=== PATIENT | female | born 1940 | race African-American/Black ===

== ENCOUNTER 2016-05-31 13:29 | Inpatient (IN) | payer MEDICARE, OTHER ==
[~2016-05-31] VITALS: Ht 157.5 cm; Wt 84.0 kg
[~2016-05-31 13:29] MED LIST: ACET-704 PO; ALPR0.5T6 PO; ASPI81TA2 PO; AZIT1PAC7 PO; BUDE10.2 IH; CHOL100013 PO; DEXT1DRO8 OU; GUAI120L35 PO; LEVO50TA5 PO; LISI-338 PO; NYST1000 PO; PANT40TA5 PO; POLY17PO3 PO; RANI150T2 PO; TRAM50TA PO; VENTOLIN HFA18 GM INH; WARF5TAB PO; WARF7.5T PO
[2016-05-31] MEDS: FENTANYL PF 100 MCG/2 ML VIAL. IV PRN ×2 (14:56→15:38)
[2016-05-31 15:15] LABS: BASO % 0 % (0-3); EOS % 1 % (0-3); HEMOGLOBIN 10.7 g/dL (12.0-15.5); LYMPH # 1.3 x10^3/uL (1.0-4.8); LYMPH % 22 % (24-48); MEAN CORPUSCULAR HEMOGLOBIN 32 pg (25-35); MEAN CORPUSCULAR HGB CONC 34 g/dL (31-37); MEAN CORPUSCULAR VOLUME 95 fL (79-100); MONO % 11 % (0-9); NEUT % 66 % (31-73); PLATELET COUNT 239 x10^3/uL (140-400); RED BLOOD COUNT 3.36 x10^6/uL (3.50-5.40); RED CELL DISTRIBUTION WIDTH 13.9 % (11.5-14.5); WHITE BLOOD COUNT 6.1 x10^3/uL (4.0-11.0)
[2016-05-31 15:24] LABS: INR 2.3 (0.8-1.1); PROTHROMBIN TIME PATIENT 24.3 SEC (11.7-14.0)
[2016-05-31 15:27] LABS: CREATININE 0.8 mg/dL (0.6-1.0); GFR 84.4; POTASSIUM 3.9 mmol/L (3.5-5.1)
[2016-05-31 15:33] LABS: ALBUMIN 3.4 g/dL (3.4-5.0); ALBUMIN/GLOBULIN RATIO 0.8 (1.0-1.7); TOTAL BILIRUBIN 0.4 mg/dL (0.2-1.0); TOTAL PROTEIN 7.5 g/dL (6.4-8.2)
--- NOTE | 2016-05-31 15:44 | RAD ---
CT head without contrast History: Left-sided facial pain for one day. Comparison: None. Procedure: Axial images are obtained of the head from the skull base through the vertex without IV contrast. One or more of the following individualized dose reduction techniques were utilized for the study: Automated exposure control Adjustment of mA and/or kV according to patient's size Use of iterative reconstruction technique. Findings: The ventricles and sulci are normal for the patient's age. No mass-effect, intracranial mass, midline shift, hemorrhage or obvious acute infarction is identified. Bilateral basal ganglia demonstrate physiologic calcifications. Basilar cisterns are patent. Bone windows demonstrate no significant calvarial abnormality. The visualized paranasal sinuses appear clear. Impression: No acute intracranial process.
--- NOTE | 2016-05-31 15:48 | RAD ---
CT neck without intravenous contrast History: Left-sided neck pain for one day. Comparison: None. Technique: Helical CT of the neck was performed without intravenous contrast. Axial, sagittal, and coronal reconstructions were obtained. One or more of the following individualized dose reduction techniques were utilized for the study: Automated exposure control Adjustment of mA and/or kV according to patient's size Use of iterative reconstruction technique. Findings: Evaluation of vascular structures and for lymphadenopathy is limited by lack of intravenous contrast. The airway is patent. Bilateral parotid and submandibular glands appear symmetric. Thyroid is not well seen. No neck lymphadenopathy is appreciated. No convincing neck soft tissue abnormality is seen. Multilevel degeneration is present with spine. There is reversal of the normal cervical lordosis. Impression: No acute abnormality identified in the neck..
--- NOTE | 2016-05-31 16:32 | PHYS DOC ---
Past Medical History Past Medical History: Asthma, DVT, Fibromyalgia, Hypertension, Hypothyroid Additional Past Medical Histor: ulcer Past Surgical History: Appendectomy, Knee Replacement, Tubal ligation, Other Additional Past Surgical Histo: ulcer, hernia Alcohol Use: None Drug Use: None Adult General Chief Complaint Chief Complaint: left face and neck pain HPI HPI Patient is a 76 year old female complaining of pain on the left side of her head, face, neck, and upper left shoulder, which she noticed when she woke up yesterday. She had inadvertently fallen asleep in the recliner chair on Wednesday night and she slept all night there, when she went to sleep her face and neck were hurting but when she woke up they were. She continued to have pain during the day yesterday, it worsened, and is more severe this morning. She denies any specific injury. She's never had this before. She denies fever or chills. It seems like it feels painful on the left side of her head, left cheek and ear, left side of the neck, and down into her upper left shoulder. She does not have pain going all the way down her left arm. It hurts more to move, to turn her head, to sit up, but it does not hurt more to take a breath. She has had some dental problems but states she has full upper dentures and partial on the lower. She hasn't had any worsening dental pain or problems lately, just plans to see a dentist. She states a penicillin allergy, it causes a rash. PCP Dr. Villegas at . Review of Systems Review of Systems Constitutional: Denies fever or chills [] Eyes: Denies change in visual acuity, redness, she has had some intermittent pain behind the left eye and actually saw her eye doctor for it but has not had it this week. HENT: Denies nasal congestion or sore throat [] Respiratory: Denies cough or shortness of breath [] Cardiovascular: Denies chest pain GI: Denies abdominal pain, nausea, vomiting, bloody stools or diarrhea [] : Denies dysuria or hematuria [] Musculoskeletal: Denies back pain or joint pain , neck pain as in history of present illness Integument: She has noted some swelling over her left cheek and a little bump under the skin Neurologic: Denies headache, focal weakness or sensory changes [] Current Medications Current Medications Current Medications Medications (Trade) Dose Ordered Sig/Sivan Start Time Stop Time Status Last Admin Dose Admin Fentanyl Citrate (Fentanyl 2ml Vial) 25 mcg PRN Q15MIN PRN 05/31/16 14:15 06/01/16 14:14 05/31/16 15:38 25 MCG Allergies Allergies Allergies Coded Allergies Type Severity Reaction Last Updated Verified Penicillins Allergy Severe Anaphylaxis 11/21/15 Yes diphenhydramine Allergy Severe Anaphylaxis 11/21/15 Yes ipratropium Allergy Severe Anaphylaxis 11/21/15 Yes meclizine Allergy Severe 11/21/15 Yes trazodone Allergy Severe Shortness of Air 11/21/15 Yes bacitracin Allergy Intermediate Rash 11/21/15 Yes gabapentin Allergy Intermediate Itching 11/21/15 Yes neomycin Allergy Intermediate Rash 11/21/15 Yes oxycodone Allergy Intermediate Nausea and Vomiting 11/21/15 Yes polymyxin B Allergy Intermediate Rash 11/21/15 Yes Physical Exam Physical Exam Constitutional: Well developed, well nourished, no acute distress, non-toxic appearance. Appears to be uncomfortable and when she tries to sit up on the cart she has obvious discomfort of the neck. HENT: Normocephalic, atraumatic, bilateral external ears normal, left EAC and left TM normal, oral exam unremarkable, upper dentures in place oropharynx moist , no oral exudates, nose normal. Left face over the zygoma appears to have a mild amount of swelling and redness and is moderately tender to light palpation. Eyes: PERRLA, EOMI, conjunctiva normal, no discharge. No periorbital swelling or cellulitis, no exophthalmos. Neck: No masses, no palpable lymphadenopathy, no muscle spasm or muscle abnormality on exam. Tender to palpation over the left neck and over the left trapezius. No cervical spine tenderness. Cardiovascular:Heart rate regular rhythm, no murmur [] Lungs & Thorax: Bilateral breath sounds clear to auscultation [] Abdomen: Bowel sounds normal, soft, no tenderness, no masses, no pulsatile masses. [] Skin: Warm, dry, no erythema, no rash. [] Extremities: No tenderness, no cyanosis, no clubbing, ROM intact, no edema. [] Neurologic: Alert and oriented X 3, normal motor function, normal sensory function, no focal deficits noted. [] Current Patient Data Vital Signs Vital Signs Date Time Temp Pulse Resp B/P Pulse Ox O2 Delivery O2 Flow Rate FiO2 05/31/16 15:38 19 97 Room Air 05/31/16 15:30 166/77 05/31/16 14:30 86 05/31/16 13:49 98.2 98.2 Lab Values Laboratory Tests Test 05/31/16 15:00 White Blood Count 6.1x10^3/uL (4.0-11.0) Red Blood Count 3.36x10^6/uL (3.50-5.40) L Hemoglobin 10.7g/dL (12.0-15.5) L Hematocrit 32.0% (36.0-47.0) L Mean Corpuscular Volume 95fL (79-100) Mean Corpuscular Hemoglobin 32pg (25-35) Mean Corpuscular Hemoglobin Concent 34g/dL (31-37) Red Cell Distribution Width 13.9% (11.5-14.5) Platelet Count 239x10^3/uL (140-400) Neutrophils (%) (Auto) 66% (31-73) Lymphocytes (%) (Auto) 22% (24-48) L Monocytes (%) (Auto) 11% (0-9) H Eosinophils (%) (Auto) 1% (0-3) Basophils (%) (Auto) 0% (0-3) Neutrophils # (Auto) 4.0x10^3uL (1.8-7.7) Lymphocytes # (Auto) 1.3x10^3/uL (1.0-4.8) Monocytes # (Auto) 0.7x10^3/uL (0.0-1.1) Eosinophils # (Auto) 0.1x10^3/uL (0.0-0.7) Basophils # (Auto) 0.0x10^3/uL (0.0-0.2) Erythrocyte Sedimentation Rate 30 (0-25) H Prothrombin Time 24.3SEC (11.7-14.0) H Prothrombin Time INR 2.3 (0.8-1.1) H Sodium Level 140mmol/L (136-145) Potassium Level 3.9mmol/L (3.5-5.1) Chloride Level 105mmol/L (98-107) Carbon Dioxide Level 25mmol/L (21-32) Anion Gap 10 (6-14) Blood Urea Nitrogen 12mg/dL (7-20) Creatinine 0.8mg/dL (0.6-1.0) Estimated GFR (Cockcroft-Gault) 84.4 BUN/Creatinine Ratio 15 (6-20) Glucose Level 105mg/dL (70-99) H Calcium Level 9.0mg/dL (8.5-10.1) Total Bilirubin 0.4mg/dL (0.2-1.0) Aspartate Amino Transferase (AST) 18U/L (15-37) Alanine Aminotransferase (ALT) 15U/L (14-59) Alkaline Phosphatase 58U/L (46-116) Total Protein 7.5g/dL (6.4-8.2) Albumin 3.4g/dL (3.4-5.0) Albumin/Globulin Ratio 0.8 (1.0-1.7) L Laboratory Tests 05/31/16 15:00 Laboratory Tests 05/31/16 15:00 EKG EKG [] Radiology/Procedures Radiology/Procedures CT scan of the head and soft tissues of the neck read by the radiologist. No acute findings. I spoke with the radiologist, Dr. Acevedo, and discussed the area in question, the patient's left zygoma area, and he does not see anything of concern in that area. [] Course & Med Decision Making Course & Med Decision Making Pertinent Labs and Imaging studies reviewed. (See chart for details) 76-year-old female who woke up yesterday morning with pain in the left side of the face, left side of the neck, and upper left shoulder, and the pain has worsened since it began yesterday morning, and is now pretty significant pain. She does have some swelling and redness, and significant tenderness, of the area , which makes me concerned for possible cellulitis. She is afebrile with a normal white count but she is experiencing fairly significant amount of pain and I believe would be appropriately treated with IV antibiotics and IV pain control. The patient is agreeable to that plan. I spoke with Dr. Myles , [facility], who will admit the patient. I wrote bridge orders. The patient is allergic to penicillin so I gave her a first dose of vancomycin. [] Dragon Disclaimer Dragon Disclaimer This electronic medical record was generated, in whole or in part, using a voice recognition dictation system. Departure Departure Impression: Primary Impression: Facial cellulitis Disposition: ADMITTED INPATIENT Admitting Physician: Other Condition: STABLE Referrals: CANDIS VILLEGAS (PCP) LENIN AMIN MD May 31, 2016 16:32
[2016-05-31] MEDS ORDERED: VANCOMYCIN 1GM IVPB FOR OMNI 250 ML IV ONE (16:45)
[2016-05-31] MEDS ORDERED: FENTANYL PF 100 MCG/2 ML VIAL. IV ONE (16:45)
[2016-05-31] MEDS ORDERED: FENTANYL PF 100 MCG/2 ML VIAL. IV PRN (17:00)
[2016-05-31] MEDS ORDERED: VANCOMYCIN 2 GM in IV NORMAL SALINE 500ML BAG 500 ML IV ONE (18:30)
[2016-05-31] MEDS ORDERED: hydrALAZINE 20 MG/ML VIAL. IVP PRN (18:45)
[2016-05-31] MEDS ORDERED: ALBUTEROL SULFATE 2.5 MG/3 ML NEBU. NEB PRN (18:45)
[2016-05-31] MEDS ORDERED: ONDANSETRON PF 4 MG/2 ML VIAL. IV PRN (18:45)
[2016-05-31 19:00] VITALS: BP 150/77
[2016-05-31] MEDS ORDERED: FAMOTIDINE 20 MG/2 ML VIAL IVP ONE (21:00)
[2016-05-31] MEDS ORDERED: methylPREDNISolone SOD SUCC PF 40 MG/ML VIAL. IV ONE (21:00)
--- NOTE | 2016-05-31 21:24 | PDOC1 ---
History and Physical Past Medical History Past Medical History Past Medical History: Asthma, DVT, Fibromyalgia, Hypertension, Hypothyroid Past Surgical History: Appendectomy, Knee Replacement, Tubal ligation, Other Cardiovascular: HTN, Hyperlipidemia Pulmonary: Asthma GI: Constipation, GERD, Irritable bowel disease, Peptic Ulcer disease Heme/Onc: Anemia NOS, Other Psych: Anxiety, Depression Endocrine: Hypothyroidism, Osteopenia, Other Past Surgical History Past Surgical History: Total knee replacement, Other Family History Family History: Diabetes, Hypertension Social History ALCOHOL: none Drugs: None Current Problem List Problem List Problems Medical Problems: (1) Facial cellulitis Status: Acute Current Medications Current Medications Current Medications Medications (Trade) Dose Ordered Sig/Sivan Start Time Stop Time Status Last Admin Dose Admin Acetaminophen (Tylenol) 325 mg PRN Q6HRS PRN 05/31/16 18:45 Albuterol Sulfate (Ventolin Neb Soln) 2.5 mg PRN Q4HRS PRN 05/31/16 18:45 Alprazolam (Xanax) 0.5 mg DAILY PRN 05/31/16 21:30 UNV Famotidine (Pepcid) 20 mg 1X ONCE 05/31/16 21:00 05/31/16 21:01 DC 05/31/16 20:53 20 MG Fentanyl Citrate (Fentanyl 2ml Vial) 50 mcg 1X ONCE 05/31/16 16:45 05/31/16 16:46 DC 05/31/16 18:42 50 MCG Fentanyl Citrate 25 mcg 25 mcg PRN Q15MIN PRN 05/31/16 14:15 06/01/16 14:14 05/31/16 15:38 25 MCG Fentanyl Citrate 50 mcg 50 mcg PRN Q2HR PRN 05/31/16 17:00 06/01/16 16:59 Hydralazine HCl (Apresoline) 10 mg PRN Q4HRS PRN 05/31/16 18:45 Levothyroxine Sodium (Synthroid) 50 mcg DAILY 06/01/16 09:00 UNV Lisinopril (Prinivil) 5 mg DAILY 06/01/16 09:00 UNV Methylprednisolone Sodium Succinate (Solu-Medrol 40mg Vial) 40 mg 1X ONCE 05/31/16 21:00 05/31/16 21:01 DC 05/31/16 20:53 40 MG Non-Formulary Medication 1 tab BID 06/01/16 09:00 UNV Ondansetron HCl (Zofran) 4 mg PRN Q8HRS PRN 05/31/16 18:45 Polyethylene Glycol (miraLAX PACKET) 17 gm DAILY 06/01/16 09:00 UNV Vancomycin HCl 250 ml @ 250 mls/hr 1X ONCE 05/31/16 16:45 05/31/16 17:44 Cancel Vancomycin HCl/ Sodium Chloride (Iv Sodium Chloride 0.9% 500ml Bag) 500 ml @ 250 mls/hr 1X ONCE 05/31/16 18:30 05/31/16 20:29 DC 05/31/16 18:33 250 MLS/HR Allergies Allergies Allergies Coded Allergies Type Severity Reaction Last Updated Verified Penicillins Allergy Severe Anaphylaxis 11/21/15 Yes diphenhydramine Allergy Severe Anaphylaxis 11/21/15 Yes ipratropium Allergy Severe Anaphylaxis 11/21/15 Yes meclizine Allergy Severe 11/21/15 Yes trazodone Allergy Severe Shortness of Air 11/21/15 Yes bacitracin Allergy Intermediate Rash 11/21/15 Yes gabapentin Allergy Intermediate Itching 11/21/15 Yes neomycin Allergy Intermediate Rash 11/21/15 Yes oxycodone Allergy Intermediate Nausea and Vomiting 11/21/15 Yes polymyxin B Allergy Intermediate Rash 11/21/15 Yes ROS Review of System CONSTITUTIONAL: No fever or chills EYES: No recent changes SKIN: left facial rash CARDIOVASCULAR: No chest pain, syncope, palpitations, or edema RESPIRATORY: No SOB or cough GASTROINTESTINAL: No nausea, vomiting or abdominal pain NEUROLOGICAL: No headaches or weakness ENDOCRINE: No cold or heat intolerance GENITOURINARY: No urgency or frequency of urination MUSCULOSKELETAL: No back pain or joint pain LYMPHATICS: No enlarged lymph nodes PSYCHIATRIC: No anxiety or depression Physical Exam Physical Exam GEN.: No apparent distress. Alert and oriented. HEENT: Head is normocephalic, atraumatic, Face: left facial salmon colored rash, NECK: Supple. no JVD LUNGS: Clear to auscultation. normal airflow HEART: RRR, S1, S2 present. Peripheral pulses intact ABDOMEN: Soft, nontender. Positive bowel sounds. EXTREMITIES: Without any cyanosis. NEUROLOGIC: Normal speech, normal tone PSYCHIATRIC: Normal affect, normal mood. SKIN: No ulcerations Vitals Vitals Vital Signs Date Time Temp Pulse Resp B/P Pulse Ox O2 Delivery O2 Flow Rate FiO2 05/31/16 19:00 98.1 87 18 150/77 100 Room Air 98.1 Labs Labs Laboratory Tests Test 05/31/16 15:00 White Blood Count 6.1x10^3/uL (4.0-11.0) Red Blood Count 3.36x10^6/uL (3.50-5.40) Hemoglobin 10.7g/dL (12.0-15.5) Hematocrit 32.0% (36.0-47.0) Mean Corpuscular Volume 95fL (79-100) Mean Corpuscular Hemoglobin 32pg (25-35) Mean Corpuscular Hemoglobin Concent 34g/dL (31-37) Red Cell Distribution Width 13.9% (11.5-14.5) Platelet Count 239x10^3/uL (140-400) Neutrophils (%) (Auto) 66% (31-73) Lymphocytes (%) (Auto) 22% (24-48) Monocytes (%) (Auto) 11% (0-9) Eosinophils (%) (Auto) 1% (0-3) Basophils (%) (Auto) 0% (0-3) Neutrophils # (Auto) 4.0x10^3uL (1.8-7.7) Lymphocytes # (Auto) 1.3x10^3/uL (1.0-4.8) Monocytes # (Auto) 0.7x10^3/uL (0.0-1.1) Eosinophils # (Auto) 0.1x10^3/uL (0.0-0.7) Basophils # (Auto) 0.0x10^3/uL (0.0-0.2) Erythrocyte Sedimentation Rate 30 (0-25) Prothrombin Time 24.3SEC (11.7-14.0) Prothromb Time International Ratio 2.3 (0.8-1.1) Sodium Level 140mmol/L (136-145) Potassium Level 3.9mmol/L (3.5-5.1) Chloride Level 105mmol/L (98-107) Carbon Dioxide Level 25mmol/L (21-32) Anion Gap 10 (6-14) Blood Urea Nitrogen 12mg/dL (7-20) Creatinine 0.8mg/dL (0.6-1.0) Estimated GFR (Cockcroft-Gault) 84.4 BUN/Creatinine Ratio 15 (6-20) Glucose Level 105mg/dL (70-99) Calcium Level 9.0mg/dL (8.5-10.1) Total Bilirubin 0.4mg/dL (0.2-1.0) Aspartate Amino Transf (AST/SGOT) 18U/L (15-37) Alanine Aminotransferase (ALT/SGPT) 15U/L (14-59) Alkaline Phosphatase 58U/L (46-116) Total Protein 7.5g/dL (6.4-8.2) Albumin 3.4g/dL (3.4-5.0) Albumin/Globulin Ratio 0.8 (1.0-1.7) Laboratory Tests Test 05/31/16 15:00 White Blood Count 6.1x10^3/uL (4.0-11.0) Red Blood Count 3.36x10^6/uL (3.50-5.40) Hemoglobin 10.7g/dL (12.0-15.5) Hematocrit 32.0% (36.0-47.0) Mean Corpuscular Volume 95fL (79-100) Mean Corpuscular Hemoglobin 32pg (25-35) Mean Corpuscular Hemoglobin Concent 34g/dL (31-37) Red Cell Distribution Width 13.9% (11.5-14.5) Platelet Count 239x10^3/uL (140-400) Neutrophils (%) (Auto) 66% (31-73) Lymphocytes (%) (Auto) 22% (24-48) Monocytes (%) (Auto) 11% (0-9) Eosinophils (%) (Auto) 1% (0-3) Basophils (%) (Auto) 0% (0-3) Neutrophils # (Auto) 4.0x10^3uL (1.8-7.7) Lymphocytes # (Auto) 1.3x10^3/uL (1.0-4.8) Monocytes # (Auto) 0.7x10^3/uL (0.0-1.1) Eosinophils # (Auto) 0.1x10^3/uL (0.0-0.7) Basophils # (Auto) 0.0x10^3/uL (0.0-0.2) Erythrocyte Sedimentation Rate 30 (0-25) Prothrombin Time 24.3SEC (11.7-14.0) Prothromb Time International Ratio 2.3 (0.8-1.1) Sodium Level 140mmol/L (136-145) Potassium Level 3.9mmol/L (3.5-5.1) Chloride Level 105mmol/L (98-107) Carbon Dioxide Level 25mmol/L (21-32) Anion Gap 10 (6-14) Blood Urea Nitrogen 12mg/dL (7-20) Creatinine 0.8mg/dL (0.6-1.0) Estimated GFR (Cockcroft-Gault) 84.4 BUN/Creatinine Ratio 15 (6-20) Glucose Level 105mg/dL (70-99) Calcium Level 9.0mg/dL (8.5-10.1) Total Bilirubin 0.4mg/dL (0.2-1.0) Aspartate Amino Transf (AST/SGOT) 18U/L (15-37) Alanine Aminotransferase (ALT/SGPT) 15U/L (14-59) Alkaline Phosphatase 58U/L (46-116) Total Protein 7.5g/dL (6.4-8.2) Albumin 3.4g/dL (3.4-5.0) Albumin/Globulin Ratio 0.8 (1.0-1.7) VTE Prophylaxis Ordered VTE Prophylaxis Devices: Yes VTE Pharmacological Prophylaxi: Yes ERNESTO RO MD May 31, 2016 21:24
[2016-05-31] MEDS: FAMOTIDINE 20 MG TABLET. PO SCH (22:00)
[2016-05-31] MEDS: POLYVINYL ALCOHOL 1.4% OPHTH SOLUTION 15ML BOTTLE. OU SCH (22:00)
--- NOTE | 2016-05-31 22:23 | HP ---
ADMIT DATE: 05/31/2016 CHIEF COMPLAINT: Left face and neck pain. 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 Initially she was in the impression that she slept on her left side of the face and noted to have that redness, however redness did not go away and she noted to have some pain and pain getting worse with movement and initially she had this redness on her left side of the face, neck and shoulder but at the time of my examination it is mostly located on the left side of the face. She denies any trauma, fever, chills, nausea, vomiting or dental problems. Her dentition looks okay. No obvious symptoms such as caries tooth, however patient is on warfarin for DVT and questionable PE. PAST MEDICAL HISTORY, REVIEW OF SYSTEMS, PHYSICAL EXAMINATION: Please see my electronic H and P. LABORATORY REVIEW: WBC 6.1, hemoglobin is 10.7, MCV is 95, platelets are 239, ESR is 30. Chemistry: sodium is 140, potassium 3.9, chloride is 105, anion gap 10, creatinine is 0.8, glucose is 105, PT is 24.3, INR 2.3. IMAGING STUDIES: Head CT showed no acute intracranial process seen. Soft tissue neck CT no acute abnormality of the neck. ASSESSMENT AND PLAN: 1. Left side facial red/salmon color rash unclear etiology, possible related to infection versus warfarin related. 2. Hypertension. 3. Fibromyalgia. 4. DVT x 2 and questionable PE. 5. Hypothyroidism. 6. Asthma history. PLAN: 1. The patient was admitted to the hospital for further evaluation and treatment and she received vancomycin. Upon completion she developed some increased itching and "swelling like feeling, however she did not compromise her airway. She did receive Pepcid and Solu-Medrol. I am not able to give her Benadryl due to prior history of allergies to Benadryl. 2. I will hold her Coumadin today and ask oncology to see her and recommendations regarding continuation of oral anticoagulation. Patient was not able to provide any good history about her past workup regarding DVTs. 3. change antibiotics to doxycycline. 4. It is less likely infection as I did not see any WBC or fever or any inciting factors such as a trauma or an insect bite. 5. Home medications for hypertension. Continue on p.r.n. hydralazine if systolic blood pressure more than 160. 6. We will continue Synthroid for hypothyroidism. 7. No DVT prophylaxis. 8. The patient's symptoms will get better. Continue her Coumadin. 9. Pain control with hydrocodone and p.r.n. fentanyl. ERNESTO RO MD DR: RENÉ/[email or web address] JOB#: [id number] / [id number]
[2016-05-31] MEDS: DOXYCYCLINE HYCLATE 100 MG in IV DEXTROSE 5% 100 ML IV SCH (22:42)
[2016-05-31 23:00] VITALS: BP 125/66
[2016-05-31] MEDS: ACETAMINOPHEN 325 MG TABLET. PO PRN (23:01)
[2016-05-31] MEDS: ALPRAZOLAM 0.5 MG TABLET PO PRN (23:01)
[2016-06-01 03:00] VITALS: BP 106/56
[2016-06-01 05:24] LABS: BASO % 0 % (0-3); EOS % 0 % (0-3); HEMATOCRIT 32.1 % (36.0-47.0); HEMOGLOBIN 10.6 g/dL (12.0-15.5); LYMPH # 0.6 x10^3/uL (1.0-4.8); LYMPH % 14 % (24-48); MEAN CORPUSCULAR HEMOGLOBIN 33 pg (25-35); MEAN CORPUSCULAR HGB CONC 33 g/dL (31-37); MEAN CORPUSCULAR VOLUME 99 fL (79-100); MONO % 2 % (0-9); NEUT % 84 % (31-73); PLATELET COUNT 211 x10^3/uL (140-400); RED BLOOD COUNT 3.25 x10^6/uL (3.50-5.40); WHITE BLOOD COUNT 4.6 x10^3/uL (4.0-11.0)
[2016-06-01 05:41] LABS: CALCIUM 9.1 mg/dL (8.5-10.1); CREATININE 0.8 mg/dL (0.6-1.0); GFR 84.4; POTASSIUM 4.3 mmol/L (3.5-5.1)
[2016-06-01] MEDS: LEVOTHYROXINE 50 MCG TABLET PO SCH (05:50)
[2016-06-01 07:00] VITALS: BP 127/60
--- NOTE | 2016-06-01 08:11 | ACF ---
Admission Forms Criteria CELLULITIS Clinical Indications for Admission to Inpatient Care (Place 'X' for any and all applicable criteria): Admission is indicated for ANY ONE of the following(1)(2)(3)(4)(5): [ ]I. Limb-threatening infection [ ]II. High-risk comorbid condition as indicated by ANY ONE of the following: [ ]a) Uncontrolled diabetes (eg, HbA1c greater than 10% (0.1)) [ ]b) Cirrhosis [ ]c) Neutropenia [ ]d) Asplenia [ ]e) Immunosuppression [ ]f) Symptomatic heart failure [ ]III. Failure of outpatient therapy as indicated by ALL of the following: [ ]a) Progression or no improvement after adequate trial (minimum of 48 hours, with longer period for stable lower extremity infection) [ ]b) Adequate antibiotic regimen as indicated by use of ANY ONE of the following: [ ]i) First-generation cephalosporin (e.g., cephalexin) [ ]ii) Antistaphylococcal penicillin (e.g., dicloxacillin) [ ]iii) Penicillin-allergic patient regimen (clindamycin, extended-spectrum fluoroquinolone, or doxycycline) [ ]iv) Resistant organism (eg, methicillin-resistant Staphylococcus aureus) regimen (6) [ ]c) Outpatient intravenous therapy regimen is not appropriate due to ANY ONE of the following. (7)(8)(9)(10): [ ]i) It was tried and was not successful (eg, progression of infection). [ ]ii) It is not available or cannot be arranged in a clinically appropriate time frame (e.g., the next day). [ ]iii) Clinical presentation (eg, acuity of infection, rapidity of progression, confirmed or suspected bacteremia) is judged to require ALL of the following: [ ]1) Immediate initiation of intravenous therapy ( eg, cannot wait for next day) [ ]2) Intensity of patient monitoring and observation (eg, vital sign measurement, checks for infection progression) that cannot be provided at other than inpatient level of care [ ]IV. Mental status changes [ ]V. Bacteremia [ ]. Hemodynamic instability [ ]VII. Suspected necrotizing soft tissue infection (e.g., gas in tissue)(11)( 12) [ ]VIII. Orbital infection (13)(14) [ ]IX. Associated surgical procedure (e.g., abscess drainage, debridement) not amenable to outpatient, emergency department, or observation care [ ]X. Cutaneous gangrene [ ]XI. High fever (temperature greater than 39.5 degrees C (103.1 degrees F) (oral)) not responsive to outpatient, emergency department, or observation care therapy [X]XIII. Inpatient admission required rather than observation care (Also use Cellulitis: Observation Care as appropriate) because of ANY ONE of the following : [ ]a) Periorbital or perineal infection that is severe or worsening [ ]b) Severe pain requiring acute inpatient management [ ]c) IV fluid to replace significant ongoing (e.g., for over 24 hours) losses (greater than 3L/m2 per day) [ ]d) Compartment syndrome monitoring (17) [ ]e) Strict or protective (eg, laminar flow) isolation [ ]f) Urgent debridement or skin grafting [ ]g) Bone or joint debridement [ ]h) Immediate inpatient surgery [X]i) Other condition, treatment or monitoring requiring inpatient admission Extended stay beyond goal length of stay may be needed for (1)(18): [ ]a) Necrotizing soft tissue infection or fasciitis [ ]b) Gram-negative infection [ ]c) Methicillin-resistant Staphylococcal aureus (MRSA) infection [ ]d) Peripheral venous insufficiency with cellulitis [ ]e) Extensive edema [ ]f) Sepsis or continued Hemodynamic instability [ ]g) Continued high fever or mental status change [ ]h) Bacteremia [ ]i) Active serious comorbid conditions ( eg, heart failure, renal insufficiency) The original [employer] content created by [employer] has been revised. The portions of the content which have been revised are identified through the use of italic text or in bold, and [facility] has neither reviewed nor approved the modified material. All other unmodified content is copyright [facility] Please see references footnoted in the original [facility] edition 2016 Admission Criteria Met?: Yes CARLA ZULETA Jun 01, 2016 08:11
[2016-06-01] MEDS: FAMOTIDINE 20 MG TABLET. PO SCH ×2 (08:44→20:44)
[2016-06-01] MEDS: CHOLECALCIFEROL (VITAMIN D3) 1,000 UNIT TABLET PO SCH (08:44)
[2016-06-01] MEDS: POLYVINYL ALCOHOL 1.4% OPHTH SOLUTION 15ML BOTTLE. OU SCH ×2 (08:45→20:43)
[2016-06-01] MEDS: POLYETHYLENE GLYCOL 3350 17 GM PACKET. PO SCH (08:51)
[2016-06-01] MEDS ORDERED: LISINOPRIL 5 MG TABLET. PO SCH ×2 (09:00→21:00)
[2016-06-01] MEDS ORDERED: NON FORMULARY ITEM (Albuterol Sulfate (Ventolin Hfa Inhaler) 2 PUFF) INH SCH (09:00)
[2016-06-01] MEDS: DOXYCYCLINE HYCLATE 100 MG in IV DEXTROSE 5% 100 ML IV SCH (09:00)
[2016-06-01 11:00] VITALS: BP 138/71
[2016-06-01] MEDS: ACETAMINOPHEN 325 MG TABLET. PO PRN ×2 (12:35→20:43)
[2016-06-01] MEDS: ALBUTEROL SULFATE 2.5 MG/3 ML NEBU. NEB SCH ×3 (12:57→19:22)
[2016-06-01] MEDS ORDERED: ANTI-COAG MONITOR BY PHARMACY. MC PRN (13:45)
--- NOTE | 2016-06-01 13:48 | PDOC ---
PROGRESS NOTES Chief Complaint Chief Complaint - Facial cellulitis - Hx DVT X2, questionable PE - HTN - Hypothyroidism - Fibromyalgia - Hx PUD - Asthma History of Present Illness History of Present Illness 76 year old female examined while seated in bed this morning. She remains concerned about the "rash" on her face, but states her pain has decreased. She was concerned when discussing her lab results, stating she adamantly believed no blood had been drawn from her today. This was discussed with nursing, who also stated that there was a blood draw taken from patient. Vitals Vitals Vital Signs Date Time Temp Pulse Resp B/P Pulse Ox O2 Delivery O2 Flow Rate FiO2 06/01/16 12:57 99 Room Air 06/01/16 11:00 97.4 70 16 138/71 97.4 Physical Exam General: Alert, Oriented X3, Cooperative, Other (Anxious, Preoccupied with lab results) Heart: Regular rate, Other (Grade 3/6 systolic ejection murmur) Lungs: Clear, Other (No wheezes or crackles) Abdomen: Normal bowel sounds, Soft, No tenderness Extremities: No clubbing, No cyanosis Skin: No breakdown, Other (Facial redness/rash ) Labs LABS Laboratory Tests Test 05/31/16 15:00 05/31/16 21:00 06/01/16 04:30 White Blood Count 6.1x10^3/uL (4.0-11.0) 4.6x10^3/uL (4.0-11.0) Red Blood Count 3.36x10^6/uL (3.50-5.40) 3.25x10^6/uL (3.50-5.40) Hemoglobin 10.7g/dL (12.0-15.5) 10.6g/dL (12.0-15.5) Hematocrit 32.0% (36.0-47.0) 32.1% (36.0-47.0) Mean Corpuscular Volume 95fL (79-100) 99fL (79-100) Mean Corpuscular Hemoglobin 32pg (25-35) 33pg (25-35) Mean Corpuscular Hemoglobin Concent 34g/dL (31-37) 33g/dL (31-37) Red Cell Distribution Width 13.9% (11.5-14.5) 14.0% (11.5-14.5) Platelet Count 239x10^3/uL (140-400) 211x10^3/uL (140-400) Neutrophils (%) (Auto) 66% (31-73) 84% (31-73) Lymphocytes (%) (Auto) 22% (24-48) 14% (24-48) Monocytes (%) (Auto) 11% (0-9) 2% (0-9) Eosinophils (%) (Auto) 1% (0-3) 0% (0-3) Basophils (%) (Auto) 0% (0-3) 0% (0-3) Neutrophils # (Auto) 4.0x10^3uL (1.8-7.7) 3.8x10^3uL (1.8-7.7) Lymphocytes # (Auto) 1.3x10^3/uL (1.0-4.8) 0.6x10^3/uL (1.0-4.8) Monocytes # (Auto) 0.7x10^3/uL (0.0-1.1) 0.1x10^3/uL (0.0-1.1) Eosinophils # (Auto) 0.1x10^3/uL (0.0-0.7) 0.0x10^3/uL (0.0-0.7) Basophils # (Auto) 0.0x10^3/uL (0.0-0.2) 0.0x10^3/uL (0.0-0.2) Erythrocyte Sedimentation Rate 30 (0-25) Prothrombin Time 24.3SEC (11.7-14.0) Prothromb Time International Ratio 2.3 (0.8-1.1) Sodium Level 140mmol/L (136-145) 140mmol/L (136-145) Potassium Level 3.9mmol/L (3.5-5.1) 4.3mmol/L (3.5-5.1) Chloride Level 105mmol/L (98-107) 107mmol/L (98-107) Carbon Dioxide Level 25mmol/L (21-32) 23mmol/L (21-32) Anion Gap 10 (6-14) 10 (6-14) Blood Urea Nitrogen 12mg/dL (7-20) 12mg/dL (7-20) Creatinine 0.8mg/dL (0.6-1.0) 0.8mg/dL (0.6-1.0) Estimated GFR (Cockcroft-Gault) 84.4 84.4 BUN/Creatinine Ratio 15 (6-20) Glucose Level 105mg/dL (70-99) 163mg/dL (70-99) Calcium Level 9.0mg/dL (8.5-10.1) 9.1mg/dL (8.5-10.1) Total Bilirubin 0.4mg/dL (0.2-1.0) Aspartate Amino Transf (AST/SGOT) 18U/L (15-37) Alanine Aminotransferase (ALT/SGPT) 15U/L (14-59) Alkaline Phosphatase 58U/L (46-116) Total Protein 7.5g/dL (6.4-8.2) Albumin 3.4g/dL (3.4-5.0) Albumin/Globulin Ratio 0.8 (1.0-1.7) Nasal Screen MRSA (PCR) Positive (Negative) Review of Systems Review of Systems Face and neck pain improved "Rash" persists on face Chronic pain complaints Assessment and Plan Assessmemt and Plan Assessment: - Facial cellulitis - Hx DVT X2, questionable PE - HTN - Hypothyroidism - Fibromyalgia - Hx PUD - Asthma Plan: - Consulted Dr Tamayo for possible cellulitis vs rash. Cellulitis believed more likely and recommended continuing oral anticoagulant - Per Dr Tamayo, will use Eliquis as DVT ppx - Continue Pepcid and Solumedrol - Continue Doxycycline - Manage BP, use Hydralazine prn - Continue home medications - Pain control with Hydrocodone and Fentanyl - PT/OT as tolerated - Recheck labs - Appreciate subspecialty input Problems: Comment Review of Relevant I have reviewed the following items nigel (where applicable) has been applied. Labs Laboratory Tests Test 05/31/16 15:00 05/31/16 21:00 06/01/16 04:30 White Blood Count 6.1x10^3/uL (4.0-11.0) 4.6x10^3/uL (4.0-11.0) Red Blood Count 3.36x10^6/uL (3.50-5.40) 3.25x10^6/uL (3.50-5.40) Hemoglobin 10.7g/dL (12.0-15.5) 10.6g/dL (12.0-15.5) Hematocrit 32.0% (36.0-47.0) 32.1% (36.0-47.0) Mean Corpuscular Volume 95fL (79-100) 99fL (79-100) Mean Corpuscular Hemoglobin 32pg (25-35) 33pg (25-35) Mean Corpuscular Hemoglobin Concent 34g/dL (31-37) 33g/dL (31-37) Red Cell Distribution Width 13.9% (11.5-14.5) 14.0% (11.5-14.5) Platelet Count 239x10^3/uL (140-400) 211x10^3/uL (140-400) Neutrophils (%) (Auto) 66% (31-73) 84% (31-73) Lymphocytes (%) (Auto) 22% (24-48) 14% (24-48) Monocytes (%) (Auto) 11% (0-9) 2% (0-9) Eosinophils (%) (Auto) 1% (0-3) 0% (0-3) Basophils (%) (Auto) 0% (0-3) 0% (0-3) Neutrophils # (Auto) 4.0x10^3uL (1.8-7.7) 3.8x10^3uL (1.8-7.7) Lymphocytes # (Auto) 1.3x10^3/uL (1.0-4.8) 0.6x10^3/uL (1.0-4.8) Monocytes # (Auto) 0.7x10^3/uL (0.0-1.1) 0.1x10^3/uL (0.0-1.1) Eosinophils # (Auto) 0.1x10^3/uL (0.0-0.7) 0.0x10^3/uL (0.0-0.7) Basophils # (Auto) 0.0x10^3/uL (0.0-0.2) 0.0x10^3/uL (0.0-0.2) Erythrocyte Sedimentation Rate 30 (0-25) Prothrombin Time 24.3SEC (11.7-14.0) Prothromb Time International Ratio 2.3 (0.8-1.1) Sodium Level 140mmol/L (136-145) 140mmol/L (136-145) Potassium Level 3.9mmol/L (3.5-5.1) 4.3mmol/L (3.5-5.1) Chloride Level 105mmol/L (98-107) 107mmol/L (98-107) Carbon Dioxide Level 25mmol/L (21-32) 23mmol/L (21-32) Anion Gap 10 (6-14) 10 (6-14) Blood Urea Nitrogen 12mg/dL (7-20) 12mg/dL (7-20) Creatinine 0.8mg/dL (0.6-1.0) 0.8mg/dL (0.6-1.0) Estimated GFR (Cockcroft-Gault) 84.4 84.4 BUN/Creatinine Ratio 15 (6-20) Glucose Level 105mg/dL (70-99) 163mg/dL (70-99) Calcium Level 9.0mg/dL (8.5-10.1) 9.1mg/dL (8.5-10.1) Total Bilirubin 0.4mg/dL (0.2-1.0) Aspartate Amino Transf (AST/SGOT) 18U/L (15-37) Alanine Aminotransferase (ALT/SGPT) 15U/L (14-59) Alkaline Phosphatase 58U/L (46-116) Total Protein 7.5g/dL (6.4-8.2) Albumin 3.4g/dL (3.4-5.0) Albumin/Globulin Ratio 0.8 (1.0-1.7) Nasal Screen MRSA (PCR) Positive (Negative) Laboratory Tests Test 05/31/16 15:00 05/31/16 21:00 06/01/16 04:30 White Blood Count 6.1x10^3/uL (4.0-11.0) 4.6x10^3/uL (4.0-11.0) Red Blood Count 3.36x10^6/uL (3.50-5.40) 3.25x10^6/uL (3.50-5.40) Hemoglobin 10.7g/dL (12.0-15.5) 10.6g/dL (12.0-15.5) Hematocrit 32.0% (36.0-47.0) 32.1% (36.0-47.0) Mean Corpuscular Volume 95fL (79-100) 99fL (79-100) Mean Corpuscular Hemoglobin 32pg (25-35) 33pg (25-35) Mean Corpuscular Hemoglobin Concent 34g/dL (31-37) 33g/dL (31-37) Red Cell Distribution Width 13.9% (11.5-14.5) 14.0% (11.5-14.5) Platelet Count 239x10^3/uL (140-400) 211x10^3/uL (140-400) Neutrophils (%) (Auto) 66% (31-73) 84% (31-73) Lymphocytes (%) (Auto) 22% (24-48) 14% (24-48) Monocytes (%) (Auto) 11% (0-9) 2% (0-9) Eosinophils (%) (Auto) 1% (0-3) 0% (0-3) Basophils (%) (Auto) 0% (0-3) 0% (0-3) Neutrophils # (Auto) 4.0x10^3uL (1.8-7.7) 3.8x10^3uL (1.8-7.7) Lymphocytes # (Auto) 1.3x10^3/uL (1.0-4.8) 0.6x10^3/uL (1.0-4.8) Monocytes # (Auto) 0.7x10^3/uL (0.0-1.1) 0.1x10^3/uL (0.0-1.1) Eosinophils # (Auto) 0.1x10^3/uL (0.0-0.7) 0.0x10^3/uL (0.0-0.7) Basophils # (Auto) 0.0x10^3/uL (0.0-0.2) 0.0x10^3/uL (0.0-0.2) Erythrocyte Sedimentation Rate 30 (0-25) Prothrombin Time 24.3SEC (11.7-14.0) Prothromb Time International Ratio 2.3 (0.8-1.1) Sodium Level 140mmol/L (136-145) 140mmol/L (136-145) Potassium Level 3.9mmol/L (3.5-5.1) 4.3mmol/L (3.5-5.1) Chloride Level 105mmol/L (98-107) 107mmol/L (98-107) Carbon Dioxide Level 25mmol/L (21-32) 23mmol/L (21-32) Anion Gap 10 (6-14) 10 (6-14) Blood Urea Nitrogen 12mg/dL (7-20) 12mg/dL (7-20) Creatinine 0.8mg/dL (0.6-1.0) 0.8mg/dL (0.6-1.0) Estimated GFR (Cockcroft-Gault) 84.4 84.4 BUN/Creatinine Ratio 15 (6-20) Glucose Level 105mg/dL (70-99) 163mg/dL (70-99) Calcium Level 9.0mg/dL (8.5-10.1) 9.1mg/dL (8.5-10.1) Total Bilirubin 0.4mg/dL (0.2-1.0) Aspartate Amino Transf (AST/SGOT) 18U/L (15-37) Alanine Aminotransferase (ALT/SGPT) 15U/L (14-59) Alkaline Phosphatase 58U/L (46-116) Total Protein 7.5g/dL (6.4-8.2) Albumin 3.4g/dL (3.4-5.0) Albumin/Globulin Ratio 0.8 (1.0-1.7) Nasal Screen MRSA (PCR) Positive (Negative) Medications Current Medications Fentanyl Citrate 25 mcg 25 mcg PRN Q15MIN PRN IV PAIN GREATER THAN 3/10 Last administered on 05/31/16t 15:38; Start 05/31/16 at 14:15; Stop 06/01/16 at 14:14 Vancomycin HCl 250 ml @ 250 mls/hr 1X ONCE IV ; Start 05/31/16 at 16:45; Stop 05/31/16 at 17:44; Status Cancel Fentanyl Citrate (Fentanyl 2ml Vial) 50 mcg 1X ONCE IV Last administered on 18:42; Start 05/31/16 at 16:45; Stop 05/31/16 at 16:46; Status DC Fentanyl Citrate 50 mcg 50 mcg PRN Q2HR PRN IV PAIN Last administered on 21:35; Start 05/31/16 at 17:00; Stop 06/01/16 at 16:59 Vancomycin HCl/ Sodium Chloride (Iv Sodium Chloride 0.9% 500ml Bag) 500 ml @ 250 mls/hr 1X ONCE IV Last administered on 05/31/16 18:33; Start 05/31/16 at 18:30; Stop 05/31/16 at 20:29; Status DC Acetaminophen (Tylenol) 325 mg PRN Q6HRS PRN PO MILD PAIN / TEMP Last administered on 06/01/16 12:35; Start 05/31/16 at 18:45 Hydralazine HCl (Apresoline) 10 mg PRN Q4HRS PRN IVP ELEVATED BP, SEE COMMENTS ; Start 05/31/16 at 18:45 Ondansetron HCl (Zofran) 4 mg PRN Q8HRS PRN IV NAUSEA/VOMITING; Start 05/31/16 at 18:45 Albuterol Sulfate (Ventolin Neb Soln) 2.5 mg PRN Q4HRS PRN NEB SHORTNESS OF BREATH; Start 05/31/16 at 18:45 Famotidine (Pepcid) 20 mg 1X ONCE IVP Last administered on 05/31/16 20:53; Start 05/31/16 at 21:00; Stop 05/31/16 at 21:01; Status DC Methylprednisolone Sodium Succinate (Solu-Medrol 40mg Vial) 40 mg 1X ONCE IV Last administered on 05/31/16 20:53; Start 05/31/16 at 21:00; Stop 05/31/16 at 21:01; Status DC Alprazolam (Xanax) 0.5 mg PRN DAILY PRN PO ANXIETY Last administered on 23:01; Start 05/31/16 at 21:30 Levothyroxine Sodium (Synthroid) 50 mcg DAILY07 PO Last administered on 05:50; Start 06/01/16 at 07:00 Lisinopril (Prinivil) 5 mg DAILY PO ; Start 06/01/16 at 09:00 Polyethylene Glycol (miraLAX PACKET) 17 gm DAILY PO Last administered on 08:51; Start 06/01/16 at 09:00 Non-Formulary Medication 2 puff QID INH FOR ASTHMA; Start 06/01/16 at 09:00; Status UNV Vitamin D (Vitamin D3) 1,000 unit DAILY PO Last administered on 06/01/16 08:44 ; Start 06/01/16 at 09:00 Famotidine (Pepcid) 20 mg BID PO Last administered on 06/01/16 08:44; Start at 22:00 Artificial Tears 1 drop 1 drop BID OU Last administered on 06/01/16 08:45; Start 05/31/16 at 22:00 Doxycycline Hyclate/Dextrose 100 ml @ 50 mls/hr Q12HR IV Last administered on 05/31/16 22:42; Start 05/31/16 at 22:00 Albuterol Sulfate (Ventolin Neb Soln) 2.5 mg RTQID NEB Last administered on 12:57; Start 05/31/16 at 22:00 Apixaban (Eliquis) 5 mg BID PO ; Start 06/01/16 at 14:00 Info (Anti-Coagulation Monitoring By Pharmacy) 1 each PRN DAILY PRN MC SEE COMMENTS; Start 06/01/16 at 13:45 Active Scripts Active Reported Artificial Tears Drops (Dextran 70/Hypromellose/Pf) 1 Each Droperette 1 Each OU BID Coumadin (Warfarin Sodium) 7.5 Mg Tablet 7.5 Mg PO DAILY Coumadin (Warfarin Sodium) 5 Mg Tablet 5 Mg PO WEDNESDAY 1 Days Alprazolam 0.5 Mg Tablet 1 Tab PO DAILY PRN Ventolin Hfa Inhaler (Albuterol Sulfate) 18 Gm Hfa.aer.ad 2 Puff INH QID Ranitidine Hcl 150 Mg Tablet 1 Tab PO BID Polyethylene Glycol 3350 17 Gm Powd.pack 17 Gm PO DAILY Lisinopril 5 Mg Tablet 1 Tab PO DAILY Levothyroxine Sodium 50 Mcg Tablet 1 Tab PO DAILY Vitamin D (Cholecalciferol (Vitamin D3)) 1,000 Unit Capsule 1 Cap PO DAILY Vitals/I & O Vital Sign - Last 24 Hours 05/31/16 05/31/16 05/31/16 05/31/16 13:49 14:30 14:56 15:26 Temp 98.2 98.2 Pulse 86 86 Resp 20 18 B/P 175/86 156/108 Pulse Ox 99 99 99 O2 Delivery Room Air Room Air Room Air 05/31/16 05/31/16 05/31/16 05/31/16 15:30 15:38 16:08 19:00 Temp 98.1 98.1 Pulse 87 Resp 18 B/P 166/77 150/77 Pulse Ox 98 97 97 100 O2 Delivery Room Air Room Air Room Air Room Air 05/31/16 05/31/16 06/01/16 06/01/16 20:00 23:00 03:00 07:00 Temp 98.8 98.0 97.7 98.8 98.0 97.7 Pulse 71 70 74 Resp 18 18 16 B/P 125/66 106/56 127/60 Pulse Ox 97 96 93 O2 Delivery Room Air Room Air Room Air Room Air 06/01/16 06/01/16 11:00 12:57 Temp 97.4 97.4 Pulse 70 Resp 16 B/P 138/71 Pulse Ox 98 99 O2 Delivery Room Air Room Air Intake and Output 05/31/16 05/31/16 06/01/16 15:00 23:00 07:00 Intake Total 200 ml Output Total 400 ml Balance -200 ml TORRI WILLIS III DO Jun 01, 2016 13:48
--- NOTE | 2016-06-01 13:48 | PDOC ---
Provider Note Provider Note HEM/ONC 1. RECURRENT DVT - 1991 AND 2014. She now has a rash on face and Dr Bateman was concerned that this may be due to coumadin and was discontinued. The rash does not appear to be typical of coumadin and she has been on coumadin since 2014. I have suggested to switch to eliquis 5 mg bid. I d/w Dr Easley and he agrees. See dictation EDWARD WYMAN MD Jun 01, 2016 13:48
[2016-06-01] MEDS: APIXABAN 5 MG TABLET. PO SCH ×2 (14:00→20:43)
[2016-06-01 15:02] LABS: % SAT IRON 13 % (15-34); IRON,SERUM 47 ug/dL (50-170)
[2016-06-01 15:10] VITALS: BP 121/64
[2016-06-01 19:00] VITALS: BP 107/59
[2016-06-01] MEDS: DOXYCYCLINE HYCLATE 100 MG TABLET PO SCH (20:43)
[2016-06-01] MEDS: ALPRAZOLAM 0.5 MG TABLET PO PRN (20:43)
[2016-06-01 23:00] VITALS: BP 122/69
[2016-06-01] MEDS ORDERED: METHYL SALICYLATE/MENTHOL TOPICAL OINTMENT 29GM TUBE. TP PRN (23:00)
--- NOTE | 2016-06-02 03:15 | CONS ---
DATE OF CONSULTATION: 06/01/2016 REQUESTING PHYSICIAN: Dr. Geovani myles. REASON FOR CONSULTATION: Rash on the left side of the face in a patient on Coumadin and recommendations regarding anticoagulation. HISTORY OF PRESENT ILLNESS: The patient is a 76-year-old female who has a history of DVT in the right lower extremity in 1991. She had recurrent episodes of DVT in February 2015 and the patient mentions that she has been on warfarin since then she was recommended lifelong anticoagulation due to recurrent episodes of DVT. She has not had any toxicities related to warfarin until now and she has never had any bleeding complications. She presented to the Emergency on 05/31/2016 with pain, redness, and swelling of left side of her face. She was admitted to [facility] for management of cellulitis. Dr. Myles felt that this could be a potential side effect of Coumadin and it was discontinued and I was asked to see the patient for recommendations regarding further anticoagulation. She denies fevers or chills. No nose bleeds or gum bleeding. No hematemesis, melena, hematochezia, no hemoptysis or hematuria. No loss of weight or loss of appetite. PAST MEDICAL HISTORY: Right lower extremity DVT in 1991 and 2014, bronchial asthma, fibromyalgia, hypertension, hypothyroidism, appendectomy knee replacement, atrial fibrillation, hypertension, hyperlipidemia, gastroesophageal reflux disease, irritable bowel disease, anemia, anxiety, depression, hypothyroidism, osteopenia. PAST SURGICAL HISTORY: Total knee replacement. FAMILY HISTORY: Positive for diabetes and hypertension. SOCIAL HISTORY: She quit smoking many years ago. REVIEW OF SYSTEMS: A 12-point review of system was performed. Pertinent positives are mentioned in the history of present illness. Rest of the system review is negative. PHYSICAL EXAMINATION: GENERAL APPEARANCE: The patient is a 76-year-old female who is in no acute cardiorespiratory distress. VITAL SIGNS: Blood pressure 138/71, temperature 97.4. HEENT: Atraumatic, normocephalic. She has rash, erythematous on the left side of her face. EYES: No icterus. NECK: Supple. CHEST: Bilaterally symmetrical. No crepitations or rhonchi heard. HEART: S1, S2 normal. ABDOMEN: Soft, nontender. No hepatosplenomegaly. CENTRAL NERVOUS SYSTEM: No focal deficits. LYMPHATICS: No lymphadenopathy. SKIN: She has rashes on her face on the left side mainly. CENTRAL NERVOUS SYSTEM: No focal deficits. PSYCHOLOGIC: No lymphadenopathy. MUSCULOSKELETAL: No joint effusions. LABORATORY DATA: WBC 4.6, hemoglobin 10.6, platelet count 211. Sodium 140, potassium 4.3. Creatinine is 0.8. Calcium 9.1. RADIOLOGICAL STUDIES: CT scan of the head and soft tissue of the neck was done 05/31/2016, no acute abnormalities noted. IMPRESSION AND PLAN: 1. Deep venous thrombosis of the right lower extremity in 1991 in 2014. She is being on anticoagulation with Coumadin since February 2015. She has never had any side effects to take it. She has now developed rashes on the left side of her face and Dr. Myles was concerned if this was due to Coumadin. It is unlikely that it is due to Coumadin. However, since we have alternate options available, I would recommend switching to Eliquis 5 mg b.i.d. and monitor for bleeding. I discussed with Dr. Zoya Easley, and he agrees with the plan. I discussed in detail with the patient and she understands and agrees with the plan. I also discussed with registered nurse. 2. Rash, probable cellulitis on the face. She is on antibiotic management per primary team. 3. Anemia. I will check iron studies, B12 and folic acid levels. EDWARD WYMAN MD DR: MARIANGEL/parmjit JOB#: [id number] / [id number] SIMI
[2016-06-02 05:33] LABS: BASO % 0 % (0-3); EOS % 2 % (0-3); HEMATOCRIT 30.4 % (36.0-47.0); HEMOGLOBIN 9.8 g/dL (12.0-15.5); LYMPH # 2.3 x10^3/uL (1.0-4.8); LYMPH % 38 % (24-48); MEAN CORPUSCULAR HEMOGLOBIN 32 pg (25-35); MEAN CORPUSCULAR HGB CONC 32 g/dL (31-37); MEAN CORPUSCULAR VOLUME 98 fL (79-100); MONO % 9 % (0-9); NEUT % 52 % (31-73); PLATELET COUNT 202 x10^3/uL (140-400); RED BLOOD COUNT 3.09 x10^6/uL (3.50-5.40); WHITE BLOOD COUNT 6.2 x10^3/uL (4.0-11.0)
[2016-06-02 05:45] LABS: CALCIUM 8.8 mg/dL (8.5-10.1); CREATININE 0.8 mg/dL (0.6-1.0); GFR 84.4
[2016-06-02] MEDS: LEVOTHYROXINE 50 MCG TABLET PO SCH (05:54)
[2016-06-02 07:00] VITALS: BP 136/66
[2016-06-02] MEDS: ALBUTEROL SULFATE 2.5 MG/3 ML NEBU. NEB SCH ×2 (07:44→12:00)
[2016-06-02] MEDS: DOXYCYCLINE HYCLATE 100 MG TABLET PO SCH (08:47)
[2016-06-02] MEDS: FAMOTIDINE 20 MG TABLET. PO SCH (08:48)
[2016-06-02] MEDS: POLYVINYL ALCOHOL 1.4% OPHTH SOLUTION 15ML BOTTLE. OU SCH (08:48)
[2016-06-02] MEDS: APIXABAN 5 MG TABLET. PO SCH (08:48)
[2016-06-02] MEDS: CHOLECALCIFEROL (VITAMIN D3) 1,000 UNIT TABLET PO SCH (08:48)
[2016-06-02] MEDS: POLYETHYLENE GLYCOL 3350 17 GM PACKET. PO SCH (08:48)
--- NOTE | 2016-06-02 08:55 | PDOC ---
Provider Note Provider Note DATE OF f/u: 06/02/2016 c/c: Rash on the left side of the face in a patient on Coumadin and recommendations regarding anticoagulation. HISTORY OF PRESENT ILLNESS: The patient is a 76-year-old female who has a history of DVT in the right lower extremity in 1991. She had recurrent episodes of DVT in February 2015 and the patient mentions that she has been on warfarin since then she was recommended lifelong anticoagulation due to recurrent episodes of DVT. She has not had any toxicities related to warfarin until now and she has never had any bleeding complications. She presented to the Emergency on 05/31/2016 with pain, redness, and swelling of left side of her face. She was admitted to [facility] for management of cellulitis. Dr. Myles felt that this could be a potential side effect of Coumadin and it was discontinued and I was asked to see the patient for recommendations regarding further anticoagulation. She denies fevers or chills. No nose bleeds or gum bleeding. No hematemesis, melena, hematochezia, no hemoptysis or hematuria. No loss of weight or loss of appetite. PAST MEDICAL HISTORY: Right lower extremity DVT in 1991 and 2014, bronchial asthma, fibromyalgia, hypertension, hypothyroidism, appendectomy knee replacement, atrial fibrillation, hypertension, hyperlipidemia, gastroesophageal reflux disease, irritable bowel disease, anemia, anxiety, depression, hypothyroidism, osteopenia. REVIEW OF SYSTEMS: has left facial pain PHYSICAL EXAMINATION: GENERAL APPEARANCE: The patient is a 76-year-old female who is in no acute cardiorespiratory distress. HEENT: Atraumatic, normocephalic. She has rash, erythematous on the left side of her face. CHEST: Bilaterally symmetrical. No crepitations or rhonchi heard. HEART: S1, S2 normal. ABDOMEN: Soft, nontender. No hepatosplenomegaly. LABORATORY DATA: WBC 4.6, hemoglobin 10.6, platelet count 211. Sodium 140, potassium 4.3. Creatinine is 0.8. Calcium 9.1. RADIOLOGICAL STUDIES: CT scan of the head and soft tissue of the neck was done 05/31/2016, no acute abnormalities noted. IMPRESSION AND PLAN: 1. Deep venous thrombosis of the right lower extremity in 1991 in 2014. She is being on anticoagulation with Coumadin since February 2015. She has never had any side effects to take it. She has now developed rashes on the left side of her face and Dr. Myles was concerned if this was due to Coumadin. It is unlikely that it is due to Coumadin. However, since we have alternate options available, I would recommend switching to Eliquis 5 mg b.i.d. and monitor for bleeding. I discussed with Dr. Zoya Easley, and he agrees with the plan. I discussed in detail with the patient and she understands and agrees with the plan. I also discussed with registered nurse. Started eliquis 06/01/16. 2. Rash, probable cellulitis on the face. She is on antibiotic management per primary team. 3. Anemia. Normal ferritin, mildly decreased iron. B12 and folic acid levels are pending. I would recommend colonoscopy. EDWARD WYMAN MD Jun 02, 2016 08:55
--- NOTE | 2016-06-02 09:56 | PDOC2 ---
GI CONSULT Reason For Consult: ALTAGRACIA HPI: HPI: 76 y/o AA female admitted w/ rash and left-sided facial/neck pain. Dr. Tamayo consulted re: Coumadin (previous DVT) as the cause of this (says unlikely but changing to Eliquis). GI consult requested re: ALTAGRACIA. 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 Previous evaluation by Dr. Celeste Corona and through [facility]. EGD in 2013 at this facility showed suspected regina esophagitis. She believes colonoscopy was normal around that time. She was supposed to have another test at [facility] (not sure if this was [facility]?) but this was never performed. She takes B12 and iron at home and denies obvious bleeding. She also takes H2 nancy which controls GERD symptoms fairly well. No NSAID use. No weight loss, no abdominal pain. Labs: Hgb 10.7 (to 9.8), INR 2.3, iron 47, TIBC 357, iron sat 13, ferritin WNL, retic count WNL. B12 and folic acid in process. PMH: PMH: DVT, HTN, hypothyroidism, anxiety/depression, fibromyalgia, PUD, GERD, ALTAGRACIA, appendectomy, knee replacement, tubal ligation, subtotal gastrectomy FH: Family History: DM, Hypertension Social History: ALCOHOL: none Drugs: None ROS: GEN: Denies fevers, chills, sweats HEENT: Denies blurred vision, sore throat CV: Denies chest pain RESP: Denies shortness of air, cough GI: Per HPI : Denies hematuria, dysuria ENDO: Denies weight changes NEURO: Denies confusion, dizziness MSK: left-sided pain SKIN: rash VItals: Vitals: Vital Signs Date Time Temp Pulse Resp B/P Pulse Ox O2 Delivery O2 Flow Rate FiO2 06/02/16 07:46 97 Room Air 06/02/16 07:00 98.3 72 14 136/66 98.3 Labs: Labs: Laboratory Tests Test 06/01/16 14:20 06/02/16 04:45 Iron Level 47ug/dL (50-170) Total Iron Binding Capacity 357ug/dL (250-450) Iron Saturation 13% (15-34) White Blood Count 6.2x10^3/uL (4.0-11.0) Red Blood Count 3.09x10^6/uL (3.50-5.40) Hemoglobin 9.8g/dL (12.0-15.5) Hematocrit 30.4% (36.0-47.0) Mean Corpuscular Volume 98fL (79-100) Mean Corpuscular Hemoglobin 32pg (25-35) Mean Corpuscular Hemoglobin Concent 32g/dL (31-37) Red Cell Distribution Width 14.0% (11.5-14.5) Platelet Count 202x10^3/uL (140-400) Neutrophils (%) (Auto) 52% (31-73) Lymphocytes (%) (Auto) 38% (24-48) Monocytes (%) (Auto) 9% (0-9) Eosinophils (%) (Auto) 2% (0-3) Basophils (%) (Auto) 0% (0-3) Neutrophils # (Auto) 3.2x10^3uL (1.8-7.7) Lymphocytes # (Auto) 2.3x10^3/uL (1.0-4.8) Monocytes # (Auto) 0.5x10^3/uL (0.0-1.1) Eosinophils # (Auto) 0.1x10^3/uL (0.0-0.7) Basophils # (Auto) 0.0x10^3/uL (0.0-0.2) Sodium Level 143mmol/L (136-145) Potassium Level 4.0mmol/L (3.5-5.1) Chloride Level 111mmol/L (98-107) Carbon Dioxide Level 25mmol/L (21-32) Anion Gap 7 (6-14) Blood Urea Nitrogen 13mg/dL (7-20) Creatinine 0.8mg/dL (0.6-1.0) Estimated GFR (Cockcroft-Gault) 84.4 Glucose Level 92mg/dL (70-99) Calcium Level 8.8mg/dL (8.5-10.1) Allergies: Coded Allergies: Penicillins (Verified Allergy, Severe, Anaphylaxis, 11/21/15) diphenhydramine (Verified Allergy, Severe, Anaphylaxis, 11/21/15) ipratropium (Verified Allergy, Severe, Anaphylaxis, 11/21/15) meclizine (Verified Allergy, Severe, 7/7/16) trazodone (Verified Allergy, Severe, Shortness of Air, 11/21/15) bacitracin (Verified Allergy, Intermediate, Rash, 11/21/15) gabapentin (Verified Allergy, Intermediate, Itching, 11/21/15) neomycin (Verified Allergy, Intermediate, Rash, 11/21/15) oxycodone (Verified Allergy, Intermediate, Nausea and Vomiting, 11/21/15) polymyxin B (Verified Allergy, Intermediate, Rash, 11/21/15) I S O L A T I O N *CONTACT* (Verified Allergy, Unknown, 06/02/16) mrsa Medications: Current Medications Medications (Trade) Dose Ordered Sig/Sivan Route PRN Reason Start Time Stop Time Status Last Admin Dose Admin Apixaban (Eliquis) 5 mg BID PO 06/01/16 14:00 06/02/16 08:48 Doxycycline Hyclate (Vibra-Tab) 100 mg BID PO 06/01/16 21:00 06/02/16 08:47 Multi-Ingredient Ointment (Analgesic [place]) 1 anh PRN QID PRN TP MUSCLE PAIN 06/01/16 23:00 06/01/16 23:43 Imaging: Imaging: Soft tissue neck CT Impression: No acute abnormality identified in the neck. Head CT Impression: No acute intracranial process. PE: GEN: NAD HEENT: Atraumatic, PERRL LUNGS: CTAB HEART: RRR +murm ABD: NABS, S/ND/NT EXTREMITY: No edema SKIN: rash left face NEURO/PSYCH: A & O 3 A/P: A/P: Anemia -h/o iron and B12 deficiency (on supplements at home) -previous EGD and colonoscopy by Dr. Celeste Corona w/ ?additional testing at -h/o subtotal gastrectomy H/o PUD, GERD -on H2 nancy CRC screen -up to date H/o DVT -changing from Coumadin to Eliquis Rash/cellulitis -- Chronic anemia issues likely related to previous GI surgery. Would continue iron and B12, consider outpatient EGD and colonoscopy. NEELIMA ÁLVAREZ Jun 02, 2016 09:56
[2016-06-02 11:00] VITALS: BP 144/70
--- NOTE | 2016-06-02 12:09 | PDOC ---
PROGRESS NOTES Chief Complaint Chief Complaint - Facial cellulitis - Hx DVT X2, questionable PE - HTN - Hypothyroidism - Fibromyalgia - Hx PUD - Asthma History of Present Illness History of Present Illness Discussed discharge wit Ms. Brice this morning. She was still concerned with pain management and we discussed pain medication options. She had no new concerns or complaints today. Vitals Vitals Vital Signs Date Time Temp Pulse Resp B/P Pulse Ox O2 Delivery O2 Flow Rate FiO2 06/02/16 11:00 97.3 75 14 144/70 100 Room Air 97.3 Physical Exam General: Alert, Oriented X3, Cooperative Heart: Regular rate, Other (Grade 3/6 systolic ejection murmur) Lungs: Clear, Other (No wheezes or crackles) Abdomen: Normal bowel sounds, Soft, No tenderness Extremities: No clubbing, No cyanosis Skin: No breakdown, Other (Facial redness/rash ) Labs LABS Laboratory Tests Test 06/01/16 14:20 06/02/16 04:45 Iron Level 47ug/dL (50-170) Total Iron Binding Capacity 357ug/dL (250-450) Iron Saturation 13% (15-34) White Blood Count 6.2x10^3/uL (4.0-11.0) Red Blood Count 3.09x10^6/uL (3.50-5.40) Hemoglobin 9.8g/dL (12.0-15.5) Hematocrit 30.4% (36.0-47.0) Mean Corpuscular Volume 98fL (79-100) Mean Corpuscular Hemoglobin 32pg (25-35) Mean Corpuscular Hemoglobin Concent 32g/dL (31-37) Red Cell Distribution Width 14.0% (11.5-14.5) Platelet Count 202x10^3/uL (140-400) Neutrophils (%) (Auto) 52% (31-73) Lymphocytes (%) (Auto) 38% (24-48) Monocytes (%) (Auto) 9% (0-9) Eosinophils (%) (Auto) 2% (0-3) Basophils (%) (Auto) 0% (0-3) Neutrophils # (Auto) 3.2x10^3uL (1.8-7.7) Lymphocytes # (Auto) 2.3x10^3/uL (1.0-4.8) Monocytes # (Auto) 0.5x10^3/uL (0.0-1.1) Eosinophils # (Auto) 0.1x10^3/uL (0.0-0.7) Basophils # (Auto) 0.0x10^3/uL (0.0-0.2) Sodium Level 143mmol/L (136-145) Potassium Level 4.0mmol/L (3.5-5.1) Chloride Level 111mmol/L (98-107) Carbon Dioxide Level 25mmol/L (21-32) Anion Gap 7 (6-14) Blood Urea Nitrogen 13mg/dL (7-20) Creatinine 0.8mg/dL (0.6-1.0) Estimated GFR (Cockcroft-Gault) 84.4 Glucose Level 92mg/dL (70-99) Calcium Level 8.8mg/dL (8.5-10.1) Review of Systems Review of Systems Denied pain in her legs, chest pain, or shortness of breath Denied nausea, vomiting, fever, and chills Still has pain in her face Assessment and Plan Assessmemt and Plan Assessment: - Facial cellulitis - Hx DVT X2, questionable PE - HTN - Hypothyroidism - Fibromyalgia - Hx PUD - Asthma Plan: - Discharge from hospital today - Follow up with PCP in one week - Eliquis for DVT prophylaxis per Dr. Tamayo - Toradol PRN for pain - Triple antibiotic ointment for face - Continue home medications - Continue Doxycycline - Appreciate subspecialty input Problems: Comment Review of Relevant I have reviewed the following items nigel (where applicable) has been applied. Labs Laboratory Tests Test 05/31/16 15:00 05/31/16 21:00 06/01/16 04:30 06/01/16 14:20 White Blood Count 6.1x10^3/uL (4.0-11.0) 4.6x10^3/uL (4.0-11.0) Red Blood Count 3.36x10^6/uL (3.50-5.40) 3.25x10^6/uL (3.50-5.40) Hemoglobin 10.7g/dL (12.0-15.5) 10.6g/dL (12.0-15.5) Hematocrit 32.0% (36.0-47.0) 32.1% (36.0-47.0) Mean Corpuscular Volume 95fL (79-100) 99fL (79-100) Mean Corpuscular Hemoglobin 32pg (25-35) 33pg (25-35) Mean Corpuscular Hemoglobin Concent 34g/dL (31-37) 33g/dL (31-37) Red Cell Distribution Width 13.9% (11.5-14.5) 14.0% (11.5-14.5) Platelet Count 239x10^3/uL (140-400) 211x10^3/uL (140-400) Neutrophils (%) (Auto) 66% (31-73) 84% (31-73) Lymphocytes (%) (Auto) 22% (24-48) 14% (24-48) Monocytes (%) (Auto) 11% (0-9) 2% (0-9) Eosinophils (%) (Auto) 1% (0-3) 0% (0-3) Basophils (%) (Auto) 0% (0-3) 0% (0-3) Neutrophils # (Auto) 4.0x10^3uL (1.8-7.7) 3.8x10^3uL (1.8-7.7) Lymphocytes # (Auto) 1.3x10^3/uL (1.0-4.8) 0.6x10^3/uL (1.0-4.8) Monocytes # (Auto) 0.7x10^3/uL (0.0-1.1) 0.1x10^3/uL (0.0-1.1) Eosinophils # (Auto) 0.1x10^3/uL (0.0-0.7) 0.0x10^3/uL (0.0-0.7) Basophils # (Auto) 0.0x10^3/uL (0.0-0.2) 0.0x10^3/uL (0.0-0.2) Erythrocyte Sedimentation Rate 30 (0-25) Prothrombin Time 24.3SEC (11.7-14.0) Prothromb Time International Ratio 2.3 (0.8-1.1) Sodium Level 140mmol/L (136-145) 140mmol/L (136-145) Potassium Level 3.9mmol/L (3.5-5.1) 4.3mmol/L (3.5-5.1) Chloride Level 105mmol/L (98-107) 107mmol/L (98-107) Carbon Dioxide Level 25mmol/L (21-32) 23mmol/L (21-32) Anion Gap 10 (6-14) 10 (6-14) Blood Urea Nitrogen 12mg/dL (7-20) 12mg/dL (7-20) Creatinine 0.8mg/dL (0.6-1.0) 0.8mg/dL (0.6-1.0) Estimated GFR (Cockcroft-Gault) 84.4 84.4 BUN/Creatinine Ratio 15 (6-20) Glucose Level 105mg/dL (70-99) 163mg/dL (70-99) Calcium Level 9.0mg/dL (8.5-10.1) 9.1mg/dL (8.5-10.1) Total Bilirubin 0.4mg/dL (0.2-1.0) Aspartate Amino Transf (AST/SGOT) 18U/L (15-37) Alanine Aminotransferase (ALT/SGPT) 15U/L (14-59) Alkaline Phosphatase 58U/L (46-116) Total Protein 7.5g/dL (6.4-8.2) Albumin 3.4g/dL (3.4-5.0) Albumin/Globulin Ratio 0.8 (1.0-1.7) Nasal Screen MRSA (PCR) Positive (Negative) Reticulocyte Count (auto) 0.9% (0.5-2.5) Ferritin 50ng/mL (8-252) Iron Level 47ug/dL (50-170) Total Iron Binding Capacity 357ug/dL (250-450) Iron Saturation 13% (15-34) Test 06/02/16 04:45 White Blood Count 6.2x10^3/uL (4.0-11.0) Red Blood Count 3.09x10^6/uL (3.50-5.40) Hemoglobin 9.8g/dL (12.0-15.5) Hematocrit 30.4% (36.0-47.0) Mean Corpuscular Volume 98fL (79-100) Mean Corpuscular Hemoglobin 32pg (25-35) Mean Corpuscular Hemoglobin Concent 32g/dL (31-37) Red Cell Distribution Width 14.0% (11.5-14.5) Platelet Count 202x10^3/uL (140-400) Neutrophils (%) (Auto) 52% (31-73) Lymphocytes (%) (Auto) 38% (24-48) Monocytes (%) (Auto) 9% (0-9) Eosinophils (%) (Auto) 2% (0-3) Basophils (%) (Auto) 0% (0-3) Neutrophils # (Auto) 3.2x10^3uL (1.8-7.7) Lymphocytes # (Auto) 2.3x10^3/uL (1.0-4.8) Monocytes # (Auto) 0.5x10^3/uL (0.0-1.1) Eosinophils # (Auto) 0.1x10^3/uL (0.0-0.7) Basophils # (Auto) 0.0x10^3/uL (0.0-0.2) Sodium Level 143mmol/L (136-145) Potassium Level 4.0mmol/L (3.5-5.1) Chloride Level 111mmol/L (98-107) Carbon Dioxide Level 25mmol/L (21-32) Anion Gap 7 (6-14) Blood Urea Nitrogen 13mg/dL (7-20) Creatinine 0.8mg/dL (0.6-1.0) Estimated GFR (Cockcroft-Gault) 84.4 Glucose Level 92mg/dL (70-99) Calcium Level 8.8mg/dL (8.5-10.1) Laboratory Tests Test 06/01/16 14:20 06/02/16 04:45 Iron Level 47ug/dL (50-170) Total Iron Binding Capacity 357ug/dL (250-450) Iron Saturation 13% (15-34) White Blood Count 6.2x10^3/uL (4.0-11.0) Red Blood Count 3.09x10^6/uL (3.50-5.40) Hemoglobin 9.8g/dL (12.0-15.5) Hematocrit 30.4% (36.0-47.0) Mean Corpuscular Volume 98fL (79-100) Mean Corpuscular Hemoglobin 32pg (25-35) Mean Corpuscular Hemoglobin Concent 32g/dL (31-37) Red Cell Distribution Width 14.0% (11.5-14.5) Platelet Count 202x10^3/uL (140-400) Neutrophils (%) (Auto) 52% (31-73) Lymphocytes (%) (Auto) 38% (24-48) Monocytes (%) (Auto) 9% (0-9) Eosinophils (%) (Auto) 2% (0-3) Basophils (%) (Auto) 0% (0-3) Neutrophils # (Auto) 3.2x10^3uL (1.8-7.7) Lymphocytes # (Auto) 2.3x10^3/uL (1.0-4.8) Monocytes # (Auto) 0.5x10^3/uL (0.0-1.1) Eosinophils # (Auto) 0.1x10^3/uL (0.0-0.7) Basophils # (Auto) 0.0x10^3/uL (0.0-0.2) Sodium Level 143mmol/L (136-145) Potassium Level 4.0mmol/L (3.5-5.1) Chloride Level 111mmol/L (98-107) Carbon Dioxide Level 25mmol/L (21-32) Anion Gap 7 (6-14) Blood Urea Nitrogen 13mg/dL (7-20) Creatinine 0.8mg/dL (0.6-1.0) Estimated GFR (Cockcroft-Gault) 84.4 Glucose Level 92mg/dL (70-99) Calcium Level 8.8mg/dL (8.5-10.1) Medications Current Medications Fentanyl Citrate 25 mcg 25 mcg PRN Q15MIN PRN IV PAIN GREATER THAN 3/10 Last administered on 05/31/16 15:38; Start 05/31/16 at 14:15; Stop 06/01/16 at 14:14 ; Status DC Vancomycin HCl 250 ml @ 250 mls/hr 1X ONCE IV ; Start 05/31/16 at 16:45; Stop 05/31/16 at 17:44; Status Cancel Fentanyl Citrate (Fentanyl 2ml Vial) 50 mcg 1X ONCE IV Last administered on 18:42; Start 05/31/16 at 16:45; Stop 05/31/16 at 16:46; Status DC Fentanyl Citrate 50 mcg 50 mcg PRN Q2HR PRN IV PAIN Last administered on 21:35; Start 05/31/16 at 17:00; Stop 06/01/16 at 16:59; Status DC Vancomycin HCl/ Sodium Chloride (Iv Sodium Chloride 0.9% 500ml Bag) 500 ml @ 250 mls/hr 1X ONCE IV Last administered on 05/31/16 18:33; Start 05/31/16 at 18:30; Stop 05/31/16 at 20:29; Status DC Acetaminophen (Tylenol) 325 mg PRN Q6HRS PRN PO MILD PAIN / TEMP Last administered on 06/01/16 20:43; Start 05/31/16 at 18:45 Hydralazine HCl (Apresoline) 10 mg PRN Q4HRS PRN IVP ELEVATED BP, SEE COMMENTS ; Start 05/31/16 at 18:45 Ondansetron HCl (Zofran) 4 mg PRN Q8HRS PRN IV NAUSEA/VOMITING; Start 05/31/16 at 18:45 Albuterol Sulfate (Ventolin Neb Soln) 2.5 mg PRN Q4HRS PRN NEB SHORTNESS OF BREATH; Start 05/31/16 at 18:45 Famotidine (Pepcid) 20 mg 1X ONCE IVP Last administered on 05/31/16 20:53; Start 05/31/16 at 21:00; Stop 05/31/16 at 21:01; Status DC Methylprednisolone Sodium Succinate (Solu-Medrol 40mg Vial) 40 mg 1X ONCE IV Last administered on 05/31/16 20:53; Start 05/31/16 at 21:00; Stop 05/31/16 at 21:01; Status DC Alprazolam (Xanax) 0.5 mg PRN DAILY PRN PO ANXIETY Last administered on 20:43; Start 05/31/16 at 21:30 Levothyroxine Sodium (Synthroid) 50 mcg DAILY07 PO Last administered on 05:54; Start 06/01/16 at 07:00 Lisinopril (Prinivil) 5 mg DAILY PO ; Start 06/01/16 at 09:00; Stop 06/01/16 at 19:16; Status DC Polyethylene Glycol (miraLAX PACKET) 17 gm DAILY PO Last administered on 08:48; Start 06/01/16 at 09:00 Non-Formulary Medication 2 puff QID INH FOR ASTHMA; Start 06/01/16 at 09:00; Status UNV Vitamin D (Vitamin D3) 1,000 unit DAILY PO Last administered on 06/02/16 08:48 ; Start 06/01/16 at 09:00 Famotidine (Pepcid) 20 mg BID PO Last administered on 06/02/16 08:48; Start at 22:00 Artificial Tears 1 drop 1 drop BID OU Last administered on 06/02/16 08:48; Start 05/31/16 at 22:00 Doxycycline Hyclate/Dextrose 100 ml @ 50 mls/hr Q12HR IV Last administered on 05/31/16 22:42; Start 05/31/16 at 22:00; Stop 06/01/16 at 16:30; Status DC Albuterol Sulfate (Ventolin Neb Soln) 2.5 mg RTQID NEB Last administered on 07:44; Start 05/31/16 at 22:00 Apixaban (Eliquis) 5 mg BID PO Last administered on 06/02/16 08:48; Start at 14:00 Info (Anti-Coagulation Monitoring By Pharmacy) 1 each PRN DAILY PRN MC SEE COMMENTS; Start 06/01/16 at 13:45 Doxycycline Hyclate (Vibra-Tab) 100 mg BID PO Last administered on 06/02/16 08 :47; Start 06/01/16 at 21:00 Lisinopril (Prinivil) 5 mg QHS PO ; Start 06/01/16 at 21:00 Multi-Ingredient Ointment (Analgesic [place]) 1 anh PRN QID PRN TP MUSCLE PAIN Last administered on 06/01/16 23:43; Start 06/01/16 at 23:00 Active Scripts Active Reported Artificial Tears Drops (Dextran 70/Hypromellose/Pf) 1 Each Droperette 1 Each OU BID Alprazolam 0.5 Mg Tablet 1 Tab PO DAILY PRN Ventolin Hfa Inhaler (Albuterol Sulfate) 18 Gm Hfa.aer.ad 2 Puff INH QID Ranitidine Hcl 150 Mg Tablet 1 Tab PO BID Polyethylene Glycol 3350 17 Gm Powd.pack 17 Gm PO DAILY Lisinopril 5 Mg Tablet 1 Tab PO DAILY Levothyroxine Sodium 50 Mcg Tablet 1 Tab PO DAILY Vitamin D (Cholecalciferol (Vitamin D3)) 1,000 Unit Capsule 1 Cap PO DAILY Vitals/I & O Vital Sign - Last 24 Hours 06/01/16 06/01/16 06/01/16 06/01/16 12:57 15:10 19:00 19:23 Temp 97.6 98.1 97.6 98.1 Pulse 70 71 Resp 16 18 B/P 121/64 107/59 Pulse Ox 99 100 96 O2 Delivery Room Air Room Air Room Air Room Air 06/01/16 06/01/16 06/02/16 06/02/16 20:09 23:00 03:00 07:00 Temp 97.6 98.3 97.6 98.3 Pulse 72 72 Resp 18 14 B/P 122/69 136/66 Pulse Ox 98 100 O2 Delivery Room Air Room Air Room Air Room Air 06/02/16 06/02/16 07:46 11:00 Temp 97.3 97.3 Pulse 75 Resp 14 B/P 144/70 Pulse Ox 97 100 O2 Delivery Room Air Room Air Intake and Output 06/01/16 06/01/16 06/02/16 15:00 23:00 07:00 Intake Total 0 ml Balance 0 ml TORRI WILLIS III, DO Jun 02, 2016 12:09
[2016-06-02 13:22] LABS: FOLIC ACID 6.7 ng/mL (>3.0)
== END 2016-06-02 13:21 | disposition home or self-care (01) | DRG 602 ==
LOC: ER 13:29 → 4 NORTH 16:30
PROVIDERS: ADMIT Internal Medicine; ATTEND Internal Medicine
DX: L03.211 Cellulitis of face (principal); G93.41 Metabolic encephalopathy; E03.9 Hypothyroidism, unspecified; E78.5 Hyperlipidemia, unspecified; I10 Essential (primary) hypertension; I48.91 Unspecified atrial fibrillation; J45.909 Unspecified asthma, uncomplicated; K21.9 Gastro-esophageal reflux disease without esophagitis; K58.9 Irritable bowel syndrome, unspecified; M79.7 Fibromyalgia; Z96.659 Presence of unspecified artificial knee joint; E53.8 Deficiency of other specified B group vitamins; F32.9 Major depressive disorder, single episode, unspecified; D64.9 Anemia, unspecified; F41.9 Anxiety disorder, unspecified; K59.00 Constipation, unspecified; Z87.891 Personal history of nicotine dependence; Z79.01 Long term (current) use of anticoagulants; Z82.49 Family history of ischemic heart disease and other diseases of the circulatory system; Z83.3 Family history of diabetes mellitus; Z86.718 Personal history of other venous thrombosis and embolism; Z87.11 Personal history of peptic ulcer disease; Z88.0 Allergy status to penicillin; Z90.3 Acquired absence of stomach [part of]; Z90.49 Acquired absence of other specified parts of digestive tract; Z88.1 Allergy status to other antibiotic agents; Z88.5 Allergy status to narcotic agent; Z93.1 Gastrostomy status
CPT/HCPCS: 36415; 70450; 70490; 80048; 80053; 82607; 82728; 82746; 83540; 83550; 85027; 85045; 85610; 85651; 87641; 94640; 94760; J2920; J3010; J3370; J3490; J7040; S0028; 97110; 99285-25

== ENCOUNTER 2016-06-15 00:29 | Emergency (ER) | payer MEDICARE, OTHER ==
[~2016-06-15] VITALS: Ht 157.5 cm; Wt 81.6 kg
[2016-06-15 00:34] VITALS: BP 168/78
[2016-06-15] MEDS ORDERED: METH4TAB2 PO (01:03)
[2016-06-15] MEDS ORDERED: PERM60CR11 TP (01:03)
--- NOTE | 2016-06-15 01:04 | PHYS DOC ---
Past Medical History Past Medical History: Asthma, DVT, Fibromyalgia, Hypertension, Hypothyroid Additional Past Medical Histor: ulcer Past Surgical History: Appendectomy, Knee Replacement, Tubal ligation, Other Additional Past Surgical Histo: ulcer, hernia Alcohol Use: None Drug Use: None Adult General Chief Complaint Chief Complaint: SKIN PROBLEM HPI HPI 76-year-old female presents with a pruritic rash on her arms and torso. She states she was recently admitted secondary to a cellulitis. She states these rashes have popped up now in the webbing of her hands on the dorsum of her hands upper arms and around her elbow. She states that it's very. He can nature. She denies any fever chills or sweats. [] Review of Systems Review of Systems Constitutional: Denies fever or chills [] Eyes: Denies change in visual acuity, redness, or eye pain [] HENT: Denies nasal congestion or sore throat [] Respiratory: Denies cough or shortness of breath [] Cardiovascular: No additional information not addressed in HPI [] GI: Denies abdominal pain, nausea, vomiting, bloody stools or diarrhea [] : Denies dysuria or hematuria [] Musculoskeletal: Denies back pain or joint pain [] Integument: Per history of present illness [] Neurologic: Denies headache, focal weakness or sensory changes [] Endocrine: Denies polyuria or polydipsia [] Allergies Allergies Allergies Coded Allergies Type Severity Reaction Last Updated Verified Penicillins Allergy Severe Anaphylaxis 11/21/15 Yes diphenhydramine Allergy Severe Anaphylaxis 11/21/15 Yes ipratropium Allergy Severe Anaphylaxis 11/21/15 Yes meclizine Allergy Severe 11/21/15 Yes trazodone Allergy Severe Shortness of Air 11/21/15 Yes bacitracin Allergy Intermediate Rash 11/21/15 Yes gabapentin Allergy Intermediate Itching 11/21/15 Yes neomycin Allergy Intermediate Rash 11/21/15 Yes oxycodone Allergy Intermediate Nausea and Vomiting 11/21/15 Yes polymyxin B Allergy Intermediate Rash 11/21/15 Yes I S O L A T I O N *CONTACT* Allergy Unknown 06/02/16 Yes Physical Exam Physical Exam Constitutional: Well developed, well nourished, no acute distress, non-toxic appearance. [] HENT: Normocephalic, atraumatic, bilateral external ears normal, oropharynx moist, no oral exudates, nose normal. [] Eyes: PERRLA, EOMI, conjunctiva normal, no discharge. [] Neck: Normal range of motion, no tenderness, supple, no stridor. [] Cardiovascular:Heart rate regular rhythm, no murmur [] Lungs & Thorax: Bilateral breath sounds clear to auscultation [] Abdomen: Bowel sounds normal, soft, no tenderness, no masses, no pulsatile masses. [] Skin: Maculopapular rash on her hands forearm and elbow linear in nature consistent with scabies there is no surrounding erythema consistent with cellulitis. [] Back: No tenderness, no CVA tenderness. [] Extremities: No tenderness, no cyanosis, no clubbing, ROM intact, no edema. [] Neurologic: Alert and oriented X 3, normal motor function, normal sensory function, no focal deficits noted. [] Psychologic: Anxious. [] EKG EKG [] Radiology/Procedures Radiology/Procedures [] Course & Med Decision Making Course & Med Decision Making Pertinent Labs and Imaging studies reviewed. (See chart for details) [] Dragon Disclaimer Dragon Disclaimer This electronic medical record was generated, in whole or in part, using a voice recognition dictation system. Departure Departure Impression: Primary Impression: Rash and nonspecific skin eruption Disposition: 01 HOME, SELF-CARE Condition: STABLE Referrals: CANDIS VACA (PCP) Patient Instructions: Scabies Additional Instructions: Follow with your family doctor tomorrow as scheduled Scripts Permethrin (Elimite)60 Gm Cream..g.60 Gm TP 1X RASH #1 Apply cream at bedtime over your entire body where throughout the night and then shower in the morning. Prov:LIBORIO GREEN DO 06/15/16 Methylprednisolone (Medrol)4 Mg Tab.ds.pk1 Pkg PO UD RASH #1 PKG Prov:LIBORIO GREEN DO 06/15/16 LIBORIO GREEN DO Jun 15, 2016 01:04
[2016-06-15] MEDS ORDERED: methylPREDNISolone ACETATE 80 MG/ML VIAL. IM ONE (01:30)
== END 2016-06-15 01:43 | disposition home or self-care (01) ==
LOC: ER 00:29
DX: R21 Rash and other nonspecific skin eruption (principal); L29.9 Pruritus, unspecified; E03.9 Hypothyroidism, unspecified; I10 Essential (primary) hypertension; J45.909 Unspecified asthma, uncomplicated; Z86.718 Personal history of other venous thrombosis and embolism; Z88.0 Allergy status to penicillin; Z88.5 Allergy status to narcotic agent; Z88.8 Allergy status to other drugs, medicaments and biological substances; Z88.1 Allergy status to other antibiotic agents; Z91.041 Radiographic dye allergy status
CPT/HCPCS: 96372; 99283; J1040

== ENCOUNTER 2016-07-11 10:13 | Inpatient (IN) | payer MEDICARE, OTHER ==
[~2016-07-11] VITALS: Ht 157.5 cm; Wt 80.8 kg
[~2016-07-11 10:13] MED LIST changes: +METH4TAB2 PO; +PERM60CR11 TP
[2016-07-11] MEDS ORDERED: IPRATRPIUM/ALBUTEROL 0.5/2.5MG 3 ML NEBU. ONE (10:25)
[2016-07-11] MEDS ORDERED: IPRATRPIUM/ALBUTEROL 0.5/2.5MG 3 ML NEBU. NEB ONE (10:30)
--- NOTE | 2016-07-11 10:48 | RAD ---
Portable chest, 07/11/2016: History: Chest pain Comparison is made to a study from 11/04/2015. The heart size and pulmonary vascularity are normal. There is calcific plaquing of the aorta. There is a calcified granuloma in the left base. No acute infiltrates are seen. There is no evidence of pleural fluid. Surgical clips are projected over the region of the GE junction. IMPRESSION: No acute cardiopulmonary abnormality is detected.
[2016-07-11] MEDS ORDERED: ALBUTEROL SULFATE 2.5 MG/3 ML NEBU. NEB ONE (11:00)
[2016-07-11 11:32] LABS: BASO % 1 % (0-3); EOS % 2 % (0-3); HEMATOCRIT 34.3 % (36.0-47.0); HEMOGLOBIN 11.4 g/dL (12.0-15.5); LYMPH # 1.4 x10^3/uL (1.0-4.8); LYMPH % 42 % (24-48); MEAN CORPUSCULAR HEMOGLOBIN 32 pg (25-35); MEAN CORPUSCULAR HGB CONC 33 g/dL (31-37); MEAN CORPUSCULAR VOLUME 97 fL (79-100); MONO % 8 % (0-9); NEUT % 47 % (31-73); PLATELET COUNT 254 x10^3/uL (140-400); RED BLOOD COUNT 3.53 x10^6/uL (3.50-5.40); RED CELL DISTRIBUTION WIDTH 13.4 % (11.5-14.5); WHITE BLOOD COUNT 3.5 x10^3/uL (4.0-11.0)
[2016-07-11 11:41] LABS: ALBUMIN 3.3 g/dL (3.4-5.0); CREATININE 0.8 mg/dL (0.6-1.0); DIRECT BILIRUBIN 0.1 mg/dL (0.0-0.2); GFR 84.4; TOTAL BILIRUBIN 0.3 mg/dL (0.2-1.0); TOTAL PROTEIN 7.9 g/dL (6.4-8.2)
[2016-07-11 11:50] LABS: POTASSIUM 4.4 mmol/L (3.5-5.1)
[2016-07-11] MEDS ORDERED: ENOXAPARIN ** NOTE DOSE ** SYRINGE SQ ONE (11:52)
--- NOTE | 2016-07-11 12:06 | EKG ---
[facility] [address] [place] [address] Test Date: 2016-07-11 Test Time: 10:32:18 Pat Name: BRENNA RAMIREZ Department: Room: 267 1 Gender: F [employer] Supervisor: : 1940 Requested By: ZACARIAS RANGEL Order Number: [id number] Reading MD: Patrick Hoover Measurements Intervals Clear Rate: 73 P: 34 HI: 140 QRS: 9 QRSD: 86 T: 154 QT: 408 QTc: 453 Interpretive Statements SINUS RHYTHM R-S TRANSITION ZONE IN V LEADS DISPLACED TO THE RIGHT LVH WITH REPOLARIZATION ABNORMALITY T WAVE INVERSION, CANNOT RULE OUT ISCHEMIA RI6.01 Unconfirmed report Compared to ECG 11/21/2015 14:21:58 No significant changes Electronically Signed On 07-20-2016 10:08:32 REFUSE LABORER by Patrick Hoover
--- NOTE | 2016-07-11 12:18 | ACF ---
Admission Forms Criteria MYOCARDIAL INFARCTION Clinical Indications for Admission to Inpatient Care (Place 'X' for any and all applicable criteria): Admission is indicated for ANY ONE of the following (1)(2)(3)(4): [X]I. Acute IL [ ]II. Contraindications and/or Inappropriate clinical situations for Observational Care in patients with Myocardial Infarction, when ANY ONE of the following is required: [ ]a) Patient with High risk of cardiac embolism (e.g, patients with previous cardiac embolism, LVEF < 40%, age >75 and patients with prosthetic valve) 18 [ ]b) Patient with Moderate risk including DM patient, CAD and patient aged 65-75 18 [ ]c) Patient with any change in cardiac biomarker especially troponin should be managed as high risk in an inpatient setting 19 [ ]d) Physician judgement irrespective of ECG and other diagnostic findings 20 [ ]III.General contraindications and/or Inappropriate clinical situations for Observational Care in patients with Myocardial Infarction, when ANY ONE of the following is required: [ ]a) Prediction of prolongation of LOS based on ANY ONE of the following may be considered as a contraindication for observational care 2, 3, 4, 5, 6, 7, 8, 9, 10, 11 [ ]i) Age > 65 yrs. [ ]ii) Patient arriving by ambulance [ ]iii) Patient with high acuity [ ]iv) Patient requiring vital sign monitoring [ ]v) Patient on IV medication [ ]b) Systolic blood pressures 180mmHg 3,12 [ ]c) Patient with altered mental status including delirium and other alteration of consciousness, (3) [ ]d) Patient whose discharge disposition will be to a fdc home or rehabilitation home should not be managed in Emergency Department Observation Unit. CMS rule requires 3 days hospital stay before such placement. 3,13 [ ]e) Patient with failure to thrive due to broad array of etiologies 3 ,16,17 [ ]f) Inability to ambulate 3,14 Extended stay beyond goal length of stay may be needed for (1)(18)(20)(24)(25): [ ]a) Hemodynamic instability, persisting symptoms after intensive medical management, or recurring severe, prolonged symptoms [ ]b) Intravascular procedural complications such as acute vessel closure, stent thrombosis, stent malposition, or vessel dissection (26)(27)(28) [ ]c) Extravascular procedural complications such as retroperitoneal hematoma , pericardial effusion, or cardiac tamponade [ ]d) Entry site complications causing bleeding, hematoma or distal ischemia and requiring ongoing monitoring, surgical repair or surgical thrombectomy(29) [ ]e) Dangerous arrhythmia [ ]f) Complicated percutaneous coronary intervention (e.g., unsuccessful percutaneous coronary intervention or percutaneous coronary intervention of non- inaja vessel) [ ]g) Urgent or emergent surgery for complications of IL (e.g., ventricular rupture, valvular insufficiency) [ ]h) Surgical revascularization via coronary artery bypass graft [ ]i) Heart failure (e.g., pulmonary edema) [ ]j) Unstable pulmonary comorbidities, including COPD or pneumonia (31) [ ]k) Acute renal failure The original [employer] content created by [employer] has been revised. The portions of the content which have been revised are identified through the use of italic text or in bold, and [facility] [email or web address] has neither reviewed nor approved the modified material. All other unmodified content is copyright [facility] [email or web address] Please see references footnoted in the original [email or web address] edition 2016 Admission Criteria Met?: Yes REINA AYALA Jul 11, 2016 12:18
[2016-07-11] MEDS ORDERED: ASPIRIN 81 MG TAB.CHEW PO ONE (12:30)
[2016-07-11] MEDS: NITROGLYCERIN SUBLINGUAL 0.4 MG BOTTLE OF 25. SL PRN ×2 (12:30→12:38)
[2016-07-11] MEDS ORDERED: NITROGLYCERIN SUBLINGUAL 0.4 MG BOTTLE OF 25. SL PRN (12:30)
[2016-07-11] MEDS ORDERED: ONDANSETRON PF 4 MG/2 ML VIAL. IV PRN (12:30)
[2016-07-11 12:40] LABS: INR 1.7 (0.8-1.1); PROTHROMBIN TIME PATIENT 19.3 SEC (11.7-14.0)
[2016-07-11 13:15] VITALS: BP 137/70
[2016-07-11] MEDS ORDERED: WARF5TAB7 (13:27)
[2016-07-11 14:00] VITALS: BP 126/69
--- NOTE | 2016-07-11 15:18 | PHYS DOC ---
Past Medical History Past Medical History: Asthma, DVT, Fibromyalgia, Hypertension, Hypothyroid Additional Past Medical Histor: ulcer Past Surgical History: Appendectomy, Knee Replacement, Tubal ligation, Other Additional Past Surgical Histo: ulcer, hernia Alcohol Use: None Drug Use: None Adult General Chief Complaint Chief Complaint: SHORTNESS OF BREATH HPI HPI 76-year-old female presenting to the emergency department today with shortness of breath for the last 3 days. She reports having a productive cough. She has headache and lightheadedness. She describes the chest pressure that is mild to moderate worse with walking. It is nonradiating and without alleviating factors. She reports a history of DVT hypertension. She denies unilateral leg swelling hemoptysis. She denies chest pain being sudden. He denies recent immobilization. Review of systems was negative for abdominal pain nausea vomiting diaphoresis. All other review of systems is negative unless otherwise noted in history of present illness. Review of Systems Review of Systems SEE ABOVE. Current Medications Current Medications Current Medications Medications (Trade) Dose Ordered Sig/Sivan Start Time Stop Time Status Last Admin Dose Admin Albuterol Sulfate (Ventolin Neb Soln) 2.5 mg 1X ONCE 07/11/16 11:00 07/11/16 11:01 DC 07/11/16 11:09 2.5 MG Albuterol/ Ipratropium (Duoneb) 3 ml STK-MED ONCE 07/11/16 10:25 07/11/16 10:30 DC Enoxaparin Sodium (Lovenox 80mg Syringe) 80 mg ONCE ONCE 07/11/16 11:52 07/11/16 11:53 DC 07/11/16 12:14 80 MG Allergies Allergies Allergies Coded Allergies Type Severity Reaction Last Updated Verified Penicillins Allergy Severe Anaphylaxis 11/21/15 Yes diphenhydramine Allergy Severe Anaphylaxis 11/21/15 Yes ipratropium Allergy Severe Anaphylaxis 11/21/15 Yes meclizine Allergy Severe 11/21/15 Yes trazodone Allergy Severe Shortness of Air 11/21/15 Yes bacitracin Allergy Intermediate Rash 11/21/15 Yes gabapentin Allergy Intermediate Itching 11/21/15 Yes neomycin Allergy Intermediate Rash 11/21/15 Yes oxycodone Allergy Intermediate Nausea and Vomiting 11/21/15 Yes polymyxin B Allergy Intermediate Rash 11/21/15 Yes I S O L A T I O N *CONTACT* Allergy Unknown 06/02/16 Yes Physical Exam Physical Exam Constitutional: Well developed, well nourished, no acute distress, non-toxic appearance. HENT: Normocephalic, atraumatic, bilateral external ears normal, oropharynx moist, no oral exudates, nose normal. [] Eyes: PERRLA, EOMI, conjunctiva normal, no discharge. Neck: Normal range of motion, no tenderness, supple, no stridor. [] Cardiovascular:Heart rate regular rhythm, no murmur [] Lungs & Thorax: Bilateral breath sounds clear to auscultation Abdomen: Bowel sounds normal, soft, no tenderness, no masses, no pulsatile masses. [] Skin: Warm, dry, no erythema, no rash. Back: No tenderness, no CVA tenderness. Extremities: No tenderness, no cyanosis, no clubbing, ROM intact, no edema. [] Neurologic: Alert and oriented X 3, normal motor function, normal sensory function, no focal deficits noted. Psychologic: Affect normal, judgement normal, mood normal. [] Current Patient Data Vital Signs Vital Signs Date Time Temp Pulse Resp B/P Pulse Ox O2 Delivery O2 Flow Rate FiO2 07/11/16 11:09 100 Room Air 07/11/16 10:20 98.1 80 22 184/81 98.1 Lab Values Laboratory Tests Test 07/11/16 11:15 White Blood Count 3.5x10^3/uL (4.0-11.0) L Red Blood Count 3.53x10^6/uL (3.50-5.40) Hemoglobin 11.4g/dL (12.0-15.5) L Hematocrit 34.3% (36.0-47.0) L Mean Corpuscular Volume 97fL (79-100) Mean Corpuscular Hemoglobin 32pg (25-35) Mean Corpuscular Hemoglobin Concent 33g/dL (31-37) Red Cell Distribution Width 13.4% (11.5-14.5) Platelet Count 254x10^3/uL (140-400) Neutrophils (%) (Auto) 47% (31-73) Lymphocytes (%) (Auto) 42% (24-48) Monocytes (%) (Auto) 8% (0-9) Eosinophils (%) (Auto) 2% (0-3) Basophils (%) (Auto) 1% (0-3) Neutrophils # (Auto) 1.6x10^3uL (1.8-7.7) L Lymphocytes # (Auto) 1.4x10^3/uL (1.0-4.8) Monocytes # (Auto) 0.3x10^3/uL (0.0-1.1) Eosinophils # (Auto) 0.1x10^3/uL (0.0-0.7) Basophils # (Auto) 0.0x10^3/uL (0.0-0.2) Prothrombin Time 19.3SEC (11.7-14.0) H Prothrombin Time INR 1.7 (0.8-1.1) H PTT 36SEC (24-38) Sodium Level 141mmol/L (136-145) Potassium Level 4.4mmol/L (3.5-5.1) Chloride Level 105mmol/L (98-107) Carbon Dioxide Level 28mmol/L (21-32) Anion Gap 8 (6-14) Blood Urea Nitrogen 12mg/dL (7-20) Creatinine 0.8mg/dL (0.6-1.0) Estimated GFR (Cockcroft-Gault) 84.4 Glucose Level 89mg/dL (70-99) Calcium Level 9.0mg/dL (8.5-10.1) Total Bilirubin 0.3mg/dL (0.2-1.0) Direct Bilirubin 0.1mg/dL (0.0-0.2) Aspartate Amino Transferase (AST) 19U/L (15-37) Alanine Aminotransferase (ALT) 19U/L (14-59) Alkaline Phosphatase 57U/L (46-116) Troponin I Quantitative 0.820ng/mL (0.000-0.055) CQ-Vpn-V-Type Natriuretic Peptide 374pg/mL (0-449) Total Protein 7.9g/dL (6.4-8.2) Albumin 3.3g/dL (3.4-5.0) L Lipase 189U/L (73-393) Laboratory Tests 07/11/16 11:15 Laboratory Tests 07/11/16 11:15 EKG EKG [] EKG shows sinus rhythm with a regular rate. [place] is leftward. Intervals are within normal limits. ST depression present in the lateral leads with T-wave inversions. Radiology/Procedures Radiology/Procedures [] Course & Med Decision Making Course & Med Decision Making Pertinent Labs and Imaging studies reviewed. (See chart for details) [] 76-year-old female presenting to the emergency department today with shortness of breath. Vital signs afebrile with hypertension. Otherwise unremarkable. Physical exam unremarkable. EKG concerning for signs of ischemia in the lateral leads. Does not meet STEMI criteria. Discussed the case with Dr. Sifuentes. Aspirin given. Lovenox given. Otherwise blood work shows leukopenia. Chemistry panel unremarkable. Troponin negative. Patient was admitted to our cardiovascular care unit for further evaluation workup and care. Dragon Disclaimer Dragon Disclaimer This electronic medical record was generated, in whole or in part, using a voice recognition dictation system. Departure Departure Impression: Primary Impression: ACS (acute coronary syndrome) Additional Impression: Non-ST elevation (NSTEMI) myocardial infarction Disposition: ADMITTED INPATIENT Admitting Physician: Zoya Easley Referrals: CANDIS VAAC (PCP) Problem Qualifiers ZACARIAS RANGEL MD Jul 11, 2016 15:18
[2016-07-11] MEDS ORDERED: TRAM50TA PO (15:30)
[2016-07-11] MEDS ORDERED: GABA-585 PO (15:31)
[2016-07-11] MEDS ORDERED: CYAN10005 PO (15:32)
[2016-07-11] MEDS ORDERED: FLUT16SP NS (15:32)
[2016-07-11 16:11] VITALS: BP 137/70
[2016-07-11] MEDS: HYDROCODONE/APAP 5/325MG TABLET. PO PRN (16:23)
[2016-07-11 19:00] VITALS: BP 107/73
[2016-07-11] MEDS: POLYVINYL ALCOHOL 1.4% OPHTH SOLUTION 15ML BOTTLE. OU SCH (20:03)
[2016-07-11] MEDS: TRAMADOL 50 MG TABLET. PO PRN (20:03)
[2016-07-11] MEDS: FAMOTIDINE 20 MG TABLET. PO SCH (20:04)
[2016-07-11] MEDS: ALPRAZOLAM 0.5 MG TABLET PO PRN (20:04)
[2016-07-11] MEDS: GABAPENTIN 100 MG CAPSULE. PO SCH (20:04)
--- NOTE | 2016-07-11 20:22 | HP ---
ADMIT DATE: 07/11/2016 CHIEF COMPLAINT: Chest pain, shortness of breath. HISTORY OF PRESENT ILLNESS: The patient is a pleasant 76-year-old female presented to the ER with above chief complaints, has been occurring off and on for 3 days, rated at 9/10. She has associated cough. Her troponin is a little high. We are concerned she could be having acute coronary syndrome. I discussed the case with the ER physician. We are going to admit her to the ICU and consult cardiology. PAST MEDICAL HISTORY: Asthma, DVT, fibromyalgia, hypertension, hypothyroidism, appendectomy, knee replacement, tubal ligation, peptic ulcers, hernia repair. ALLERGIES: PENICILLIN, BACITRACIN, DIPHENHYDRAMINE, GABAPENTIN, IPRATROPIUM, MECLIZINE, NEOMYCIN, OXYCODONE, POLYMYXIN AND TRAZODONE. FAMILY HISTORY: Coronary artery disease. SOCIAL HISTORY: She does not drink, smoke or take drugs. MEDICATIONS: Reviewed, please refer to the MRAD. REVIEW OF SYSTEMS: GENERAL: No history of weight change, weakness or fevers. SKIN: No bruising, hair changes or rashes. EYES: No blurred, double or loss of vision. NOSE AND THROAT: No history of nosebleeds, hoarseness or sore throat. HEART: Complains of chest pain. LUNGS: Complains of shortness of breath. GASTROINTESTINAL: Denies changes in appetite, nausea, vomiting, diarrhea or constipation. GENITOURINARY: No history of frequency, urgency, hesitancy or nocturia. NEUROLOGIC: Denies history of numbness, tingling, tremor or weakness. PSYCHIATRIC: No history of panic, anxiety or depression. ENDOCRINE: No history of heat or cold intolerance, polyuria or polydipsia. EXTREMITIES: Denies muscle weakness, joint pain, pain on walking or stiffness. PHYSICAL EXAMINATION: VITAL SIGNS: Temperature afebrile, pulse 74, respirations 19, blood pressure 137/70. GENERAL: She is alert, cooperative. HEART: Normal S1, S2. LUNGS: Clear. ABDOMEN: Soft, obese. EXTREMITIES: 1+ edema. SKIN: No rashes. PSYCHIATRIC: She is stable. VASCULAR: Good capillary refill. ENDOCRINE: No thyromegaly. LYMPHATICS: No cervical nodes. HEMATOPOIETIC: No bruising. LABORATORY DATA: Electrolytes normal. White count 3.5, hemoglobin 11, platelets 254. Troponin 0.820. ASSESSMENT AND PLAN: Chest pain with elevated troponin, suspect acute coronary syndrome. The patient has been admitted to the ICU. Serial enzymes, serial EKGs, echocardiogram, consult Cardiology. Consider stress test. Continue home medicines, daily aspirin. TORRI WILLIS DO DR: JOSE/parmjit JOB#: [id number] / [id number]
[2016-07-11] MEDS: ALBUTEROL SULFATE 2.5 MG/3 ML NEBU. NEB SCH ×2 (20:36→21:00)
[2016-07-11 22:51] VITALS: BP 107/73
[2016-07-12 03:00] VITALS: BP 127/78
[2016-07-12] MEDS ORDERED: ALBUTEROL SULFATE 2.5 MG/3 ML NEBU. NEB ONE (04:45)
[2016-07-12] MEDS: HYDROCODONE/APAP 5/325MG TABLET. PO PRN (04:49)
[2016-07-12 06:25] LABS: BASO % 1 % (0-3); EOS % 4 % (0-3); HEMATOCRIT 32.7 % (36.0-47.0); HEMOGLOBIN 10.8 g/dL (12.0-15.5); LYMPH # 2.2 x10^3/uL (1.0-4.8); LYMPH % 63 % (24-48); MEAN CORPUSCULAR HEMOGLOBIN 32 pg (25-35); MEAN CORPUSCULAR HGB CONC 33 g/dL (31-37); MEAN CORPUSCULAR VOLUME 97 fL (79-100); MONO % 8 % (0-9); NEUT % 24 % (31-73); PLATELET COUNT 254 x10^3/uL (140-400); RED BLOOD COUNT 3.36 x10^6/uL (3.50-5.40); RED CELL DISTRIBUTION WIDTH 13.4 % (11.5-14.5); WHITE BLOOD COUNT 3.5 x10^3/uL (4.0-11.0)
[2016-07-12 06:33] LABS: MAGNESIUM 2.2 mg/dL (1.8-2.4)
[2016-07-12 06:34] LABS: CHOLESTEROL/HDL RATIO 2.1
[2016-07-12 06:36] LABS: CALCIUM 8.7 mg/dL (8.5-10.1); CREATININE 0.8 mg/dL (0.6-1.0); GFR 84.4; POTASSIUM 3.9 mmol/L (3.5-5.1)
[2016-07-12] MEDS: LEVOTHYROXINE 50 MCG TABLET PO SCH (06:53)
[2016-07-12 07:00] VITALS: BP 127/66
[2016-07-12] MEDS: ALBUTEROL SULFATE 2.5 MG/3 ML NEBU. NEB SCH ×4 (07:40→19:43)
[2016-07-12] MEDS: POLYETHYLENE GLYCOL 3350 17 GM PACKET. PO SCH (10:23)
[2016-07-12] MEDS: FLUTICASONE 50MCG/NASAL SPRAY 16GM BOTTLE. NS SCH (10:24)
[2016-07-12] MEDS: CHOLECALCIFEROL (VITAMIN D3) 1,000 UNIT TABLET PO SCH (10:24)
[2016-07-12] MEDS: CYANOCOBALAMIN (VITAMIN B-12) 1,000 MCG TABLET. PO SCH (10:24)
[2016-07-12] MEDS: LISINOPRIL 5 MG TABLET. PO SCH (10:24)
[2016-07-12] MEDS: POLYVINYL ALCOHOL 1.4% OPHTH SOLUTION 15ML BOTTLE. OU SCH ×2 (10:30→21:00)
[2016-07-12 10:36] LABS: % EOS 5 % (0-5); PLT ESTIMATE ADEQUATE (ADEQUATE)
--- NOTE | 2016-07-12 10:40 | PDOC ---
PROGRESS NOTES Chief Complaint Chief Complaint SOB, cough CP ASSESSMENT AND PLAN: 1. CP: suspect noncardiac, musculoskeletal in origin. 2. elevated troponin: stable at 0.8 times 3. may need further eval. await cardiac input. 3. Neutropenia: pt unaware of hx in herself or family. suspect 2/2 viral syndrome. neutropenic precautions. 4. Viral syndrome: pt has had URI sx x1 week, cough bothersome to her. had flu swab at urgent care earlier this week neg, but will rpt here. supportive care. 5. Hx DVT: on OAC. monitor INR 6. HTN: well controlled. cont home meds 7. Hypothyroidism: on hormone repletion Vitals Vitals Vital Signs Date Time Temp Pulse Resp B/P Pulse Ox O2 Delivery O2 Flow Rate FiO2 07/12/16 10:24 63 127/66 07/12/16 07:40 Room Air 07/12/16 07:00 97.8 18 96 97.8 Physical Exam General: Alert, Oriented X3, Cooperative Heart: Regular rate Lungs: Clear, Other Abdomen: Normal bowel sounds Extremities: No clubbing, No edema Skin: No rashes Labs LABS Laboratory Tests Test 07/11/16 11:15 07/11/16 19:00 07/12/16 00:40 07/12/16 05:45 White Blood Count 3.5x10^3/uL (4.0-11.0) 3.5x10^3/uL (4.0-11.0) Red Blood Count 3.53x10^6/uL (3.50-5.40) 3.36x10^6/uL (3.50-5.40) Hemoglobin 11.4g/dL (12.0-15.5) 10.8g/dL (12.0-15.5) Hematocrit 34.3% (36.0-47.0) 32.7% (36.0-47.0) Mean Corpuscular Volume 97fL (79-100) 97fL (79-100) Mean Corpuscular Hemoglobin 32pg (25-35) 32pg (25-35) Mean Corpuscular Hemoglobin Concent 33g/dL (31-37) 33g/dL (31-37) Red Cell Distribution Width 13.4% (11.5-14.5) 13.4% (11.5-14.5) Platelet Count 254x10^3/uL (140-400) 254x10^3/uL (140-400) Neutrophils (%) (Auto) 47% (31-73) 24% (31-73) Lymphocytes (%) (Auto) 42% (24-48) 63% (24-48) Monocytes (%) (Auto) 8% (0-9) 8% (0-9) Eosinophils (%) (Auto) 2% (0-3) 4% (0-3) Basophils (%) (Auto) 1% (0-3) 1% (0-3) Neutrophils # (Auto) 1.6x10^3uL (1.8-7.7) 0.8x10^3uL (1.8-7.7) Lymphocytes # (Auto) 1.4x10^3/uL (1.0-4.8) 2.2x10^3/uL (1.0-4.8) Monocytes # (Auto) 0.3x10^3/uL (0.0-1.1) 0.3x10^3/uL (0.0-1.1) Eosinophils # (Auto) 0.1x10^3/uL (0.0-0.7) 0.1x10^3/uL (0.0-0.7) Basophils # (Auto) 0.0x10^3/uL (0.0-0.2) 0.0x10^3/uL (0.0-0.2) Prothrombin Time 19.3SEC (11.7-14.0) Prothromb Time International Ratio 1.7 (0.8-1.1) Activated Partial Thromboplast Time 36SEC (24-38) Sodium Level 141mmol/L (136-145) 141mmol/L (136-145) Potassium Level 4.4mmol/L (3.5-5.1) 3.9mmol/L (3.5-5.1) Chloride Level 105mmol/L (98-107) 106mmol/L (98-107) Carbon Dioxide Level 28mmol/L (21-32) 26mmol/L (21-32) Anion Gap 8 (6-14) 9 (6-14) Blood Urea Nitrogen 12mg/dL (7-20) 13mg/dL (7-20) Creatinine 0.8mg/dL (0.6-1.0) 0.8mg/dL (0.6-1.0) Estimated GFR (Cockcroft-Gault) 84.4 84.4 Glucose Level 89mg/dL (70-99) 84mg/dL (70-99) Calcium Level 9.0mg/dL (8.5-10.1) 8.7mg/dL (8.5-10.1) Total Bilirubin 0.3mg/dL (0.2-1.0) Direct Bilirubin 0.1mg/dL (0.0-0.2) Aspartate Amino Transf (AST/SGOT) 19U/L (15-37) Alanine Aminotransferase (ALT/SGPT) 19U/L (14-59) Alkaline Phosphatase 57U/L (46-116) Troponin I Quantitative 0.820ng/mL (0.000-0.055) 0.800ng/mL (0.000-0.055) 0.751ng/mL (0.000-0.055) DR-Ncc-M-Type Natriuretic Peptide 374pg/mL (0-449) Total Protein 7.9g/dL (6.4-8.2) Albumin 3.3g/dL (3.4-5.0) Lipase 189U/L (73-393) Magnesium Level 2.2mg/dL (1.8-2.4) Triglycerides Level 52mg/dL (0-150) Cholesterol Level 175mg/dL (0-200) LDL Cholesterol, Calculated 83mg/dL (0-100) VLDL Cholesterol, Calculated 10mg/dL (0-40) HDL Cholesterol 82mg/dL (40-60) Cholesterol/HDL Ratio 2.1 Review of Systems Review of Systems deneis chest pain, but has "something" under her midsternum with cough JOSUÉ JACKMAN MD Jul 12, 2016 10:40
[2016-07-12 11:18] VITALS: BP 142/71
[2016-07-12] MEDS: GUAIFENESIN DM 600/30MG TAB.ER.12H. PO SCH ×2 (11:30→20:32)
[2016-07-12] MEDS: TRAMADOL 50 MG TABLET. PO PRN ×2 (12:30→20:32)
[2016-07-12 14:59] VITALS: BP 103/54
--- NOTE | 2016-07-12 15:35 | PDOC2 ---
CONSULT Date of Consult Date of Consult DATE: 07/12/16 TIME: 15:26 Reason for Consult Reason for Consult: Chest pain and shortness of breath Referring Physician Referring Physician: Dr. Easley Identification/Chief Complaint Chief Complaint Chest pain, shortness of breath Source Source: Chart review, Patient History of Present Illness Reason for Visit: 76-year-old female presented with intermittent episodes of retrosternal chest pain that she described as pressure-like sensation associated with shortness of breath not related to exertion or food intake. She denied any orthopnea/PND, palpitations or syncope. Past Medical History Cardiovascular: HTN, Hyperlipidemia Pulmonary: Asthma GI: Constipation, GERD, Irritable bowel disease, Peptic Ulcer disease Heme/Onc: Anemia NOS, Other Psych: Anxiety, Depression Musculoskeletal: low back pain, Osteoarthritis, Other Endocrine: Hypothyroidism, Osteopenia, Other Past Surgical History Past Surgical History: Total knee replacement, Other Family History Family History: Diabetes, Hypertension Social History ALCOHOL: none Drugs: None Lives: with Family Domestic Violence: Neg Current Problem List Problem List Problems Medical Problems: (1) ACS (acute coronary syndrome) Status: Acute (2) Non-ST elevation (NSTEMI) myocardial infarction Status: Acute Current Medications Current Medications Current Medications Albuterol/ Ipratropium (Duoneb) 3 ml 1X ONCE NEB ; Start 07/11/16 at 10:30; Stop 07/11/16 at 10:30; Status DC Albuterol/ Ipratropium (Duoneb) 3 ml STK-MED ONCE .ROUTE ; Start 07/11/16 at 10: 25; Stop 07/11/16 at 10:30; Status DC Albuterol Sulfate (Ventolin Neb Soln) 2.5 mg 1X ONCE NEB Last administered on 07/11/16 11:09; Start 07/11/16 at 11:00; Stop 07/11/16 at 11:01; Status DC Aspirin (Children'S Aspirin) 324 mg 1X ONCE PO Last administered on 07/11/16 11:59; Start 07/11/16 at 12:30; Stop 07/11/16 at 12:31; Status DC Enoxaparin Sodium (Lovenox 80mg Syringe) 80 mg ONCE ONCE SQ Last administered on 07/11/16 12:14; Start 07/11/16 at 11:52; Stop 07/11/16 at 11:53; Status DC Nitroglycerin (Nitrostat) 0.4 mg PRN Q5MIN PRN SL CHEST PAIN Last administered on 07/11/16 12:38; Start 07/11/16 at 12:00 Ondansetron HCl (Zofran) 4 mg PRN Q8HRS PRN IV NAUSEA/VOMITING; Start 07/11/16 at 12:30; Stop 07/12/16 at 12:29; Status DC Nitroglycerin (Nitrostat) 0.4 mg PRN Q5MIN PRN SL CHEST PAIN; Start 07/11/16 at 12:30; Stop 07/12/16 at 12:29; Status DC Acetaminophen/ Hydrocodone Bitart (Lortab 5/325) 1 tab PRN Q4HRS PRN PO PAIN Last administered on 07/12/16 04:49; Start 07/11/16 at 15:45 Alprazolam (Xanax) 0.5 mg PRN DAILY PRN PO ANXIETY Last administered on 20:04; Start 07/11/16 at 18:45 Cyanocobalamin (Vitamin B-12) 1,000 mcg DAILY PO Last administered on 10:24; Start 07/12/16 at 09:00 Fluticasone Propionate (Flonase) 1 spray DAILY NS Last administered on 10:24; Start 07/12/16 at 09:00 Gabapentin (Neurontin) 100 mg HS PO Last administered on 07/11/16 20:04; Start 07/11/16 at 21:00 Levothyroxine Sodium (Synthroid) 50 mcg DAILY07 PO Last administered on 06:53; Start 07/12/16 at 07:00 Lisinopril (Prinivil) 5 mg DAILY PO Last administered on 07/12/16 10:24; Start 07/12/16 at 09:00 Polyethylene Glycol (miraLAX PACKET) 17 gm DAILY PO Last administered on 10:23; Start 07/12/16 at 09:00 Tramadol HCl (Ultram) 50 mg PRN BID PRN PO PAIN Last administered on 07/12/16 12:30; Start 07/11/16 at 18:45 Warfarin Sodium (Coumadin) 5 mg DAILY16 PO ; Start 07/12/16 at 16:00 Albuterol Sulfate (Ventolin Neb Soln) 2.5 mg QID NEB Last administered on 12:10; Start 07/11/16 at 19:15 Vitamin D (Vitamin D3) 1,000 unit DAILY PO Last administered on 07/12/16 10:24 ; Start 07/12/16 at 09:00 Artificial Tears (Artificial Tears) 1 drop BID OU Last administered on 10:30; Start 07/11/16 at 21:00 Famotidine (Pepcid) 20 mg QHS PO Last administered on 07/11/16 20:04; Start at 21:00 Warfarin Sodium (Coumadin Per Physician) 1 each PRN DAILY PRN MC SEE COMMENTS Last administered on 07/12/16 14:57; Start 07/11/16 at 19:15 Albuterol Sulfate (Ventolin Neb Soln) 2.5 mg 1X ONCE NEB Last administered on 07/12/16 04:48; Start 07/12/16 at 04:45; Stop 07/12/16 at 05:03; Status DC Guaifenesin (MUCINEX ER with DM) 1 tab BID PO Last administered on 07/12/16 11 :30; Start 07/12/16 at 11:30 Active Scripts Active Reported Vitamin B-12 (Cyanocobalamin (Vitamin B-12)) 1,000 Mcg Tablet 1,000 Mcg PO DAILY Fluticasone Propionate Nasal [place] (Fluticasone Propionate) 16 Gm [place].susp 1 [place] NS DAILY Gabapentin 100 Mg Capsule 100 Mg PO HS Tramadol Hcl 50 Mg Tablet 1 Tab PO BID PRN Warfarin Sodium 5 Mg Tablet Artificial Tears Drops (Dextran 70/Hypromellose/Pf) 1 Each Droperette 1 Each OU BID Alprazolam 0.5 Mg Tablet 1 Tab PO DAILY PRN Ventolin Hfa Inhaler (Albuterol Sulfate) 18 Gm Hfa.aer.ad 2 Puff INH QID Ranitidine Hcl 150 Mg Tablet 1 Tab PO BID Polyethylene Glycol 3350 17 Gm Powd.pack 17 Gm PO DAILY Lisinopril 5 Mg Tablet 1 Tab PO DAILY Levothyroxine Sodium 50 Mcg Tablet 1 Tab PO DAILY Vitamin D (Cholecalciferol (Vitamin D3)) 1,000 Unit Capsule 1 Cap PO DAILY Allergies Allergies: Coded Allergies: Penicillins (Verified Allergy, Severe, Anaphylaxis, 11/21/15) diphenhydramine (Verified Allergy, Severe, Anaphylaxis, 11/21/15) ipratropium (Verified Allergy, Severe, Anaphylaxis, 11/21/15) meclizine (Verified Allergy, Severe, 11/21/15) trazodone (Verified Allergy, Severe, Shortness of Air, 11/21/15) bacitracin (Verified Allergy, Intermediate, Rash, 11/21/15) gabapentin (Verified Allergy, Intermediate, Itching, 11/21/15) neomycin (Verified Allergy, Intermediate, Rash, 11/21/15) oxycodone (Verified Allergy, Intermediate, Nausea and Vomiting, 11/21/15) polymyxin B (Verified Allergy, Intermediate, Rash, 11/21/15) I S O L A T I O N *CONTACT* (Verified Allergy, Unknown, 06/02/16) mrsa ROS PSYCHOLOGICAL ROS: No: Hallucinations Eyes: No Loss of vision HEENT: No: Epistaxis Respiratory: YES: Shortness of breath, No: Hemoptysis Cardiovascular: yes Chest Pain, No Palpitations Gastrointestinal: No Diarrhea, No Vomiting Genitourinary: No Hematuria Neurological: No Seizures Skin: No Rash Physical Exam General: Alert, No acute distress HEENT: Atraumatic Lungs: Clear to auscultation Heart: Regular rate Abdomen: Soft, No tenderness Extremities: No edema Psych/Mental Status: Mood NL Vitals VITALS Vital Signs Date Time Temp Pulse Resp B/P Pulse Ox O2 Delivery O2 Flow Rate FiO2 07/12/16 14:59 98.8 65 18 103/54 95 Room Air 98.8 Labs Labs Laboratory Tests Test 07/11/16 11:15 07/11/16 19:00 07/12/16 00:40 07/12/16 05:45 White Blood Count 3.5x10^3/uL (4.0-11.0) 3.5x10^3/uL (4.0-11.0) Red Blood Count 3.53x10^6/uL (3.50-5.40) 3.36x10^6/uL (3.50-5.40) Hemoglobin 11.4g/dL (12.0-15.5) 10.8g/dL (12.0-15.5) Hematocrit 34.3% (36.0-47.0) 32.7% (36.0-47.0) Mean Corpuscular Volume 97fL (79-100) 97fL (79-100) Mean Corpuscular Hemoglobin 32pg (25-35) 32pg (25-35) Mean Corpuscular Hemoglobin Concent 33g/dL (31-37) 33g/dL (31-37) Red Cell Distribution Width 13.4% (11.5-14.5) 13.4% (11.5-14.5) Platelet Count 254x10^3/uL (140-400) 254x10^3/uL (140-400) Neutrophils (%) (Auto) 47% (31-73) 24% (31-73) Lymphocytes (%) (Auto) 42% (24-48) 63% (24-48) Monocytes (%) (Auto) 8% (0-9) 8% (0-9) Eosinophils (%) (Auto) 2% (0-3) 4% (0-3) Basophils (%) (Auto) 1% (0-3) 1% (0-3) Neutrophils # (Auto) 1.6x10^3uL (1.8-7.7) 0.8x10^3uL (1.8-7.7) Lymphocytes # (Auto) 1.4x10^3/uL (1.0-4.8) 2.2x10^3/uL (1.0-4.8) Monocytes # (Auto) 0.3x10^3/uL (0.0-1.1) 0.3x10^3/uL (0.0-1.1) Eosinophils # (Auto) 0.1x10^3/uL (0.0-0.7) 0.1x10^3/uL (0.0-0.7) Basophils # (Auto) 0.0x10^3/uL (0.0-0.2) 0.0x10^3/uL (0.0-0.2) Prothrombin Time 19.3SEC (11.7-14.0) Prothromb Time International Ratio 1.7 (0.8-1.1) Activated Partial Thromboplast Time 36SEC (24-38) Sodium Level 141mmol/L (136-145) 141mmol/L (136-145) Potassium Level 4.4mmol/L (3.5-5.1) 3.9mmol/L (3.5-5.1) Chloride Level 105mmol/L (98-107) 106mmol/L (98-107) Carbon Dioxide Level 28mmol/L (21-32) 26mmol/L (21-32) Anion Gap 8 (6-14) 9 (6-14) Blood Urea Nitrogen 12mg/dL (7-20) 13mg/dL (7-20) Creatinine 0.8mg/dL (0.6-1.0) 0.8mg/dL (0.6-1.0) Estimated GFR (Cockcroft-Gault) 84.4 84.4 Glucose Level 89mg/dL (70-99) 84mg/dL (70-99) Calcium Level 9.0mg/dL (8.5-10.1) 8.7mg/dL (8.5-10.1) Total Bilirubin 0.3mg/dL (0.2-1.0) Direct Bilirubin 0.1mg/dL (0.0-0.2) Aspartate Amino Transf (AST/SGOT) 19U/L (15-37) Alanine Aminotransferase (ALT/SGPT) 19U/L (14-59) Alkaline Phosphatase 57U/L (46-116) Troponin I Quantitative 0.820ng/mL (0.000-0.055) 0.800ng/mL (0.000-0.055) 0.751ng/mL (0.000-0.055) LU-Uvb-F-Type Natriuretic Peptide 374pg/mL (0-449) Total Protein 7.9g/dL (6.4-8.2) Albumin 3.3g/dL (3.4-5.0) Lipase 189U/L (73-393) Segmented Neutrophils % 14% (35-66) Lymphocytes % 75% (24-48) Monocytes % 6% (0-10) Eosinophils % 5% (0-5) Platelet Estimate Adequate (ADEQUATE) Magnesium Level 2.2mg/dL (1.8-2.4) Triglycerides Level 52mg/dL (0-150) Cholesterol Level 175mg/dL (0-200) LDL Cholesterol, Calculated 83mg/dL (0-100) VLDL Cholesterol, Calculated 10mg/dL (0-40) HDL Cholesterol 82mg/dL (40-60) Cholesterol/HDL Ratio 2.1 Laboratory Tests Test 07/11/16 19:00 07/12/16 00:40 07/12/16 05:45 Troponin I Quantitative 0.800ng/mL (0.000-0.055) 0.751ng/mL (0.000-0.055) White Blood Count 3.5x10^3/uL (4.0-11.0) Red Blood Count 3.36x10^6/uL (3.50-5.40) Hemoglobin 10.8g/dL (12.0-15.5) Hematocrit 32.7% (36.0-47.0) Mean Corpuscular Volume 97fL (79-100) Mean Corpuscular Hemoglobin 32pg (25-35) Mean Corpuscular Hemoglobin Concent 33g/dL (31-37) Red Cell Distribution Width 13.4% (11.5-14.5) Platelet Count 254x10^3/uL (140-400) Neutrophils (%) (Auto) 24% (31-73) Lymphocytes (%) (Auto) 63% (24-48) Monocytes (%) (Auto) 8% (0-9) Eosinophils (%) (Auto) 4% (0-3) Basophils (%) (Auto) 1% (0-3) Neutrophils # (Auto) 0.8x10^3uL (1.8-7.7) Lymphocytes # (Auto) 2.2x10^3/uL (1.0-4.8) Monocytes # (Auto) 0.3x10^3/uL (0.0-1.1) Eosinophils # (Auto) 0.1x10^3/uL (0.0-0.7) Basophils # (Auto) 0.0x10^3/uL (0.0-0.2) Segmented Neutrophils % 14% (35-66) Lymphocytes % 75% (24-48) Monocytes % 6% (0-10) Eosinophils % 5% (0-5) Platelet Estimate Adequate (ADEQUATE) Sodium Level 141mmol/L (136-145) Potassium Level 3.9mmol/L (3.5-5.1) Chloride Level 106mmol/L (98-107) Carbon Dioxide Level 26mmol/L (21-32) Anion Gap 9 (6-14) Blood Urea Nitrogen 13mg/dL (7-20) Creatinine 0.8mg/dL (0.6-1.0) Estimated GFR (Cockcroft-Gault) 84.4 Glucose Level 84mg/dL (70-99) Calcium Level 8.7mg/dL (8.5-10.1) Magnesium Level 2.2mg/dL (1.8-2.4) Triglycerides Level 52mg/dL (0-150) Cholesterol Level 175mg/dL (0-200) LDL Cholesterol, Calculated 83mg/dL (0-100) VLDL Cholesterol, Calculated 10mg/dL (0-40) HDL Cholesterol 82mg/dL (40-60) Cholesterol/HDL Ratio 2.1 Assessment/Plan Assessment/Plan 1. Chest pain with some typical features. Troponin level slightly elevated. EKG without acute changes. Patient had cardiac catheterization in August 2015 that did not show any significant coronary artery disease. Doubt cardiac etiology. Suspect symptoms are secondary to URI/bronchospasm. Symptoms improved with bronchodilators. We will obtain 2-D echocardiogram to rule out any wall motion abnormalities. 2. Hypertension: Controlled. 3. Hypothyroidism: On levothyroxine 4. h/o DVT: On oral anticoagulation. Thank you for your consultation. ANDREW CARLSON MD Jul 12, 2016 15:35
[2016-07-12] MEDS: WARFARIN 5 MG TABLET. PO SCH (16:17)
[2016-07-12 16:52] LABS: OBC FLU VALID
[2016-07-12 19:00] VITALS: BP 107/67
[2016-07-12] MEDS: ALPRAZOLAM 0.5 MG TABLET PO PRN (20:32)
[2016-07-12] MEDS: FAMOTIDINE 20 MG TABLET. PO SCH (20:32)
[2016-07-12] MEDS: GABAPENTIN 100 MG CAPSULE. PO SCH (21:00)
[2016-07-12 22:32] VITALS: BP 117/62
[2016-07-13 03:00] VITALS: BP 137/75
[2016-07-13] MEDS: HYDROCODONE/APAP 5/325MG TABLET. PO PRN ×2 (03:44→21:29)
[2016-07-13] MEDS ORDERED: ALBUTEROL SULFATE 2.5 MG/3 ML NEBU. NEB ONE (03:45)
[2016-07-13 05:00] LABS: INR 1.6 (0.8-1.1)
[2016-07-13] MEDS: LEVOTHYROXINE 50 MCG TABLET PO SCH (06:47)
[2016-07-13 07:00] VITALS: BP 119/62
[2016-07-13] MEDS: ALBUTEROL SULFATE 2.5 MG/3 ML NEBU. NEB SCH ×4 (07:20→19:12)
[2016-07-13] MEDS: FLUTICASONE 50MCG/NASAL SPRAY 16GM BOTTLE. NS SCH (09:16)
[2016-07-13] MEDS: CYANOCOBALAMIN (VITAMIN B-12) 1,000 MCG TABLET. PO SCH (09:16)
[2016-07-13] MEDS: CHOLECALCIFEROL (VITAMIN D3) 1,000 UNIT TABLET PO SCH (09:16)
[2016-07-13] MEDS: POLYVINYL ALCOHOL 1.4% OPHTH SOLUTION 15ML BOTTLE. OU SCH ×2 (09:16→21:28)
[2016-07-13] MEDS: GUAIFENESIN DM 600/30MG TAB.ER.12H. PO SCH ×2 (09:16→21:29)
[2016-07-13] MEDS: POLYETHYLENE GLYCOL 3350 17 GM PACKET. PO SCH (09:16)
[2016-07-13] MEDS: LISINOPRIL 5 MG TABLET. PO SCH (09:18)
[2016-07-13 11:05] VITALS: BP 120/69
--- NOTE | 2016-07-13 13:39 | CARD ---
APPROVED REPORT EXAM: Two-dimensional and M-mode echocardiogram with Doppler and color Doppler. Other Information Quality : Good INDICATION Chest Pain 2D DIMENSIONS RVDd3.0 (2.9-3.5cm)Left Atrium(2D)4.5 (1.6-4.0cm) IVSd1.4 (0.7-1.1cm)Aortic Root(2D)2.6 (2.0-3.7cm) LVDd4.1 (3.9-5.9cm)LVOT Diameter2.3 (1.8-2.4cm) PWd1.3 (0.7-1.1cm)LVDs2.4 (2.5-4.0cm) FS (%) 30.0 %SV56.5 ml LVEF(%)60.0 (>50%) M-Mode DIMENSIONS Aortic Cusp Exc1.09 (1.5-2.0cm) Aortic Valve AoV Peak Alden.272.9cm/sAoV VTI62.1cm AO Peak GR.29.8mmHgLVOT VTI 27.38cm AO Mean GR.17mmHgAVA (VTI)1.90cm2 Mitral Valve MV E Tdcbvnws50.2cm/sMV DECEL [id number] MV A Xsyvqkwx89.0cm/sE/A Ratio1.0 TDI Lateral E' P. V8.11cm/sMedial E' P. V6.24cm/s E/Lateral E'10.4E/Medial E'13.5 Tricuspid Valve TR P. Wqvkbtep454ge/sRAP ILTHLJYF6zsUp TR Peak Gr.49wgQgGVQB54qlBi Pulmonary Vein S1 Idcsqbnz16.8cm/sS2 Ygjinlkw65.13cm/s D2 Veqcvfme53.1cm/sPVa atnqoibg83zmil LEFT VENTRICLE The left ventricle is normal size. There is mild concentric left ventricular hypertrophy. The left ve ntricular systolic function is normal and the ejection fraction is within normal range. The Ejection Fraction is 60-65%. There is normal LV segmental wall motion. Transmitral Doppler flow pattern is Gra de I-abnormal relaxation pattern. RIGHT VENTRICLE The right ventricle is normal size. The right ventricular systolic function is normal. ATRIA The left atrium is mildly dilated. The right atrium size is normal. The interatrial septum is intact with no evidence for an atrial septal defect or patent foramen ovale as noted on 2-D or Doppler imagi ng. AORTIC VALVE The aortic valve is moderately thickened and displays decreased opening. Doppler and Color Flow revea led trace aortic regurgitation. Calculated aortic valve area is 1.9 cm2 with maximum pressure gradien t of 30 mmHg and mean pressure gradient of 17 mmHg. Doppler and color-flow analysis revealed mild aor tic stenosis. MITRAL VALVE The mitral valve is calcified but opens well. Mitral annular calcification is mild. There is no evide nce of mitral valve prolapse. There is no mitral valve stenosis. Doppler and Color-flow revealed trac e to mild mitral regurgitation. TRICUSPID VALVE The tricuspid valve is normal in structure and function. Doppler and Color Flow revealed trace tricus pid regurgitation. The PA pressure was estimated at 36 mmHg. There is no tricuspid valve stenosis. PULMONIC VALVE The pulmonary valve is normal in structure and function. Doppler and Color Flow revealed trace pulmon ic valvular regurgitation. There is no pulmonic valvular stenosis. GREAT VESSELS The aortic root is normal in size. The ascending aorta is normal in size. The IVC is normal in size a nd collapses <50% with inspiration. PERICARDIAL EFFUSION There is no evidence of significant pericardial effusion. Critical Notification Critical Value: No <Conclusion> The left ventricle is normal size. The left ventricular systolic function is normal and the ejection fraction is within normal range. The Ejection Fraction is 60-65%. There is mild concentric left ventricular hypertrophy. Calculated aortic valve area is 1.9 cm2 with maximum pressure gradient of 30 mmHg and mean pressure g radient of 17 mmHg. Doppler and color-flow analysis revealed mild aortic stenosis. Doppler and Color Flow revealed trace aortic regurgitation. Doppler and Color-flow revealed trace to mild mitral regurgitation. Doppler and Color Flow revealed trace tricuspid regurgitation. The PA pressure was estimated at 36 mmHg.
[2016-07-13] MEDS ORDERED: PREDNISONE 20 MG TABLET PO ONE (14:30)
[2016-07-13 14:47] VITALS: BP 118/76
--- NOTE | 2016-07-13 15:35 | PDOC ---
PROGRESS NOTES Chief Complaint Chief Complaint SOB, cough CP ASSESSMENT AND PLAN: 1. CP: suspect noncardiac, musculoskeletal in origin. 2. elevated troponin: stable at 0.8 times 3. may need further eval. await cardiac input. 3. Neutropenia: pt unaware of hx in herself or family. suspect 2/2 viral syndrome. neutropenic precautions. 4. Viral syndrome: pt has had URI sx x1 week, cough bothersome to her. had flu swab at urgent care earlier this week neg, but will rpt here. supportive care. 5. Hx DVT: on OAC. monitor INR 6. HTN: well controlled. cont home meds 7. Hypothyroidism: on hormone repletion History of Present Illness History of Present Illness WBC 3 - news to pt NOn toxic appearing, no fevers Stilll complains of mucous like cough - bothered by it Worked well with PT today Hx asthma on inhalers at home albuterol only Follows with [facility] mildly elevated x 3 - recent cath- dw cards, no further eval PLAn: Started on PO pred by cards Cont nebs Cont cough med Consult pulmo HOme tani if feeling better Might need OP PFts Dw RN Vitals Vitals Vital Signs Date Time Temp Pulse Resp B/P Pulse Ox O2 Delivery O2 Flow Rate FiO2 07/13/16 14:47 98.1 63 18 118/76 99 Room Air 98.1 Physical Exam General: Alert, No acute distress Heart: Regular rate Lungs: Clear, Other Abdomen: Soft, No tenderness Extremities: No edema Skin: No rashes Labs LABS Laboratory Tests Test 07/13/16 04:10 Prothrombin Time 18.0SEC (11.7-14.0) Prothromb Time International Ratio 1.6 (0.8-1.1) Review of Systems Review of Systems cough, no feverss, SOA< no CP Assessment and Plan Assessmemt and Plan Problems Medical Problems: (1) ACS (acute coronary syndrome) Status: Acute (2) Non-ST elevation (NSTEMI) myocardial infarction Status: Acute Problems: Comment Review of Relevant I have reviewed the following items nigel (where applicable) has been applied. Labs Laboratory Tests Test 07/11/16 19:00 07/12/16 00:40 07/12/16 05:45 07/12/16 11:00 Troponin I Quantitative 0.800ng/mL (0.000-0.055) 0.751ng/mL (0.000-0.055) White Blood Count 3.5x10^3/uL (4.0-11.0) Red Blood Count 3.36x10^6/uL (3.50-5.40) Hemoglobin 10.8g/dL (12.0-15.5) Hematocrit 32.7% (36.0-47.0) Mean Corpuscular Volume 97fL (79-100) Mean Corpuscular Hemoglobin 32pg (25-35) Mean Corpuscular Hemoglobin Concent 33g/dL (31-37) Red Cell Distribution Width 13.4% (11.5-14.5) Platelet Count 254x10^3/uL (140-400) Neutrophils (%) (Auto) 24% (31-73) Lymphocytes (%) (Auto) 63% (24-48) Monocytes (%) (Auto) 8% (0-9) Eosinophils (%) (Auto) 4% (0-3) Basophils (%) (Auto) 1% (0-3) Neutrophils # (Auto) 0.8x10^3uL (1.8-7.7) Lymphocytes # (Auto) 2.2x10^3/uL (1.0-4.8) Monocytes # (Auto) 0.3x10^3/uL (0.0-1.1) Eosinophils # (Auto) 0.1x10^3/uL (0.0-0.7) Basophils # (Auto) 0.0x10^3/uL (0.0-0.2) Segmented Neutrophils % 14% (35-66) Lymphocytes % 75% (24-48) Monocytes % 6% (0-10) Eosinophils % 5% (0-5) Platelet Estimate Adequate (ADEQUATE) Sodium Level 141mmol/L (136-145) Potassium Level 3.9mmol/L (3.5-5.1) Chloride Level 106mmol/L (98-107) Carbon Dioxide Level 26mmol/L (21-32) Anion Gap 9 (6-14) Blood Urea Nitrogen 13mg/dL (7-20) Creatinine 0.8mg/dL (0.6-1.0) Estimated GFR (Cockcroft-Gault) 84.4 Glucose Level 84mg/dL (70-99) Calcium Level 8.7mg/dL (8.5-10.1) Magnesium Level 2.2mg/dL (1.8-2.4) Triglycerides Level 52mg/dL (0-150) Cholesterol Level 175mg/dL (0-200) LDL Cholesterol, Calculated 83mg/dL (0-100) VLDL Cholesterol, Calculated 10mg/dL (0-40) HDL Cholesterol 82mg/dL (40-60) Cholesterol/HDL Ratio 2.1 Influenza Type A Antigen Negative (NEGATIVE) Influenza Type B Antigen Negative (NEGATIVE) Test 07/13/16 04:10 Prothrombin Time 18.0SEC (11.7-14.0) Prothromb Time International Ratio 1.6 (0.8-1.1) Laboratory Tests Test 07/13/16 04:10 Prothrombin Time 18.0SEC (11.7-14.0) Prothromb Time International Ratio 1.6 (0.8-1.1) Medications Current Medications Albuterol/ Ipratropium (Duoneb) 3 ml 1X ONCE NEB ; Start 07/11/16 at 10:30; Stop 07/11/16 at 10:30; Status DC Albuterol/ Ipratropium (Duoneb) 3 ml STK-MED ONCE .ROUTE ; Start 07/11/16 at 10: 25; Stop 07/11/16 at 10:30; Status DC Albuterol Sulfate (Ventolin Neb Soln) 2.5 mg 1X ONCE NEB Last administered on 07/11/16 11:09; Start 07/11/16 at 11:00; Stop 07/11/16 at 11:01; Status DC Aspirin (Children'S Aspirin) 324 mg 1X ONCE PO Last administered on 07/11/16 11:59; Start 07/11/16 at 12:30; Stop 07/11/16 at 12:31; Status DC Enoxaparin Sodium (Lovenox 80mg Syringe) 80 mg ONCE ONCE SQ Last administered on 07/11/16 12:14; Start 07/11/16 at 11:52; Stop 07/11/16 at 11:53; Status DC Nitroglycerin (Nitrostat) 0.4 mg PRN Q5MIN PRN SL CHEST PAIN Last administered on 07/11/16 12:38; Start 07/11/16 at 12:00 Ondansetron HCl (Zofran) 4 mg PRN Q8HRS PRN IV NAUSEA/VOMITING; Start 07/11/16 at 12:30; Stop 07/12/16 at 12:29; Status DC Nitroglycerin (Nitrostat) 0.4 mg PRN Q5MIN PRN SL CHEST PAIN; Start 07/11/16 at 12:30; Stop 07/12/16 at 12:29; Status DC Acetaminophen/ Hydrocodone Bitart (Lortab 5/325) 1 tab PRN Q4HRS PRN PO PAIN Last administered on 07/13/16 03:44; Start 07/11/16 at 15:45 Alprazolam (Xanax) 0.5 mg PRN DAILY PRN PO ANXIETY Last administered on 20:32; Start 07/11/16 at 18:45 Cyanocobalamin (Vitamin B-12) 1,000 mcg DAILY PO Last administered on 09:16; Start 07/12/16 at 09:00 Fluticasone Propionate (Flonase) 1 spray DAILY NS Last administered on 09:16; Start 07/12/16 at 09:00 Gabapentin (Neurontin) 100 mg HS PO Last administered on 07/11/16 20:04; Start 07/11/16 at 21:00 Levothyroxine Sodium (Synthroid) 50 mcg DAILY07 PO Last administered on 06:47; Start 07/12/16 at 07:00 Lisinopril (Prinivil) 5 mg DAILY PO Last administered on 07/13/16 09:18; Start 07/12/16 at 09:00 Polyethylene Glycol (miraLAX PACKET) 17 gm DAILY PO Last administered on 09:16; Start 07/12/16 at 09:00 Tramadol HCl (Ultram) 50 mg PRN BID PRN PO PAIN Last administered on 07/12/16 20:32; Start 07/11/16 at 18:45 Warfarin Sodium (Coumadin) 5 mg DAILY16 PO Last administered on 07/12/16 16:17 ; Start 07/12/16 at 16:00 Albuterol Sulfate (Ventolin Neb Soln) 2.5 mg QID NEB Last administered on 11:25; Start 07/11/16 at 19:15 Vitamin D (Vitamin D3) 1,000 unit DAILY PO Last administered on 07/13/16 09:16 ; Start 07/12/16 at 09:00 Artificial Tears (Artificial Tears) 1 drop BID OU Last administered on 09:16; Start 07/11/16 at 21:00 Famotidine (Pepcid) 20 mg QHS PO Last administered on 07/12/16 20:32; Start at 21:00 Warfarin Sodium (Coumadin Per Physician) 1 each PRN DAILY PRN MC SEE COMMENTS Last administered on 07/13/16 10:45; Start 07/11/16 at 19:15 Albuterol Sulfate (Ventolin Neb Soln) 2.5 mg 1X ONCE NEB Last administered on 07/12/16 04:48; Start 07/12/16 at 04:45; Stop 07/12/16 at 05:03; Status DC Guaifenesin (MUCINEX ER with DM) 1 tab BID PO Last administered on 07/13/16 09 :16; Start 07/12/16 at 11:30 Albuterol Sulfate (Ventolin Neb Soln) 2.5 mg 1X ONCE NEB Last administered on 07/13/16 03:51; Start 07/13/16 at 03:45; Stop 07/13/16 at 03:46; Status DC Prednisone (Prednisone) 20 mg DAILY PO ; Start 07/14/16 at 09:00 Prednisone (Prednisone) 20 mg 1X ONCE PO ; Start 07/13/16 at 14:30; Stop at 14:31; Status DC Active Scripts Active Reported Vitamin B-12 (Cyanocobalamin (Vitamin B-12)) 1,000 Mcg Tablet 1,000 Mcg PO DAILY Fluticasone Propionate Nasal [place] (Fluticasone Propionate) 16 Gm [place].susp 1 [place] NS DAILY Gabapentin 100 Mg Capsule 100 Mg PO HS Tramadol Hcl 50 Mg Tablet 1 Tab PO BID PRN Warfarin Sodium 5 Mg Tablet Artificial Tears Drops (Dextran 70/Hypromellose/Pf) 1 Each Droperette 1 Each OU BID Alprazolam 0.5 Mg Tablet 1 Tab PO DAILY PRN Ventolin Hfa Inhaler (Albuterol Sulfate) 18 Gm Hfa.aer.ad 2 Puff INH QID Ranitidine Hcl 150 Mg Tablet 1 Tab PO BID Polyethylene Glycol 3350 17 Gm Powd.pack 17 Gm PO DAILY Lisinopril 5 Mg Tablet 1 Tab PO DAILY Levothyroxine Sodium 50 Mcg Tablet 1 Tab PO DAILY Vitamin D (Cholecalciferol (Vitamin D3)) 1,000 Unit Capsule 1 Cap PO DAILY Vitals/I & O Vital Sign - Last 24 Hours 07/12/16 07/12/16 07/12/16 07/12/16 16:21 19:00 19:43 20:00 Temp 98.8 98.8 Pulse 79 B/P 107/67 Pulse Ox 100 100 98 O2 Delivery Room Air Room Air Room Air Room Air 07/12/16 07/12/16 07/12/16 07/13/16 20:32 21:32 22:32 03:00 Temp 98.6 98.0 98.6 98.0 Pulse 62 65 Resp 18 16 B/P 117/62 137/75 Pulse Ox 98 98 100 97 O2 Delivery Room Air Room Air Room Air Room Air 07/13/16 07/13/16 07/13/16 07/13/16 03:44 03:51 04:40 07:00 Temp 97.8 97.8 Pulse 67 Resp 18 B/P 119/62 Pulse Ox 100 98 98 98 O2 Delivery Room Air Room Air Room Air Room Air 07/13/16 07/13/16 07/13/16 07/13/16 07:23 08:00 09:18 11:05 Temp 98.0 98.0 Pulse 67 65 Resp 19 B/P 119/62 120/69 Pulse Ox 94 100 O2 Delivery Room Air Room Air Room Air 07/13/16 07/13/16 11:26 14:47 Temp 98.1 98.1 Pulse 63 Resp 18 B/P 118/76 Pulse Ox 99 99 O2 Delivery Room Air Room Air Intake and Output 07/12/16 07/12/16 07/13/16 15:00 23:00 07:00 Intake Total 300 ml 50 ml 300 ml Output Total 200 ml Balance 100 ml 50 ml 300 ml TAMIR DELATORRE MD Jul 13, 2016 15:35
[2016-07-13] MEDS ORDERED: PREDNISONE 20 MG TABLET PO SCH (16:00)
[2016-07-13] MEDS ORDERED: IPRATRPIUM/ALBUTEROL 0.5/2.5MG 3 ML NEBU. NEB SCH ×2 (16:00)
[2016-07-13] MEDS: WARFARIN 5 MG TABLET. PO SCH (17:03)
[2016-07-13 19:37] VITALS: BP 144/79
[2016-07-13] MEDS: GABAPENTIN 100 MG CAPSULE. PO SCH (21:00)
[2016-07-13] MEDS: FAMOTIDINE 20 MG TABLET. PO SCH (21:28)
[2016-07-13 23:12] VITALS: BP 137/77
[2016-07-14 03:12] VITALS: BP 111/60
[2016-07-14] MEDS: LEVOTHYROXINE 50 MCG TABLET PO SCH (06:07)
[2016-07-14] MEDS: ALBUTEROL SULFATE 2.5 MG/3 ML NEBU. NEB SCH ×3 (07:09→14:50)
[2016-07-14 07:53] VITALS: BP 134/69
[2016-07-14] MEDS ORDERED: PREDNISONE 20 MG TABLET PO SCH (09:00)
[2016-07-14] MEDS: FLUTICASONE 50MCG/NASAL SPRAY 16GM BOTTLE. NS SCH (09:00)
[2016-07-14] MEDS: POLYVINYL ALCOHOL 1.4% OPHTH SOLUTION 15ML BOTTLE. OU SCH (09:00)
--- NOTE | 2016-07-14 10:04 | PDOC ---
PULMONARY PROGRESS NOTES Vitals Vital Signs Date Time Temp Pulse Resp B/P Pulse Ox O2 Delivery O2 Flow Rate FiO2 07/14/16 07:53 97.9 68 18 134/69 96 Room Air 97.9 Lungs: Clear, Other Labs Laboratory Tests Test 07/12/16 11:00 07/13/16 04:10 Influenza Type A Antigen Negative (NEGATIVE) Influenza Type B Antigen Negative (NEGATIVE) Prothrombin Time 18.0SEC (11.7-14.0) Prothromb Time International Ratio 1.6 (0.8-1.1) Medications Active Scripts Medications Dose Route/Sig Days Date Category Vitamin B-12 (Cyanocobalamin (Vitamin B-12)) 1,000 Mcg Tablet 1,000 Mcg PO DAILY 07/11/16 Reported Fluticasone Propionate Nasal [place] (Fluticasone Propionate) 16 Gm [place].susp 1 [place] NS DAILY 07/11/16 Reported Gabapentin 100 Mg Capsule 100 Mg PO HS 07/11/16 Reported Tramadol Hcl 50 Mg Tablet 1 Tab PO BID PRN 07/11/16 Reported Warfarin Sodium 5 Mg Tablet 07/11/16 Reported Artificial Tears Drops (Dextran 70/Hypromellose/Pf) 1 Each [place] 1 Each OU BID 09/02/15 Reported Alprazolam 0.5 Mg Tablet 1 Tab PO DAILY PRN 03/13/14 Reported Ventolin Hfa Inhaler (Albuterol Sulfate) 18 Gm Hfa.aer.ad 2 Puff INH QID 03/13/14 Reported Ranitidine Hcl 150 Mg Tablet 1 Tab PO BID 03/13/14 Reported Polyethylene Glycol 3350 17 Gm Powd.pack 17 Gm PO DAILY 03/13/14 Reported Lisinopril 5 Mg Tablet 1 Tab PO DAILY 03/13/14 Reported Levothyroxine Sodium 50 Mcg Tablet 1 Tab PO DAILY 03/13/14 Reported Vitamin D (Cholecalciferol (Vitamin D3)) 1,000 Unit Capsule 1 Cap PO DAILY 03/13/14 Reported SHAYNA ALMONTE MD Jul 14, 2016 10:04
[2016-07-14] MEDS: GUAIFENESIN DM 600/30MG TAB.ER.12H. PO SCH (10:17)
[2016-07-14] MEDS: LISINOPRIL 5 MG TABLET. PO SCH (10:18)
[2016-07-14] MEDS: CYANOCOBALAMIN (VITAMIN B-12) 1,000 MCG TABLET. PO SCH (10:18)
[2016-07-14] MEDS: CHOLECALCIFEROL (VITAMIN D3) 1,000 UNIT TABLET PO SCH (10:18)
[2016-07-14] MEDS: POLYETHYLENE GLYCOL 3350 17 GM PACKET. PO SCH (10:18)
[2016-07-14 11:13] LABS: BASO % 1 % (0-3); EOS % 6 % (0-3); HEMATOCRIT 37.5 % (36.0-47.0); HEMOGLOBIN 12.1 g/dL (12.0-15.5); LYMPH # 1.5 x10^3/uL (1.0-4.8); LYMPH % 35 % (24-48); MEAN CORPUSCULAR HEMOGLOBIN 31 pg (25-35); MEAN CORPUSCULAR HGB CONC 32 g/dL (31-37); MEAN CORPUSCULAR VOLUME 97 fL (79-100); MONO % 9 % (0-9); NEUT % 50 % (31-73); PLATELET COUNT 340 x10^3/uL (140-400); RED BLOOD COUNT 3.88 x10^6/uL (3.50-5.40); RED CELL DISTRIBUTION WIDTH 13.7 % (11.5-14.5); WHITE BLOOD COUNT 4.2 x10^3/uL (4.0-11.0)
[2016-07-14 11:18] LABS: GFR 65.2; POTASSIUM 4.7 mmol/L (3.5-5.1)
[2016-07-14 11:54] VITALS: BP 126/61
--- NOTE | 2016-07-14 12:38 | PDOC ---
CARDIO Progress Notes Date and Time Date of Service 07/14/2016 Time of Evaluation 1230 Subjective Subjective: No Chest Pain, No Palpitations, No Dizziness, Other (SOA with exertion) Vitals Vitals Vital Signs Date Time Temp Pulse Resp B/P Pulse Ox O2 Delivery O2 Flow Rate FiO2 07/14/16 11:54 97.6 72 18 126/61 98 Room Air 97.6 Weight Weight [ ] Input and Output Intake and Output Intake and Output 07/14/16 07:00 Intake Total 780 ml Balance 780 ml Intake Oral 780 ml # Voids 3 Laboratory Labs Laboratory Tests Test 07/14/16 10:55 White Blood Count 4.2x10^3/uL (4.0-11.0) Red Blood Count 3.88x10^6/uL (3.50-5.40) Hemoglobin 12.1g/dL (12.0-15.5) Hematocrit 37.5% (36.0-47.0) Mean Corpuscular Volume 97fL (79-100) Mean Corpuscular Hemoglobin 31pg (25-35) Mean Corpuscular Hemoglobin Concent 32g/dL (31-37) Red Cell Distribution Width 13.7% (11.5-14.5) Platelet Count 340x10^3/uL (140-400) Neutrophils (%) (Auto) 50% (31-73) Lymphocytes (%) (Auto) 35% (24-48) Monocytes (%) (Auto) 9% (0-9) Eosinophils (%) (Auto) 6% (0-3) Basophils (%) (Auto) 1% (0-3) Neutrophils # (Auto) 2.1x10^3uL (1.8-7.7) Lymphocytes # (Auto) 1.5x10^3/uL (1.0-4.8) Monocytes # (Auto) 0.4x10^3/uL (0.0-1.1) Eosinophils # (Auto) 0.2x10^3/uL (0.0-0.7) Basophils # (Auto) 0.0x10^3/uL (0.0-0.2) Sodium Level 143mmol/L (136-145) Potassium Level 4.7mmol/L (3.5-5.1) Chloride Level 104mmol/L (98-107) Carbon Dioxide Level 26mmol/L (21-32) Anion Gap 13 (6-14) Blood Urea Nitrogen 10mg/dL (7-20) Creatinine 1.0mg/dL (0.6-1.0) Estimated GFR (Cockcroft-Gault) 65.2 Glucose Level 91mg/dL (70-99) Calcium Level 10.0mg/dL (8.5-10.1) Physical Exam HEENT: Neck Supple W Full Motion Chest: Symmetric LUNGS: Other (faint basilar crackles) Heart: S1S2, RRR (SR no ectopies ) Abdomen: Soft N/T Extremities: No Calf Tenderness Neurology: alert, oriented, follow commands Assessment Assessment 1. Chest pain: none further. 08/2016 [facility] with no significant CAD. Trop elevation could be viral such as myocarditis although TTE does not show any significant changes. CP free. 2. Dyspnea on exertion: continue but better, with underlying URI. Deconditioning ? 3. Viral syndrome 4. HTN: controlled 5. Hx of DVT: on OAC 6. Leukopenia: resolved Recommendations 1. Supportive care otherwise no further workup is warranted. 2. PCXR today 3. Continue with outpt follow up 4. Continue with antiHTN. MERNA SERRANO APRN Jul 14, 2016 12:38
[2016-07-14] MEDS ORDERED: BENZ100C PO (13:46)
--- NOTE | 2016-07-14 13:48 | PDOC3 ---
Discharge Summary Visit Information Date of Admission: Jul 11, 2016 Date of Discharge: Jul 14, 2016 Admitting Diagnosis Comment: 1. CP: noncardiac, 2. elevated troponin: stable at 0.8 times 3. 3. Neutropenia: p 4. Viral syndrome: are. 5. Hx DVT: 6. HTN: well controlled. 7. Hypothyroidism: on hormone repletion Final Diagnosis Problems Medical Problems: (1) ACS (acute coronary syndrome) Status: Acute (2) Acute asthmatic bronchitis Status: Acute (3) Non-ST elevation (NSTEMI) myocardial infarction Status: Acute Brief Hospital Course Allergies Allergies Coded Allergies Type Severity Reaction Last Updated Verified Penicillins Allergy Severe Anaphylaxis 11/21/15 Yes diphenhydramine Allergy Severe Anaphylaxis 11/21/15 Yes ipratropium Allergy Severe Anaphylaxis 11/21/15 Yes meclizine Allergy Severe 11/21/15 Yes trazodone Allergy Severe Shortness of Air 11/21/15 Yes bacitracin Allergy Intermediate Rash 11/21/15 Yes gabapentin Allergy Intermediate Itching 11/21/15 Yes neomycin Allergy Intermediate Rash 11/21/15 Yes oxycodone Allergy Intermediate Nausea and Vomiting 11/21/15 Yes polymyxin B Allergy Intermediate Rash 11/21/15 Yes I S O L A T I O N *CONTACT* Allergy Unknown 06/02/16 Yes Vital Signs Vital Signs Date Time Temp Pulse Resp B/P Pulse Ox O2 Delivery O2 Flow Rate FiO2 07/14/16 11:54 97.6 72 18 126/61 98 Room Air 97.6 Lab Results Laboratory Tests Test 07/13/16 04:10 07/14/16 10:55 Prothrombin Time 18.0SEC (11.7-14.0) Prothromb Time International Ratio 1.6 (0.8-1.1) White Blood Count 4.2x10^3/uL (4.0-11.0) Red Blood Count 3.88x10^6/uL (3.50-5.40) Hemoglobin 12.1g/dL (12.0-15.5) Hematocrit 37.5% (36.0-47.0) Mean Corpuscular Volume 97fL (79-100) Mean Corpuscular Hemoglobin 31pg (25-35) Mean Corpuscular Hemoglobin Concent 32g/dL (31-37) Red Cell Distribution Width 13.7% (11.5-14.5) Platelet Count 340x10^3/uL (140-400) Neutrophils (%) (Auto) 50% (31-73) Lymphocytes (%) (Auto) 35% (24-48) Monocytes (%) (Auto) 9% (0-9) Eosinophils (%) (Auto) 6% (0-3) Basophils (%) (Auto) 1% (0-3) Neutrophils # (Auto) 2.1x10^3uL (1.8-7.7) Lymphocytes # (Auto) 1.5x10^3/uL (1.0-4.8) Monocytes # (Auto) 0.4x10^3/uL (0.0-1.1) Eosinophils # (Auto) 0.2x10^3/uL (0.0-0.7) Basophils # (Auto) 0.0x10^3/uL (0.0-0.2) Sodium Level 143mmol/L (136-145) Potassium Level 4.7mmol/L (3.5-5.1) Chloride Level 104mmol/L (98-107) Carbon Dioxide Level 26mmol/L (21-32) Anion Gap 13 (6-14) Blood Urea Nitrogen 10mg/dL (7-20) Creatinine 1.0mg/dL (0.6-1.0) Estimated GFR (Cockcroft-Gault) 65.2 Glucose Level 91mg/dL (70-99) Calcium Level 10.0mg/dL (8.5-10.1) Laboratory Tests Test 07/14/16 10:55 White Blood Count 4.2x10^3/uL (4.0-11.0) Red Blood Count 3.88x10^6/uL (3.50-5.40) Hemoglobin 12.1g/dL (12.0-15.5) Hematocrit 37.5% (36.0-47.0) Mean Corpuscular Volume 97fL (79-100) Mean Corpuscular Hemoglobin 31pg (25-35) Mean Corpuscular Hemoglobin Concent 32g/dL (31-37) Red Cell Distribution Width 13.7% (11.5-14.5) Platelet Count 340x10^3/uL (140-400) Neutrophils (%) (Auto) 50% (31-73) Lymphocytes (%) (Auto) 35% (24-48) Monocytes (%) (Auto) 9% (0-9) Eosinophils (%) (Auto) 6% (0-3) Basophils (%) (Auto) 1% (0-3) Neutrophils # (Auto) 2.1x10^3uL (1.8-7.7) Lymphocytes # (Auto) 1.5x10^3/uL (1.0-4.8) Monocytes # (Auto) 0.4x10^3/uL (0.0-1.1) Eosinophils # (Auto) 0.2x10^3/uL (0.0-0.7) Basophils # (Auto) 0.0x10^3/uL (0.0-0.2) Sodium Level 143mmol/L (136-145) Potassium Level 4.7mmol/L (3.5-5.1) Chloride Level 104mmol/L (98-107) Carbon Dioxide Level 26mmol/L (21-32) Anion Gap 13 (6-14) Blood Urea Nitrogen 10mg/dL (7-20) Creatinine 1.0mg/dL (0.6-1.0) Estimated GFR (Cockcroft-Gault) 65.2 Glucose Level 91mg/dL (70-99) Calcium Level 10.0mg/dL (8.5-10.1) Brief Hospital Course Ms. Brice is a 76 old Aa female admitted for CP, Recent echo and LHC clean, Trop o.8, cards assessed more of acute asthmatic bronchospasm component. She does have hx asthma, follows with RODOLFO bowen, Started on pred low dose 20 mgs, but had hypersensitivity reaction to it - beet red palms,. NO anaphylaxis. NOt wheezing badly, Pt counselled, GAve tessalone perles. Might need OP PFTs Pulmo consulted - no new orders Dis[pO; HOme - did well with PT Consults: cards and pulmo \dc 34 mins > 50% counselling Discharge Information Condition at Discharge: Improved, Stable Disposition/Orders: D/C to Home Scheduled Albuterol Sulfate (Ventolin Hfa Inhaler) 2 PUFF INH QID (Reported) Cholecalciferol (Vitamin D3) (Vitamin D) 1 CAP PO DAILY (Reported) Cyanocobalamin (Vitamin B-12) (Vitamin B-12) 1,000 MCG PO DAILY (Reported) Dextran 70/Hypromellose/Pf (Artificial Tears Drops) 1 EACH OU BID (Reported) Fluticasone Propionate (Fluticasone Propionate Nasal [place]) 1 SPRAY NS DAILY ( Reported) Gabapentin (Gabapentin) 100 MG PO HS (Reported) Levothyroxine Sodium (Levothyroxine Sodium) 1 TAB PO DAILY (Reported) Lisinopril (Lisinopril) 1 TAB PO DAILY (Reported) Polyethylene Glycol 3350 (Polyethylene Glycol 3350) 17 GM PO DAILY (Reported) Ranitidine Hcl (Ranitidine Hcl) 1 TAB PO BID (Reported) Scheduled PRN Alprazolam (Alprazolam) 1 TAB PO DAILY PRN PRN ANXIETY (Reported) Tramadol Hcl (Tramadol Hcl) 1 TAB PO BID PRN PRN PAIN (Reported) Miscellaneous Medications Warfarin Sodium (Warfarin Sodium) (Reported) TAMIR DELATORRE MD Jul 14, 2016 13:48
--- NOTE | 2016-07-14 15:54 | RAD ---
Portable chest, 07/14/2016: History: Dyspnea Comparison is made to a study from 07/11/2016. The heart size and pulmonary vascularity are normal. There is calcific plaquing of the aorta. A calcified granuloma is present in the left lower chest. No acute infiltrates are seen. There is no evidence of pleural fluid. Surgical clips are projected over the GE junction region. IMPRESSION: No acute cardiopulmonary abnormality is detected.
[2016-07-14] MEDS: WARFARIN 5 MG TABLET. PO SCH (16:00)
[2016-07-14 17:13] VITALS: BP 137/66
== END 2016-07-14 17:30 | disposition home or self-care (01) | DRG 281 ==
LOC: ER 10:13 → CVICU 11:53
PROVIDERS: ADMIT Internal Medicine; ATTEND Internal Medicine
DX: I21.4 Non-ST elevation (NSTEMI) myocardial infarction (principal); E44.1 Mild protein-calorie malnutrition; R07.89 Other chest pain; D70.9 Neutropenia, unspecified; E03.9 Hypothyroidism, unspecified; E78.5 Hyperlipidemia, unspecified; I10 Essential (primary) hypertension; J45.909 Unspecified asthma, uncomplicated; K21.9 Gastro-esophageal reflux disease without esophagitis; K58.9 Irritable bowel syndrome, unspecified; M79.7 Fibromyalgia; M85.80 Other specified disorders of bone density and structure, unspecified site; Z96.659 Presence of unspecified artificial knee joint; F32.9 Major depressive disorder, single episode, unspecified; F41.9 Anxiety disorder, unspecified; M54.5 Low back pain; B34.9 Viral infection, unspecified; K59.00 Constipation, unspecified; Z79.01 Long term (current) use of anticoagulants; Z82.49 Family history of ischemic heart disease and other diseases of the circulatory system; Z83.3 Family history of diabetes mellitus; Z86.718 Personal history of other venous thrombosis and embolism; Z87.11 Personal history of peptic ulcer disease; Z90.49 Acquired absence of other specified parts of digestive tract; Z88.1 Allergy status to other antibiotic agents; Z88.5 Allergy status to narcotic agent; Z88.0 Allergy status to penicillin; Z88.8 Allergy status to other drugs, medicaments and biological substances; Z98.51 Tubal ligation status; Z79.82 Long term (current) use of aspirin
CPT/HCPCS: 36415; 71010; 80048; 80061; 80076; 83690; 83735; 83880; 84484; 85007; 85027; 85610; 85730; 86850; 86900; 86901; 87804; 93005; 93306; 94250; 94640; 94760; 96372; J1650; J7512; 99285-25

== ENCOUNTER 2016-09-18 20:03 | Inpatient (IN) | payer MEDICARE, OTHER ==
[~2016-09-18] VITALS: Ht 157.5 cm; Wt 82.1 kg
[~2016-09-18 20:03] MED LIST changes: +BENZ100C PO; +CYAN10005 PO; +FLUT16SP NS; +GABA-585 PO; -NYST1000 PO; +NYST100054 PO; +WARF-78 PO; -WARF5TAB PO; +WARF5TAB7; -WARF7.5T PO; +WARF7.5T48 PO
[2016-09-18] MEDS ORDERED: ASPIRIN 325 MG TABLET PO ONE (20:30)
[2016-09-18] MEDS: MORPHINE SULFATE 2 MG/ML DISP.SYRIN. IV/SQ PRN ×2 (20:41→23:07)
[2016-09-18 21:11] LABS: BASO % 0 % (0-3); EOS % 3 % (0-3); HEMATOCRIT 33.1 % (36.0-47.0); HEMOGLOBIN 11.2 g/dL (12.0-15.5); LYMPH # 1.9 x10^3/uL (1.0-4.8); LYMPH % 30 % (24-48); MEAN CORPUSCULAR HEMOGLOBIN 32 pg (25-35); MEAN CORPUSCULAR HGB CONC 34 g/dL (31-37); MEAN CORPUSCULAR VOLUME 96 fL (79-100); MONO % 9 % (0-9); NEUT % 59 % (31-73); PLATELET COUNT 295 x10^3/uL (140-400); RED BLOOD COUNT 3.45 x10^6/uL (3.50-5.40); RED CELL DISTRIBUTION WIDTH 14.2 % (11.5-14.5); WHITE BLOOD COUNT 6.3 x10^3/uL (4.0-11.0)
[2016-09-18 21:21] LABS: INR 2.2 (0.8-1.1); PROTHROMBIN TIME PATIENT 23.2 SEC (11.7-14.0)
[2016-09-18 21:44] LABS: CALCIUM 9.3 mg/dL (8.5-10.1); CREATININE 0.8 mg/dL (0.6-1.0); GFR 84.4; POTASSIUM 3.9 mmol/L (3.5-5.1)
[2016-09-18 21:50] LABS: ALBUMIN 3.8 g/dL (3.4-5.0); ALBUMIN/GLOBULIN RATIO 0.8 (1.0-1.7); TOTAL BILIRUBIN 0.5 mg/dL (0.2-1.0); TOTAL PROTEIN 8.4 g/dL (6.4-8.2)
[2016-09-18] MEDS ORDERED: HEPARIN 25,000UTS/500ML PREMIX 500 ML IV PRN (22:00)
[2016-09-18] MEDS ORDERED: NITROGLYCERIN SUBLINGUAL 0.4 MG BOTTLE OF 25. SL PRN (22:00)
[2016-09-18] MEDS ORDERED: HEPARIN for IV BOLUS 10,000 UNIT/10 ML VIAL. IV PRN (22:00)
[2016-09-18] MEDS ORDERED: ACETAMINOPHEN 325 MG TABLET. PO PRN (22:00)
[2016-09-18] MEDS ORDERED: ONDANSETRON PF 4 MG/2 ML VIAL. IV PRN (22:00)
[2016-09-18] MEDS ORDERED: HEPARIN for IV BOLUS 10,000 UNIT/10 ML VIAL. IV ONE (22:00)
[2016-09-18] MEDS ORDERED: MORPHINE SULFATE 2 MG/ML DISP.SYRIN. IV PRN (22:00)
--- NOTE | 2016-09-18 22:32 | EKG ---
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
[2016-09-19] VITALS (7 sets, daily range): BP systolic 94–118; BP diastolic 51–67
--- NOTE | 2016-09-19 00:17 | PHYS DOC ---
Past Medical History Past Medical History: Asthma, DVT, Fibromyalgia, Hypertension, Hypothyroid Additional Past Medical Histor: ulcer Past Surgical History: Appendectomy, Knee Replacement, Tubal ligation, Other Additional Past Surgical Histo: ulcer, hernia Alcohol Use: None Drug Use: None Adult General Chief Complaint Chief Complaint: CHEST PAIN HPI HPI Patient is a 76 year old female who presents with chest pain. The patient reports intermittent pains over the past 3 days, most recently worsening just prior to arrival here while at rest. She reports substernal chest tightness radiating to bilateral upper extremities & neck. Reports associated shortness of breath & nausea, denies diaphoresis. Denies fevers/chills, cough, lower extremity pain/swelling. Denies previous history of similar symptoms. Reports history of elevated troponin, DVT on coumadin chronically, HTN, fibromyalgia. No cardiac stents. Her toddler teacher is Dr. Swann. Review of Systems Review of Systems Constitutional: Denies fever or chills Eyes: Denies change in visual acuity HENT: Denies nasal congestion or sore throat Respiratory: Denies cough, reports shortness of breath Cardiovascular: Reports chest pain, denies edema GI: Nausea. Denies abdominal pain, vomiting, bloody stools or diarrhea : Denies dysuria or hematuria Musculoskeletal: Denies back pain or joint pain Integument: Denies rash or skin lesions Neurologic: Denies headache, focal weakness or sensory changes Current Medications Current Medications Current Medications Medications (Trade) Dose Ordered Sig/[facility] Start Time Stop Time Status Last Admin Dose Admin Acetaminophen (Tylenol) 650 mg PRN Q4HRS PRN 09/18/16 22:00 09/19/16 21:59 Aspirin (Anthony Aspirin) 325 mg 1X ONCE 09/18/16 20:30 09/18/16 20:32 DC 09/18/16 20:41 325 MG Heparin Sodium (Porcine) (Heparin Sodium) 2,050 unit PRN Q6HRS PRN 09/18/16 22:00 Heparin Sodium/ Dextrose 500 ml @ 0 mls/hr CONT PRN 09/18/16 22:00 09/18/16 23:00 19.4 MLS/HR Morphine Sulfate 2 mg PRN Q2HR PRN 09/18/16 22:00 09/19/16 21:59 Nitroglycerin (Nitrostat) 0.4 mg PRN Q5MIN PRN 09/18/16 22:00 09/19/16 21:59 Ondansetron HCl (Zofran) 4 mg PRN Q8HRS PRN 09/18/16 22:00 09/19/16 21:59 Allergies Allergies Allergies Coded Allergies Type Severity Reaction Last Updated Verified Penicillins Allergy Severe Anaphylaxis 11/21/15 Yes diphenhydramine Allergy Severe Anaphylaxis 11/21/15 Yes ipratropium Allergy Severe Anaphylaxis 11/21/15 Yes meclizine Allergy Severe 11/21/15 Yes trazodone Allergy Severe Shortness of Air 11/21/15 Yes bacitracin Allergy Intermediate Rash 11/21/15 Yes gabapentin Allergy Intermediate Itching 11/21/15 Yes neomycin Allergy Intermediate Rash 11/21/15 Yes oxycodone Allergy Intermediate Nausea and Vomiting 11/21/15 Yes polymyxin B Allergy Intermediate Rash 11/21/15 Yes I S O L A T I O N *CONTACT* Allergy Unknown 06/02/16 Yes Physical Exam Physical Exam Constitutional: Well developed, well nourished, no acute distress, non-toxic appearance. HENT: Normocephalic, atraumatic, bilateral external ears normal, oropharynx moist, nose normal. Eyes: PERRLA, EOMI, conjunctiva normal, no discharge. Neck: supple, no stridor. Cardiovascular: RRR, no murmurs, no edema. Lungs & Thorax: LCTAB, no wheezing, no respiratory distress. No reproducible tenderness with palpation over the sternum Abdomen: soft, nontender, nondistended. Skin: Warm, dry, no erythema, no rash. Back: No tenderness. Extremities: No tenderness, no edema. No calf tenderness or swelling Neurologic: Alert and oriented X 3, no focal deficits noted. Psychologic: Affect normal, judgement normal, mood normal. Current Patient Data Vital Signs Vital Signs Date Time Temp Pulse Resp B/P (MAP) Pulse Ox O2 Delivery O2 Flow Rate FiO2 09/18/16 22:14 72 18 133/64 (87) 96 Room Air 09/18/16 20:07 97.8 97.8 Lab Values Laboratory Tests Test 09/18/16 21:00 White Blood Count 6.3 x10^3/uL (4.0-11.0) Red Blood Count 3.45 x10^6/uL (3.50-5.40) L Hemoglobin 11.2 g/dL (12.0-15.5) L Hematocrit 33.1 % (36.0-47.0) L Mean Corpuscular Volume 96 fL (79-100) Mean Corpuscular Hemoglobin 32 pg (25-35) Mean Corpuscular Hemoglobin Concent 34 g/dL (31-37) Red Cell Distribution Width 14.2 % (11.5-14.5) Platelet Count 295 x10^3/uL (140-400) Neutrophils (%) (Auto) 59 % (31-73) Lymphocytes (%) (Auto) 30 % (24-48) Monocytes (%) (Auto) 9 % (0-9) Eosinophils (%) (Auto) 3 % (0-3) Basophils (%) (Auto) 0 % (0-3) Neutrophils # (Auto) 3.7 x10^3uL (1.8-7.7) Lymphocytes # (Auto) 1.9 x10^3/uL (1.0-4.8) Monocytes # (Auto) 0.5 x10^3/uL (0.0-1.1) Eosinophils # (Auto) 0.2 x10^3/uL (0.0-0.7) Basophils # (Auto) 0.0 x10^3/uL (0.0-0.2) Prothrombin Time 23.2 SEC (11.7-14.0) H Prothrombin Time INR 2.2 (0.8-1.1) H PTT 38 SEC (24-38) Sodium Level 136 mmol/L (136-145) Potassium Level 3.9 mmol/L (3.5-5.1) Chloride Level 99 mmol/L (98-107) Carbon Dioxide Level 27 mmol/L (21-32) Anion Gap 10 (6-14) Blood Urea Nitrogen 12 mg/dL (7-20) Creatinine 0.8 mg/dL (0.6-1.0) Estimated GFR (Cockcroft-Gault) 84.4 BUN/Creatinine Ratio 15 (6-20) Glucose Level 102 mg/dL (70-99) H Calcium Level 9.3 mg/dL (8.5-10.1) Total Bilirubin 0.5 mg/dL (0.2-1.0) Aspartate Amino Transferase (AST) 21 U/L (15-37) Alanine Aminotransferase (ALT) 21 U/L (14-59) Alkaline Phosphatase 65 U/L (46-116) Troponin I Quantitative 0.741 ng/mL (0.000-0.055) JH-Yvj-N-Type Natriuretic Peptide 596 pg/mL (0-449) H Total Protein 8.4 g/dL (6.4-8.2) H Albumin 3.8 g/dL (3.4-5.0) Albumin/Globulin Ratio 0.8 (1.0-1.7) L Laboratory Tests 09/18/16 21:00 Laboratory Tests 09/18/16 21:00 EKG EKG interpreted by me: NSR rate 86, no ST elevation, T waves inverted in 1 & aVL, inverted with ST depression in V3-V6, LVH, normal intervals, no ectopy. no significant change from 07/11/2016.[] Radiology/Procedures Radiology/Procedures CXR: interpreted by me: cardiomegaly, no infiltrate, no pneumothorax.[] Course & Med Decision Making Course & Med Decision Making Pertinent Labs and Imaging studies reviewed. (See chart for details) The patient presents with chest pain. Administered aspirin upon arrival, morphine for pain. Obtained labs, EKG, CXR. Her pain was persistent. She had elevated troponin with chronic ischemic changes on EKG. Consulted with Dr. Russ who recommends initiation of heparin. She has had previous DVT, therapeutic INR, suspect cardiac etiology rather than PE, not tachycardic or hypotensive, but will obtain venous US of bilateral LE to r/o DVT, would pursue further workup for PE if DVT identified. She is receiving heparin at this time for NSTEMI so treatment would not be delayed if DVT diagnosed. Patient agrees with admission. Discussed with Dr. Goody who agrees to admit to inpatient status. The patient is admitted in stable condition. Critical care time: 35 minutes [] Dragon Disclaimer Dragon Disclaimer This electronic medical record was generated, in whole or in part, using a voice recognition dictation system. Departure Departure Impression: Primary Impression: Non-ST elevation (NSTEMI) myocardial infarction Disposition: HOME, SELF-CARE Admitting Physician: Katie Godoy Condition: STABLE Referrals: CANDIS VACA (PCP) SEDA RAYA MD September 19, 2016 00:17
[2016-09-19] MEDS: MORPHINE SULFATE 2 MG/ML DISP.SYRIN. IV/SQ PRN ×2 (00:58→05:52)
--- NOTE | 2016-09-19 01:17 | RAD ---
PROCEDURE Bilateral lower extremity ultrasound venous duplex Doppler examination with spectral analysis HISTORY Chest pain and prior DVT TECHNIQUE COMPARISON Duplex sonography with spectral waveform analysis of the inferior aspect of the external iliac vein and the proximal aspect of the greater saphenous vein and the proximal aspect of the profunda femoral vein and the entire length of the common femoral and superficial femoral and popliteal veins and the tibioperoneal trunk and the proximal aspect of the posterior tibial and peroneal veins of the bilateral lower extremities was performed. FINDINGS Normal compressibility, augmentation of color Doppler flow after calf compression, and respiratory variation of Doppler flow is seen. Thus, there are no sonographic findings of deep venous thrombosis within these veins. There is a popliteal cyst on the right that measures 2.4 x 1.5 by 3.5 centimeter. IMPRESSION Negative examination. No DVT. Electronically signed by: Lowell Ponce MD (September 19, 2016 01:15:19)
[2016-09-19 05:51] LABS: HEMATOCRIT 31.9 % (36.0-47.0); HEMOGLOBIN 10.5 g/dL (12.0-15.5); RED BLOOD COUNT 3.26 x10^6/uL (3.50-5.40); RED CELL DISTRIBUTION WIDTH 14.4 % (11.5-14.5); WHITE BLOOD COUNT 5.1 x10^3/uL (4.0-11.0)
--- NOTE | 2016-09-19 08:48 | RAD ---
Indication chest pain. A single view of the chest was obtained. Comparison is made to an examination 07/14/2016. Heart size is at the upper limits of normal. There is no congestive heart failure. The lungs are clear. There is no pleural fluid or pneumothorax. IMPRESSION: No acute or focal process is seen in the chest
[2016-09-19] MEDS ORDERED: ALPRAZolam 0.5 MG TABLET PO PRN (09:00)
[2016-09-19] MEDS ORDERED: NON FORMULARY ITEM (Albuterol Sulfate (Ventolin Hfa Inhaler) 2 PUFF) INH SCH (09:00)
[2016-09-19] MEDS ORDERED: traMADol 50 MG TABLET PO PRN (09:00)
--- NOTE | 2016-09-19 09:10 | PDOC1 ---
History and Physical Date of Admission Date of Admission DATE: 09/19/16 TIME: 09:05 Identification/Chief Complaint Chief Complaint chest pain Problems: Source Source: Chart review History of Present Illness History of Present Illness Ms. Brice is a 76 year old female who presents with chest pain. The patient reports intermittent pains over the past 3 days, most recently worsening just prior to arrival here while at rest. She reports substernal chest tightness radiating to bilateral upper extremities & neck. Reports associated shortness of breath & nausea, denies diaphoresis. Denies fevers/chills, cough, lower extremity pain/swelling. Denies previous history of similar symptoms. Reports history of elevated troponin, DVT on coumadin chronically, HTN, fibromyalgia. No cardiac stents. Her private watchman is Dr. Swann. PCP is at Past Medical History Cardiovascular: HTN, Hyperlipidemia Pulmonary: Asthma GI: Constipation, GERD, Irritable bowel disease, Peptic Ulcer disease Heme/Onc: Anemia NOS, Other Psych: Anxiety, Depression Musculoskeletal: low back pain, Osteoarthritis, Other Endocrine: Hypothyroidism, Osteopenia, Other Past Surgical History Past Surgical History: Total knee replacement, Other Family History Family History: Diabetes, Hypertension Social History ALCOHOL: none Drugs: None Current Problem List Problem List Problems Medical Problems: (1) Non-ST elevation (NSTEMI) myocardial infarction Status: Acute Problems: Current Medications Current Medications Current Medications Aspirin (Anthony Aspirin) 325 mg 1X ONCE PO Last administered on 09/18/16 20:41 ; Start 09/18/16 at 20:30; Stop 09/18/16 at 20:32; Status DC Morphine Sulfate 2 mg PRN Q15MIN PRN IV/SQ PAIN GREATER THAN 3/10 Last administered on 09/19/16 05:52; Start 09/18/16 at 20:30; Stop 09/19/16 at 20:29 Ondansetron HCl (Zofran) 4 mg PRN Q8HRS PRN IV NAUSEA/VOMITING; Start 09/18/16 at 22:00; Stop 09/19/16 at 21:59 Morphine Sulfate 2 mg PRN Q2HR PRN IV PAIN; Start 09/18/16 at 22:00; Stop at 21:59 Acetaminophen (Tylenol) 650 mg PRN Q4HRS PRN PO FEVER; Start 5/5/17 at 22:00; Stop 09/19/16 at 21:59 Nitroglycerin (Nitrostat) 0.4 mg PRN Q5MIN PRN SL CHEST PAIN; Start 09/18/16 at 22:00; Stop 09/19/16 at 21:59 Heparin Sodium (Porcine) (Heparin Sodium) 4,000 unit 1X ONCE IV Last administered on 09/18/16 23:01; Start 09/18/16 at 22:00; Stop 09/18/16 at 22:03; Status DC Heparin Sodium/ Dextrose 500 ml @ 0 mls/hr CONT PRN IV SEE I/O RECORD Last administered on 09/18/16 23:00; Start 09/18/16 at 22:00 Heparin Sodium (Porcine) (Heparin Sodium) 2,050 unit PRN Q6HRS PRN IV FOR UFH LEVEL LESS THAN 0.2; Start 09/18/16 at 22:00 Active Scripts Active Tessalon Perle (Benzonatate) 100 Mg Capsule 1 Cap PO TID Reported Vitamin B-12 (Cyanocobalamin (Vitamin B-12)) 1,000 Mcg Tablet 1,000 Mcg PO DAILY Fluticasone Propionate Nasal Vian (Fluticasone Propionate) 16 Gm Vian.susp 1 Vian NS DAILY Gabapentin 100 Mg Capsule 100 Mg PO HS Tramadol Hcl 50 Mg Tablet 1 Tab PO BID PRN Warfarin Sodium 5 Mg Tablet Artificial Tears Drops (Dextran 70/Hypromellose/Pf) 1 Each Droperette 1 Each OU BID Alprazolam 0.5 Mg Tablet 1 Tab PO DAILY PRN Ventolin Hfa Inhaler (Albuterol Sulfate) 18 Gm Hfa.aer.ad 2 Puff INH QID Ranitidine Hcl 150 Mg Tablet 1 Tab PO BID Polyethylene Glycol 3350 17 Gm Powd.pack 17 Gm PO DAILY Lisinopril 5 Mg Tablet 1 Tab PO DAILY Levothyroxine Sodium 50 Mcg Tablet 1 Tab PO DAILY Vitamin D (Cholecalciferol (Vitamin D3)) 1,000 Unit Capsule 1 Cap PO DAILY Allergies Allergies: Coded Allergies: Penicillins (Verified Allergy, Severe, Anaphylaxis, 11/21/15) diphenhydramine (Verified Allergy, Severe, Anaphylaxis, 11/21/15) ipratropium (Verified Allergy, Severe, Anaphylaxis, 11/21/15) meclizine (Verified Allergy, Severe, 11/21/15) trazodone (Verified Allergy, Severe, Shortness of Air, 11/21/15) bacitracin (Verified Allergy, Intermediate, Rash, 11/21/15) gabapentin (Verified Allergy, Intermediate, Itching, 11/21/15) neomycin (Verified Allergy, Intermediate, Rash, 11/21/15) oxycodone (Verified Allergy, Intermediate, Nausea and Vomiting, 11/21/15) polymyxin B (Verified Allergy, Intermediate, Rash, 11/21/15) I S O L A T I O N *CONTACT* (Verified Allergy, Unknown, 06/02/16) mrsa ROS General: No: Chills, Night Sweats, Fatigue, Malaise, Appetite, Other PSYCHOLOGICAL ROS: YES: Anxiety, No: Behavioral Disorder, Concentration difficultie, Decreased libido, Depression, Disorientation, Hallucinations, Hostility, Irritablity, Memory difficulties, Mood Swings, Obsessive thoughts, Physical abuse, Sexual abuse, Sleep disturbances, Suicidal ideation, Other Eyes: No Blurry vision, No Decreased vision, No Double vision, No Dry eyes, No Excessive tearing, No Eye Pain, No Itchy Eyes, No Loss of vision, No Photophobia , No Scotomata, No Uses contacts, No Uses glasses, No Other HEENT: YES: Other (neck pain), No: Heacaches, Visual Changes, Hearing change, Nasal congestion, Nasal discharge, Oral lesions, Sinus pain, Sore Throat, Epistaxis, Sneezing, Snoring, Tinnitus, Vertigo, Vocal changes Respiratory: No: Cough, Hemoptysis, Orthopnea, Pleuritic Pain, Shortness of breath, SOB with excertion, Sputum Changes, Stridor, Tachypnea, Wheezing, Other Cardiovascular: yes Chest Pain Gastrointestinal: No Nausea, No Vomiting, No Abdominal Pain, No Diarrhea, No Constipation, No Melena, No Hematochezia, No Other Genitourinary: No Dysuria, No Frequency, No Incontinence, No Hematuria, No Retention, No Discharge, No Urgency, No Pain, No Flank Pain, No Other, No , No , No , No , No , No , No Musculoskeletal: No Gait Disturbance, No Joint Pain, No Joint Stiffness, No Joint Swelling, No Muscle Pain, No Muscular Weakness, No Pain In:, No Swelling In:, No Other Neurological: No Behavorial Changes, No Bowel/Bladder ControlChng, No Confusion , No Dizziness, No Gait Disturbance, No Headaches, No Impaired Coord/balance, No Memory Loss, No Numbness/Tingling, No Seizures, No Speech Problems, No Tremors, No Visual Changes, No Weakness, No Other Skin: No Dry Skin, No Eczema, No Hair Changes, No Lumps, No Mole Changes, No Mottling, No Nail Changes, No Pruritus, No Rash, No Skin Lesion Changes, No Other, No Acne Physical Exam General: Alert, Oriented X3, Cooperative, No acute distress HEENT: PERRLA, EOMI Lungs: Clear to auscultation Heart: S1S2, RRR, no murmurs Abdomen: Soft Rectal Exam: not examined, deferred Extremities: No clubbing, No edema, Normal pulses Neuro: Normal speech, Normal tone, Cranial nerves 3-12 NL Psych/Mental Status: Mental status NL, Mood NL Vitals Vitals Vital Signs Date Time Temp Pulse Resp B/P (MAP) Pulse Ox O2 Delivery O2 Flow Rate FiO2 09/19/16 07:20 98.6 62 16 109/65 (80) 98 Room Air 98.6 Labs Labs Laboratory Tests Test 09/18/16 21:00 09/19/16 05:38 09/19/16 07:15 White Blood Count 6.3 x10^3/uL (4.0-11.0) 5.1 x10^3/uL (4.0-11.0) Red Blood Count 3.45 x10^6/uL (3.50-5.40) 3.26 x10^6/uL (3.50-5.40) Hemoglobin 11.2 g/dL (12.0-15.5) 10.5 g/dL (12.0-15.5) Hematocrit 33.1 % (36.0-47.0) 31.9 % (36.0-47.0) Mean Corpuscular Volume 96 fL (79-100) 98 fL (79-100) Mean Corpuscular Hemoglobin 32 pg (25-35) 32 pg (25-35) Mean Corpuscular Hemoglobin Concent 34 g/dL (31-37) 33 g/dL (31-37) Red Cell Distribution Width 14.2 % (11.5-14.5) 14.4 % (11.5-14.5) Platelet Count 295 x10^3/uL (140-400) 248 x10^3/uL (140-400) Neutrophils (%) (Auto) 59 % (31-73) Lymphocytes (%) (Auto) 30 % (24-48) Monocytes (%) (Auto) 9 % (0-9) Eosinophils (%) (Auto) 3 % (0-3) Basophils (%) (Auto) 0 % (0-3) Neutrophils # (Auto) 3.7 x10^3uL (1.8-7.7) Lymphocytes # (Auto) 1.9 x10^3/uL (1.0-4.8) Monocytes # (Auto) 0.5 x10^3/uL (0.0-1.1) Eosinophils # (Auto) 0.2 x10^3/uL (0.0-0.7) Basophils # (Auto) 0.0 x10^3/uL (0.0-0.2) Prothrombin Time 23.2 SEC (11.7-14.0) Prothromb Time International Ratio 2.2 (0.8-1.1) Activated Partial Thromboplast Time 38 SEC (24-38) Sodium Level 136 mmol/L (136-145) Potassium Level 3.9 mmol/L (3.5-5.1) Chloride Level 99 mmol/L (98-107) Carbon Dioxide Level 27 mmol/L (21-32) Anion Gap 10 (6-14) Blood Urea Nitrogen 12 mg/dL (7-20) Creatinine 0.8 mg/dL (0.6-1.0) Estimated GFR (Cockcroft-Gault) 84.4 BUN/Creatinine Ratio 15 (6-20) Glucose Level 102 mg/dL (70-99) Calcium Level 9.3 mg/dL (8.5-10.1) Total Bilirubin 0.5 mg/dL (0.2-1.0) Aspartate Amino Transf (AST/SGOT) 21 U/L (15-37) Alanine Aminotransferase (ALT/SGPT) 21 U/L (14-59) Alkaline Phosphatase 65 U/L (46-116) Troponin I Quantitative 0.741 ng/mL (0.000-0.055) 0.595 ng/mL (0.000-0.055) VD-Nux-V-Type Natriuretic Peptide 596 pg/mL (0-449) Total Protein 8.4 g/dL (6.4-8.2) Albumin 3.8 g/dL (3.4-5.0) Albumin/Globulin Ratio 0.8 (1.0-1.7) Heparin Anti-Xa Act, Unfractionated 0.57 IU/mL (0.30-0.70) Laboratory Tests Test 09/18/16 21:00 09/19/16 05:38 09/19/16 07:15 White Blood Count 6.3 x10^3/uL (4.0-11.0) 5.1 x10^3/uL (4.0-11.0) Red Blood Count 3.45 x10^6/uL (3.50-5.40) 3.26 x10^6/uL (3.50-5.40) Hemoglobin 11.2 g/dL (12.0-15.5) 10.5 g/dL (12.0-15.5) Hematocrit 33.1 % (36.0-47.0) 31.9 % (36.0-47.0) Mean Corpuscular Volume 96 fL (79-100) 98 fL (79-100) Mean Corpuscular Hemoglobin 32 pg (25-35) 32 pg (25-35) Mean Corpuscular Hemoglobin Concent 34 g/dL (31-37) 33 g/dL (31-37) Red Cell Distribution Width 14.2 % (11.5-14.5) 14.4 % (11.5-14.5) Platelet Count 295 x10^3/uL (140-400) 248 x10^3/uL (140-400) Neutrophils (%) (Auto) 59 % (31-73) Lymphocytes (%) (Auto) 30 % (24-48) Monocytes (%) (Auto) 9 % (0-9) Eosinophils (%) (Auto) 3 % (0-3) Basophils (%) (Auto) 0 % (0-3) Neutrophils # (Auto) 3.7 x10^3uL (1.8-7.7) Lymphocytes # (Auto) 1.9 x10^3/uL (1.0-4.8) Monocytes # (Auto) 0.5 x10^3/uL (0.0-1.1) Eosinophils # (Auto) 0.2 x10^3/uL (0.0-0.7) Basophils # (Auto) 0.0 x10^3/uL (0.0-0.2) Prothrombin Time 23.2 SEC (11.7-14.0) Prothromb Time International Ratio 2.2 (0.8-1.1) Activated Partial Thromboplast Time 38 SEC (24-38) Sodium Level 136 mmol/L (136-145) Potassium Level 3.9 mmol/L (3.5-5.1) Chloride Level 99 mmol/L (98-107) Carbon Dioxide Level 27 mmol/L (21-32) Anion Gap 10 (6-14) Blood Urea Nitrogen 12 mg/dL (7-20) Creatinine 0.8 mg/dL (0.6-1.0) Estimated GFR (Cockcroft-Gault) 84.4 BUN/Creatinine Ratio 15 (6-20) Glucose Level 102 mg/dL (70-99) Calcium Level 9.3 mg/dL (8.5-10.1) Total Bilirubin 0.5 mg/dL (0.2-1.0) Aspartate Amino Transf (AST/SGOT) 21 U/L (15-37) Alanine Aminotransferase (ALT/SGPT) 21 U/L (14-59) Alkaline Phosphatase 65 U/L (46-116) Troponin I Quantitative 0.741 ng/mL (0.000-0.055) 0.595 ng/mL (0.000-0.055) AZ-Ftr-K-Type Natriuretic Peptide 596 pg/mL (0-449) Total Protein 8.4 g/dL (6.4-8.2) Albumin 3.8 g/dL (3.4-5.0) Albumin/Globulin Ratio 0.8 (1.0-1.7) Heparin Anti-Xa Act, Unfractionated 0.57 IU/mL (0.30-0.70) VTE Prophylaxis Ordered VTE Prophylaxis Devices: Yes VTE Pharmacological Prophylaxi: Yes Assessment/Plan Assessment/Plan chest pain, anginal to upper chest and neck troponin elevation, NSTEMI, inr therapeutic, given asprin CV consult, has seen Dr. Swann check lipids, start statin morphine PO and IV for pain hypothryoid anxiety GERD back pain TIFFANY BANEGAS MD September 19, 2016 09:10
[2016-09-19] MEDS: ASPIRIN ENTERIC COATED 325 MG TABLET.DR. PO SCH (09:15)
[2016-09-19] MEDS ORDERED: NITROGLYCERIN OINT 1 GM PACKET. TP ONE (09:15)
[2016-09-19] MEDS ORDERED: BENZONATATE 100 MG CAPSULE. PO SCH (10:00)
[2016-09-19] MEDS: POLYETHYLENE GLYCOL 3350 17 GM PACKET. PO SCH (10:00)
[2016-09-19] MEDS: FLUTICASONE 50MCG/NASAL SPRAY 16GM BOTTLE. NS SCH (10:00)
--- NOTE | 2016-09-19 10:01 | PDOC2 ---
CARDIAC CONSULT DATE OF CONSULT Date of Consult DATE: 09/19/16 TIME: 09:58 REASON FOR CONSULT Reason for Consult: NSTEMI HISTORY OF PRESENT ILLNESS HISTORY OF PRESENT ILLNESS Ms Brice is a 76 year old female who presents with complaints of pain that started in her left neck, radiated to both shoulders, her back and left chest. She reports onset at rest about 3 days ago, denies exacerbating or relieving factors. She denies associated dyspnea, diaphoresis, nausea. She denies palpitations, lightheadedness or syncope. PAST MEDICAL HISTORY Past Medical History Hypertension, hyperlipidemia, asthma, GERD, IBS, PUD, anemia, DVT, anxiety, depression, ;umbar stenosis, osteoarthritis, hypothyroidism PAST SURGICAL HISTORY Past Surgical History tubal ligation, hernia repair, bilateral TKA, partial gastrectomy, bunionectomy FAMILY HISTORY Family History: Diabetes, Hypertension SOCIAL HISTORY Social History non smoker, no significant ETOH, no illicit drugs CURRENT MEDICATIONS CURRENT MEDICATIONS Current Medications Medications (Trade) Dose Ordered Sig/Sivan Route PRN Reason Start Time Stop Time Status Last Admin Dose Admin Aspirin (Anthony Aspirin) 325 mg 1X ONCE PO 09/18/16 20:30 09/18/16 20:32 DC 09/18/16 20:41 Morphine Sulfate 2 mg PRN Q15MIN PRN IV/SQ PAIN GREATER THAN 3/10 09/18/16 20:30 09/19/16 20:29 09/19/16 05:52 Heparin Sodium (Porcine) (Heparin Sodium) 4,000 unit 1X ONCE IV 09/18/16 22:00 09/18/16 22:03 DC 09/18/16 23:01 Heparin Sodium/ Dextrose 500 ml @ 0 mls/hr CONT PRN IV SEE I/O RECORD 09/18/16 22:00 09/18/16 23:00 ALLERGIES ALLERGIES: Coded Allergies: Penicillins (Verified Allergy, Severe, Anaphylaxis, 11/21/15) diphenhydramine (Verified Allergy, Severe, Anaphylaxis, 11/21/15) ipratropium (Verified Allergy, Severe, Anaphylaxis, 11/21/15) meclizine (Verified Allergy, Severe, 11/21/15) trazodone (Verified Allergy, Severe, Shortness of Air, 11/21/15) bacitracin (Verified Allergy, Intermediate, Rash, 11/21/15) gabapentin (Verified Allergy, Intermediate, Itching, 11/21/15) neomycin (Verified Allergy, Intermediate, Rash, 11/21/15) oxycodone (Verified Allergy, Intermediate, Nausea and Vomiting, 11/21/15) polymyxin B (Verified Allergy, Intermediate, Rash, 11/21/15) I S O L A T I O N *CONTACT* (Verified Allergy, Unknown, 06/02/16) mrsa PHYSICAL EXAM General: Alert, Oriented X3, Cooperative, mild distress, Other (tenderness left chest wall and left neck with lateral movement of her head) HEENT: Atraumatic, EOMI, Mucous membr. moist/pink Lungs: Clear to auscultation Heart: Regular rate, Normal S1, Normal S2, Other (+ 2/6 ESM, no gallops, clicks or rubs) Abdomen: Normal bowel sounds, Soft, No tenderness Extremities: No cyanosis, No edema, Normal pulses Neuro: Normal speech, Strength at 5/5 X4 ext Psych/Mental Status: Mental status NL, Mood NL VITALS VITALS Vital Signs Date Time Temp Pulse Resp B/P (MAP) Pulse Ox O2 Delivery O2 Flow Rate FiO2 09/19/16 07:20 98.6 62 16 109/65 (80) 98 Room Air 98.6 LABS Lab: Laboratory Tests Test 09/18/16 21:00 09/19/16 05:38 09/19/16 07:15 White Blood Count 6.3 x10^3/uL (4.0-11.0) 5.1 x10^3/uL (4.0-11.0) Red Blood Count 3.45 x10^6/uL (3.50-5.40) 3.26 x10^6/uL (3.50-5.40) Hemoglobin 11.2 g/dL (12.0-15.5) 10.5 g/dL (12.0-15.5) Hematocrit 33.1 % (36.0-47.0) 31.9 % (36.0-47.0) Mean Corpuscular Volume 96 fL (79-100) 98 fL (79-100) Mean Corpuscular Hemoglobin 32 pg (25-35) 32 pg (25-35) Mean Corpuscular Hemoglobin Concent 34 g/dL (31-37) 33 g/dL (31-37) Red Cell Distribution Width 14.2 % (11.5-14.5) 14.4 % (11.5-14.5) Platelet Count 295 x10^3/uL (140-400) 248 x10^3/uL (140-400) Neutrophils (%) (Auto) 59 % (31-73) Lymphocytes (%) (Auto) 30 % (24-48) Monocytes (%) (Auto) 9 % (0-9) Eosinophils (%) (Auto) 3 % (0-3) Basophils (%) (Auto) 0 % (0-3) Neutrophils # (Auto) 3.7 x10^3uL (1.8-7.7) Lymphocytes # (Auto) 1.9 x10^3/uL (1.0-4.8) Monocytes # (Auto) 0.5 x10^3/uL (0.0-1.1) Eosinophils # (Auto) 0.2 x10^3/uL (0.0-0.7) Basophils # (Auto) 0.0 x10^3/uL (0.0-0.2) Prothrombin Time 23.2 SEC (11.7-14.0) Prothromb Time International Ratio 2.2 (0.8-1.1) Activated Partial Thromboplast Time 38 SEC (24-38) Sodium Level 136 mmol/L (136-145) Potassium Level 3.9 mmol/L (3.5-5.1) Chloride Level 99 mmol/L (98-107) Carbon Dioxide Level 27 mmol/L (21-32) Anion Gap 10 (6-14) Blood Urea Nitrogen 12 mg/dL (7-20) Creatinine 0.8 mg/dL (0.6-1.0) Estimated GFR (Cockcroft-Gault) 84.4 BUN/Creatinine Ratio 15 (6-20) Glucose Level 102 mg/dL (70-99) Calcium Level 9.3 mg/dL (8.5-10.1) Total Bilirubin 0.5 mg/dL (0.2-1.0) Aspartate Amino Transf (AST/SGOT) 21 U/L (15-37) Alanine Aminotransferase (ALT/SGPT) 21 U/L (14-59) Alkaline Phosphatase 65 U/L (46-116) Troponin I Quantitative 0.741 ng/mL (0.000-0.055) 0.595 ng/mL (0.000-0.055) LX-Pyj-X-Type Natriuretic Peptide 596 pg/mL (0-449) Total Protein 8.4 g/dL (6.4-8.2) Albumin 3.8 g/dL (3.4-5.0) Albumin/Globulin Ratio 0.8 (1.0-1.7) Heparin Anti-Xa Act, Unfractionated 0.57 IU/mL (0.30-0.70) IMAGES IMAGES CXR - no acute disease Lower extremity US - negative for DVT EKG EKG sinus rhythm with LVH and secondary repolarization abnormalities. Unchanged from previous EKGs. ECHOCARDIOGRAM ECHOCARDIOGRAM 07/11/16 The left ventricle is normal size. The left ventricular systolic function is normal and the ejection fraction is within normal range. The Ejection Fraction is 60-65%. There is mild concentric left ventricular hypertrophy. Calculated aortic valve area is 1.9 cm2 with maximum pressure gradient of 30 mmHg and mean pressure gradient of 17 mmHg. Doppler and color-flow analysis revealed mild aortic stenosis. Doppler and Color Flow revealed trace aortic regurgitation. Doppler and Color-flow revealed trace to mild mitral regurgitation. Doppler and Color Flow revealed trace tricuspid regurgitation. The PA pressure was estimated at 36 mmHg. HEART CATH HEART CATH 09/02/15 CORONARY ANGIOGRAPHY: LM is a large caliber vessel with normal angiographic appearance. LAD is a moderate to large caliber hyperdominant vessel extending around the apex with moderate tortuosity and mild luminal irregularities. LCX is a moderate to large caliber vessel with normal angiographic appearance. OM1 has normal angiographic appearance. RCA is a moderate caliber co-dominant vessel with normal angiographic appearance. ASSESSMENT/PLAN ASSESSMENT/PLAN 1. elevated troponin - ? chronic. Normal coronaries by cath last August. EKG unchanged last several admission. 2. Chest pain, atypical, consistent with musculoskeletal pain 3. hypertension - resume home meds 4. Hyperlipidemia - check lipids 5. hx DVT - INR therapeutic. Monitor overnight. continue home meds. Problems: SVETA BROWNLEE APRN September 19, 2016 10:01
[2016-09-19] MEDS: CYANOCOBALAMIN (VITAMIN B-12) 1,000 MCG TABLET. PO SCH (10:08)
[2016-09-19] MEDS: LEVOTHYROXINE 50 MCG TABLET PO SCH (10:08)
[2016-09-19] MEDS: FAMOTIDINE 20 MG TABLET. PO SCH ×2 (10:08→20:50)
[2016-09-19] MEDS: POLYVINYL ALCOHOL 1.4% OPHTH SOLUTION 15ML BOTTLE. OU SCH ×2 (10:09→10:30)
[2016-09-19] MEDS: LISINOPRIL 5 MG TABLET. PO SCH (10:09)
[2016-09-19] MEDS ORDERED: MOME13HF2 IH (10:21)
[2016-09-19] MEDS: ALBUTEROL SULFATE 2.5 MG/3 ML NEBU. NEB SCH ×3 (11:21→19:26)
[2016-09-19] MEDS ORDERED: WARFARIN 5 MG TABLET. PO ONE (16:00)
[2016-09-19] MEDS: traMADol 50 MG TABLET PO PRN (19:44)
[2016-09-19] MEDS: ATORVASTATIN CALCIUM 10 MG TABLET. PO SCH ×2 (20:49→20:52)
[2016-09-19] MEDS ORDERED: GABAPENTIN 100 MG CAPSULE. PO SCH (21:00)
[2016-09-20 02:13] VITALS: BP 143/77
[2016-09-20] MEDS: traMADol 50 MG TABLET PO PRN ×2 (05:57→15:32)
[2016-09-20 06:36] LABS: BASO % 1 % (0-3); EOS % 3 % (0-3); HEMATOCRIT 33.3 % (36.0-47.0); HEMOGLOBIN 10.8 g/dL (12.0-15.5); LYMPH # 1.5 x10^3/uL (1.0-4.8); LYMPH % 31 % (24-48); MEAN CORPUSCULAR HEMOGLOBIN 32 pg (25-35); MEAN CORPUSCULAR HGB CONC 32 g/dL (31-37); MEAN CORPUSCULAR VOLUME 99 fL (79-100); MONO % 11 % (0-9); NEUT % 55 % (31-73); PLATELET COUNT 249 x10^3/uL (140-400); RED BLOOD COUNT 3.35 x10^6/uL (3.50-5.40); RED CELL DISTRIBUTION WIDTH 14.9 % (11.5-14.5); WHITE BLOOD COUNT 4.9 x10^3/uL (4.0-11.0)
[2016-09-20] MEDS: ALBUTEROL SULFATE 2.5 MG/3 ML NEBU. NEB SCH ×3 (06:47→14:33)
[2016-09-20 07:00] VITALS: BP 130/64
[2016-09-20] MEDS: LEVOTHYROXINE 50 MCG TABLET PO SCH (07:00)
[2016-09-20] MEDS: CYANOCOBALAMIN (VITAMIN B-12) 1,000 MCG TABLET. PO SCH (08:08)
[2016-09-20] MEDS: ASPIRIN ENTERIC COATED 325 MG TABLET.DR. PO SCH (08:08)
[2016-09-20] MEDS: FAMOTIDINE 20 MG TABLET. PO SCH (08:08)
[2016-09-20] MEDS: POLYETHYLENE GLYCOL 3350 17 GM PACKET. PO SCH (08:08)
[2016-09-20] MEDS: LISINOPRIL 5 MG TABLET. PO SCH (08:09)
[2016-09-20] MEDS: POLYVINYL ALCOHOL 1.4% OPHTH SOLUTION 15ML BOTTLE. OU SCH (08:09)
[2016-09-20] MEDS: FLUTICASONE 50MCG/NASAL SPRAY 16GM BOTTLE. NS SCH (08:09)
[2016-09-20 09:04] LABS: ALBUMIN 3.3 g/dL (3.4-5.0); ALBUMIN/GLOBULIN RATIO 0.7 (1.0-1.7); CALCIUM 9.1 mg/dL (8.5-10.1); CREATININE 0.9 mg/dL (0.6-1.0); GFR 73.7; POTASSIUM 3.9 mmol/L (3.5-5.1); TOTAL BILIRUBIN 0.6 mg/dL (0.2-1.0); TOTAL PROTEIN 8.3 g/dL (6.4-8.2)
[2016-09-20 09:10] LABS: CHOLESTEROL/HDL RATIO 1.9
[2016-09-20 09:15] LABS: INR 2.6 (0.8-1.1); PROTHROMBIN TIME PATIENT 26.1 SEC (11.7-14.0)
[2016-09-20 11:00] VITALS: BP 129/57
[2016-09-20] MEDS ORDERED: LIDO700A27 TD (11:43)
[2016-09-20] MEDS ORDERED: TRAM50TA PO (11:43)
[2016-09-20] MEDS ORDERED: ASPI325T11 PO (11:43)
[2016-09-20] MEDS ORDERED: ATOR10TA60 PO (11:43)
[2016-09-20] MEDS ORDERED: NITROGLYCERIN SUBLINGUAL 0.4 MG BOTTLE OF 25. SL PRN (11:45)
[2016-09-20] MEDS ORDERED: METOPROLOL TART IMMED RELEASE 25 MG TABLET. PO ONE (12:00)
[2016-09-20] MEDS ORDERED: LIDOCAINE (700MG/PATCH) PATCH. TD SCH (12:00)
--- NOTE | 2016-09-20 13:37 | PDOC ---
PROGRESS NOTES Subjective Subjective The patient is feeling better. No chest pain. Neck and shoulder pain. Objective Objective Vital Signs Date Time Temp Pulse Resp B/P (MAP) Pulse Ox O2 Delivery O2 Flow Rate FiO2 09/20/16 11:50 62 129/57 09/20/16 11:00 97.9 18 96 Room Air 97.9 Intake and Output 09/20/16 07:00 Intake Total 600 ml Output Total 950 ml Balance -350 ml Intake Oral 600 ml Output Urine Total 950 ml # Voids 3 Physical Exam Abdomen: Normal bowel sounds Heart: Regular rate Extremities: No clubbing General: No acute distress HEENT: Atraumatic Lungs: Clear to auscultation Assessment Assessment Problems Medical Problems: (1) Non-ST elevation (NSTEMI) myocardial infarction Status: Acute HEART CATH 09/02/15 CORONARY ANGIOGRAPHY: LM is a large caliber vessel with normal angiographic appearance. LAD is a moderate to large caliber hyperdominant vessel extending around the apex with moderate tortuosity and mild luminal irregularities. LCX is a moderate to large caliber vessel with normal angiographic appearance. OM1 has normal angiographic appearance. RCA is a moderate caliber co-dominant vessel with normal angiographic appearance. ASSESSMENT/PLAN ASSESSMENT/PLAN 1. elevated troponin - has bounding decreased. Probable mild chronic elevation. No chest pain. Normal coronaries by cath last August. EKG unchanged last several admission. We'll continue medical treatment. We will call for office follow-up. 2. Chest pain, atypical, consistent with musculoskeletal pain 3. hypertension - continuing present medications. 4. Hyperlipidemia - continuing present medications. 5. hx DVT - INR therapeutic. Comment Review of Relevant I have reviewed the following items nigel (where applicable) has been applied. Labs Laboratory Tests Test 09/18/16 21:00 09/19/16 05:38 09/19/16 07:15 09/19/16 10:20 White Blood Count 6.3 x10^3/uL (4.0-11.0) 5.1 x10^3/uL (4.0-11.0) Red Blood Count 3.45 x10^6/uL (3.50-5.40) 3.26 x10^6/uL (3.50-5.40) Hemoglobin 11.2 g/dL (12.0-15.5) 10.5 g/dL (12.0-15.5) Hematocrit 33.1 % (36.0-47.0) 31.9 % (36.0-47.0) Mean Corpuscular Volume 96 fL (79-100) 98 fL (79-100) Mean Corpuscular Hemoglobin 32 pg (25-35) 32 pg (25-35) Mean Corpuscular Hemoglobin Concent 34 g/dL (31-37) 33 g/dL (31-37) Red Cell Distribution Width 14.2 % (11.5-14.5) 14.4 % (11.5-14.5) Platelet Count 295 x10^3/uL (140-400) 248 x10^3/uL (140-400) Neutrophils (%) (Auto) 59 % (31-73) Lymphocytes (%) (Auto) 30 % (24-48) Monocytes (%) (Auto) 9 % (0-9) Eosinophils (%) (Auto) 3 % (0-3) Basophils (%) (Auto) 0 % (0-3) Neutrophils # (Auto) 3.7 x10^3uL (1.8-7.7) Lymphocytes # (Auto) 1.9 x10^3/uL (1.0-4.8) Monocytes # (Auto) 0.5 x10^3/uL (0.0-1.1) Eosinophils # (Auto) 0.2 x10^3/uL (0.0-0.7) Basophils # (Auto) 0.0 x10^3/uL (0.0-0.2) Prothrombin Time 23.2 SEC (11.7-14.0) Prothromb Time International Ratio 2.2 (0.8-1.1) Activated Partial Thromboplast Time 38 SEC (24-38) Sodium Level 136 mmol/L (136-145) Potassium Level 3.9 mmol/L (3.5-5.1) Chloride Level 99 mmol/L (98-107) Carbon Dioxide Level 27 mmol/L (21-32) Anion Gap 10 (6-14) Blood Urea Nitrogen 12 mg/dL (7-20) Creatinine 0.8 mg/dL (0.6-1.0) Estimated GFR (Cockcroft-Gault) 84.4 BUN/Creatinine Ratio 15 (6-20) Glucose Level 102 mg/dL (70-99) Calcium Level 9.3 mg/dL (8.5-10.1) Total Bilirubin 0.5 mg/dL (0.2-1.0) Aspartate Amino Transf (AST/SGOT) 21 U/L (15-37) Alanine Aminotransferase (ALT/SGPT) 21 U/L (14-59) Alkaline Phosphatase 65 U/L (46-116) Troponin I Quantitative 0.741 ng/mL (0.000-0.055) 0.595 ng/mL (0.000-0.055) 0.227 ng/mL (0.000-0.055) YI-[id number]-I-Type Natriuretic Peptide 596 pg/mL (0-449) Total Protein 8.4 g/dL (6.4-8.2) Albumin 3.8 g/dL (3.4-5.0) Albumin/Globulin Ratio 0.8 (1.0-1.7) Heparin Anti-Xa Act, Unfractionated 0.57 IU/mL (0.30-0.70) Test 09/20/16 05:00 09/20/16 07:30 White Blood Count 4.9 x10^3/uL (4.0-11.0) Red Blood Count 3.35 x10^6/uL (3.50-5.40) Hemoglobin 10.8 g/dL (12.0-15.5) Hematocrit 33.3 % (36.0-47.0) Mean Corpuscular Volume 99 fL (79-100) Mean Corpuscular Hemoglobin 32 pg (25-35) Mean Corpuscular Hemoglobin Concent 32 g/dL (31-37) Red Cell Distribution Width 14.9 % (11.5-14.5) Platelet Count 249 x10^3/uL (140-400) Neutrophils (%) (Auto) 55 % (31-73) Lymphocytes (%) (Auto) 31 % (24-48) Monocytes (%) (Auto) 11 % (0-9) Eosinophils (%) (Auto) 3 % (0-3) Basophils (%) (Auto) 1 % (0-3) Neutrophils # (Auto) 2.7 x10^3uL (1.8-7.7) Lymphocytes # (Auto) 1.5 x10^3/uL (1.0-4.8) Monocytes # (Auto) 0.5 x10^3/uL (0.0-1.1) Eosinophils # (Auto) 0.2 x10^3/uL (0.0-0.7) Basophils # (Auto) 0.0 x10^3/uL (0.0-0.2) Prothrombin Time 26.1 SEC (11.7-14.0) Prothromb Time International Ratio 2.6 (0.8-1.1) Sodium Level 135 mmol/L (136-145) Potassium Level 3.9 mmol/L (3.5-5.1) Chloride Level 100 mmol/L (98-107) Carbon Dioxide Level 29 mmol/L (21-32) Anion Gap 6 (6-14) Blood Urea Nitrogen 12 mg/dL (7-20) Creatinine 0.9 mg/dL (0.6-1.0) Estimated GFR (Cockcroft-Gault) 73.7 BUN/Creatinine Ratio 13 (6-20) Glucose Level 92 mg/dL (70-99) Calcium Level 9.1 mg/dL (8.5-10.1) Total Bilirubin 0.6 mg/dL (0.2-1.0) Aspartate Amino Transf (AST/SGOT) 16 U/L (15-37) Alanine Aminotransferase (ALT/SGPT) 15 U/L (14-59) Alkaline Phosphatase 62 U/L (46-116) Total Protein 8.3 g/dL (6.4-8.2) Albumin 3.3 g/dL (3.4-5.0) Albumin/Globulin Ratio 0.7 (1.0-1.7) Triglycerides Level 42 mg/dL (0-150) Cholesterol Level 220 mg/dL (0-200) LDL Cholesterol, Calculated 96 mg/dL (0-100) VLDL Cholesterol, Calculated 8 mg/dL (0-40) Non-HDL Cholesterol Calculated 104 mg/dL (0-129) HDL Cholesterol 116 mg/dL (40-60) Cholesterol/HDL Ratio 1.9 Laboratory Tests Test 09/20/16 05:00 09/20/16 07:30 White Blood Count 4.9 x10^3/uL (4.0-11.0) Red Blood Count 3.35 x10^6/uL (3.50-5.40) Hemoglobin 10.8 g/dL (12.0-15.5) Hematocrit 33.3 % (36.0-47.0) Mean Corpuscular Volume 99 fL (79-100) Mean Corpuscular Hemoglobin 32 pg (25-35) Mean Corpuscular Hemoglobin Concent 32 g/dL (31-37) Red Cell Distribution Width 14.9 % (11.5-14.5) Platelet Count 249 x10^3/uL (140-400) Neutrophils (%) (Auto) 55 % (31-73) Lymphocytes (%) (Auto) 31 % (24-48) Monocytes (%) (Auto) 11 % (0-9) Eosinophils (%) (Auto) 3 % (0-3) Basophils (%) (Auto) 1 % (0-3) Neutrophils # (Auto) 2.7 x10^3uL (1.8-7.7) Lymphocytes # (Auto) 1.5 x10^3/uL (1.0-4.8) Monocytes # (Auto) 0.5 x10^3/uL (0.0-1.1) Eosinophils # (Auto) 0.2 x10^3/uL (0.0-0.7) Basophils # (Auto) 0.0 x10^3/uL (0.0-0.2) Prothrombin Time 26.1 SEC (11.7-14.0) Prothromb Time International Ratio 2.6 (0.8-1.1) Sodium Level 135 mmol/L (136-145) Potassium Level 3.9 mmol/L (3.5-5.1) Chloride Level 100 mmol/L (98-107) Carbon Dioxide Level 29 mmol/L (21-32) Anion Gap 6 (6-14) Blood Urea Nitrogen 12 mg/dL (7-20) Creatinine 0.9 mg/dL (0.6-1.0) Estimated GFR (Cockcroft-Gault) 73.7 BUN/Creatinine Ratio 13 (6-20) Glucose Level 92 mg/dL (70-99) Calcium Level 9.1 mg/dL (8.5-10.1) Total Bilirubin 0.6 mg/dL (0.2-1.0) Aspartate Amino Transf (AST/SGOT) 16 U/L (15-37) Alanine Aminotransferase (ALT/SGPT) 15 U/L (14-59) Alkaline Phosphatase 62 U/L (46-116) Total Protein 8.3 g/dL (6.4-8.2) Albumin 3.3 g/dL (3.4-5.0) Albumin/Globulin Ratio 0.7 (1.0-1.7) Triglycerides Level 42 mg/dL (0-150) Cholesterol Level 220 mg/dL (0-200) LDL Cholesterol, Calculated 96 mg/dL (0-100) VLDL Cholesterol, Calculated 8 mg/dL (0-40) Non-HDL Cholesterol Calculated 104 mg/dL (0-129) HDL Cholesterol 116 mg/dL (40-60) Cholesterol/HDL Ratio 1.9 Medications Current Medications Aspirin (Mettl Aspirin) 325 mg 1X ONCE PO Last administered on 09/18/16 20:41 ; Start 09/18/16 at 20:30; Stop 09/18/16 at 20:32; Status DC Morphine Sulfate 2 mg PRN Q15MIN PRN IV/SQ PAIN GREATER THAN 3/10 Last administered on 09/19/16 05:52; Start 09/18/16 at 20:30; Stop 09/19/16 at 20:29; Status DC Ondansetron HCl (Zofran) 4 mg PRN Q8HRS PRN IV NAUSEA/VOMITING; Start 09/18/16 at 22:00; Stop 09/19/16 at 21:59; Status DC Morphine Sulfate 2 mg PRN Q2HR PRN IV PAIN Last administered on 09/19/16 10:43 ; Start 09/18/16 at 22:00; Stop 09/19/16 at 21:59; Status DC Acetaminophen (Tylenol) 650 mg PRN Q4HRS PRN PO FEVER; Start 09/18/16 at 22:00; Stop 09/19/16 at 21:59; Status DC Nitroglycerin (Nitrostat) 0.4 mg PRN Q5MIN PRN SL CHEST PAIN; Start 09/18/16 at 22:00; Stop 09/19/16 at 21:59; Status DC Heparin Sodium (Porcine) (Heparin Sodium) 4,000 unit 1X ONCE IV Last administered on 09/18/16 23:01; Start 09/18/16 at 22:00; Stop 09/18/16 at 22:03; Status DC Heparin Sodium/ Dextrose 500 ml @ 0 mls/hr CONT PRN IV SEE I/O RECORD Last administered on 09/18/16 23:00; Start 09/18/16 at 22:00; Stop 09/19/16 at 13:05; Status DC Heparin Sodium (Porcine) (Heparin Sodium) 2,050 unit PRN Q6HRS PRN IV FOR UFH LEVEL LESS THAN 0.2; Start 09/18/16 at 22:00; Stop 09/19/16 at 13:57; Status DC Aspirin (Ecotrin) 325 mg DAILYWBKFT PO Last administered on 09/20/16 08:08; Start 09/19/16 at 09:15 Alprazolam (Xanax) 0.5 mg PRN DAILY PRN PO ANXIETY; Start 09/19/16 at 09:00 Benzonatate (Tessalon Perle) 100 mg TID PO Last administered on 09/19/16 10:08 ; Start 09/19/16 at 10:00; Stop 09/19/16 at 13:06; Status DC Cyanocobalamin (Vitamin B-12) 1,000 mcg DAILY PO Last administered on 09/20/16 08:08; Start 09/19/16 at 10:00 Fluticasone Propionate (Flonase) 1 spray DAILY NS ; Start 09/19/16 at 10:00 Gabapentin (Neurontin) 100 mg HS PO Last administered on 09/19/16 20:49; Start 09/19/16 at 21:00 Levothyroxine Sodium (Synthroid) 50 mcg DAILY07 PO Last administered on 10:08; Start 09/19/16 at 10:30 Lisinopril (Prinivil) 5 mg DAILY PO Last administered on 09/20/16 08:09; Start 09/19/16 at 10:00 Polyethylene Glycol (miraLAX PACKET) 17 gm DAILY PO Last administered on 08:08; Start 09/19/16 at 10:00 Tramadol HCl (Ultram) 50 mg BID PRN PO PAIN; Start 09/19/16 at 09:00; Stop at 09:03; Status DC Non-Formulary Medication 2 puff QID INH ; Start 09/19/16 at 09:00; Stop 09/19/16 at 09:47; Status DC Artificial Tears (Artificial Tears) 1 drop BID OU Last administered on 10:30; Start 09/19/16 at 09:45 Famotidine (Pepcid) 20 mg BID PO Last administered on 09/20/16 08:08; Start 09/19/16 at 10:00 Atorvastatin Calcium (Lipitor) 10 mg QHS PO ; Start 09/19/16 at 21:00 Warfarin Sodium (Coumadin Per Pharmacy) 1 each PRN DAILY PRN MC SEE COMMENTS Last administered on 09/19/16 12:22; Start 09/19/16 at 09:15 Nitroglycerin (Nitro-Bid Oint) 1 inch 1X ONCE TP ; Start 09/19/16 at 09:15; Stop 09/19/16 at 09:26; Status DC Albuterol Sulfate (Ventolin Neb Soln) 2.5 mg RTQID NEB Last administered on 09/20 10:46; Start 09/19/16 at 12:00 Warfarin Sodium (Coumadin) 5 mg 1X WARF ONCE PO Last administered on 09/19/16 19:10; Start 09/19/16 at 16:00; Stop 09/19/16 at 16:01; Status DC Tramadol HCl (Ultram) 50 mg PRN Q6HRS PRN PO PAIN Last administered on 05:57; Start 09/19/16 at 19:30 Lidocaine (Lidoderm) 1 patch DAILY TD Last administered on 09/20/16 11:47; Start 09/20/16 at 12:00 Nitroglycerin (Nitrostat) 0.4 mg PRN Q5MIN PRN SL CHEST PAIN; Start 09/20/16 at 11:45 Metoprolol Tartrate (Lopressor) 25 mg 1X ONCE PO Last administered on 11:50; Start 09/20/16 at 12:00; Stop 09/20/16 at 12:01; Status DC Active Scripts Active Tramadol Hcl 50 Mg Tablet 1 Tab PO BID PRN Reported Dulera 100 Mcg/5 Mcg Inhaler (Mometasone/Formoterol) 13 Gm Hfa.aer.ad 2 Puff IH BID Vitamin B-12 (Cyanocobalamin (Vitamin B-12)) 1,000 Mcg Tablet 1,000 Mcg PO DAILY Fluticasone Propionate Nasal [place] (Fluticasone Propionate) 16 Gm [place].susp 1 [place] NS DAILY Gabapentin 100 Mg Capsule 100 Mg PO HS Warfarin Sodium 5 Mg Tablet Artificial Tears Drops (Dextran 70/Hypromellose/Pf) 1 Each [place] 1 Each OU BID Alprazolam 0.5 Mg Tablet 1 Tab PO DAILY PRN Ventolin Hfa Inhaler (Albuterol Sulfate) 18 Gm Hfa.aer.ad 2 Puff INH QID Ranitidine Hcl 150 Mg Tablet 1 Tab PO BID Polyethylene Glycol 3350 17 Gm Powd.pack 17 Gm PO DAILY Lisinopril 5 Mg Tablet 1 Tab PO DAILY Levothyroxine Sodium 50 Mcg Tablet 1 Tab PO DAILY Vitamin D (Cholecalciferol (Vitamin D3)) 1,000 Unit Capsule 1 Cap PO DAILY Vitals/I & O Vital Sign - Last 24 Hours 09/19/16 09/19/16 09/19/16 09/19/16 15:16 15:38 19:11 19:13 Temp 98.6 98.4 98.6 98.4 Pulse 64 72 Resp 18 16 B/P (MAP) 112/67 (82) 101/51 (68) Pulse Ox 96 99 98 O2 Delivery Room Air Room Air Room Air Room Air 09/19/16 09/19/16 09/19/16 09/19/16 19:27 19:44 20:51 23:05 Temp 98.6 98.6 Pulse 69 Resp 16 18 B/P (MAP) 98/57 (71) Pulse Ox 98 97 97 O2 Delivery Room Air Room Air Room Air 09/20/16 09/20/16 09/20/16 09/20/16 02:13 05:57 06:48 06:52 Temp 98.6 98.6 Pulse 75 Resp 16 18 18 B/P (MAP) 143/77 (99) Pulse Ox 98 97 95 O2 Delivery Room Air Room Air Room Air Room Air 09/20/16 09/20/16 09/20/16 09/20/16 07:00 08:00 08:09 10:47 Temp 97.7 97.7 Pulse 69 67 Resp 18 B/P (MAP) 130/64 (86) 130/64 Pulse Ox 99 O2 Delivery Room Air Room Air Room Air 09/20/16 09/20/16 11:00 11:50 Temp 97.9 97.9 Pulse 62 62 Resp 18 B/P (MAP) 129/57 (81) 129/57 Pulse Ox 96 O2 Delivery Room Air Intake and Output 09/19/16 09/19/16 09/20/16 15:00 23:00 07:00 Intake Total 600 ml Output Total 950 ml Balance 600 ml -950 ml DARY SEYMOUR MD September 20, 2016 13:37
[2016-09-20 15:00] VITALS: BP 118/76
--- NOTE | 2016-09-20 15:09 | PDOC3 ---
Discharge Summary Visit Information Date of Admission: September 19, 2016 Date of Discharge: September 20, 2016 Admitting Diagnosis: neck pain, troponinemia Final Diagnosis 1. elevated troponin - thought to be anginal equivalent with acute neck pain, possible mild chronic elevation. No true chest pain. Normal coronaries by cath last August. 2. neck pain, possible neck injury or muscle strain, Dr. Cano consulted, will follow outpatient 3. hypertension - 4. Hyperlipidemia - 5. hx DVT - INR therapeutic. Problems Medical Problems: angina, /w elevated troponin, not called [place] by [facility] service Status: Acute Brief Hospital Course Allergies Allergies Coded Allergies Type Severity Reaction Last Updated Verified Penicillins Allergy Severe Anaphylaxis 11/21/15 Yes diphenhydramine Allergy Severe Anaphylaxis 11/21/15 Yes ipratropium Allergy Severe Anaphylaxis 11/21/15 Yes meclizine Allergy Severe 11/21/15 Yes trazodone Allergy Severe Shortness of Air 11/21/15 Yes bacitracin Allergy Intermediate Rash 11/21/15 Yes gabapentin Allergy Intermediate Itching 11/21/15 Yes neomycin Allergy Intermediate Rash 11/21/15 Yes oxycodone Allergy Intermediate Nausea and Vomiting 11/21/15 Yes polymyxin B Allergy Intermediate Rash 11/21/15 Yes I S O L A T I O N *CONTACT* Allergy Unknown 06/02/16 Yes Vital Signs Vital Signs Date Time Temp Pulse Resp B/P (MAP) Pulse Ox O2 Delivery O2 Flow Rate FiO2 09/20/16 14:34 Room Air 09/20/16 11:50 62 129/57 09/20/16 11:00 97.9 18 96 97.9 Lab Results Laboratory Tests Test 09/18/16 21:00 09/19/16 05:38 09/19/16 07:15 09/19/16 10:20 White Blood Count 6.3 x10^3/uL (4.0-11.0) 5.1 x10^3/uL (4.0-11.0) Red Blood Count 3.45 x10^6/uL (3.50-5.40) 3.26 x10^6/uL (3.50-5.40) Hemoglobin 11.2 g/dL (12.0-15.5) 10.5 g/dL (12.0-15.5) Hematocrit 33.1 % (36.0-47.0) 31.9 % (36.0-47.0) Mean Corpuscular Volume 96 fL (79-100) 98 fL (79-100) Mean Corpuscular Hemoglobin 32 pg (25-35) 32 pg (25-35) Mean Corpuscular Hemoglobin Concent 34 g/dL (31-37) 33 g/dL (31-37) Red Cell Distribution Width 14.2 % (11.5-14.5) 14.4 % (11.5-14.5) Platelet Count 295 x10^3/uL (140-400) 248 x10^3/uL (140-400) Neutrophils (%) (Auto) 59 % (31-73) Lymphocytes (%) (Auto) 30 % (24-48) Monocytes (%) (Auto) 9 % (0-9) Eosinophils (%) (Auto) 3 % (0-3) Basophils (%) (Auto) 0 % (0-3) Neutrophils # (Auto) 3.7 x10^3uL (1.8-7.7) Lymphocytes # (Auto) 1.9 x10^3/uL (1.0-4.8) Monocytes # (Auto) 0.5 x10^3/uL (0.0-1.1) Eosinophils # (Auto) 0.2 x10^3/uL (0.0-0.7) Basophils # (Auto) 0.0 x10^3/uL (0.0-0.2) Prothrombin Time 23.2 SEC (11.7-14.0) Prothromb Time International Ratio 2.2 (0.8-1.1) Activated Partial Thromboplast Time 38 SEC (24-38) Sodium Level 136 mmol/L (136-145) Potassium Level 3.9 mmol/L (3.5-5.1) Chloride Level 99 mmol/L (98-107) Carbon Dioxide Level 27 mmol/L (21-32) Anion Gap 10 (6-14) Blood Urea Nitrogen 12 mg/dL (7-20) Creatinine 0.8 mg/dL (0.6-1.0) Estimated GFR (Cockcroft-Gault) 84.4 BUN/Creatinine Ratio 15 (6-20) Glucose Level 102 mg/dL (70-99) Calcium Level 9.3 mg/dL (8.5-10.1) Total Bilirubin 0.5 mg/dL (0.2-1.0) Aspartate Amino Transf (AST/SGOT) 21 U/L (15-37) Alanine Aminotransferase (ALT/SGPT) 21 U/L (14-59) Alkaline Phosphatase 65 U/L (46-116) Troponin I Quantitative 0.741 ng/mL (0.000-0.055) 0.595 ng/mL (0.000-0.055) 0.227 ng/mL (0.000-0.055) [id number]-Mvu-[id number]-Type Natriuretic Peptide 596 pg/mL (0-449) Total Protein 8.4 g/dL (6.4-8.2) Albumin 3.8 g/dL (3.4-5.0) Albumin/Globulin Ratio 0.8 (1.0-1.7) Heparin Anti-Xa Act, Unfractionated 0.57 IU/mL (0.30-0.70) Test 09/20/16 05:00 09/20/16 07:30 White Blood Count 4.9 x10^3/uL (4.0-11.0) Red Blood Count 3.35 x10^6/uL (3.50-5.40) Hemoglobin 10.8 g/dL (12.0-15.5) Hematocrit 33.3 % (36.0-47.0) Mean Corpuscular Volume 99 fL (79-100) Mean Corpuscular Hemoglobin 32 pg (25-35) Mean Corpuscular Hemoglobin Concent 32 g/dL (31-37) Red Cell Distribution Width 14.9 % (11.5-14.5) Platelet Count 249 x10^3/uL (140-400) Neutrophils (%) (Auto) 55 % (31-73) Lymphocytes (%) (Auto) 31 % (24-48) Monocytes (%) (Auto) 11 % (0-9) Eosinophils (%) (Auto) 3 % (0-3) Basophils (%) (Auto) 1 % (0-3) Neutrophils # (Auto) 2.7 x10^3uL (1.8-7.7) Lymphocytes # (Auto) 1.5 x10^3/uL (1.0-4.8) Monocytes # (Auto) 0.5 x10^3/uL (0.0-1.1) Eosinophils # (Auto) 0.2 x10^3/uL (0.0-0.7) Basophils # (Auto) 0.0 x10^3/uL (0.0-0.2) Prothrombin Time 26.1 SEC (11.7-14.0) Prothromb Time International Ratio 2.6 (0.8-1.1) Sodium Level 135 mmol/L (136-145) Potassium Level 3.9 mmol/L (3.5-5.1) Chloride Level 100 mmol/L (98-107) Carbon Dioxide Level 29 mmol/L (21-32) Anion Gap 6 (6-14) Blood Urea Nitrogen 12 mg/dL (7-20) Creatinine 0.9 mg/dL (0.6-1.0) Estimated GFR (Cockcroft-Gault) 73.7 BUN/Creatinine Ratio 13 (6-20) Glucose Level 92 mg/dL (70-99) Calcium Level 9.1 mg/dL (8.5-10.1) Total Bilirubin 0.6 mg/dL (0.2-1.0) Aspartate Amino Transf (AST/SGOT) 16 U/L (15-37) Alanine Aminotransferase (ALT/SGPT) 15 U/L (14-59) Alkaline Phosphatase 62 U/L (46-116) Total Protein 8.3 g/dL (6.4-8.2) Albumin 3.3 g/dL (3.4-5.0) Albumin/Globulin Ratio 0.7 (1.0-1.7) Triglycerides Level 42 mg/dL (0-150) Cholesterol Level 220 mg/dL (0-200) LDL Cholesterol, Calculated 96 mg/dL (0-100) VLDL Cholesterol, Calculated 8 mg/dL (0-40) Non-HDL Cholesterol Calculated 104 mg/dL (0-129) HDL Cholesterol 116 mg/dL (40-60) Cholesterol/HDL Ratio 1.9 Laboratory Tests Test 09/20/16 05:00 09/20/16 07:30 White Blood Count 4.9 x10^3/uL (4.0-11.0) Red Blood Count 3.35 x10^6/uL (3.50-5.40) Hemoglobin 10.8 g/dL (12.0-15.5) Hematocrit 33.3 % (36.0-47.0) Mean Corpuscular Volume 99 fL (79-100) Mean Corpuscular Hemoglobin 32 pg (25-35) Mean Corpuscular Hemoglobin Concent 32 g/dL (31-37) Red Cell Distribution Width 14.9 % (11.5-14.5) Platelet Count 249 x10^3/uL (140-400) Neutrophils (%) (Auto) 55 % (31-73) Lymphocytes (%) (Auto) 31 % (24-48) Monocytes (%) (Auto) 11 % (0-9) Eosinophils (%) (Auto) 3 % (0-3) Basophils (%) (Auto) 1 % (0-3) Neutrophils # (Auto) 2.7 x10^3uL (1.8-7.7) Lymphocytes # (Auto) 1.5 x10^3/uL (1.0-4.8) Monocytes # (Auto) 0.5 x10^3/uL (0.0-1.1) Eosinophils # (Auto) 0.2 x10^3/uL (0.0-0.7) Basophils # (Auto) 0.0 x10^3/uL (0.0-0.2) Prothrombin Time 26.1 SEC (11.7-14.0) Prothromb Time International Ratio 2.6 (0.8-1.1) Sodium Level 135 mmol/L (136-145) Potassium Level 3.9 mmol/L (3.5-5.1) Chloride Level 100 mmol/L (98-107) Carbon Dioxide Level 29 mmol/L (21-32) Anion Gap 6 (6-14) Blood Urea Nitrogen 12 mg/dL (7-20) Creatinine 0.9 mg/dL (0.6-1.0) Estimated GFR (Cockcroft-Gault) 73.7 BUN/Creatinine Ratio 13 (6-20) Glucose Level 92 mg/dL (70-99) Calcium Level 9.1 mg/dL (8.5-10.1) Total Bilirubin 0.6 mg/dL (0.2-1.0) Aspartate Amino Transf (AST/SGOT) 16 U/L (15-37) Alanine Aminotransferase (ALT/SGPT) 15 U/L (14-59) Alkaline Phosphatase 62 U/L (46-116) Total Protein 8.3 g/dL (6.4-8.2) Albumin 3.3 g/dL (3.4-5.0) Albumin/Globulin Ratio 0.7 (1.0-1.7) Triglycerides Level 42 mg/dL (0-150) Cholesterol Level 220 mg/dL (0-200) LDL Cholesterol, Calculated 96 mg/dL (0-100) VLDL Cholesterol, Calculated 8 mg/dL (0-40) Non-HDL Cholesterol Calculated 104 mg/dL (0-129) HDL Cholesterol 116 mg/dL (40-60) Cholesterol/HDL Ratio 1.9 Brief Hospital Course Ms. Brice is a 76 old female, presented with chest pain, neck pain, small bump in troponin, treated medically, aspirin daily and statin started, Pt on coumadin for afib [place] ruled out, dc on small dose stain and asa Discharge Information Condition at Discharge: Improved Follow Up: Weeks Disposition/Orders: D/C to Home Scheduled Albuterol Sulfate (Ventolin Hfa Inhaler), 2 PUFF INH QID, (Reported) Cholecalciferol (Vitamin D3) (Vitamin D), 1 CAP PO DAILY, (Reported) Cyanocobalamin (Vitamin B-12) (Vitamin B-12), 1,000 MCG PO DAILY, (Reported) Dextran 70/Hypromellose/Pf (Artificial Tears Drops), 1 EACH OU BID, (Reported) Fluticasone Propionate (Fluticasone Propionate Nasal [place]), 1 SPRAY NS DAILY, ( Reported) Gabapentin (Gabapentin), 100 MG PO HS, (Reported) Levothyroxine Sodium (Levothyroxine Sodium), 1 TAB PO DAILY, (Reported) Lisinopril (Lisinopril), 1 TAB PO DAILY, (Reported) Mometasone/Formoterol (Dulera 100 Mcg/5 Mcg Inhaler), 2 PUFF IH BID, (Reported) Polyethylene Glycol 3350 (Polyethylene Glycol 3350), 17 GM PO DAILY, (Reported) Ranitidine Hcl (Ranitidine Hcl), 1 TAB PO BID, (Reported) Scheduled PRN Alprazolam (Alprazolam), 1 TAB PO DAILY PRN for ANXIETY, (Reported) Tramadol Hcl (Tramadol Hcl), 1 TAB PO BID PRN for PAIN Miscellaneous Medications Warfarin Sodium (Warfarin Sodium), (Reported) Patient Instructions Patient Instructions 09/02/2015 CORONARY ANGIOGRAPHY: LM is a large caliber vessel with normal angiographic appearance. LAD is a moderate to large caliber hyperdominant vessel extending around the apex with moderate tortuosity and mild luminal irregularities. LCX is a moderate to large caliber vessel with normal angiographic appearance. OM1 has normal angiographic appearance. RCA is a moderate caliber co-dominant vessel with normal angiographic appearance. TIme > 40 min TIFFANY BANEGAS MD September 20, 2016 15:09
[2016-09-20] MEDS ORDERED: WARFARIN 4 MG TABLET. PO ONE (16:00)
== END 2016-09-20 16:50 | disposition home or self-care (01) | DRG 552 ==
LOC: ER 20:03 → 2 SOUTH 22:17
PROVIDERS: ADMIT Internal Medicine; ATTEND Internal Medicine
DX: S16.1XXA Strain of muscle, fascia and tendon at neck level, initial encounter (principal); I20.9 Angina pectoris, unspecified; E03.9 Hypothyroidism, unspecified; E78.5 Hyperlipidemia, unspecified; F41.9 Anxiety disorder, unspecified; I10 Essential (primary) hypertension; M54.2 Cervicalgia; I48.91 Unspecified atrial fibrillation; J45.909 Unspecified asthma, uncomplicated; K21.9 Gastro-esophageal reflux disease without esophagitis; K58.9 Irritable bowel syndrome, unspecified; M79.7 Fibromyalgia; M85.80 Other specified disorders of bone density and structure, unspecified site; Z96.653 Presence of artificial knee joint, bilateral; D64.9 Anemia, unspecified; F32.9 Major depressive disorder, single episode, unspecified; M19.90 Unspecified osteoarthritis, unspecified site; Z88.1 Allergy status to other antibiotic agents; Z90.49 Acquired absence of other specified parts of digestive tract; Z90.3 Acquired absence of stomach [part of]; Z87.11 Personal history of peptic ulcer disease; Z86.718 Personal history of other venous thrombosis and embolism; Z83.3 Family history of diabetes mellitus; Z82.49 Family history of ischemic heart disease and other diseases of the circulatory system; Z79.01 Long term (current) use of anticoagulants; Z88.0 Allergy status to penicillin; Z88.8 Allergy status to other drugs, medicaments and biological substances
CPT/HCPCS: 36415; 71010; 80053; 80061; 83880; 84484; 85027; 85520; 85610; 85730; 87641; 93005; 93970; 94250; 94640; 94760; 96365; J2270; 99291-25

== ENCOUNTER → 2016-10-15 | Outpatient (CLI) | payer MEDICARE, OTHER ==
[2016-09-20 15:00] VITALS: BP 118/76
[~2016-10-15] MED LIST changes: +ASPI325T11 PO; +ATOR10TA60 PO; +LIDO700A27 TD; +MOME13HF2 IH
--- NOTE | 2016-10-15 11:38 | RAD ---
DATE: 10/16/2015 EXAM: DIGITAL SCREEN BILAT W/CAD HISTORY: Screening. Note is made of the positive family history for breast malignancy COMPARISON: One year earlier This study was interpreted with the benefit of Computerized Aided Detection (CAD). FINDINGS: Breast Density: SCATTERED The breast parenchyma shows scattered fibroglandular densities. Breast parenchyma level B. There has been little change when compared to the previous exam IMPRESSION: Benign finding BI-RADS CATEGORY: 2 BENIGN FINDING(S) RECOMMENDED FOLLOW-UP: 12M 12 MONTH FOLLOW-UP PQRS compliance statement: Patient information was entered into a reminder system with a target due date 10/15/2017 for the next mammogram. Mammography is a sensitive method for finding small breast cancers, but it does not detect them all and is not a substitute for careful clinical examination. A negative mammogram does not negate a clinically suspicious finding and should not result in delay in biopsying a clinically suspicious abnormality. "Our facility is accredited by the [employer] Mammography Program."
== END | disposition home or self-care (01) ==
LOC: MAMMO 09:24
PROVIDERS: ATTEND Obstetrics & Gynecology
DX: Z12.31 Encounter for screening mammogram for malignant neoplasm of breast (principal)
CPT/HCPCS: G0202; 77067

== ENCOUNTER 2017-02-20 18:12 | Inpatient (IN) | payer MEDICARE, OTHER ==
[~2017-02-20] VITALS: Ht 157.5 cm; Wt 82.2 kg
[~2017-02-20 18:12] MED LIST changes: +ASPI-630 PO; -ASPI81TA2 PO; -AZIT1PAC7 PO; +AZIT1PAC9 PO
[2017-02-20] MEDS ORDERED: LIDO:MAALOX:DONNATAL 1:1:1 15 ML SINGLE DOSE SWSW ONE (18:45)
--- NOTE | 2017-02-20 19:51 | PHYS DOC ---
Past Medical History Past Medical History: Anxiety, Asthma, DVT, Hypertension, Hypothyroid Additional Past Medical Histor: ulcer Past Surgical History: Knee Replacement, Tubal ligation Additional Past Surgical Histo: Hernia; Feet; Ulcers Alcohol Use: None Drug Use: None Adult General Chief Complaint Chief Complaint: ASTHMA HPI HPI Patient is a 76 year old female presents to the emergency department with complaints of upper respiratory symptoms with epigastric discomfort for 10 days. 5 days ago she was evaluated in the urgent care area discharge with clindamycin for sinusitis. Patient states she has not gotten better. She complains of chills. She complains of epigastric burning. She has no nausea, no vomiting. She denies headache or lightheadedness. She does complain of chills without measured fever. Review of Systems Review of Systems Constitutional: Chills without measured fever Eyes: Denies change in visual acuity, redness, or eye pain [] HENT: Nasal congestion Respiratory: Cough, productive of blood-tinged sputum, without shortness of breath Cardiovascular: Denies chest pain, palpitations, edema GI: Epigastric burning without nausea, vomiting, bloody stools or diarrhea. : Denies dysuria or hematuria [] Musculoskeletal: Denies back pain or joint pain [] Integument: Denies rash or skin lesions [] Neurologic: Denies headache, focal weakness or sensory changes [] Endocrine: Denies polyuria or polydipsia [] Current Medications Current Medications Current Medications Medications (Trade) Dose Ordered Sig/Sivan Start Time Stop Time Status Last Admin Dose Admin Aspirin (Children'S Aspirin) 324 mg 1X ONCE 02/20/17 22:00 02/20/17 22:01 UNV Azithromycin (Zithromax) 500 mg 1X ONCE 02/20/17 20:45 02/20/17 20:46 Cancel Ceftriaxone Sodium 1 gm/ Sodium Chloride 50 ml @ 100 mls/hr Q24H 02/20/17 20:45 UNV Levofloxacin (Levaquin) 500 mg 1X ONCE 02/20/17 20:45 02/20/17 20:46 DC 02/20/17 21:21 500 MG Multi-Ingredient Mouthwash/Gargle (Gi Cocktail Single Dose) 15 ml 1X ONCE 02/20/17 18:45 02/20/17 18:50 DC 02/20/17 20:08 15 ML Ondansetron HCl (Zofran) 4 mg PRN Q8HRS PRN 02/20/17 22:00 02/21/17 21:59 UNV Allergies Allergies Allergies Coded Allergies Type Severity Reaction Last Updated Verified Penicillins Allergy Severe Anaphylaxis 11/21/15 Yes diphenhydramine Allergy Severe Anaphylaxis 11/21/15 Yes ipratropium Allergy Severe Anaphylaxis 11/21/15 Yes meclizine Allergy Severe 11/21/15 Yes trazodone Allergy Severe Shortness of Air 11/21/15 Yes bacitracin Allergy Intermediate Rash 11/21/15 Yes gabapentin Allergy Intermediate Itching 11/21/15 Yes neomycin Allergy Intermediate Rash 11/21/15 Yes oxycodone Allergy Intermediate Nausea and Vomiting 11/21/15 Yes polymyxin B Allergy Intermediate Rash 11/21/15 Yes I S O L A T I O N *CONTACT* Allergy Unknown 06/02/16 Yes Physical Exam Physical Exam Constitutional: Well developed, well nourished, no acute distress, non-toxic appearance. [] HENT: Normocephalic, atraumatic, bilateral external ears normal, left tympanic membrane with effusion, oropharynx moist, no oral exudates, nose normal. [] Eyes: PERRLA, EOMI, conjunctiva normal, no discharge. [] Neck: Normal range of motion, no tenderness, supple, no stridor. [] Cardiovascular:Heart rate regular rhythm, no murmur [] Lungs & Thorax: Bilateral breath sounds diminished but clear to auscultation [] Abdomen: Bowel sounds normal, soft, no tenderness, no masses, no pulsatile masses. [] Skin: Warm, dry, no erythema, no rash. [] Back: No tenderness, no CVA tenderness. [] Extremities: No tenderness, no cyanosis, no clubbing, ROM intact, no edema. [] Neurologic: Alert and oriented X 3, normal motor function, normal sensory function, no focal deficits noted. [] Psychologic: Affect normal, judgement normal, mood normal. [] Current Patient Data Vital Signs Vital Signs Date Time Temp Pulse Resp B/P (MAP) Pulse Ox O2 Delivery O2 Flow Rate FiO2 02/20/17 19:30 76 32 187/86 (119) 98 Room Air 02/20/17 18:30 97.7 97.7 Lab Values Laboratory Tests Test 02/20/17 21:08 White Blood Count 4.7 x10^3/uL (4.0-11.0) Red Blood Count 3.34 x10^6/uL (3.50-5.40) L Hemoglobin 11.0 g/dL (12.0-15.5) L Hematocrit 32.7 % (36.0-47.0) L Mean Corpuscular Volume 98 fL (79-100) Mean Corpuscular Hemoglobin 33 pg (25-35) Mean Corpuscular Hemoglobin Concent 34 g/dL (31-37) Red Cell Distribution Width 13.4 % (11.5-14.5) Platelet Count 259 x10^3/uL (140-400) Neutrophils (%) (Auto) 45 % (31-73) Lymphocytes (%) (Auto) 40 % (24-48) Monocytes (%) (Auto) 9 % (0-9) Eosinophils (%) (Auto) 5 % (0-3) H Basophils (%) (Auto) 1 % (0-3) Neutrophils # (Auto) 2.1 x10^3uL (1.8-7.7) Lymphocytes # (Auto) 1.9 x10^3/uL (1.0-4.8) Monocytes # (Auto) 0.4 x10^3/uL (0.0-1.1) Eosinophils # (Auto) 0.2 x10^3/uL (0.0-0.7) Basophils # (Auto) 0.0 x10^3/uL (0.0-0.2) Sodium Level 139 mmol/L (136-145) Potassium Level 4.2 mmol/L (3.5-5.1) Chloride Level 105 mmol/L (98-107) Carbon Dioxide Level 28 mmol/L (21-32) Anion Gap 6 (6-14) Blood Urea Nitrogen 17 mg/dL (7-20) Creatinine 0.9 mg/dL (0.6-1.0) Estimated GFR (Cockcroft-Gault) 73.7 BUN/Creatinine Ratio 19 (6-20) Glucose Level 104 mg/dL (70-99) H Calcium Level 8.8 mg/dL (8.5-10.1) Total Bilirubin 0.3 mg/dL (0.2-1.0) Aspartate Amino Transferase (AST) 22 U/L (15-37) Alanine Aminotransferase (ALT) 23 U/L (14-59) Alkaline Phosphatase 72 U/L (46-116) Creatine Kinase 171 U/L (26-192) Creatine Kinase MB (Mass) 1.8 ng/mL (0.0-3.6) Creatine Kinase MB Relative Index 1.1 % (0-4) Troponin I Quantitative 1.055 ng/mL (0.000-0.055) Total Protein 7.9 g/dL (6.4-8.2) Albumin 3.4 g/dL (3.4-5.0) Albumin/Globulin Ratio 0.8 (1.0-1.7) L Laboratory Tests 02/20/17 21:08 Laboratory Tests 02/20/17 21:08 EKG EKG 1856: EKG completed and given to Dr. Langford for review. T-wave inversion in leads 1, V3 V4 V5 V6.[] Review of previous EKG, this EKG is unchanged from previous EKG. Underlying rhythm is sinus. Radiology/Procedures Radiology/Procedures X-ray, right middle lobe infiltrate[] Course & Med Decision Making Course & Med Decision Making Pertinent Labs and Imaging studies reviewed. (See chart for details) Patient received Levaquin 500 milligrams IV for right middle lobe infiltrate. []2150: Elevated troponin, case discussed with Dr. Black, patient will be admitted to Dr. Zuniga. Dr. Jones spoke with on-call cardiology Dr. Swann. He did discuss admission with patient and her family are in agreement plan. Patient is in stable condition awaiting transfer to floor. Dragon Disclaimer Dragon Disclaimer This electronic medical record was generated, in whole or in part, using a voice recognition dictation system. Departure Departure Impression: Primary Impression: Pneumonia Additional Impression: Elevated troponin I level Disposition: ADMITTED INPATIENT Admitting Physician: Lay Zuniga Condition: STABLE Referrals: CANDIS VACA (PCP) Problem Qualifiers Primary Impression: Pneumonia Pneumonia type: due to unspecified organism Laterality: right Lung location : middle lobe of lung Qualified Codes: J18.1 - Lobar pneumonia, unspecified organism PATT WESLEY JOU[employer]L BOX INSPECTOR Feb 20, 2017 19:51
[2017-02-20] MEDS ORDERED: AZITHROMYCIN 250 MG TABLET. PO ONE (20:45)
[2017-02-20 21:16] LABS: BASO % 1 % (0-3); EOS % 5 % (0-3); HEMATOCRIT 32.7 % (36.0-47.0); LYMPH # 1.9 x10^3/uL (1.0-4.8); LYMPH % 40 % (24-48); MEAN CORPUSCULAR HEMOGLOBIN 33 pg (25-35); MEAN CORPUSCULAR HGB CONC 34 g/dL (31-37); MEAN CORPUSCULAR VOLUME 98 fL (79-100); MONO % 9 % (0-9); NEUT % 45 % (31-73); PLATELET COUNT 259 x10^3/uL (140-400); RED BLOOD COUNT 3.34 x10^6/uL (3.50-5.40); RED CELL DISTRIBUTION WIDTH 13.4 % (11.5-14.5); WHITE BLOOD COUNT 4.7 x10^3/uL (4.0-11.0)
[2017-02-20 21:28] LABS: CALCIUM 8.8 mg/dL (8.5-10.1); CREATININE 0.9 mg/dL (0.6-1.0); GFR 73.7; POTASSIUM 4.2 mmol/L (3.5-5.1)
[2017-02-20 21:33] LABS: ALBUMIN 3.4 g/dL (3.4-5.0); ALBUMIN/GLOBULIN RATIO 0.8 (1.0-1.7); TOTAL BILIRUBIN 0.3 mg/dL (0.2-1.0); TOTAL PROTEIN 7.9 g/dL (6.4-8.2)
[2017-02-20 21:54] LABS: CKMB MASS 1.8 ng/mL (0.0-3.6)
[2017-02-20] MEDS ORDERED: ASPIRIN CHEWABLE 81 MG TABLET. PO ONE (22:15)
[2017-02-20] MEDS ORDERED: ONDANSETRON PF 4 MG/2 ML VIAL. IV PRN (22:15)
[2017-02-20 23:02] VITALS: BP 165/82
[2017-02-20] MEDS ORDERED: INFLUENZA VAX SCREEN BY RX. MC ONE (23:30)
[2017-02-21] VITALS (7 sets, daily range): BP systolic 101–126; BP diastolic 57–71
[2017-02-21] MEDS ORDERED: IPRATRPIUM/ALBUTEROL 0.5/2.5MG 3 ML NEBU. NEB ONE (00:15)
[2017-02-21] MEDS ORDERED: GABAPENTIN 100 MG CAPSULE. PO ONE (00:30)
[2017-02-21] MEDS ORDERED: LISINOPRIL 10 MG TABLET PO ONE (00:30)
[2017-02-21] MEDS ORDERED: FAMOTIDINE 20 MG TABLET. PO ONE (00:30)
[2017-02-21] MEDS ORDERED: ALBUTEROL SULFATE 2.5 MG/3 ML NEBU. NEB PRN (00:45)
[2017-02-21] MEDS ORDERED: ALBUTEROL SULFATE 2.5 MG/3 ML NEBU. NEB ONE (00:45)
[2017-02-21 06:09] LABS: BASO % 1 % (0-3); EOS % 5 % (0-3); HEMATOCRIT 32.8 % (36.0-47.0); HEMOGLOBIN 10.8 g/dL (12.0-15.5); LYMPH # 1.5 x10^3/uL (1.0-4.8); LYMPH % 42 % (24-48); MEAN CORPUSCULAR HEMOGLOBIN 32 pg (25-35); MEAN CORPUSCULAR HGB CONC 33 g/dL (31-37); MEAN CORPUSCULAR VOLUME 98 fL (79-100); MONO % 10 % (0-9); NEUT % 42 % (31-73); PLATELET COUNT 262 x10^3/uL (140-400); RED BLOOD COUNT 3.36 x10^6/uL (3.50-5.40); RED CELL DISTRIBUTION WIDTH 13.8 % (11.5-14.5); WHITE BLOOD COUNT 3.7 x10^3/uL (4.0-11.0)
[2017-02-21 06:13] LABS: CALCIUM 8.9 mg/dL (8.5-10.1); GFR 65.2; POTASSIUM 4.2 mmol/L (3.5-5.1)
[2017-02-21] MEDS ORDERED: ALBUTEROL SULFATE 2.5 MG/3 ML NEBU. NEB SCH (08:00)
[2017-02-21] MEDS ORDERED: ASPIRIN ENTERIC COATED 81 MG TABLET.DR. PO SCH (08:00)
--- NOTE | 2017-02-21 08:16 | CONS ---
DATE OF CONSULTATION: 02/21/2017 REASON FOR CONSULTATION: Elevated troponin. HISTORY OF PRESENT ILLNESS: The patient is a pleasant 76-year-old woman who is well known to our service from her clinic visit and previous hospitalizations. She presented to the ER with progressive shortness of breath and she has had symptoms consistent with an upper respiratory tract infection. Of note, she presented with similar symptoms back in 06/2016 and had an elevated troponin at that time, but had a normal echocardiogram. The patient has had a chronically elevated troponin of unclear etiology. She was also cathed back in 2016 and did not have any significant obstructive coronary disease. 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 Denies any chest pain, orthopnea, PND, palpitations and/or syncope. PAST MEDICAL HISTORY: 1. Hypertension. 2. History of DVT, on oral anticoagulation. 3. Dyspnea intermittently related to noncardiac etiology. 4. Chronically elevated troponin of unclear etiology. SOCIAL HISTORY: The patient denies any alcohol, tobacco or illicit drug use. FAMILY HISTORY: Noncontributory. ALLERGIES: MULTIPLE MEDICINES: PENICILLINS, BACITRACIN, BENADRYL, GABAPENTIN, IPRATROPIUM, MECLIZINE, NEOMYCIN, OXYCODONE, POLYMYXIN B AND TRAZODONE. REVIEW OF SYSTEMS: Negative for 10 out of 14 systems reviewed, unless otherwise mentioned above in HPI. CURRENT CARDIOVASCULAR MEDICATIONS: As follows: Aspirin 325 mg daily, atorvastatin 10 mg daily, lisinopril 5 mg daily and warfarin. PHYSICAL EXAMINATION: VITAL SIGNS: Afebrile, pulse 72, respirations 18, blood pressure 101/57, 94% on room air. GENERAL: She is alert and oriented and in mild distress and frustration due to her symptoms. HEAD AND NECK: Unremarkable. CARDIAC: Regular rate with a 3/6 systolic murmur consistent with aortic stenosis. LUNGS: Clear to auscultation. ABDOMEN: Soft, nontender, nondistended. EXTREMITIES: No clubbing, cyanosis or edema; with 2+ radial and dorsalis pedis pulses. DIAGNOSTIC STUDIES: Hemoglobin 10.8, platelets 262, creatinine 1.0, troponin 1.1 with a normal myocardial band fraction. Chest x-ray is grossly unremarkable. EKG demonstrates sinus rhythm with LVH. IMPRESSION: 1. Acute dyspnea secondary to an upper respiratory tract infection. 2. Chronically elevated troponin, etiology unclear, most likely secondary to left ventricular hypertrophy and stressors of the upper respiratory tract infection. 3. Mild hypertension. 4. Prior history of deep venous thrombosis, on anticoagulation with warfarin. RECOMMENDATIONS: 1. At this present time, we would not recommend any further cardiac interventions with respect to her elevated troponin. 2. Could consider a repeat echocardiogram to assess her valvular heart disease and this can be done tomorrow. 3. Continue home medications for her hypertension. 4. I did discuss with her that things sometimes can progress in 1-2 years and that if treatment of her URI does not resolve her dyspnea or her enzymes are elevated, we may still need to consider repeat cath. Thank you for this consultation. ALISSA HENDRIX MD DR: SAPNA/parmjit JOB#: [id number] / [id number] SIMI
[2017-02-21] MEDS ORDERED: LISINOPRIL 5 MG TABLET. PO SCH ×2 (09:00→11:00)
[2017-02-21] MEDS ORDERED: FLU VACC QS2017-18 (36MOS+)/PF 0.5 ML SYRINGE. VAX IM ONE (09:00)
[2017-02-21] MEDS ORDERED: traMADol 50 MG TABLET PO PRN (10:30)
[2017-02-21] MEDS ORDERED: hydrALAZINE 20 MG/ML VIAL. IVP PRN (10:45)
[2017-02-21] MEDS ORDERED: ONDANSETRON PF 4 MG/2 ML VIAL. IV PRN (10:45)
[2017-02-21] MEDS ORDERED: ACETAMINOPHEN 325 MG TABLET. PO PRN (10:45)
[2017-02-21] MEDS ORDERED: DOCUSATE SODIUM 100 MG CAPSULE. PO PRN (10:45)
--- NOTE | 2017-02-21 10:47 | RAD ---
Chest, 2 views, 02/20/2017: History: Cough and epigastric pain Comparison is made to a study from 09/18/2016. The heart size and pulmonary vascularity are normal. There is calcific plaquing of aorta. A calcified granuloma is present in the left lower chest. No acute infiltrates are seen. There is no evidence of pleural fluid. Surgical clips are present near the GE junction and upper gastric levels. IMPRESSION: No acute cardiopulmonary abnormality is detected.
[2017-02-21] MEDS: ASPIRIN ENTERIC COATED 325 MG TABLET.DR. PO SCH (11:00)
[2017-02-21] MEDS ORDERED: LEVOTHYROXINE 50 MCG TABLET PO SCH (11:00)
[2017-02-21] MEDS: LIDOCAINE (700MG/PATCH) PATCH. TD SCH (11:00)
[2017-02-21] MEDS: FLUTICASONE 50MCG/NASAL SPRAY 16GM BOTTLE. NS SCH (11:00)
[2017-02-21 11:10] LABS: INR 2.9 (0.8-1.1); PROTHROMBIN TIME PATIENT 28.9 SEC (11.7-14.0)
[2017-02-21] MEDS: POLYETHYLENE GLYCOL 3350 17 GM PACKET. PO SCH (11:13)
[2017-02-21] MEDS: CYANOCOBALAMIN (VITAMIN B-12) 1,000 MCG TABLET. PO SCH (11:13)
[2017-02-21] MEDS: FAMOTIDINE 20 MG TABLET. PO SCH ×2 (11:13→21:32)
[2017-02-21] MEDS: POLYVINYL ALCOHOL 1.4% OPHTH SOLUTION 15ML BOTTLE. OU SCH ×2 (11:45→21:32)
[2017-02-21] MEDS: CHOLECALCIFEROL (VITAMIN D3) 1,000 UNIT TABLET PO SCH (12:00)
--- NOTE | 2017-02-21 12:20 | EKG ---
[facility] [address] [place] [address] Test Date: 2017-02-20 Test Time: 18:56:58 Pat Name: BRENNA RAMIREZ Department: Room: 260 1 Gender: F Surgical Services Director: : 1940 Requested By: PATT WESLEY Order Number: [id number] Reading MD: Patrick Hoover Measurements Intervals [place] Rate: 70 P: 34 ID: [id number] QRS: 10 QRSD: 86 T: 139 QT: 420 QTc: 457 Interpretive Statements SINUS RHYTHM LVH WITH REPOLARIZATION ABNORMALITY NONSPECIFIC ST-T WAVE CHANGES. CANNOT EXCLUDE ISCHEMIA RI6.01 Unconfirmed report Compared to ECG 09/18/2016 20:12:43 No significant changes Electronically Signed On 03-11-2017 17:09:52 CDT by Patrick Hoover
--- NOTE | 2017-02-21 12:39 | CARD ---
APPROVED REPORT EXAM: LIMITED Two-dimensional echocardiogram. Other Information Quality : Average Rhythm : NSR INDICATION Non STEMI 2D DIMENSIONS IVSd1.2 (0.7-1.1cm)LVDd4.6 (3.9-5.9cm) PWd1.2 (0.7-1.1cm)LVDs2.8 (2.5-4.0cm) FS (%) 39.4 %SV67.0 ml LVEF(%)70.0 (>50%) LEFT VENTRICLE The left ventricle is normal size. There is borderline concentric left ventricular hypertrophy. Left ventricle systolic function is normal. The Ejection Fraction is 65-70%. There is normal LV segmental wall motion. AORTIC VALVE The aortic valve is moderately to severely thickened. GREAT VESSELS Not assessed PERICARDIAL EFFUSION There is no evidence of significant pericardial effusion. Critical Notification Critical Value: No <Conclusion> Left ventricle systolic function is normal. The Ejection Fraction is 65-70%. There is normal LV segmental wall motion.
[2017-02-21] MEDS: BUDESONIDE 0.5 MG/2 ML NEBU. NEB SCH ×2 (12:44→19:19)
[2017-02-21] MEDS: ALBUTEROL SULFATE 2.5 MG/3 ML NEBU. NEB SCH ×3 (12:44→19:19)
--- NOTE | 2017-02-21 14:13 | PDOC1 ---
History and Physical Date of Admission Date of Admission 02/20/17 Identification/Chief Complaint Chief Complaint cough Problems: Source Source: Chart review, Patient History of Present Illness History of Present Illness HPI HPI Patient is a 76 year old female presents to the emergency department with complaints of upper respiratory symptoms with cough. 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 Pt went to urgent care, was given some abx (no details), not better, then came to ER. Pt felt mild chest discomfort, but denies chest pain. denies fever, chills, had some heart burn, no N/V. in ER, got albuterol, now feels good. EKG showed T wave inversion at v4-v6, same as 09/2016, Troponin chronically high at 0.5-0.8, this time is at 1. Past Medical History Cardiovascular: HTN, Hyperlipidemia Pulmonary: Asthma GI: Constipation, GERD, Irritable bowel disease, Peptic Ulcer disease Heme/Onc: Anemia NOS, Other Psych: Anxiety, Depression Endocrine: Hypothyroidism, Osteopenia, Other Past Surgical History Past Surgical History: Total knee replacement, Other Family History Family History: Diabetes, Hypertension Social History Smoke: No ALCOHOL: none Drugs: None Current Problem List Problem List Problems Medical Problems: (1) Elevated troponin I level Status: Acute (2) Pneumonia Status: Acute Current Medications Current Medications Current Medications Medications (Trade) Dose Ordered Sig/Sivan Start Time Stop Time Status Last Admin Dose Admin Acetaminophen (Tylenol) 650 mg PRN Q6HRS PRN 02/21/17 10:45 Albuterol Sulfate (Ventolin Neb Soln) 2.5 mg RTQID 02/21/17 12:00 02/21/17 12:44 2.5 MG Albuterol/ Ipratropium (Duoneb) 3 ml 1X ONCE 02/21/17 00:15 02/21/17 00:33 DC Alprazolam (Xanax) 0.5 mg PRN DAILY PRN 02/21/17 10:30 Artificial Tears (Artificial Tears) 1 drop BID 02/21/17 11:45 Aspirin (Children'S Aspirin) 324 mg 1X ONCE 02/20/17 22:15 02/20/17 22:16 DC 02/20/17 22:16 324 MG Aspirin (Ecotrin) 325 mg DAILYWBKFT 02/21/17 11:00 Atorvastatin Calcium (Lipitor) 10 mg QHS 02/21/17 21:00 Azithromycin (Zithromax) 500 mg 1X ONCE 02/20/17 20:45 02/20/17 20:46 Cancel Budesonide (Pulmicort) 0.5 mg RTBID 02/21/17 12:00 02/21/17 12:44 0.5 MG Ceftriaxone Sodium 1 gm/ Sodium Chloride 50 ml @ 100 mls/hr Q24H 02/20/17 20:45 UNV Cyanocobalamin (Vitamin B-12) 1,000 mcg DAILY 02/21/17 11:00 02/21/17 11:13 1,000 MCG Docusate Sodium (Colace) 100 mg PRN DAILY PRN 02/21/17 10:45 Enoxaparin Sodium (Lovenox 100mg Syringe) 90 mg ONCE ONCE 02/20/17 23:00 02/20/17 23:01 DC 02/21/17 00:07 90 MG Enoxaparin Sodium (Lovenox 80mg Syringe) 80 mg Q12HR 02/21/17 09:00 02/21/17 09:00 DC Enoxaparin Sodium (Lovenox Per Pharmacy Treatment Dosing) 1 each PRN DAILY PRN 02/20/17 22:30 Famotidine (Pepcid) 20 mg BID 02/21/17 11:00 02/21/17 11:13 20 MG Fluticasone Propionate (Flonase) 1 spray DAILY 02/21/17 11:00 Gabapentin (Neurontin) 100 mg HS 02/21/17 21:00 Guaifenesin (Robitussin) 200 mg PRN Q4HRS PRN 02/21/17 10:45 Hydralazine HCl (Apresoline) 10 mg PRN Q4HRS PRN 02/21/17 10:45 Influenza Virus Vaccine Quadrival (Fluarix Quad [id number] Syringe) 0.5 ml ONCE ONCE 02/21/17 09:00 02/21/17 09:01 DC Info (Do NOT chart on this placeholder) 1 each 1X ONCE 02/20/17 23:30 02/20/17 23:31 UNV Levofloxacin (Levaquin) 500 mg 1X ONCE 02/20/17 20:45 02/20/17 20:46 DC 02/20/17 21:21 500 MG Levothyroxine Sodium (Synthroid) 50 mcg DAILY07 02/22/17 07:00 Lidocaine (Lidoderm) 1 patch DAILY 02/21/17 11:00 Lisinopril (Prinivil) 5 mg QHS 02/21/17 21:00 Multi-Ingredient Mouthwash/Gargle (Gi Cocktail Single Dose) 15 ml 1X ONCE 02/20/17 18:45 02/20/17 18:50 DC 02/20/17 20:08 15 ML Non-Formulary Medication 2 puff BID 02/21/17 21:00 02/21/17 21:00 DC Ondansetron HCl (Zofran) 4 mg PRN Q6HRS PRN 02/21/17 10:45 Polyethylene Glycol (miraLAX PACKET) 17 gm DAILY 02/21/17 11:00 02/21/17 11:13 17 GM Tramadol HCl (Ultram) 50 mg PRN BID PRN 02/21/17 10:30 02/21/17 11:13 50 MG Vitamin D (Vitamin D3) 1,000 unit DAILY 02/21/17 12:00 Warfarin Sodium (Coumadin Per Physician) 1 each PRN DAILY PRN 02/21/17 11:45 Warfarin Sodium (Coumadin) 5 mg DAILY16 02/22/17 16:00 Allergies Allergies Allergies Coded Allergies Type Severity Reaction Last Updated Verified Penicillins Allergy Severe Anaphylaxis 11/21/15 Yes diphenhydramine Allergy Severe Anaphylaxis 11/21/15 Yes ipratropium Allergy Severe Anaphylaxis 11/21/15 Yes meclizine Allergy Severe 11/21/15 Yes trazodone Allergy Severe Shortness of Air 11/21/15 Yes bacitracin Allergy Intermediate Rash 11/21/15 Yes neomycin Allergy Intermediate Rash 11/21/15 Yes oxycodone Allergy Intermediate Nausea and Vomiting 11/21/15 Yes polymyxin B Allergy Intermediate Rash 11/21/15 Yes I S O L A T I O N *CONTACT* Allergy Unknown 06/02/16 Yes ROS Review of System CONSTITUTIONAL: No fever or chills EYES: No recent changes SKIN: No rash or itching CARDIOVASCULAR: No chest pain, syncope, palpitations, or edema RESPIRATORY: No SOB or cough GASTROINTESTINAL: No nausea, vomiting or abdominal pain NEUROLOGICAL: No headaches or weakness ENDOCRINE: No cold or heat intolerance GENITOURINARY: No urgency or frequency of urination MUSCULOSKELETAL: No back pain or joint pain LYMPHATICS: No enlarged lymph nodes PSYCHIATRIC: No anxiety or depression Physical Exam Physical Exam GEN.: No apparent distress. Alert and oriented. HEENT: Head is normocephalic, atraumatic NECK: Supple. LUNGS: Clear to auscultation. HEART: RRR, S1, S2 present. Peripheral pulses intact ABDOMEN: Soft, nontender. Positive bowel sounds. EXTREMITIES: Without any cyanosis. NEUROLOGIC: Normal speech, normal tone PSYCHIATRIC: Normal affect, normal mood. SKIN: No ulcerations Vitals Vitals Vital Signs Date Time Temp Pulse Resp B/P (MAP) Pulse Ox O2 Delivery O2 Flow Rate FiO2 02/21/17 12:45 95 Nasal Cannula 1.0 02/21/17 11:13 18 02/21/17 10:40 98.3 70 106/62 (77) 98.3 Labs Labs Laboratory Tests Test 02/20/17 21:08 02/21/17 05:00 02/21/17 10:10 White Blood Count 4.7 x10^3/uL (4.0-11.0) 3.7 x10^3/uL (4.0-11.0) Red Blood Count 3.34 x10^6/uL (3.50-5.40) 3.36 x10^6/uL (3.50-5.40) Hemoglobin 11.0 g/dL (12.0-15.5) 10.8 g/dL (12.0-15.5) Hematocrit 32.7 % (36.0-47.0) 32.8 % (36.0-47.0) Mean Corpuscular Volume 98 fL (79-100) 98 fL (79-100) Mean Corpuscular Hemoglobin 33 pg (25-35) 32 pg (25-35) Mean Corpuscular Hemoglobin Concent 34 g/dL (31-37) 33 g/dL (31-37) Red Cell Distribution Width 13.4 % (11.5-14.5) 13.8 % (11.5-14.5) Platelet Count 259 x10^3/uL (140-400) 262 x10^3/uL (140-400) Neutrophils (%) (Auto) 45 % (31-73) 42 % (31-73) Lymphocytes (%) (Auto) 40 % (24-48) 42 % (24-48) Monocytes (%) (Auto) 9 % (0-9) 10 % (0-9) Eosinophils (%) (Auto) 5 % (0-3) 5 % (0-3) Basophils (%) (Auto) 1 % (0-3) 1 % (0-3) Neutrophils # (Auto) 2.1 x10^3uL (1.8-7.7) 1.6 x10^3uL (1.8-7.7) Lymphocytes # (Auto) 1.9 x10^3/uL (1.0-4.8) 1.5 x10^3/uL (1.0-4.8) Monocytes # (Auto) 0.4 x10^3/uL (0.0-1.1) 0.4 x10^3/uL (0.0-1.1) Eosinophils # (Auto) 0.2 x10^3/uL (0.0-0.7) 0.2 x10^3/uL (0.0-0.7) Basophils # (Auto) 0.0 x10^3/uL (0.0-0.2) 0.0 x10^3/uL (0.0-0.2) Sodium Level 139 mmol/L (136-145) 142 mmol/L (136-145) Potassium Level 4.2 mmol/L (3.5-5.1) 4.2 mmol/L (3.5-5.1) Chloride Level 105 mmol/L (98-107) 106 mmol/L (98-107) Carbon Dioxide Level 28 mmol/L (21-32) 29 mmol/L (21-32) Anion Gap 6 (6-14) 7 (6-14) Blood Urea Nitrogen 17 mg/dL (7-20) 15 mg/dL (7-20) Creatinine 0.9 mg/dL (0.6-1.0) 1.0 mg/dL (0.6-1.0) Estimated GFR (Cockcroft-Gault) 73.7 65.2 BUN/Creatinine Ratio 19 (6-20) Glucose Level 104 mg/dL (70-99) 93 mg/dL (70-99) Calcium Level 8.8 mg/dL (8.5-10.1) 8.9 mg/dL (8.5-10.1) Total Bilirubin 0.3 mg/dL (0.2-1.0) Aspartate Amino Transf (AST/SGOT) 22 U/L (15-37) Alanine Aminotransferase (ALT/SGPT) 23 U/L (14-59) Alkaline Phosphatase 72 U/L (46-116) Creatine Kinase 171 U/L (26-192) Creatine Kinase MB (Mass) 1.8 ng/mL (0.0-3.6) Creatine Kinase MB Relative Index 1.1 % (0-4) Troponin I Quantitative 1.055 ng/mL (0.000-0.055) 1.110 ng/mL (0.000-0.055) 1.119 ng/mL (0.000-0.055) Total Protein 7.9 g/dL (6.4-8.2) Albumin 3.4 g/dL (3.4-5.0) Albumin/Globulin Ratio 0.8 (1.0-1.7) Prothrombin Time 28.9 SEC (11.7-14.0) Prothromb Time International Ratio 2.9 (0.8-1.1) ZU-Oam-H-Type Natriuretic Peptide 408 pg/mL (0-449) Laboratory Tests Test 02/20/17 21:08 02/21/17 05:00 02/21/17 10:10 White Blood Count 4.7 x10^3/uL (4.0-11.0) 3.7 x10^3/uL (4.0-11.0) Red Blood Count 3.34 x10^6/uL (3.50-5.40) 3.36 x10^6/uL (3.50-5.40) Hemoglobin 11.0 g/dL (12.0-15.5) 10.8 g/dL (12.0-15.5) Hematocrit 32.7 % (36.0-47.0) 32.8 % (36.0-47.0) Mean Corpuscular Volume 98 fL (79-100) 98 fL (79-100) Mean Corpuscular Hemoglobin 33 pg (25-35) 32 pg (25-35) Mean Corpuscular Hemoglobin Concent 34 g/dL (31-37) 33 g/dL (31-37) Red Cell Distribution Width 13.4 % (11.5-14.5) 13.8 % (11.5-14.5) Platelet Count 259 x10^3/uL (140-400) 262 x10^3/uL (140-400) Neutrophils (%) (Auto) 45 % (31-73) 42 % (31-73) Lymphocytes (%) (Auto) 40 % (24-48) 42 % (24-48) Monocytes (%) (Auto) 9 % (0-9) 10 % (0-9) Eosinophils (%) (Auto) 5 % (0-3) 5 % (0-3) Basophils (%) (Auto) 1 % (0-3) 1 % (0-3) Neutrophils # (Auto) 2.1 x10^3uL (1.8-7.7) 1.6 x10^3uL (1.8-7.7) Lymphocytes # (Auto) 1.9 x10^3/uL (1.0-4.8) 1.5 x10^3/uL (1.0-4.8) Monocytes # (Auto) 0.4 x10^3/uL (0.0-1.1) 0.4 x10^3/uL (0.0-1.1) Eosinophils # (Auto) 0.2 x10^3/uL (0.0-0.7) 0.2 x10^3/uL (0.0-0.7) Basophils # (Auto) 0.0 x10^3/uL (0.0-0.2) 0.0 x10^3/uL (0.0-0.2) Sodium Level 139 mmol/L (136-145) 142 mmol/L (136-145) Potassium Level 4.2 mmol/L (3.5-5.1) 4.2 mmol/L (3.5-5.1) Chloride Level 105 mmol/L (98-107) 106 mmol/L (98-107) Carbon Dioxide Level 28 mmol/L (21-32) 29 mmol/L (21-32) Anion Gap 6 (6-14) 7 (6-14) Blood Urea Nitrogen 17 mg/dL (7-20) 15 mg/dL (7-20) Creatinine 0.9 mg/dL (0.6-1.0) 1.0 mg/dL (0.6-1.0) Estimated GFR (Cockcroft-Gault) 73.7 65.2 BUN/Creatinine Ratio 19 (6-20) Glucose Level 104 mg/dL (70-99) 93 mg/dL (70-99) Calcium Level 8.8 mg/dL (8.5-10.1) 8.9 mg/dL (8.5-10.1) Total Bilirubin 0.3 mg/dL (0.2-1.0) Aspartate Amino Transf (AST/SGOT) 22 U/L (15-37) Alanine Aminotransferase (ALT/SGPT) 23 U/L (14-59) Alkaline Phosphatase 72 U/L (46-116) Creatine Kinase 171 U/L (26-192) Creatine Kinase MB (Mass) 1.8 ng/mL (0.0-3.6) Creatine Kinase MB Relative Index 1.1 % (0-4) Troponin I Quantitative 1.055 ng/mL (0.000-0.055) 1.110 ng/mL (0.000-0.055) 1.119 ng/mL (0.000-0.055) Total Protein 7.9 g/dL (6.4-8.2) Albumin 3.4 g/dL (3.4-5.0) Albumin/Globulin Ratio 0.8 (1.0-1.7) Prothrombin Time 28.9 SEC (11.7-14.0) Prothromb Time International Ratio 2.9 (0.8-1.1) LA-Gvf-R-Type Natriuretic Peptide 408 pg/mL (0-449) VTE Prophylaxis Ordered VTE Prophylaxis Devices: Contraindicated VTE Pharmacological Prophylaxi: No Assessment/Plan Assessment/Plan cough, sob, 2/2 bronchitis likely elevated troponin, slightly higher than baseline 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 cont home meds echo done,limited study and ok on warfarin, INR daily albuterol, cough meds MATT SENIOR MD Feb 21, 2017 14:12
[2017-02-21] MEDS: guaiFENesin ORAL 200 MG/10 ML LIQUID. PO PRN (17:12)
[2017-02-21] MEDS ORDERED: ASA/APAP/CAFFEINE 250/250/65MG TABLET. PO PRN (18:00)
[2017-02-21] MEDS ORDERED: ATORVASTATIN CALCIUM 10 MG TABLET. PO SCH (21:00)
[2017-02-21] MEDS ORDERED: NON FORMULARY ITEM (Mometasone/Formoterol (Dulera 100 Mcg/5 Mcg Inhaler) 2 PUFF) IH SCH (21:00)
[2017-02-21] MEDS: ATORVASTATIN CALCIUM 10 MG TABLET. PO SCH (21:31)
[2017-02-21] MEDS: LISINOPRIL 5 MG TABLET. PO SCH (21:32)
[2017-02-21] MEDS: ALPRAZolam 0.5 MG TABLET PO PRN (21:33)
[2017-02-21] MEDS: GABAPENTIN 100 MG CAPSULE. PO SCH (22:30)
[2017-02-22 03:20] VITALS: BP 113/69
[2017-02-22 04:41] LABS: BASO % 1 % (0-3); EOS % 5 % (0-3); HEMATOCRIT 31.2 % (36.0-47.0); HEMOGLOBIN 10.3 g/dL (12.0-15.5); LYMPH # 1.6 x10^3/uL (1.0-4.8); LYMPH % 41 % (24-48); MEAN CORPUSCULAR HEMOGLOBIN 33 pg (25-35); MEAN CORPUSCULAR HGB CONC 33 g/dL (31-37); MEAN CORPUSCULAR VOLUME 99 fL (79-100); MONO % 8 % (0-9); NEUT % 46 % (31-73); PLATELET COUNT 229 x10^3/uL (140-400); RED BLOOD COUNT 3.15 x10^6/uL (3.50-5.40); RED CELL DISTRIBUTION WIDTH 13.8 % (11.5-14.5); WHITE BLOOD COUNT 3.9 x10^3/uL (4.0-11.0)
[2017-02-22 04:51] LABS: INR 2.7 (0.8-1.1)
[2017-02-22 05:14] LABS: CALCIUM 9.1 mg/dL (8.5-10.1); CREATININE 0.8 mg/dL (0.6-1.0); GFR 84.4; POTASSIUM 4.2 mmol/L (3.5-5.1)
[2017-02-22] MEDS: LEVOTHYROXINE 50 MCG TABLET PO SCH ×2 (06:25→07:21)
[2017-02-22 07:00] VITALS: BP 143/69
--- NOTE | 2017-02-22 07:10 | EKG ---
[facility] [address] [place] [address] Test Date: 2017-02-21 Test Time: 12:49:05 Pat Name: BRENNA RAMIREZ Department: Room: 260 1 Gender: F Babcock Tester: REINIER : 1940 Requested By: MATT SENIOR Order Number: [id number] Reading MD: Karen Chatterjee Measurements Intervals [place] Rate: 67 P: 45 DE: 138 QRS: 29 QRSD: 84 T: 107 QT: 408 QTc: 434 Interpretive Statements SINUS RHYTHM LVH WITH REPOLARIZATION ABNORMALITY INVERTED T WAVES CONSIDER MYOCARDIAL ISCHEMIA ABNORMAL ECG Electronically Signed On 02-22-2017 18:50:29 CDT by Karen Chatterjee
[2017-02-22] MEDS: BUDESONIDE 0.5 MG/2 ML NEBU. NEB SCH ×2 (07:52→20:18)
[2017-02-22] MEDS: ALBUTEROL SULFATE 2.5 MG/3 ML NEBU. NEB SCH ×4 (07:52→20:18)
[2017-02-22] MEDS: POLYVINYL ALCOHOL 1.4% OPHTH SOLUTION 15ML BOTTLE. OU SCH ×2 (08:50→21:26)
[2017-02-22] MEDS: ASPIRIN ENTERIC COATED 325 MG TABLET.DR. PO SCH (08:50)
[2017-02-22] MEDS: FLUTICASONE 50MCG/NASAL SPRAY 16GM BOTTLE. NS SCH (08:50)
[2017-02-22] MEDS: LIDOCAINE (700MG/PATCH) PATCH. TD SCH (09:00)
[2017-02-22 11:00] VITALS: BP 121/60
[2017-02-22] MEDS: CYANOCOBALAMIN (VITAMIN B-12) 1,000 MCG TABLET. PO SCH (12:47)
[2017-02-22] MEDS: CHOLECALCIFEROL (VITAMIN D3) 1,000 UNIT TABLET PO SCH (12:48)
[2017-02-22] MEDS: POLYETHYLENE GLYCOL 3350 17 GM PACKET. PO SCH (12:48)
[2017-02-22] MEDS: guaiFENesin ORAL 200 MG/10 ML LIQUID. PO PRN ×2 (12:48→21:24)
[2017-02-22 14:50] VITALS: BP 103/67
--- NOTE | 2017-02-22 14:54 | PDOC3 ---
Discharge Summary 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 Pt went to urgent care, was given some abx (no details), not better, then came to ER. Pt felt mild chest discomfort, but denies chest pain. denies fever, chills, had some heart burn, no N/V. in ER, got albuterol, now feels good. EKG showed T wave inversion at v4-v6, same as 09/2016, Troponin chronically high at 0.5-0.8, this time is at 1. Echo basically normal. Pt has heart burn, mild cough. dc home if no intervention from keron and pulazalea, with cough meds and protonix. dc time 35min GEN.: No apparent distress. Alert and oriented. HEENT: Head is normocephalic, atraumatic NECK: Supple. LUNGS: Clear to auscultation. HEART: RRR, S1, S2 present. Peripheral pulses intact ABDOMEN: Soft, nontender. Positive bowel sounds. EXTREMITIES: Without any cyanosis. NEUROLOGIC: Normal speech, normal tone PSYCHIATRIC: Normal affect, normal mood. SKIN: No ulcerations Patient History: Cancer in mother G8 BROTHER (PROSTATE CANCER) 32 MOTHER (BREAST CANCER) FH: rheumatoid arthritis Family history: Hypertension (situation) G8 BROTHER (HTN) G8 SISTER (HTN) Patient's mother is Unknown Problems: Disposition home CONDITION AT DISCHARGE: Improved Diet regular Scheduled Albuterol Sulfate (Ventolin Hfa Inhaler), 2 PUFF INH QID, (Reported) Aspirin (Aspirin Ec), 325 MG PO DAILYWBKFT Atorvastatin Calcium (Atorvastatin Calcium), 10 MG PO QHS Cholecalciferol (Vitamin D3) (Vitamin D), 1 CAP PO DAILY, (Reported) Cyanocobalamin (Vitamin B-12) (Vitamin B-12), 1,000 MCG PO DAILY, (Reported) Dextran 70/Hypromellose/Pf (Artificial Tears Drops), 1 EACH OU BID, (Reported) Fluticasone Propionate (Fluticasone Propionate Nasal [place]), 1 SPRAY NS DAILY, ( Reported) Gabapentin (Gabapentin), 100 MG PO HS, (Reported) Levothyroxine Sodium (Levothyroxine Sodium), 1 TAB PO DAILY, (Reported) Lidocaine (Lidocaine), 1 PATCH TD DAILY Lisinopril (Lisinopril), 1 TAB PO DAILY, (Reported) Mometasone/Formoterol (Dulera 100 Mcg/5 Mcg Inhaler), 2 PUFF IH BID, (Reported) Polyethylene Glycol 3350 (Polyethylene Glycol 3350), 17 GM PO DAILY, (Reported) Ranitidine Hcl (Ranitidine Hcl), 1 TAB PO BID, (Reported) Scheduled PRN Alprazolam (Alprazolam), 1 TAB PO DAILY PRN for ANXIETY, (Reported) Tramadol Hcl (Tramadol Hcl), 1 TAB PO BID PRN for PAIN Miscellaneous Medications Warfarin Sodium (Warfarin Sodium), (Reported) Follow Up pcp in 2 weeks MATT SENIOR MD Feb 22, 2017 14:54
[2017-02-22] MEDS ORDERED: GUAI100L12 PO (14:57)
[2017-02-22] MEDS ORDERED: PANT40TA5 PO (14:57)
[2017-02-22] MEDS: WARFARIN 5 MG TABLET. PO SCH (16:50)
[2017-02-22] MEDS: predniSONE 10 MG TABLET PO SCH (18:30)
[2017-02-22 19:45] VITALS: BP 113/62
[2017-02-22] MEDS: ALPRAZolam 0.5 MG TABLET PO PRN (21:25)
[2017-02-22] MEDS: ATORVASTATIN CALCIUM 10 MG TABLET. PO SCH (21:26)
[2017-02-22] MEDS: LISINOPRIL 5 MG TABLET. PO SCH (21:26)
[2017-02-22] MEDS: GABAPENTIN 100 MG CAPSULE. PO SCH (22:28)
--- NOTE | 2017-02-22 23:07 | CONS ---
DATE OF CONSULTATION: 02/22/2017 ATTENDING PHYSICIAN: Monty Zuniga M.D. REASON FOR CONSULTATION: The patient seen in pulmonary consultation at the request of Dr. Swann for dyspnea. HISTORY OF PRESENT ILLNESS: The patient is a 76-year old who presented with increasing shortness of breath, cough productive of some sputum, unable to bring up a whole lot of sputum, shortness of breath and wheezing. She is normally on Dulera and albuterol at home. She underwent a chest x-ray, which was normal. She was found to have elevated troponin level. I was asked to see her in consultation. Her troponin is above 1. She denied any syncope or near-syncopal episode. She has a history of DVT x 2, on chronic anticoagulation. PAST MEDICAL HISTORY: 1. COPD with 1 or 2 exacerbations per year. 2. DVT x 2, no PE. She is on chronic anticoagulation. 3. Hyperlipidemia. 4. Hypertension. 5. Gastroesophageal reflux. 6. Peptic ulcer disease. 7. Depression and anxiety. 8. Osteoporosis. 9. Tobacco dependence, in remission. PAST SURGICAL HISTORY: Status post total knee replacement. ALLERGIES: To multiple medications, please see the list. HOME MEDICATIONS: List was reviewed. SOCIAL HISTORY: She denies any current use of tobacco or alcohol. REVIEW OF SYSTEMS: As indicated above, otherwise, a 10-point system was reviewed and negative. PHYSICAL EXAMINATION: VITAL SIGNS: The patient was in no respiratory distress. Room air saturation was greater than 92%. HEENT: Eyes, the sclerae were nonicteric. NECK: Jugular venous distention was not elevated. No lymphadenopathy. CHEST: Full expansion. LUNGS: Adequate airway flow. No wheezes. CARDIOVASCULAR: Regular rate and rhythm with S1 and S2. No S3. ABDOMEN: Soft, nontender and nondistended. EXTREMITIES: No clubbing, cyanosis or edema. NEUROLOGICAL: The patient was awake, alert and following commands. A detailed neuro exam was not performed. LABORATORY DATA: Labs were noted. Chest x-ray was normal. INR was 2.7. Electrolytes were noted. BUN and creatinine were normal. Troponin was elevated. IMPRESSION: 1. Acute exacerbation of chronic obstructive pulmonary disease. 2. Acute nonspecific bronchitis. 3. Chronically elevated troponin. Doubt related to chronic obstructive pulmonary disease with exacerbation. The exacerbation is mild. 4. History of deep venous thrombosis x 2, on chronic anticoagulation. PLAN: 1. Case discussed with Dr. Swann. I would recommend additional cardiac workup for her elevated troponin. 2. Clinical suspicion for PE is very low and in addition, the patient is anticoagulated. 3. Continue current Rx for acute nonspecific bronchitis. I do appreciate the privilege in sharing in the patient's care. SHAYNA ALMONTE MD DR: NAVDEEP/parmjit JOB#: [id number] / [id number]
[2017-02-22 23:15] VITALS: BP 99/57
[2017-02-23 03:20] VITALS: BP 113/67
[2017-02-23] MEDS: LEVOTHYROXINE 50 MCG TABLET PO SCH (05:45)
[2017-02-23 05:50] LABS: INR 1.8 (0.8-1.1); PROTHROMBIN TIME PATIENT 19.4 SEC (11.7-14.0)
[2017-02-23 07:00] VITALS: BP 138/69
[2017-02-23] MEDS: ALBUTEROL SULFATE 2.5 MG/3 ML NEBU. NEB SCH ×3 (07:08→14:59)
[2017-02-23] MEDS: BUDESONIDE 0.5 MG/2 ML NEBU. NEB SCH (07:09)
[2017-02-23] MEDS ORDERED: PANTOPRAZOLE 40 MG TABLET.DR. PO SCH (07:30)
[2017-02-23] MEDS ORDERED: REGADENOSON 0.4 MG/5 ML DISP.SYRIN. IV ONE (08:30)
[2017-02-23] MEDS: predniSONE 10 MG TABLET PO SCH (09:00)
[2017-02-23 11:00] VITALS: BP 125/55
[2017-02-23] MEDS: CHOLECALCIFEROL (VITAMIN D3) 1,000 UNIT TABLET PO SCH (11:12)
[2017-02-23] MEDS: CYANOCOBALAMIN (VITAMIN B-12) 1,000 MCG TABLET. PO SCH (11:12)
[2017-02-23] MEDS: ASPIRIN ENTERIC COATED 325 MG TABLET.DR. PO SCH (11:12)
[2017-02-23] MEDS: FLUTICASONE 50MCG/NASAL SPRAY 16GM BOTTLE. NS SCH (11:13)
[2017-02-23] MEDS: POLYVINYL ALCOHOL 1.4% OPHTH SOLUTION 15ML BOTTLE. OU SCH (11:13)
[2017-02-23] MEDS: POLYETHYLENE GLYCOL 3350 17 GM PACKET. PO SCH (11:13)
[2017-02-23] MEDS: guaiFENesin ORAL 200 MG/10 ML LIQUID. PO PRN ×2 (11:13→20:26)
--- NOTE | 2017-02-23 11:49 | RAD ---
APPROVED REPORT Test Type: Pharmacological Stress Nurse/Tech: MADELAINE Lyman Test Indications: SOA, cough, NSTEMI Cardiac History: HTN, ex-smoker. see EMR Medications: see EMR Medical History: asthma, see EMR Resting ECG: SR per monitor Resting Heart Rate: 66 bpm Resting Blood Pressure: 141/74mmHg Pretest Chest Pain: No chest pain Nurse/Tech Notes Regular rate in the 60's, murmur noted, lungs CTA, denies SOA at this time, satss 98% on RA. Denies c hest pain. Consent: The procedure was explained to the patient in lay terms. Informed consent was witnessed. Chapin kaplan was entered into [employer]. History and Stress Test performed by VANESSA Fleming Pharm. Details Pharmacologic stress testing was performed using 0.4mg per 5ml of regadenoson given intravenously ove r 7-10 seconds. Stress Symptoms Pt c/o slight SOA during inital test, resolved quickly, denied any chest pain or nausea. POST EXERCISE Reason for Termination: Infusion complete Max HR: 86 bpm Max Blood Pressure: 149/87mmHg Blood Pressure response to exercise: Normal blood pressure response during stress. Heart Rate response to exercise: WNL Chest Pain: No. Arrhythmia: No. ST Change: No. no changes noted from baseline EKG INTERPRETATION Stress EKG Conclusion: No acute changes were noted. Imaging Protocol IMAGE PROTOCOL: Rest Tc-99m/stress Tc-99m 1 day Rest: Stress: Viability: Radiopharm.Tc99m [id number] Sestamibi Dose11.5mCi 34mCi Duration 15min. 10min. Img Date 02/23/2017 02/23/2017 Inj-Img [id number]. 60min. Rest Admin Site:IV - Right HandAdministrator:RT Pierce (Bossman)(N) Stress Admin Site: IV - Right HandAdministrator: VANESSA Fleming STRESS DATA End Diast. Vol.74.0mlAv. Heart Rate80.0bpm End Syst. Vol.17.0mlCO Index BSA0.0L/min Myocardial Gehz492.0gEject. Oxtrjfrx20.0% Stress Rates Pk. Fill Rate4.08EDV/secLVtime Pk. Fill 225.05msec Pk. Empty Rate5.53ESV/secLVtime Pk. Qutpt776.58msec 1/3 Pk. Fill1.10EDV/sec Stress Scores Regional WT0.00Summed WT3.00 Regional WM0.00Summed WM1.00 LV Perfusion There is a very minimal apical perfusion defect of mild degree suggestive of impaired perfusion reser ve, without ischemia or infarction. Wall Motion Normal wall motion. EF > 70% LV Perf. Quant 17 Seg. SSS2.00 17 Seg. SRS0.00 17 Seg. SDS2.00 Stress Defect Extent (% LAD)0.00Rest Defect Extent (% LAD)0.00Rev. Defect Extent (% LAD)0.00 Stress Defect Extent (% LCX) 0.00Rest Defect Extent (% LCX)0.00Rev. Defect Extent (% LCX)0.00 Stress Defect Extent (% RCA)0.00Rest Defect Extent (% RCA)0.00Rev. Defect Extent (% RCA)0.00 Stress Defect Extent (% RAINER)0.00Rest Defect Extent (% RAINER)0.00Rev. Defect Extent (% RAINER)0.00 Other Information Quality:Good Risk Assessment: Low Risk Conclusion 1. EKG with baseline TWI due to hypertrophy 2. Mild apical perfusion defect without active ischemia or infarction 3. Normal EF at > 70% 4. Low risk study
--- NOTE | 2017-02-23 12:39 | PDOC ---
PULMONARY PROGRESS NOTES Subjective PAT STILL SOA AND COUGH COMPLAINING UNABLE TO BRING UP SPUTUM Vitals Vital Signs Date Time Temp Pulse Resp B/P (MAP) Pulse Ox O2 Delivery O2 Flow Rate FiO2 02/23/17 11:00 97.8 81 18 125/55 (78) 92 Room Air 97.8 ROS: No Nausea, No Chest Pain, No Abdominal Pain, No Increase Cough Lungs: Clear, Other Cardiovascular: S1, S2 Abdomen: Soft Neuro Exam: Alert Extremities: No Edema Skin: Warm Labs Laboratory Tests Test 02/22/17 04:20 02/23/17 05:00 White Blood Count 3.9 x10^3/uL (4.0-11.0) Red Blood Count 3.15 x10^6/uL (3.50-5.40) Hemoglobin 10.3 g/dL (12.0-15.5) Hematocrit 31.2 % (36.0-47.0) Mean Corpuscular Volume 99 fL (79-100) Mean Corpuscular Hemoglobin 33 pg (25-35) Mean Corpuscular Hemoglobin Concent 33 g/dL (31-37) Red Cell Distribution Width 13.8 % (11.5-14.5) Platelet Count 229 x10^3/uL (140-400) Neutrophils (%) (Auto) 46 % (31-73) Lymphocytes (%) (Auto) 41 % (24-48) Monocytes (%) (Auto) 8 % (0-9) Eosinophils (%) (Auto) 5 % (0-3) Basophils (%) (Auto) 1 % (0-3) Neutrophils # (Auto) 1.8 x10^3uL (1.8-7.7) Lymphocytes # (Auto) 1.6 x10^3/uL (1.0-4.8) Monocytes # (Auto) 0.3 x10^3/uL (0.0-1.1) Eosinophils # (Auto) 0.2 x10^3/uL (0.0-0.7) Basophils # (Auto) 0.0 x10^3/uL (0.0-0.2) Prothrombin Time 27.0 SEC (11.7-14.0) 19.4 SEC (11.7-14.0) Prothromb Time International Ratio 2.7 (0.8-1.1) 1.8 (0.8-1.1) Sodium Level 141 mmol/L (136-145) Potassium Level 4.2 mmol/L (3.5-5.1) Chloride Level 106 mmol/L (98-107) Carbon Dioxide Level 27 mmol/L (21-32) Anion Gap 8 (6-14) Blood Urea Nitrogen 14 mg/dL (7-20) Creatinine 0.8 mg/dL (0.6-1.0) Estimated GFR (Cockcroft-Gault) 84.4 Glucose Level 86 mg/dL (70-99) Calcium Level 9.1 mg/dL (8.5-10.1) Troponin I Quantitative 1.095 ng/mL (0.000-0.055) Laboratory Tests Test 02/23/17 05:00 Prothrombin Time 19.4 SEC (11.7-14.0) Prothromb Time International Ratio 1.8 (0.8-1.1) Medications Active Scripts Medications Dose Route/Sig Max Daily Dose Days Date Category Pantoprazole Sodium 40 Mg Tablet.dr 40 Mg PO DAILYAC 30 02/22/17 Rx Guaifenesin 100 Mg/5 Ml Liquid 200 Mg PO PRN Q4HRS PRN 02/22/17 Rx Lidocaine 700 Mg Adh..patch 1 Patch TD DAILY 09/20/16 Rx Atorvastatin Calcium 10 Mg Tablet 10 Mg PO QHS 09/20/16 Rx Aspirin Ec (Aspirin) 325 Mg Tablet.dr 325 Mg PO DAILYWBKFT 09/20/16 Rx Tramadol Hcl 50 Mg Tablet 1 Tab PO BID PRN 09/20/16 Rx Dulera 100 Mcg/5 Mcg Inhaler (Mometasone/Formoterol) 13 Gm Hfa.aer.ad 2 Puff IH BID 09/19/16 Reported Vitamin B-12 (Cyanocobalamin (Vitamin B-12)) 1,000 Mcg Tablet 1,000 Mcg PO DAILY 07/11/16 Reported Fluticasone Propionate Nasal [place] (Fluticasone Propionate) 16 Gm Binger.susp 1 Binger NS DAILY 07/11/16 Reported Gabapentin 100 Mg Capsule 100 Mg PO HS 07/11/16 Reported Warfarin Sodium 5 Mg Tablet 07/11/16 Reported Artificial Tears Drops (Dextran 70/Hypromellose/Pf) 1 Each Droperette 1 Each OU BID 09/02/15 Reported Alprazolam 0.5 Mg Tablet 1 Tab PO DAILY PRN 03/13/14 Reported Ventolin Hfa Inhaler (Albuterol Sulfate) 18 Gm Hfa.aer.ad 2 Puff INH QID 03/13/14 Reported Polyethylene Glycol 3350 17 Gm Powd.pack 17 Gm PO DAILY 03/13/14 Reported Lisinopril 5 Mg Tablet 1 Tab PO DAILY 03/13/14 Reported Levothyroxine Sodium 50 Mcg Tablet 1 Tab PO DAILY 03/13/14 Reported Vitamin D (Cholecalciferol (Vitamin D3)) 1,000 Unit Capsule 1 Cap PO DAILY 03/13/14 Reported Impression . 1. Acute exacerbation of chronic obstructive pulmonary disease. 2. Acute nonspecific bronchitis. 3. Chronically elevated troponin. Doubt related to chronic obstructive pulmonary disease with exacerbation. The exacerbation is mild. 4. History of deep venous thrombosis x 2, on chronic anticoagulation. Plan . PT INTOLERANT TO PREDNISONSE WILL ADD PULMICORT OK TO D/C FROM MY STANDPOINT ADD MUCINEX SHAYNA ALMONTE MD Feb 23, 2017 12:39
--- NOTE | 2017-02-23 14:55 | PDOC3 ---
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 Brice is a 76 old [sex] who presented with [ ] Problems: Final Diagnosis CONSULTS pulm, card Brief Hospital Course Patient is a 76 year old female presents to the emergency department with complaints of upper respiratory symptoms with cough. 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 Pt went to urgent care, was given some abx (no details), not better, then came to ER. Pt felt mild chest discomfort, but denies chest pain. denies fever, chills, had some heart burn, no N/V. in ER, got albuterol, now feels good. EKG showed T wave inversion at v4-v6, same as 09/2016, Troponin chronically high at 0.5-0.8, this time is at 1. Echo basically normal. Pt has heart burn, mild cough. dc home with cough meds and protonix. MPI neg. PT VERY anxious, requies to check right leg DVT, refused to go home wo checking it even we told her should be able to fu as outpt. dc time 35min GEN.: No apparent distress. Alert and oriented. HEENT: Head is normocephalic, atraumatic NECK: Supple. LUNGS: Clear to auscultation. HEART: RRR, S1, S2 present. Peripheral pulses intact ABDOMEN: Soft, nontender. Positive bowel sounds. EXTREMITIES: Without any cyanosis. NEUROLOGIC: Normal speech, normal tone PSYCHIATRIC: Normal affect, normal mood. SKIN: No ulcerations Patient History: Cancer in mother G8 BROTHER (PROSTATE CANCER) 32 MOTHER (BREAST CANCER) FH: rheumatoid arthritis Family history: Hypertension (situation) G8 BROTHER (HTN) G8 SISTER (HTN) Patient's mother is Unknown Problems: Disposition home CONDITION AT DISCHARGE: Improved Diet regular Scheduled Albuterol Sulfate (Ventolin Hfa Inhaler), 2 PUFF INH QID, (Reported) Aspirin (Aspirin Ec), 325 MG PO DAILYWBKFT Atorvastatin Calcium (Atorvastatin Calcium), 10 MG PO QHS Cholecalciferol (Vitamin D3) (Vitamin D), 1 CAP PO DAILY, (Reported) Cyanocobalamin (Vitamin B-12) (Vitamin B-12), 1,000 MCG PO DAILY, (Reported) Dextran 70/Hypromellose/Pf (Artificial Tears Drops), 1 EACH OU BID, (Reported) Fluticasone Propionate (Fluticasone Propionate Nasal [place]), 1 SPRAY NS DAILY, ( Reported) Gabapentin (Gabapentin), 100 MG PO HS, (Reported) Levothyroxine Sodium (Levothyroxine Sodium), 1 TAB PO DAILY, (Reported) Lidocaine (Lidocaine), 1 PATCH TD DAILY Lisinopril (Lisinopril), 1 TAB PO DAILY, (Reported) Mometasone/Formoterol (Dulera 100 Mcg/5 Mcg Inhaler), 2 PUFF IH BID, (Reported) Pantoprazole Sodium (Pantoprazole Sodium), 40 MG PO DAILYAC Polyethylene Glycol 3350 (Polyethylene Glycol 3350), 17 GM PO DAILY, (Reported) Scheduled PRN Alprazolam (Alprazolam), 1 TAB PO DAILY PRN for ANXIETY, (Reported) Guaifenesin (Guaifenesin), 200 MG PO PRN Q4HRS PRN for COUGH Tramadol Hcl (Tramadol Hcl), 1 TAB PO BID PRN for PAIN Miscellaneous Medications Warfarin Sodium (Warfarin Sodium), (Reported) Discontinued Medications Ranitidine Hcl (Ranitidine Hcl), 1 TAB PO BID, (Reported) Follow Up card, pcp in 2 weeks MATT SENIOR MD Feb 23, 2017 14:55
[2017-02-23 15:00] VITALS: BP 129/72
[2017-02-23] MEDS ORDERED: BUDESONIDE 0.5 MG/2 ML NEBU. NEB SCH (15:00)
[2017-02-23] MEDS: WARFARIN 5 MG TABLET. PO SCH (16:36)
--- NOTE | 2017-02-23 18:36 | PDOC ---
CARDIO Progress Notes Date and Time Date of Service 02/23/2017 Time of Evaluation 1615 Subjective Subjective: No Chest Pain, No shortness of breath, No Palpitations, Other Vitals Vitals Vital Signs Date Time Temp Pulse Resp B/P (MAP) Pulse Ox O2 Delivery O2 Flow Rate FiO2 02/23/17 15:00 97.9 68 20 129/72 (91) 100 Room Air 97.9 Weight Weight [ ] Laboratory Labs Laboratory Tests Test 02/23/17 05:00 Prothrombin Time 19.4 SEC (11.7-14.0) Prothromb Time International Ratio 1.8 (0.8-1.1) Physical Exam HEENT: Neck Supple W Full Motion Chest: Symmetric LUNGS: Clear to Auscultation Heart: S1S2, RRR Extremities: No Calf Tenderness Neurology: oriented, follow commands Assessment Assessment 1. NSTEMI: Type 2. Chronic elevation. Peaked at 1.1. multifactorial demand mediated. 08/2015 [facility] with no obstructive disease. TTE with normal EF and wall motions Present MPI with no reversible defect. Unclear etiology with contributing myocardial stressor combination of LVH, HTN, dyspnea, valvular insufficiency 2. Acute bronchitis/AECOPD: SOA much better. Pulmonary following 3. Hx of DVT with chronic coumadin therapy Recommendations 1. Continue with secondary prevention 2. Follow up in office in 4 weeks. MERNA SERRANO APRN Feb 23, 2017 18:36
[2017-02-23 19:45] VITALS: BP 147/83
--- NOTE | 2017-02-24 07:23 | RAD ---
Right lower extremity venous ultrasound, 02/23/2017 : History: Right leg pain, previous DVT Duplex evaluation including grayscale, color flow and spectral Doppler analysis was performed. The femoral and popliteal veins show no filling defects to suggest DVT. The visualized deep veins in the right calf are unremarkable. There is a 4.3 x 3.2 x 1.7 cm cyst in the right popliteal fossa compatible with a Whitlock's cyst. IMPRESSION: 1. There is no sonographic evidence of deep vein thrombosis in the right lower extremity. 2. Right popliteal cyst.
[2017-05-06] MEDS ORDERED: DULO20CA PO (04:07)
[2017-05-06] MEDS ORDERED: VIT1CAPS44 PO (04:07)
[2017-05-06] MEDS ORDERED: RANI150T2 PO (04:07)
[2017-05-06] MEDS ORDERED: FERR-26 PO (04:07)
[2017-05-13] MEDS ORDERED: WARF-78 PO ×4 (10:31→10:41)
[2017-05-19] MEDS ORDERED: LORA-434 PO (07:07)
== END 2017-02-23 20:30 | disposition home or self-care (01) | DRG 280 ==
LOC: ER 18:12 → 2 SOUTH 22:00 → OBSVTOIN 02-23 11:22
PROVIDERS: ADMIT Internal Medicine; ATTEND Internal Medicine
DX: I21.4 Non-ST elevation (NSTEMI) myocardial infarction (principal); J18.9 Pneumonia, unspecified organism; I82.401 Acute embolism and thrombosis of unspecified deep veins of right lower extremity; I11.9 Hypertensive heart disease without heart failure; J44.0 Chronic obstructive pulmonary disease with (acute) lower respiratory infection; J44.1 Chronic obstructive pulmonary disease with (acute) exacerbation; E78.5 Hyperlipidemia, unspecified; F41.9 Anxiety disorder, unspecified; J20.9 Acute bronchitis, unspecified; K21.9 Gastro-esophageal reflux disease without esophagitis; K58.9 Irritable bowel syndrome, unspecified; Z96.659 Presence of unspecified artificial knee joint; E03.9 Hypothyroidism, unspecified; M06.9 Rheumatoid arthritis, unspecified; F32.9 Major depressive disorder, single episode, unspecified; M81.0 Age-related osteoporosis without current pathological fracture; Z79.01 Long term (current) use of anticoagulants; Z80.3 Family history of malignant neoplasm of breast; Z80.42 Family history of malignant neoplasm of prostate; Z82.49 Family history of ischemic heart disease and other diseases of the circulatory system; Z86.718 Personal history of other venous thrombosis and embolism; Z83.3 Family history of diabetes mellitus; Z87.11 Personal history of peptic ulcer disease; Z88.1 Allergy status to other antibiotic agents; Z88.5 Allergy status to narcotic agent; Z88.0 Allergy status to penicillin; Z88.8 Allergy status to other drugs, medicaments and biological substances; Z98.51 Tubal ligation status
CPT/HCPCS: 36415; 71020; 78452; 80048; 80053; 82553; 83880; 84484; 85025; 85610; 87641; 93005; 93017; 93308; 93971; 94250; 94640; 94760; 96374; 96375; 96376; A9500; G0378; G0379; J1650; J2405; J2785; J7613; J7626; 99285-25

== ENCOUNTER 2017-05-05 23:36 | Inpatient (IN) | payer MEDICARE, OTHER ==
[2017-05-06 00:41] LABS: ADD MAN DIFF? NO
[2017-05-06 00:44] LABS: BASO % 1 % (0-3); EOS % 5 % (0-3); HEMATOCRIT 35.9 % (36.0-47.0); HEMOGLOBIN 11.5 g/dL (12.0-15.5); LYMPH # 1.6 x10^3/uL (1.0-4.8); LYMPH % 34 % (24-48); MEAN CORPUSCULAR HEMOGLOBIN 31 pg (25-35); MEAN CORPUSCULAR HGB CONC 32 g/dL (31-37); MEAN CORPUSCULAR VOLUME 98 fL (79-100); MONO % 7 % (0-9); NEUT % 53 % (31-73); PLATELET COUNT 274 x10^3/uL (140-400); RED BLOOD COUNT 3.68 x10^6/uL (3.50-5.40); WHITE BLOOD COUNT 4.7 x10^3/uL (4.0-11.0)
[2017-05-06 00:50] LABS: TROPONIN BY ISTAT 0.07 ng/ml (<0.08)
[2017-05-06 00:53] LABS: ANION GAP 11 (6-14); BLOOD UREA NITROGEN 17 mg/dL (7-20); BUN/CREATININE RATIO 19 (6-20); CALCIUM 8.9 mg/dL (8.5-10.1); CARBON DIOXIDE 27 mmol/L (21-32); CHLORIDE 102 mmol/L (98-107); CREATININE 0.9 mg/dL (0.6-1.0); GFR 73.7; GLUCOSE 103 mg/dL (70-99); POTASSIUM 4.2 mmol/L (3.5-5.1); SODIUM 140 mmol/L (136-145)
[2017-05-06 00:59] LABS: ALBUMIN 3.7 g/dL (3.4-5.0); ALBUMIN/GLOBULIN RATIO 0.8 (1.0-1.7); ALK PHOS 68 U/L (46-116); ALT (SGPT) 21 U/L (14-59); AST (SGOT) 28 U/L (15-37); TOTAL BILIRUBIN 0.3 mg/dL (0.2-1.0); TOTAL PROTEIN 8.1 g/dL (6.4-8.2)
[2017-05-06 01:05] LABS: NT-PRO BNP 673 pg/mL (0-449)
[2017-05-06 01:10] LABS: BILIRUBIN,URINE NEGATIVE (NEG); GLUCOSE,URINE NEGATIVE (NEG); NITRITE,URINE NEGATIVE (NEG); PROTEIN,URINE NEGATIVE (NEG-TRACE)
[2017-05-06 01:15] LABS: BACTERIA,URINE 0 /HPF (0-FEW); RBC,URINE 0 /HPF (0-2); SQUAMOUS EPITHELIAL CELL,UR MOD /LPF
[2017-05-06] MEDS ORDERED: NITROGLYCERIN SUBLINGUAL 0.4 MG BOTTLE OF 25. SL (02:15)
[2017-05-06] MEDS ORDERED: ONDANSETRON PF 4 MG/2 ML VIAL. IV ×2 (02:15→08:45)
[2017-05-06 07:09] LABS: TROPONINI 1.133 ng/mL (0.000-0.055)
[2017-05-06] MEDS ORDERED: ACETAMINOPHEN 325 MG TABLET. PO (08:45)
[2017-05-06] MEDS ORDERED: guaiFENesin ORAL 200 MG/10 ML LIQUID. PO (08:45)
[2017-05-06] MEDS ORDERED: D3 PO (09:00)
[2017-05-06] MEDS ORDERED: NON FORMULARY ITEM (Mometasone/Formoterol (Dulera 100 Mcg/5 Mcg Inhaler) 2 PUFF) IH (09:00)
[2017-05-06] MEDS ORDERED: NON FORMULARY ITEM (Albuterol Sulfate (Ventolin Hfa Inhaler) 2 PUFF) INH (09:00)
[2017-05-06] MEDS ORDERED: VIT A PO (09:00)
[2017-05-06] MEDS ORDERED: COD LIVER OIL PO (09:00)
[2017-05-06] MEDS: FLUTICASONE 50MCG/NASAL SPRAY 16GM BOTTLE. NS (10:00)
[2017-05-06] MEDS: POLYETHYLENE GLYCOL 3350 17 GM PACKET. PO (10:00)
[2017-05-06] MEDS ORDERED: POLYVINYL ALCOHOL 1.4% OPHTH SOLUTION 15ML BOTTLE. OU (10:30)
[2017-05-06 10:54] LABS: INR 3.8 (0.8-1.1); PROTHROMBIN TIME PATIENT 35.3 SEC (11.7-14.0)
[2017-05-06] MEDS ORDERED: CONTRAST GIVEN MC (11:30)
[2017-05-06] MEDS ORDERED: IOHEXOL 300 MG/ML 100ML VIAL. IV (11:30)
[2017-05-06] MEDS: ALBUTEROL SULFATE 2.5 MG/3 ML NEBU. NEB ×3 (11:51→20:43)
[2017-05-06] MEDS: BUDESONIDE 0.5 MG/2 ML NEBU. NEB ×2 (11:51→20:43)
[2017-05-06 13:32] LABS: CHOLESTEROL 214 mg/dL (0-200); HDLC 119 mg/dL (40-60); NON-HDL CHOLESTEROL 95 mg/dL (0-129); TRIGLYCERIDES 60 mg/dL (0-150)
[2017-05-06 13:34] LABS: CHOLESTEROL/HDL RATIO 1.8
[2017-05-06] MEDS: PANTOPRAZOLE 40 MG TABLET.DR. PO (15:11)
[2017-05-06] MEDS: LISINOPRIL 5 MG TABLET. PO (15:12)
[2017-05-06] MEDS: FERROUS SULFATE 325 MG TABLET. PO (15:12)
[2017-05-06] MEDS: CYANOCOBALAMIN (VITAMIN B-12) 1,000 MCG TABLET. PO (15:12)
[2017-05-06] MEDS: DULoxetine HCL 20 MG CAPSULE.DR PO (15:12)
[2017-05-06] MEDS: CHOLECALCIFEROL (VITAMIN D3) 1,000 UNIT TABLET PO (15:12)
[2017-05-06] MEDS: LEVOTHYROXINE 50 MCG TABLET PO (15:12)
[2017-05-06 20:11] LABS: MRSA BY PCR Positive (Negative)
[2017-05-06] MEDS: LIDO:MAALOX:DONNATAL 1:1:1 15 ML SINGLE DOSE SWSW (20:25)
[2017-05-06] MEDS: GABAPENTIN 100 MG CAPSULE. PO (21:26)
[2017-05-06] MEDS: POLYVINYL ALCOHOL 1.4% OPHTH SOLUTION 15ML BOTTLE. OU (21:26)
[2017-05-07] MEDS: ALPRAZolam 0.5 MG TABLET PO (05:31)
[2017-05-07 05:50] LABS: INR 2.6 (0.8-1.1); PROTHROMBIN TIME PATIENT 26.1 SEC (11.7-14.0)
[2017-05-07] MEDS: LEVOTHYROXINE 50 MCG TABLET PO (06:13)
[2017-05-07] MEDS: BUDESONIDE 0.5 MG/2 ML NEBU. NEB (07:13)
[2017-05-07] MEDS: ALBUTEROL SULFATE 2.5 MG/3 ML NEBU. NEB ×2 (07:13→11:50)
[2017-05-07] MEDS: FLUTICASONE 50MCG/NASAL SPRAY 16GM BOTTLE. NS (09:00)
[2017-05-07] MEDS: PANTOPRAZOLE 40 MG TABLET.DR. PO (10:08)
[2017-05-07] MEDS: CHOLECALCIFEROL (VITAMIN D3) 1,000 UNIT TABLET PO (10:09)
[2017-05-07] MEDS: CYANOCOBALAMIN (VITAMIN B-12) 1,000 MCG TABLET. PO (10:09)
[2017-05-07] MEDS: DULoxetine HCL 20 MG CAPSULE.DR PO (10:09)
[2017-05-07] MEDS: LISINOPRIL 5 MG TABLET. PO (10:09)
[2017-05-07] MEDS: FERROUS SULFATE 325 MG TABLET. PO (10:09)
[2017-05-07] MEDS: POLYETHYLENE GLYCOL 3350 17 GM PACKET. PO (10:09)
[2017-05-07] MEDS: POLYVINYL ALCOHOL 1.4% OPHTH SOLUTION 15ML BOTTLE. OU (10:10)
== END 2017-05-07 14:45 | disposition home or self-care (01) | DRG 282 ==
LOC: ER 23:36 → 2 SOUTH 05-06 02:07
DX: I21.4 Non-ST elevation (NSTEMI) myocardial infarction (principal); G62.9 Polyneuropathy, unspecified; D64.9 Anemia, unspecified; R13.10 Dysphagia, unspecified; K22.2 Esophageal obstruction; E66.01 Morbid (severe) obesity due to excess calories; E03.9 Hypothyroidism, unspecified; E78.5 Hyperlipidemia, unspecified; I10 Essential (primary) hypertension; I25.119 Atherosclerotic heart disease of native coronary artery with unspecified angina pectoris; E53.8 Deficiency of other specified B group vitamins; M79.7 Fibromyalgia; M19.90 Unspecified osteoarthritis, unspecified site; K58.9 Irritable bowel syndrome, unspecified; K21.9 Gastro-esophageal reflux disease without esophagitis; K59.00 Constipation, unspecified; J45.909 Unspecified asthma, uncomplicated; F41.9 Anxiety disorder, unspecified; F32.9 Major depressive disorder, single episode, unspecified; M85.80 Other specified disorders of bone density and structure, unspecified site; Z96.652 Presence of left artificial knee joint; Z83.3 Family history of diabetes mellitus; Z88.6 Allergy status to analgesic agent; Z87.11 Personal history of peptic ulcer disease; Z86.718 Personal history of other venous thrombosis and embolism; Z88.1 Allergy status to other antibiotic agents; Z88.0 Allergy status to penicillin; Z88.8 Allergy status to other drugs, medicaments and biological substances; Z90.3 Acquired absence of stomach [part of]; Z79.01 Long term (current) use of anticoagulants; Z98.51 Tubal ligation status; Z90.49 Acquired absence of other specified parts of digestive tract; Z82.49 Family history of ischemic heart disease and other diseases of the circulatory system; I25.2 Old myocardial infarction; Z68.32 Body mass index [BMI] 32.0-32.9, adult; I11.9 Hypertensive heart disease without heart failure
CPT/HCPCS: 36415; 71010; 71275; 74175; 80053; 80061; 81001; 83690; 83880; 84443; 84484; 85025; 85379; 85610; 87086; 87641; 93005; 94640; 94760; 99285; J7613; J7626

== ENCOUNTER 2017-05-13 06:30 | Outpatient (CLI) | payer MEDICARE, OTHER ==
[2017-05-13] MEDS ORDERED: ASPIRIN 325 MG TABLET (06:57)
[2017-05-13 07:05] LABS: HEMATOCRIT 34.5 % (36.0-47.0); HEMOGLOBIN 11.2 g/dL (12.0-15.5); MEAN CORPUSCULAR HEMOGLOBIN 31 pg (25-35); MEAN CORPUSCULAR HGB CONC 32 g/dL (31-37); MEAN CORPUSCULAR VOLUME 97 fL (79-100); PLATELET COUNT 249 x10^3/uL (140-400); RED BLOOD COUNT 3.57 x10^6/uL (3.50-5.40)
[2017-05-13] MEDS ORDERED: LIDOCAINE 2% 20 ML VIAL. ×2 (07:07→07:09)
[2017-05-13] MEDS ORDERED: IOHEXOL 300 MG/ML 100ML VIAL. ×2 (07:07→07:09)
[2017-05-13 07:20] LABS: ANION GAP 8 (6-14); BLOOD UREA NITROGEN 12 mg/dL (7-20); CALCIUM 9.2 mg/dL (8.5-10.1); CARBON DIOXIDE 28 mmol/L (21-32); CHLORIDE 104 mmol/L (98-107); GFR 65.2; GLUCOSE 101 mg/dL (70-99); POTASSIUM 4.2 mmol/L (3.5-5.1); SODIUM 140 mmol/L (136-145)
[2017-05-13 07:28] LABS: PROTHROMBIN TIME PATIENT 12.8 SEC (11.7-14.0)
[2017-05-13] MEDS ORDERED: fentaNYL PF VIAL 100 MCG/2 ML VIAL (07:42)
[2017-05-13] MEDS ORDERED: VERAPAMIL 5 MG/2 ML VIAL. ×2 (07:43)
[2017-05-13] MEDS ORDERED: MIDAZOLAM HCL/PF 2 MG/2 ML VIAL. (07:43)
[2017-05-13] MEDS ORDERED: HEPARIN for IV BOLUS 10,000 UNIT/10 ML VIAL. (07:43)
[2017-05-13] MEDS ORDERED: NITROGLYCERIN 200 MCG/2 ML SYRINGE FOR CATH/VASC LAB. (07:44)
[2017-05-13] MEDS: LIDOCAINE 2% 20 ML VIAL. IJ (08:41)
[2017-05-13] MEDS: fentaNYL PF VIAL 100 MCG/2 ML VIAL IV (08:41)
[2017-05-13] MEDS: IOHEXOL 300 MG/ML 100ML VIAL. IART (08:42)
[2017-05-13] MEDS: MIDAZOLAM HCL/PF 2 MG/2 ML VIAL. IV (08:42)
[2017-05-13] MEDS ORDERED: CONTRAST GIVEN MC (08:45)
[2017-05-13] MEDS ORDERED: NITROGLYCERIN SUBLINGUAL 0.4 MG BOTTLE OF 25. SL (09:00)
[2017-05-13] MEDS ORDERED: fentaNYL PF VIAL 100 MCG/2 ML VIAL IV (09:00)
[2017-05-13] MEDS ORDERED: 0.9 % SODIUM CHLORIDE 10 ML DISP.SYRIN. IV (09:00)
== END 2017-05-13 11:30 | disposition home or self-care (01) ==
LOC: CCL 06:30
DX: I35.0 Nonrheumatic aortic (valve) stenosis (principal); E78.5 Hyperlipidemia, unspecified; I11.0 Hypertensive heart disease with heart failure; I50.9 Heart failure, unspecified; Z86.718 Personal history of other venous thrombosis and embolism; F32.9 Major depressive disorder, single episode, unspecified; F41.9 Anxiety disorder, unspecified; J45.909 Unspecified asthma, uncomplicated; K21.9 Gastro-esophageal reflux disease without esophagitis; Z87.01 Personal history of pneumonia (recurrent); M17.0 Bilateral primary osteoarthritis of knee; M06.9 Rheumatoid arthritis, unspecified; E03.9 Hypothyroidism, unspecified; D64.9 Anemia, unspecified; Z87.11 Personal history of peptic ulcer disease; G62.9 Polyneuropathy, unspecified; Z88.0 Allergy status to penicillin; Z88.6 Allergy status to analgesic agent; Z88.1 Allergy status to other antibiotic agents; Z88.8 Allergy status to other drugs, medicaments and biological substances; Z87.891 Personal history of nicotine dependence; Z98.890 Other specified postprocedural states
CPT/HCPCS: 36415; 80048; 85027; 85610; 93458; 99152; 99153; C1751; C1769; C1771; C1892; G0269; J1644; J2250; J3010; Q9967

== ENCOUNTER 2017-05-16 11:57 | Inpatient (IN) | payer MEDICARE, OTHER ==
[2017-05-17] MEDS ORDERED: MECLIZINE HCL 12.5 MG TABLET. PO (00:15)
[2017-05-17] MEDS ORDERED: CONTRAST GIVEN MC (00:45)
[2017-05-17 01:00] LABS: ADD MAN DIFF? NO
[2017-05-17 01:07] LABS: BASO % 1 % (0-3); EOS # 0.2 x10^3/uL (0.0-0.7); EOS % 4 % (0-3); HEMATOCRIT 32.9 % (36.0-47.0); HEMOGLOBIN 10.7 g/dL (12.0-15.5); LYMPH # 1.3 x10^3/uL (1.0-4.8); LYMPH % 34 % (24-48); MEAN CORPUSCULAR HEMOGLOBIN 32 pg (25-35); MEAN CORPUSCULAR HGB CONC 33 g/dL (31-37); MEAN CORPUSCULAR VOLUME 98 fL (79-100); MONO # 0.3 x10^3/uL (0.0-1.1); MONO % 8 % (0-9); NEUT # 2.1 x10^3uL (1.8-7.7); NEUT % 54 % (31-73); PLATELET COUNT 248 x10^3/uL (140-400); RED BLOOD COUNT 3.36 x10^6/uL (3.50-5.40); RED CELL DISTRIBUTION WIDTH 14.5 % (11.5-14.5)
[2017-05-17 01:14] LABS: INR 1.3 (0.8-1.1); PROTHROMBIN TIME PATIENT 15.8 SEC (11.7-14.0)
[2017-05-17 01:17] LABS: ANION GAP 10 (6-14); BLOOD UREA NITROGEN 16 mg/dL (7-20); BUN/CREATININE RATIO 18 (6-20); CALCIUM 8.9 mg/dL (8.5-10.1); CARBON DIOXIDE 30 mmol/L (21-32); CHLORIDE 103 mmol/L (98-107); CREATININE 0.9 mg/dL (0.6-1.0); GFR 73.7; GLUCOSE 102 mg/dL (70-99); POTASSIUM 4.1 mmol/L (3.5-5.1); SODIUM 143 mmol/L (136-145)
[2017-05-17] MEDS: ONDANSETRON PF 4 MG/2 ML VIAL. IV (01:20)
[2017-05-17] MEDS: IOHEXOL 300 MG/ML 100ML VIAL. IV (01:21)
[2017-05-17 01:24] LABS: ALBUMIN 3.5 g/dL (3.4-5.0); ALBUMIN/GLOBULIN RATIO 0.9 (1.0-1.7); ALK PHOS 63 U/L (46-116); ALT (SGPT) 19 U/L (14-59); AST (SGOT) 24 U/L (15-37); TOTAL BILIRUBIN 0.2 mg/dL (0.2-1.0); TOTAL PROTEIN 7.4 g/dL (6.4-8.2)
[2017-05-17 01:25] LABS: BILIRUBIN,URINE NEGATIVE (NEG); CLARITY,URINE CLEAR; COLOR,URINE YELLOW; GLUCOSE,URINE NEGATIVE (NEG); NITRITE,URINE NEGATIVE (NEG); PH,URINE 6.5; PROTEIN,URINE NEGATIVE (NEG-TRACE)
[2017-05-17 01:26] LABS: TROPONINI 1.476 ng/mL (0.000-0.055)
[2017-05-17 01:33] LABS: BACTERIA,URINE FEW /HPF (0-FEW); RBC,URINE RARE /HPF (0-2); SQUAMOUS EPITHELIAL CELL,UR MOD /LPF
[2017-05-17] MEDS ORDERED: ONDANSETRON PF 4 MG/2 ML VIAL. IV ×2 (02:15→08:45)
[2017-05-17] MEDS ORDERED: fentaNYL PF VIAL 100 MCG/2 ML VIAL IV (02:15)
[2017-05-17] MEDS: LORazepam 1 MG TABLET PO (04:42)
[2017-05-17] MEDS ORDERED: guaiFENesin ORAL 200 MG/10 ML LIQUID. PO (08:45)
[2017-05-17] MEDS ORDERED: traMADol 50 MG TABLET PO (08:45)
[2017-05-17] MEDS ORDERED: MORPHINE SULFATE 2 MG/ML DISP.SYRIN. IV (08:45)
[2017-05-17] MEDS ORDERED: D3 PO (09:00)
[2017-05-17] MEDS ORDERED: NON FORMULARY ITEM (Albuterol Sulfate (Ventolin Hfa Inhaler) 2 PUFF) INH (09:00)
[2017-05-17] MEDS ORDERED: NON FORMULARY ITEM (Mometasone/Formoterol (Dulera 100 Mcg/5 Mcg Inhaler) 2 PUFF) IH (09:00)
[2017-05-17] MEDS ORDERED: COD LIVER OIL PO (09:00)
[2017-05-17] MEDS ORDERED: VIT A PO (09:00)
[2017-05-17 09:14] LABS: TROPONINI 1.624 ng/mL (0.000-0.055)
[2017-05-17] MEDS: POLYVINYL ALCOHOL 1.4% OPHTH SOLUTION 15ML BOTTLE. OU ×2 (09:30→20:35)
[2017-05-17] MEDS: FLUTICASONE 50MCG/NASAL SPRAY 16GM BOTTLE. NS (09:30)
[2017-05-17] MEDS: DULoxetine HCL 20 MG CAPSULE.DR PO (09:55)
[2017-05-17] MEDS: FAMOTIDINE 20 MG TABLET. PO (09:55)
[2017-05-17] MEDS: FERROUS SULFATE 325 MG TABLET. PO (09:55)
[2017-05-17] MEDS: POLYETHYLENE GLYCOL 3350 17 GM PACKET. PO (09:55)
[2017-05-17] MEDS: LISINOPRIL 5 MG TABLET. PO (09:56)
[2017-05-17] MEDS: LEVOTHYROXINE 50 MCG TABLET PO (09:57)
[2017-05-17] MEDS: CYANOCOBALAMIN (VITAMIN B-12) 1,000 MCG TABLET. PO (09:57)
[2017-05-17] MEDS: CHOLECALCIFEROL (VITAMIN D3) 1,000 UNIT TABLET PO (10:22)
[2017-05-17] MEDS: ALBUTEROL SULFATE 2.5 MG/3 ML NEBU. NEB ×4 (11:52→19:00)
[2017-05-17] MEDS: BUDESONIDE 0.5 MG/2 ML NEBU. NEB ×2 (11:52→19:00)
[2017-05-17 14:09] LABS: MRSA BY PCR Positive (Negative)
[2017-05-17] MEDS: ACETAMINOPHEN 325 MG TABLET. PO (14:16)
[2017-05-17 14:43] LABS: TROPONINI 1.723 ng/mL (0.000-0.055)
[2017-05-17] MEDS: WARFARIN 10 MG TABLET. PO (16:00)
[2017-05-17] MEDS: ALPRAZolam 0.5 MG TABLET PO (22:27)
[2017-05-18 04:34] LABS: ADD MAN DIFF? NO
[2017-05-18 04:42] LABS: BASO % 1 % (0-3); EOS # 0.2 x10^3/uL (0.0-0.7); EOS % 5 % (0-3); HEMATOCRIT 31.6 % (36.0-47.0); HEMOGLOBIN 10.4 g/dL (12.0-15.5); LYMPH # 1.6 x10^3/uL (1.0-4.8); LYMPH % 45 % (24-48); MEAN CORPUSCULAR HEMOGLOBIN 32 pg (25-35); MEAN CORPUSCULAR HGB CONC 33 g/dL (31-37); MEAN CORPUSCULAR VOLUME 98 fL (79-100); MONO # 0.3 x10^3/uL (0.0-1.1); MONO % 7 % (0-9); NEUT # 1.5 x10^3uL (1.8-7.7); NEUT % 42 % (31-73); PLATELET COUNT 225 x10^3/uL (140-400); RED BLOOD COUNT 3.23 x10^6/uL (3.50-5.40); RED CELL DISTRIBUTION WIDTH 14.8 % (11.5-14.5); WHITE BLOOD COUNT 3.6 x10^3/uL (4.0-11.0)
[2017-05-18 05:17] LABS: ANION GAP 12 (6-14); BLOOD UREA NITROGEN 11 mg/dL (7-20); CALCIUM 8.5 mg/dL (8.5-10.1); CARBON DIOXIDE 25 mmol/L (21-32); CHLORIDE 106 mmol/L (98-107); CREATININE 0.8 mg/dL (0.6-1.0); GFR 84.4; GLUCOSE 91 mg/dL (70-99); POTASSIUM 4.5 mmol/L (3.5-5.1); SODIUM 143 mmol/L (136-145)
[2017-05-18 05:28] LABS: INR 1.7 (0.8-1.1); PROTHROMBIN TIME PATIENT 18.7 SEC (11.7-14.0)
[2017-05-18] MEDS: LEVOTHYROXINE 50 MCG TABLET PO (06:12)
[2017-05-18] MEDS: ALBUTEROL SULFATE 2.5 MG/3 ML NEBU. NEB ×4 (08:00→19:46)
[2017-05-18] MEDS: BUDESONIDE 0.5 MG/2 ML NEBU. NEB ×2 (08:00→19:46)
[2017-05-18] MEDS: POLYVINYL ALCOHOL 1.4% OPHTH SOLUTION 15ML BOTTLE. OU ×2 (09:00→21:00)
[2017-05-18] MEDS: FLUTICASONE 50MCG/NASAL SPRAY 16GM BOTTLE. NS (09:00)
[2017-05-18] MEDS: CHOLECALCIFEROL (VITAMIN D3) 1,000 UNIT TABLET PO (09:31)
[2017-05-18] MEDS: CYANOCOBALAMIN (VITAMIN B-12) 1,000 MCG TABLET. PO (09:31)
[2017-05-18] MEDS: DULoxetine HCL 20 MG CAPSULE.DR PO (09:31)
[2017-05-18] MEDS: FAMOTIDINE 20 MG TABLET. PO (09:31)
[2017-05-18] MEDS: LISINOPRIL 5 MG TABLET. PO (09:32)
[2017-05-18] MEDS: FERROUS SULFATE 325 MG TABLET. PO (09:32)
[2017-05-18] MEDS: POLYETHYLENE GLYCOL 3350 17 GM PACKET. PO (09:32)
[2017-05-18] MEDS: WARFARIN 7.5 MG TABLET. PO (18:03)
[2017-05-18] MEDS: AZITHROMYCIN 500 MG in IV NORMAL SALINE 250ML 250 ML IV (18:03)
[2017-05-18] MEDS: AZITHROMYCIN 250 MG TABLET. PO (21:37)
[2017-05-18] MEDS: LACTOBACILLUS RHAMNOSUS GG 1 CAPSULE. PO (21:38)
[2017-05-18] MEDS: LORazepam 1 MG TABLET PO (21:38)
[2017-05-19 05:04] LABS: INR 1.8 (0.8-1.1); PROTHROMBIN TIME PATIENT 19.6 SEC (11.7-14.0)
[2017-05-19] MEDS: LEVOTHYROXINE 50 MCG TABLET PO (06:08)
[2017-05-19] MEDS: BUDESONIDE 0.5 MG/2 ML NEBU. NEB (06:55)
[2017-05-19] MEDS: ALBUTEROL SULFATE 2.5 MG/3 ML NEBU. NEB ×2 (06:56→10:40)
[2017-05-19] MEDS: POLYVINYL ALCOHOL 1.4% OPHTH SOLUTION 15ML BOTTLE. OU (08:13)
[2017-05-19] MEDS: FLUTICASONE 50MCG/NASAL SPRAY 16GM BOTTLE. NS (08:13)
[2017-05-19] MEDS: POLYETHYLENE GLYCOL 3350 17 GM PACKET. PO (08:15)
[2017-05-19] MEDS: CYANOCOBALAMIN (VITAMIN B-12) 1,000 MCG TABLET. PO (08:18)
[2017-05-19] MEDS: CHOLECALCIFEROL (VITAMIN D3) 1,000 UNIT TABLET PO (08:18)
[2017-05-19] MEDS: FAMOTIDINE 20 MG TABLET. PO (08:19)
[2017-05-19] MEDS: AZITHROMYCIN 250 MG TABLET. PO (08:19)
[2017-05-19] MEDS: FERROUS SULFATE 325 MG TABLET. PO (08:19)
[2017-05-19] MEDS: LISINOPRIL 5 MG TABLET. PO (08:20)
[2017-05-19] MEDS: DULoxetine HCL 20 MG CAPSULE.DR PO (08:20)
[2017-05-19] MEDS: LACTOBACILLUS RHAMNOSUS GG 1 CAPSULE. PO (08:21)
== END 2017-05-19 12:09 | disposition home or self-care (01) | DRG 282 ==
LOC: ER 11:57 → 5 NORTH 05-17 02:02
DX: I21.A1 Myocardial infarction type 2 (principal); I35.0 Nonrheumatic aortic (valve) stenosis; E03.9 Hypothyroidism, unspecified; J01.90 Acute sinusitis, unspecified; E66.9 Obesity, unspecified; F41.9 Anxiety disorder, unspecified; J45.909 Unspecified asthma, uncomplicated; I10 Essential (primary) hypertension; E78.5 Hyperlipidemia, unspecified; K21.9 Gastro-esophageal reflux disease without esophagitis; K58.9 Irritable bowel syndrome, unspecified; F32.9 Major depressive disorder, single episode, unspecified; M19.90 Unspecified osteoarthritis, unspecified site; M85.80 Other specified disorders of bone density and structure, unspecified site; Z96.659 Presence of unspecified artificial knee joint; Z87.11 Personal history of peptic ulcer disease; Z68.32 Body mass index [BMI] 32.0-32.9, adult; Z86.718 Personal history of other venous thrombosis and embolism; Z98.51 Tubal ligation status; Z79.01 Long term (current) use of anticoagulants; Z83.3 Family history of diabetes mellitus; Z88.0 Allergy status to penicillin; Z88.8 Allergy status to other drugs, medicaments and biological substances
CPT/HCPCS: 36415; 70450; 70551; 80048; 80053; 81001; 84484; 85025; 85610; 87086; 87641; 93005; 94640; 94760; 97161-GP; 99285; 99285-25; J0456; J7050; J7613; J7626; Q0144

== ENCOUNTER 2017-08-07 20:56 | Inpatient (IN) | payer MEDICARE ==
[2017-08-07 21:36] LABS: ADD MAN DIFF? NO
[2017-08-07 21:38] LABS: BASO % 1 % (0-3); EOS # 0.4 x10^3/uL (0.0-0.7); EOS % 8 % (0-3); HEMATOCRIT 34.3 % (36.0-47.0); HEMOGLOBIN 11.2 g/dL (12.0-15.5); LYMPH # 1.8 x10^3/uL (1.0-4.8); LYMPH % 42 % (24-48); MEAN CORPUSCULAR HEMOGLOBIN 31 pg (25-35); MEAN CORPUSCULAR HGB CONC 33 g/dL (31-37); MEAN CORPUSCULAR VOLUME 96 fL (79-100); MONO # 0.4 x10^3/uL (0.0-1.1); MONO % 9 % (0-9); NEUT # 1.7 x10^3uL (1.8-7.7); NEUT % 40 % (31-73); PLATELET COUNT 254 x10^3/uL (140-400); RED BLOOD COUNT 3.59 x10^6/uL (3.50-5.40); RED CELL DISTRIBUTION WIDTH 15.1 % (11.5-14.5); WHITE BLOOD COUNT 4.3 x10^3/uL (4.0-11.0)
[2017-08-07] MEDS: ALBUTEROL SULFATE 2.5 MG/3 ML NEBU. NEB (21:45)
[2017-08-07 21:48] LABS: INR 2.3 (0.8-1.1); PARTIAL THROMBOPLASTIN TIME 38 SEC (24-38); PROTHROMBIN TIME PATIENT 24.9 SEC (11.7-14.0)
[2017-08-07 21:52] LABS: ANION GAP 12 (6-14); BLOOD UREA NITROGEN 14 mg/dL (7-20); BUN/CREATININE RATIO 16 (6-20); CALCIUM 9.2 mg/dL (8.5-10.1); CARBON DIOXIDE 24 mmol/L (21-32); CHLORIDE 103 mmol/L (98-107); CREATININE 0.9 mg/dL (0.6-1.0); GFR 73.5; GLUCOSE 121 mg/dL (70-99); POTASSIUM 3.9 mmol/L (3.5-5.1); SODIUM 139 mmol/L (136-145)
[2017-08-07 21:59] LABS: ALBUMIN 3.7 g/dL (3.4-5.0); ALBUMIN/GLOBULIN RATIO 0.8 (1.0-1.7); ALK PHOS 73 U/L (46-116); ALT (SGPT) 18 U/L (14-59); AST (SGOT) 22 U/L (15-37); TOTAL BILIRUBIN 0.4 mg/dL (0.2-1.0); TOTAL PROTEIN 8.3 g/dL (6.4-8.2)
[2017-08-07 22:00] LABS: TROPONINI 1.615 ng/mL (0.000-0.055)
[2017-08-07 22:01] LABS: NT-PRO BNP 778 pg/mL (0-449)
[2017-08-07 22:03] LABS: INFLUENZA A PATIENT NEGATIVE (NEGATIVE); INFLUENZA B PATIENT NEGATIVE (NEGATIVE); OBC FLU VALID
[2017-08-07 22:33] LABS: BILIRUBIN,URINE NEGATIVE (NEG); CLARITY,URINE CLEAR; GLUCOSE,URINE NEGATIVE (NEG); NITRITE,URINE NEGATIVE (NEG); PH,URINE 6.5; PROTEIN,URINE NEGATIVE (NEG-TRACE)
[2017-08-07 22:40] LABS: COLOR,URINE STRAW
[2017-08-07 22:43] LABS: BACTERIA,URINE FEW /HPF (0-FEW); RBC,URINE 0 /HPF (0-2); SQUAMOUS EPITHELIAL CELL,UR MOD /LPF
[2017-08-07] MEDS: IOHEXOL 300 MG/ML 100ML VIAL. IV (22:45)
[2017-08-07] MEDS ORDERED: CONTRAST GIVEN MC (22:45)
[2017-08-08] MEDS ORDERED: ONDANSETRON PF 4 MG/2 ML VIAL. IV (01:15)
[2017-08-08] MEDS ORDERED: NITROGLYCERIN SUBLINGUAL 0.4 MG BOTTLE OF 25. SL (01:15)
[2017-08-08] MEDS: ALBUTEROL SULFATE 2.5 MG/3 ML NEBU. NEB ×6 (01:17→19:42)
[2017-08-08] MEDS: fentaNYL PF VIAL 100 MCG/2 ML VIAL IV (03:05)
[2017-08-08 05:26] LABS: TROPONINI 1.561 ng/mL (0.000-0.055)
[2017-08-08 08:14] LABS: TROPONINI 1.552 ng/mL (0.000-0.055)
[2017-08-08] MEDS: PNEUMOC CONJ VACC 23-VALENT 0.5 ML VIAL. VAX IM (09:00)
[2017-08-08] MEDS ORDERED: PNEUMOCOCCAL VAX SCREEN BY RX. MC (09:00)
[2017-08-08] MEDS ORDERED: guaiFENesin ORAL 200 MG/10 ML LIQUID. PO (11:15)
[2017-08-08] MEDS ORDERED: POLYVINYL ALCOHOL 1.4% OPHTH SOLUTION 15ML BOTTLE. OU (11:45)
[2017-08-08] MEDS: LISINOPRIL 10 MG TABLET PO ×2 (12:00→21:01)
[2017-08-08] MEDS: FLUTICASONE 50MCG/NASAL SPRAY 16GM BOTTLE. NS (12:00)
[2017-08-08] MEDS: FAMOTIDINE 20 MG TABLET. PO (12:21)
[2017-08-08] MEDS: CYANOCOBALAMIN (VITAMIN B-12) 1,000 MCG TABLET. PO (12:21)
[2017-08-08] MEDS: FERROUS SULFATE 325 MG TABLET. PO (12:22)
[2017-08-08] MEDS: POLYETHYLENE GLYCOL 3350 17 GM PACKET. PO (12:23)
[2017-08-08] MEDS: CHOLECALCIFEROL (VITAMIN D3) 1,000 UNIT TABLET PO (12:23)
[2017-08-08] MEDS: DULoxetine HCL 20 MG CAPSULE.DR PO (12:23)
[2017-08-08] MEDS: POLYVINYL ALCOHOL 1.4% OPHTH SOLUTION 15ML BOTTLE. OU ×2 (12:30→21:07)
[2017-08-08] MEDS ORDERED: NON FORMULARY ITEM (Albuterol Sulfate (Ventolin Hfa Inhaler) 2 PUFF) INH (13:00)
[2017-08-08] MEDS: PANTOPRAZOLE 40 MG TABLET.DR. PO (13:30)
[2017-08-08] MEDS: ACETAMINOPHEN 325 MG TABLET. PO (14:38)
[2017-08-08] MEDS: BUDESONIDE 0.5 MG/2 ML NEBU. NEB ×2 (15:12→19:42)
[2017-08-08] MEDS: WARFARIN 7.5 MG TABLET. PO (16:04)
[2017-08-08] MEDS: LEVOTHYROXINE 50 MCG TABLET PO (16:05)
[2017-08-09] MEDS: GABAPENTIN 100 MG CAPSULE. PO ×2 (00:10→23:23)
[2017-08-09] MEDS: ALBUTEROL SULFATE 2.5 MG/3 ML NEBU. NEB ×5 (02:43→19:32)
[2017-08-09 05:10] LABS: ADD MAN DIFF? NO
[2017-08-09 05:17] LABS: BASO % 1 % (0-3); EOS # 0.4 x10^3/uL (0.0-0.7); EOS % 11 % (0-3); HEMATOCRIT 33.9 % (36.0-47.0); HEMOGLOBIN 11.2 g/dL (12.0-15.5); LYMPH # 1.3 x10^3/uL (1.0-4.8); LYMPH % 38 % (24-48); MEAN CORPUSCULAR HEMOGLOBIN 32 pg (25-35); MEAN CORPUSCULAR HGB CONC 33 g/dL (31-37); MEAN CORPUSCULAR VOLUME 96 fL (79-100); MONO # 0.3 x10^3/uL (0.0-1.1); MONO % 10 % (0-9); NEUT # 1.4 x10^3uL (1.8-7.7); NEUT % 40 % (31-73); PLATELET COUNT 238 x10^3/uL (140-400); RED BLOOD COUNT 3.53 x10^6/uL (3.50-5.40); RED CELL DISTRIBUTION WIDTH 14.8 % (11.5-14.5); WHITE BLOOD COUNT 3.4 x10^3/uL (4.0-11.0)
[2017-08-09 05:41] LABS: INR 2.8 (0.8-1.1); PROTHROMBIN TIME PATIENT 28.5 SEC (11.7-14.0)
[2017-08-09 05:45] LABS: ANION GAP 9 (6-14); BLOOD UREA NITROGEN 12 mg/dL (7-20); CALCIUM 9.2 mg/dL (8.5-10.1); CARBON DIOXIDE 27 mmol/L (21-32); CHLORIDE 104 mmol/L (98-107); CREATININE 0.9 mg/dL (0.6-1.0); GFR 73.5; GLUCOSE 99 mg/dL (70-99); POTASSIUM 3.8 mmol/L (3.5-5.1); SODIUM 140 mmol/L (136-145)
[2017-08-09] MEDS: LEVOTHYROXINE 50 MCG TABLET PO (06:30)
[2017-08-09] MEDS: PANTOPRAZOLE 40 MG TABLET.DR. PO (06:30)
[2017-08-09] MEDS: ACETAMINOPHEN 325 MG TABLET. PO (07:11)
[2017-08-09] MEDS: BUDESONIDE 0.5 MG/2 ML NEBU. NEB ×2 (08:08→19:32)
[2017-08-09 08:10] LABS: MRSA BY PCR Positive (Negative)
[2017-08-09] MEDS: FLUTICASONE 50MCG/NASAL SPRAY 16GM BOTTLE. NS (08:45)
[2017-08-09] MEDS: POLYVINYL ALCOHOL 1.4% OPHTH SOLUTION 15ML BOTTLE. OU ×2 (08:45→20:59)
[2017-08-09] MEDS: CHOLECALCIFEROL (VITAMIN D3) 1,000 UNIT TABLET PO (08:46)
[2017-08-09] MEDS: FAMOTIDINE 20 MG TABLET. PO (08:46)
[2017-08-09] MEDS: FERROUS SULFATE 325 MG TABLET. PO (08:46)
[2017-08-09] MEDS: CYANOCOBALAMIN (VITAMIN B-12) 1,000 MCG TABLET. PO (08:46)
[2017-08-09] MEDS: DULoxetine HCL 20 MG CAPSULE.DR PO (08:47)
[2017-08-09] MEDS: POLYETHYLENE GLYCOL 3350 17 GM PACKET. PO (08:47)
[2017-08-09] MEDS ORDERED: ALPRAZolam 0.25 MG TABLET PO (09:00)
[2017-08-09] MEDS ORDERED: D3 PO (09:00)
[2017-08-09] MEDS ORDERED: VIT A PO (09:00)
[2017-08-09] MEDS ORDERED: NON FORMULARY ITEM (Fluticasone/Vilanterol (Breo Ellipta 100-25 Mcg Inh) 1 PUFF) IH (09:00)
[2017-08-09] MEDS ORDERED: COD LIVER OIL PO (09:00)
[2017-08-09] MEDS ORDERED: WARFARIN 5 MG TABLET. PO (16:00)
[2017-08-09] MEDS: WARFARIN 7.5 MG TABLET. PO ×2 (16:29→17:28)
[2017-08-09] MEDS: predniSONE 10 MG TABLET PO (16:31)
[2017-08-09] MEDS: DOXYCYCLINE HYCLATE 100 MG TABLET PO ×2 (17:24→20:57)
[2017-08-09] MEDS: LISINOPRIL 10 MG TABLET PO (20:56)
[2017-08-10] MEDS: LEVOTHYROXINE 50 MCG TABLET PO (05:22)
[2017-08-10 08:02] LABS: INR 3.5 (0.8-1.1); PROTHROMBIN TIME PATIENT 34.3 SEC (11.7-14.0)
[2017-08-10] MEDS: ALBUTEROL SULFATE 2.5 MG/3 ML NEBU. NEB ×3 (08:07→15:44)
[2017-08-10] MEDS: BUDESONIDE 0.5 MG/2 ML NEBU. NEB (08:07)
[2017-08-10] MEDS: FLUTICASONE 50MCG/NASAL SPRAY 16GM BOTTLE. NS (09:00)
[2017-08-10] MEDS: POLYVINYL ALCOHOL 1.4% OPHTH SOLUTION 15ML BOTTLE. OU (09:00)
[2017-08-10] MEDS: PANTOPRAZOLE 40 MG TABLET.DR. PO (09:28)
[2017-08-10] MEDS: CYANOCOBALAMIN (VITAMIN B-12) 1,000 MCG TABLET. PO (09:28)
[2017-08-10] MEDS: DULoxetine HCL 20 MG CAPSULE.DR PO (09:28)
[2017-08-10] MEDS: GABAPENTIN 100 MG CAPSULE. PO (09:28)
[2017-08-10] MEDS: CHOLECALCIFEROL (VITAMIN D3) 1,000 UNIT TABLET PO (09:28)
[2017-08-10] MEDS: DOXYCYCLINE HYCLATE 100 MG TABLET PO (09:28)
[2017-08-10] MEDS: ACETAMINOPHEN 325 MG TABLET. PO ×2 (09:29→17:53)
[2017-08-10] MEDS: ALPRAZolam 0.25 MG TABLET PO (09:29)
[2017-08-10] MEDS: FAMOTIDINE 20 MG TABLET. PO (09:29)
[2017-08-10] MEDS: POLYETHYLENE GLYCOL 3350 17 GM PACKET. PO (09:29)
[2017-08-10] MEDS: predniSONE 10 MG TABLET PO (09:29)
[2017-08-10] MEDS: FERROUS SULFATE 325 MG TABLET. PO (09:29)
[2017-08-10] MEDS: LISINOPRIL 10 MG TABLET PO (09:29)
== END 2017-08-10 17:45 | disposition home or self-care (01) | DRG 280 ==
LOC: 2 SOUTH 08-08 00:35 → ER 20:56
DX: I21.4 Non-ST elevation (NSTEMI) myocardial infarction (principal); I50.43 Acute on chronic combined systolic (congestive) and diastolic (congestive) heart failure; J44.1 Chronic obstructive pulmonary disease with (acute) exacerbation; I07.1 Rheumatic tricuspid insufficiency; I11.0 Hypertensive heart disease with heart failure; D64.9 Anemia, unspecified; J06.9 Acute upper respiratory infection, unspecified; E03.9 Hypothyroidism, unspecified; E78.5 Hyperlipidemia, unspecified; F17.201 Nicotine dependence, unspecified, in remission; F32.9 Major depressive disorder, single episode, unspecified; F41.9 Anxiety disorder, unspecified; K21.9 Gastro-esophageal reflux disease without esophagitis; K58.9 Irritable bowel syndrome, unspecified; M19.90 Unspecified osteoarthritis, unspecified site; M54.5 Low back pain; M85.80 Other specified disorders of bone density and structure, unspecified site; Z96.659 Presence of unspecified artificial knee joint; Z79.01 Long term (current) use of anticoagulants; Z83.3 Family history of diabetes mellitus; Z86.718 Personal history of other venous thrombosis and embolism; Z87.11 Personal history of peptic ulcer disease; Z98.51 Tubal ligation status; Z87.01 Personal history of pneumonia (recurrent); Z88.6 Allergy status to analgesic agent; Z88.1 Allergy status to other antibiotic agents; Z88.0 Allergy status to penicillin; Z88.8 Allergy status to other drugs, medicaments and biological substances
CPT/HCPCS: 36415; 71045; 71275; 80048; 80053; 81001; 83880; 84484; 85025; 85610; 85730; 87086; 87641; 87804; 87804-59; 93005; 94640; 94760; 99285; 99285-25; J3010; J7512; J7613; J7626

== ENCOUNTER → 2017-09-24 | Day surgery (SDC) | payer MEDICARE, OTHER ==
[~2017-09-24] MED LIST changes: -ACET-704 PO; -ALPR0.5T6 PO; -ASPI-630 PO; -ASPI325T11 PO; -ATOR10TA60 PO; -AZIT1PAC9 PO; -BENZ100C PO; -BUDE10.2 IH; -CHOL100013 PO; -CYAN10005 PO; -DEXT1DRO8 OU; -FLUT16SP NS; -GABA-585 PO; -GUAI120L35 PO; +IV RINGERS,LACTATED 1000ML 1,000 ML IV; -LEVO50TA5 PO; -LIDO700A27 TD; +LIDOCAINE 1% PF 2 ML VIAL. ID; +LIDOCAINE 2% PF Vial for OR 5 ML VIAL.; -LISI-338 PO; -METH4TAB2 PO; -MOME13HF2 IH; -NYST100054 PO; +ONDANSETRON PF 4 MG/2 ML VIAL. IV; -PANT40TA5 PO; -PERM60CR11 TP; -POLY17PO3 PO; +PROCHLORPERAZINE 10 MG/2 ML VIAL. IV; +PROPOFOL 40 ML IV; -RANI150T2 PO; -TRAM50TA PO; -VENTOLIN HFA18 GM INH; -WARF-78 PO; -WARF5TAB7; -WARF7.5T48 PO; +fentaNYL PF VIAL 100 MCG/2 ML VIAL IV
[2017-09-24] MEDS: IV RINGERS,LACTATED 1000ML 1,000 ML IV (06:45)
== END | disposition home or self-care (01) ==
LOC: ENDOS 06:02
DX: K64.0 First degree hemorrhoids (principal); K57.30 Diverticulosis of large intestine without perforation or abscess without bleeding; D50.9 Iron deficiency anemia, unspecified; Z98.84 Bariatric surgery status; I10 Essential (primary) hypertension; I25.2 Old myocardial infarction; Z86.718 Personal history of other venous thrombosis and embolism; E03.9 Hypothyroidism, unspecified; Z87.11 Personal history of peptic ulcer disease; K21.0 Gastro-esophageal reflux disease with esophagitis; M79.7 Fibromyalgia; Z90.49 Acquired absence of other specified parts of digestive tract; Z98.51 Tubal ligation status; Z88.0 Allergy status to penicillin; Z88.5 Allergy status to narcotic agent; Z88.8 Allergy status to other drugs, medicaments and biological substances; Z79.899 Other long term (current) drug therapy; Z83.3 Family history of diabetes mellitus; Z82.49 Family history of ischemic heart disease and other diseases of the circulatory system; Z90.3 Acquired absence of stomach [part of]; Z88.1 Allergy status to other antibiotic agents; G62.9 Polyneuropathy, unspecified; J44.9 Chronic obstructive pulmonary disease, unspecified; Z87.01 Personal history of pneumonia (recurrent); M06.9 Rheumatoid arthritis, unspecified; M19.90 Unspecified osteoarthritis, unspecified site; Z96.659 Presence of unspecified artificial knee joint; Z87.891 Personal history of nicotine dependence; F41.9 Anxiety disorder, unspecified; F32.9 Major depressive disorder, single episode, unspecified; Z86.14 Personal history of Methicillin resistant Staphylococcus aureus infection; Z79.01 Long term (current) use of anticoagulants
CPT/HCPCS: 43235; 45378; J2704

== ENCOUNTER → 2017-10-14 | Outpatient (CLI) | payer MEDICARE, OTHER | END | disposition home or self-care (01) | LOC: MAMMO 07:50 | DX: Z12.31 Encounter for screening mammogram for malignant neoplasm of breast (principal) | CPT/HCPCS: 77063; 77067 ==

== ENCOUNTER 2018-03-21 20:00 | Emergency (ER) | payer MEDICARE, OTHER ==
[~2018-03-21] VITALS: Ht 157.5 cm; Wt 82.6 kg
[~2018-03-21 20:00] MED LIST changes: +ACET-704 PO; +ALPR0.254 PO; +ALPR0.5T6 PO; +ASPI-630 PO; +ASPI325T11 PO; +ATOR10TA60 PO; +AZIT1PAC9 PO; +BENZ100C PO; +BREO ELLIPTA 11 EACH IH; +BUDE10.2 IH; +CHOL100013 PO; +CYAN10005 PO; +DEXT1DRO8 OU; +DULO20CA PO; +FERR325T14 PO; +FLUT16SP NS; +GABA-585 PO; +GUAI100L12 PO; +GUAI120L35 PO; -IV RINGERS,LACTATED 1000ML 1,000 ML IV; +LEVO50TA5 PO; +LIDO700A27 TD; -LIDOCAINE 1% PF 2 ML VIAL. ID; -LIDOCAINE 2% PF Vial for OR 5 ML VIAL.; +LISI-338 PO; +LORA-434 PO; +METH4TAB2 PO; +MOME13HF2 IH; +NYST100054 PO; -ONDANSETRON PF 4 MG/2 ML VIAL. IV; +PANT20TA2 PO; +PANT40TA5 PO; +PERM60CR11 TP; +POLY17PO3 PO; +PRED-220 PO; -PROCHLORPERAZINE 10 MG/2 ML VIAL. IV; -PROPOFOL 40 ML IV; +RANI150T2 PO; +TRAM50TA PO; +VENTOLIN HFA18 GM INH; +VIT1CAPS44 PO; +WARF-31; +WARF-78 PO; +WARF7.5T48 PO; -fentaNYL PF VIAL 100 MCG/2 ML VIAL IV
--- NOTE | 2018-03-21 21:05 | PHYS DOC ---
Past Medical History Past Medical History: Anxiety, Asthma, DVT, Hypertension, Hypothyroid, Pneumonia, P.U.D., Other Additional Past Medical Histor: ulcer Past Surgical History: Angioplasty, Knee Replacement, Tubal ligation, Other Additional Past Surgical Histo: Hernia; Feet; Ulcers Alcohol Use: None Drug Use: None Adult General Chief Complaint Chief Complaint: SHOUDLER HPI HPI Patient is a 77 year female with history of arthritis, right shoulder impingement syndrome who presents with bilateral shoulder pain, diffuse posterior paracervical neck pain, tenderness. Symptoms gradually worsened in the past 3 days. Reproduces with palpation, movement and neck rotation. Patient denies fall, injury. No fever chills, nausea vomiting or sweats. No headache. Denies chest pain, chest tightness, shortness of breath or other anginal equivalent. Patient does have history acute coronary syndrome and states to him still different. Patient has not spoken with her primary care physician regarding her current symptoms. She has previously been evaluated in this emergency department for neck, back and shoulder pain. By her daughter.[] Review of Systems Review of Systems Review symptoms as per history of present illness. All other review symptoms are negative. All other systems were reviewed and found to be within normal limits, except as documented in this note. Current Medications Current Medications Current Medications Medications (Trade) Dose Ordered Sig/Sivan Start Time Stop Time Status Last Admin Dose Admin Acetaminophen/ Hydrocodone Bitart (Lortab 10/325) 1 tab 1X ONCE 03/21/18 21:30 03/21/18 21:31 DC 03/21/18 21:12 1 TAB Allergies Allergies Allergies Coded Allergies Type Severity Reaction Last Updated Verified Penicillins Allergy Severe Anaphylaxis 09/24/17 Yes diphenhydramine Allergy Severe Anaphylaxis 09/24/17 Yes ipratropium Allergy Severe Anaphylaxis 09/24/17 Yes meclizine Allergy Severe 09/24/17 Yes trazodone Allergy Severe Shortness of Air 09/24/17 Yes bacitracin Allergy Intermediate Rash 09/24/17 Yes neomycin Allergy Intermediate Rash 09/24/17 Yes oxycodone Allergy Intermediate Nausea and Vomiting 09/24/17 Yes polymyxin B Allergy Intermediate Rash 09/24/17 Yes tramadol Allergy Mild Itching 09/24/17 Yes I S O L A T I O N *CONTACT* Allergy Unknown 09/24/17 Yes Physical Exam Physical Exam Constitutional: Well developed, well nourished, non-toxic appearance. [] HENT: Normocephalic, atraumatic, bilateral external ears normal, oropharynx moist, no oral exudates, nose normal. [] Eyes: PERRLA, EOMI, conjunctiva normal, no discharge. [] Neck: His paracervical neck pain, no bruising swelling, been lying bony tenderness or step-off. Pain reproduces with range of motion and lateral rotation.. [] Cardiovascular:Heart rate regular rhythm, holosystolic ejection murmur present.[ ] Lungs & Thorax: Bilateral breath sounds clear to auscultation [] Abdomen: Bowel sounds normal, soft, no tenderness, no masses, no pulsatile masses. [] Skin: Warm, dry, no erythema, no rash. [] Back: No tenderness, no CVA tenderness. [] Extremities: R Shoulder, pain, tenderness with range of motion. No deformity bruising or swelling.. [] Neurologic: Alert and oriented X 3, normal motor function, normal sensory function, no focal deficits noted. [] Psychologic: Affect is anxious, moderate discomfort secondary pain. [] Current Patient Data Vital Signs Vital Signs Date Time Temp Pulse Resp B/P (MAP) Pulse Ox O2 Delivery O2 Flow Rate FiO2 03/22/18 01:28 98.1 64 16 137/72 (93) 96 Room Air 98.1 Lab Values Laboratory Tests Test 03/21/18 21:21 03/22/18 00:20 Troponin I Quantitative 1.514 ng/mL (0.000-0.055) 1.391 ng/mL (0.000-0.055) EKG EKG [EKG: LVH, with repolarization abnormality similar to EKG dated 08/07/17.] Radiology/Procedures Radiology/Procedures [Chest x-ray: No acute cardiopulmonary findings per radiology report] Course & Med Decision Making Course & Med Decision Making Pertinent Labs and Imaging studies reviewed. (See chart for details) [Patient with bilateral shoulder, neck and upper thoracic back pain without history or evidence of injury. This is caused by a long-standing condition for the patient which is been evaluated in the emergency department. Patient's back pain, shoulder pain is reproducible with palpation, and change of positionShe has taken Tylenol for the past 3 days but has not contacted her primary care physician for evaluation. Patient denies chest pain, shortness of breath nausea vomiting and sweats. No abdominal pain. No history of AAA,or dissection. Patient does have history of acute coronary syndrome with chronic elevation in troponin. Repeat troponin is unchanged in similar to all prior troponins available on review of medical record. Additionally, current EKG is compared to EKG dated 08/07/17 with similar repolarization abnormalities noted. Patient's cardiology consult from that dates notes that the patient had normal echocardiogram and heart catheterization in 2017 which showed minimal coronary artery disease. Patient will be discharged home with pain medication and instructions to follow-up with her primary care physician for further management. Return precautions reviewed.] Dragon Disclaimer Dragon Disclaimer This electronic medical record was generated, in whole or in part, using a voice recognition dictation system. Departure Departure Impression: Primary Impression: Shoulder pain, bilateral Additional Impressions: Neck pain, chronic Chronic back pain Disposition: 01 HOME, SELF-CARE Referrals: ERIN MARTINEZ (PCP) Scripts Hydrocodone/Apap 10-325 (NORCO 10-325 TABLET) 1 Each Tablet 1 TAB PO Q8HRS PRN for PAIN MDD 6, #15 TAB 0 Refills Prov: TRUDI HACKETT DO 03/22/18 Problem Qualifiers TRUDI HACKETT DO Mar 21, 2018 21:05
[2018-03-21] MEDS ORDERED: HYDROcodone/APAP 10/325 1 TAB TABLET PO ONE (21:30)
--- NOTE | 2018-03-21 21:58 | RAD ---
EXAM: Chest, single view. HISTORY: Chest pain. COMPARISON: 01/23/2018 FINDINGS: A frontal view of the chest obtained. There is no infiltrate, pleural effusion or pneumothorax. There is a stable prominent cardiac silhouette. IMPRESSION: No acute pulmonary finding. Electronically signed by: Daxa Sosa MD (03/21/2018 9:55 PM) [facility]
--- NOTE | 2018-03-21 22:16 | EKG ---
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
[2018-03-22] MEDS ORDERED: HYDR-963 PO (00:57)
[2018-03-22 01:28] VITALS: BP 137/72
== END 2018-03-22 01:31 | disposition home or self-care (01) ==
LOC: ER 20:00
DX: G89.29 Other chronic pain (principal); M54.2 Cervicalgia; M54.6 Pain in thoracic spine; M25.511 Pain in right shoulder; M25.512 Pain in left shoulder; R07.89 Other chest pain; I10 Essential (primary) hypertension; E03.9 Hypothyroidism, unspecified; J45.909 Unspecified asthma, uncomplicated; Z86.718 Personal history of other venous thrombosis and embolism; Z95.5 Presence of coronary angioplasty implant and graft; Z98.890 Other specified postprocedural states; Z98.51 Tubal ligation status; Z88.0 Allergy status to penicillin; Z88.1 Allergy status to other antibiotic agents; Z88.6 Allergy status to analgesic agent; Z91.041 Radiographic dye allergy status; Z88.5 Allergy status to narcotic agent; Z88.8 Allergy status to other drugs, medicaments and biological substances
CPT/HCPCS: 36415; 71045; 84484; 93005; 99285-25

== ENCOUNTER → 2018-06-06 | Outpatient (CLI) | payer MEDICARE ==
[~2018-06-06] MED LIST changes: +BARIUM SULFATE 340 GM SUSPENSION. PO ONE; +HYDR-3135 PO; +POLY17PO28 PO; -POLY17PO3 PO
--- NOTE | 2018-06-06 12:22 | RAD ---
SMALL BOWEL SERIES 06/06/2018. Reason for study: Abdominal swelling, pain and gas. Constipation. History of diverticulitis.. Comparison studies: None.. Technique: Preliminary regulatory compliance officer film of the abdomen was obtained. Then following ingestion of oral barium, serial images of the abdomen were obtained to assess progress of contrast throughout the small bowel. Once the contrast reached the colon, fluoroscopic evaluation of the small bowel, particularly the terminal ileum, was performed. Fluoroscopy time: 0.5 minutes Number of images: 3 Findings: Surgical clips are identified in the epigastric region from prior gastric bypass surgery. Transit time through the small bowel is normal. No evidence for bowel obstruction or dilatation. Jejunal and ileal fold patterns are normal with no evidence for inflammatory bowel disease. The terminal ileum was unremarkable. IMPRESSION: Normal small bowel series. Electronically signed by: Sherrie Alex MD (06/06/2018 12:17 PM) [facility]
== END | disposition home or self-care (01) ==
LOC: RAD 08:44
PROVIDERS: ATTEND Internal Medicine Gastroenterology
DX: K59.00 Constipation, unspecified (principal); R19.00 Intra-abdominal and pelvic swelling, mass and lump, unspecified site; Z98.84 Bariatric surgery status; K57.92 Diverticulitis of intestine, part unspecified, without perforation or abscess without bleeding
CPT/HCPCS: 74250

== ENCOUNTER 2018-07-16 13:37 | Emergency (ER) | payer MEDICARE, OTHER ==
[~2018-07-16] VITALS: Ht 157.5 cm; Wt 85.7 kg
[~2018-07-16 13:37] MED LIST changes: -BARIUM SULFATE 340 GM SUSPENSION. PO ONE
[2018-07-16 13:50] VITALS: BP 174/91
[2018-07-16] MEDS ORDERED: HYDR25TA PO (14:05)
[2018-07-16] MEDS ORDERED: CLIN150C14 PO (14:05)
--- NOTE | 2018-07-16 14:05 | PHYS DOC ---
Past Medical History Past Medical History: Anxiety, Asthma, DVT, Hypertension, Hypothyroid, Pneumonia, P.U.D., Other Additional Past Medical Histor: ulcer Past Surgical History: Angioplasty, Knee Replacement, Tubal ligation, Other Additional Past Surgical Histo: Hernia; Feet; Ulcers Alcohol Use: None Drug Use: None Adult General Chief Complaint Chief Complaint: SKIN PROBLEM HPI HPI Patient is a 78 year old female who presents with itchy rash on both arms both legs and chest. This started approximately 5 days ago and has been getting worse over time. Patient was seen by her primary care physician yesterday and started on triamcinolone topical without any improvement. She denies any difficulty breathing. Denies any palm or sole involvement. Denies any fever. Nothing seems to make the symptoms better or worse.[] Review of Systems Review of Systems Constitutional: Denies fever or chills [] Eyes: Denies change in visual acuity, redness, or eye pain [] HENT: Denies nasal congestion or sore throat [] Respiratory: Denies cough or shortness of breath [] Cardiovascular: No chest pain or palpitations[] GI: Denies abdominal pain, nausea, vomiting, bloody stools or diarrhea [] : Denies dysuria or hematuria [] Musculoskeletal: Denies back pain or joint pain [] Integument: See history of present illness[] Neurologic: Denies headache, focal weakness or sensory changes [] Endocrine: Denies polyuria or polydipsia [] All other systems were reviewed and found to be within normal limits, except as documented in this note. Allergies Allergies Allergies Coded Allergies Type Severity Reaction Last Updated Verified Penicillins Allergy Severe Anaphylaxis 09/24/17 Yes diphenhydramine Allergy Severe Anaphylaxis 09/24/17 Yes ipratropium Allergy Severe Anaphylaxis 09/24/17 Yes meclizine Allergy Severe 09/24/17 Yes trazodone Allergy Severe Shortness of Air 09/24/17 Yes bacitracin Allergy Intermediate Rash 09/24/17 Yes neomycin Allergy Intermediate Rash 09/24/17 Yes oxycodone Allergy Intermediate Nausea and Vomiting 09/24/17 Yes polymyxin B Allergy Intermediate Rash 09/24/17 Yes tramadol Allergy Mild Itching 09/24/17 Yes I S O L A T I O N *CONTACT* Allergy Unknown 09/24/17 Yes Physical Exam Physical Exam Constitutional: Well developed, well nourished, no acute distress, non-toxic appearance. [] HENT: Normocephalic, atraumatic, bilateral external ears normal, oropharynx moist, no oral exudates, nose normal. [] Eyes: PERRLA, EOMI, conjunctiva normal, no discharge. [] Neck: Normal range of motion, no tenderness, supple, no stridor. [] Cardiovascular:Heart rate regular rhythm, no murmur [] Lungs & Thorax: Bilateral breath sounds clear to auscultation [] Abdomen: Bowel sounds normal, soft, no tenderness, no masses, no pulsatile masses. [] Skin: Warm, dry, scattered erythematous rash on bilateral arms and legs. Papules within the rash with pustules. No palm or sole involvement. No skin sloughing. No axillary lymphadenopathy. [] Back: No tenderness, no CVA tenderness. [] Extremities: No tenderness, no cyanosis, no clubbing, ROM intact, no edema. [] Neurologic: Alert and oriented X 3, normal motor function, normal sensory function, no focal deficits noted. [] Psychologic: Affect normal, judgement normal, mood normal. [] EKG EKG [] Radiology/Procedures Radiology/Procedures [] Course & Med Decision Making Course & Med Decision Making Pertinent Labs and Imaging studies reviewed. (See chart for details) Medical decision making: No identifiable triggers for the rash such as new foods , laundry detergents, soaps, or skin creams for example were found. No evidence of this being anaphylaxis. No evidence of skin staph scalded skin syndrome. No evidence of Suh-Jose syndrome or toxic epidermal necrolysis.[] Dragon Disclaimer Dragon Disclaimer This electronic medical record was generated, in whole or in part, using a voice recognition dictation system. Departure Departure Impression: Primary Impression: Rash and nonspecific skin eruption Disposition: 01 HOME, SELF-CARE Condition: IMPROVED Referrals: NON,STAFF (PCP) Patient Instructions: Rash Additional Instructions: Follow-up with your regular doctor in 2 days. Take the medication as prescribed. Return to the ER if worsening rash, difficulty breathing, or any other concerns. Scripts Clindamycin Hcl (CLINDAMYCIN HCL) 150 Mg Capsule 300 MG PO QID for 10 Days, #80 CAP Prov: ANTHONY HILLIARD DO 07/16/18 Hydroxyzine Hcl (HYDROXYZINE HCL) 25 Mg Tablet 25 MG PO QID, #30 TAB Prov: ANTHONY HILLIARD DO 07/16/18 ANTHONY HILLIARD DO Jul 16, 2018 14:05
== END 2018-07-16 14:30 | disposition home or self-care (01) ==
LOC: ER 13:37
DX: R21 Rash and other nonspecific skin eruption (principal); E03.9 Hypothyroidism, unspecified; I10 Essential (primary) hypertension; J45.909 Unspecified asthma, uncomplicated; Z86.718 Personal history of other venous thrombosis and embolism; Z95.5 Presence of coronary angioplasty implant and graft; Z88.0 Allergy status to penicillin; Z88.5 Allergy status to narcotic agent; Z88.1 Allergy status to other antibiotic agents; Z88.6 Allergy status to analgesic agent; Z91.041 Radiographic dye allergy status; Z88.8 Allergy status to other drugs, medicaments and biological substances
CPT/HCPCS: 99283

== ENCOUNTER → 2018-09-20 | Outpatient (CLI) | payer MEDICARE, OTHER ==
[~2018-09-20] MED LIST changes: +CLIN150C14 PO; +HYDR25TA PO
--- NOTE | 2018-09-20 11:40 | CARD ---
MR#: [id number] Date of Study: 09/20/2018 Ordering Physician: ALISSA HENDRIX, Referring Physician: ALISSA HENDRIX, Tech: Mary Read CHARLI APPROVED REPORT EXAM: Two-dimensional and M-mode echocardiogram with Doppler and color Doppler. Other Information Quality : AverageHR: 74bpm Rhythm : NSR INDICATION Aortic Valve Disease 2D DIMENSIONS RVDd3.0 (2.9-3.5cm)Left Atrium(2D)4.0 (1.6-4.0cm) IVSd1.5 (0.7-1.1cm)Aortic Root(2D)2.8 (2.0-3.7cm) LVDd4.2 (3.9-5.9cm)LVOT Diameter1.8 (1.8-2.4cm) PWd1.1 (0.7-1.1cm)LVDs3.0 (2.5-4.0cm) FS (%) 28.7 %SV44.0 ml LVEF(%)55.7 (>50%) M-Mode DIMENSIONS Left Atrium(MM)4.27 (2.5-4.0cm)Aortic Root3.05 (2.2-3.7cm) Aortic Valve AoV Peak Alden.431.8cm/sAoV RDC277.3cm AO Peak GR.74.6mmHgLVOT Peak Alden.103.6cm/s AO Mean GR.43mmHgAVA (VMAX)0.61cm2 THEO (VTI)0.60cm2 Mitral Valve MV E Gizhmcoh20.1cm/sMV DECEL KSSM274ew MV A Xngrfbmc04.7cm/sE/A Ratio1.0 Pulmonary Valve PV Peak Rtfyrgse096.6cm/s Tricuspid Valve TR P. Kcehasor150be/sRAP BQKENSRK2vjFu TR Peak Gr.85srFvUIUS21jkCi Pulmonary Vein S1 Vykwcahe54.4cm/sD2 Pcpwgkck21.0cm/s PVa [id number] LEFT VENTRICLE The left ventricle is normal size. There is moderate to severe concentric left ventricular hypertroph y. The left ventricular systolic function is normal and the ejection fraction is within normal range. The Ejection Fraction is 55-60%. There is normal LV segmental wall motion. Transmitral Doppler flow pattern is Grade II-pseudonormal filling dynamics. RIGHT VENTRICLE The right ventricle is normal size. There is normal right ventricular wall thickness. The right ventr icular systolic function is normal. ATRIA The left atrium is mildly dilated. The right atrium size is normal. The interatrial septum is intact with no evidence for an atrial septal defect or patent foramen ovale as noted on 2-D or Doppler imagi ng. AORTIC VALVE The aortic valve is moderately to severely calcified. The aortic valve is trileaflet. Doppler and Col or Flow revealed trace aortic regurgitation. There is severe valvular aortic stenosis. Calculated aor tic valve area is 0.6 cm2 with maximum pressure gradient of 75 mmHg and mean pressure gradient of 43 mmHg. MITRAL VALVE Mitral annular calcification is moderate. There is no evidence of mitral valve prolapse. There is no mitral valve stenosis. Doppler and Color-flow revealed mild mitral regurgitation. TRICUSPID VALVE The tricuspid valve is normal in structure and function. Doppler and Color Flow revealed mild tricusp id regurgitation. There is mild pulmonary hypertension. The PA pressure was estimated at 35 mmHg. The re is no tricuspid valve prolapse or vegetation. There is no tricuspid valve stenosis. PULMONIC VALVE Doppler and Color Flow revealed trace to mild pulmonic valvular regurgitation. There is no pulmonic v alvular stenosis. GREAT VESSELS The aortic root is normal in size. The ascending aorta is normal in size. The IVC is normal in size a nd collapses >50% with inspiration. PERICARDIAL EFFUSION There is no evidence of significant pericardial effusion. Critical Notification Critical Value: No <Conclusion> There is moderate to severe concentric left ventricular hypertrophy. The left ventricular systolic function is normal and the ejection fraction is within normal range. Th e Ejection Fraction is 55-60%. There is normal LV segmental wall motion. There is severe valvular aortic stenosis. Calculated aortic valve area is 0.6 cm2 with maximum press ure gradient of 75 mmHg and mean pressure gradient of 43 mmHg. Doppler and Color Flow revealed mild tricuspid regurgitation. There is mild pulmonary hypertension. T he PA pressure was estimated at 35 mmHg. Signed by : Alissa Hendrix, Electronically Approved : 09/20/2018 11:40:35
== END | disposition home or self-care (01) ==
LOC: ECHO 10:21
PROVIDERS: ATTEND Internal Medicine Cardiovascular Disease
DX: I08.8 Other rheumatic multiple valve diseases (principal); I27.20 Pulmonary hypertension, unspecified
CPT/HCPCS: 93306

== ENCOUNTER → 2018-10-17 | Outpatient (CLI) | payer MEDICARE, OTHER ==
--- NOTE | 2018-10-17 10:08 | RAD ---
DATE: 10/17/2018. EXAM: MAMMO CHARLES SCREENING BILATERAL. HISTORY: Routine mammographic screening. COMPARISON: 10/14/2017. This study was interpreted with the benefit of Computerized Aided Detection (CAD). FINDINGS: Breast Density: SCATTERED The breast parenchyma shows scattered fibroglandular densities. Breast parenchyma level B.. There are no suspicious masses, microcalcifications or architectural distortion. A focus of increased density slightly inferiorly on the right MLO projection is no correlate on the CC view and is secondary to superimposed parenchyma on tomosynthesis. Vascular calcifications are benign. BI-RADS CATEGORY: 2 BENIGN FINDING(S). RECOMMENDED FOLLOW-UP: 12M 12 MONTH FOLLOW-UP. PQRS compliance statement: Patient information was entered into a reminder system with a target due date 10/18/2019 for the next mammogram. Mammography is a sensitive method for finding small breast cancers, but it does not detect them all and is not a substitute for careful clinical examination. A negative mammogram does not negate a clinically suspicious finding and should not result in delay in biopsying a clinically suspicious abnormality. "Our facility is accredited by the [employer] Mammography Program."
== END | disposition home or self-care (01) ==
LOC: MAMMO 15:42
PROVIDERS: ATTEND Obstetrics & Gynecology
DX: Z12.31 Encounter for screening mammogram for malignant neoplasm of breast (principal); N64.89 Other specified disorders of breast
CPT/HCPCS: 77063; 77067

== ENCOUNTER → 2018-11-04 | Outpatient (CLI) | payer MEDICARE, OTHER ==
[~2018-11-04] MED LIST changes: +IOHEXOL 350 MG/ML 100 ML VIAL. IV ONE
[2018-11-04 08:21] LABS: GFR 64.9
--- NOTE | 2018-11-04 11:36 | RAD ---
CTA of the abdomen with contrast, 11/04/2018: HISTORY: Right upper quadrant abdominal pain Multidetector CT imaging was performed following an IV bolus injection of iodinated contrast material. Multiplanar reconstructions were produced including 3-D volume rendered reconstructions of the major arteries. There is mild calcific plaquing of the abdominal aorta and its branches. There is no evidence of aortic narrowing or aneurysm. The celiac and superior mesenteric artery origins from the aortic arch are widely patent. There is mild calcific plaquing at the renal artery origins bilaterally without evidence of high-grade stenosis. A patent inferior mesenteric artery is present. The common iliac arteries are unremarkable. Incidental note is made of generalized cardiomegaly. There are surgical sutures and clips at the gastric level with evidence of a partial gastrectomy. There is mild anterior bulging of the intervening fascia between the rectus abdominis musculature. There is a mild thoracolumbar scoliosis with moderate multilevel degenerative change. IMPRESSION: Mild calcific plaquing of the aorta and its branches without evidence of significant stenosis. PQRS Compliance Statement: One or more of the following individualized dose reduction techniques were utilized for this examination: 1. Automated exposure control 2. Adjustment of the mA and/or kV according to patient size 3. Use of iterative reconstruction technique Electronically signed by: Emir Zelaya MD (11/04/2018 11:33 AM) [facility]
== END | disposition home or self-care (01) ==
LOC: CT 07:58
PROVIDERS: ATTEND Internal Medicine Gastroenterology
DX: I70.0 Atherosclerosis of aorta (principal); I11.9 Hypertensive heart disease without heart failure; M41.85 Other forms of scoliosis, thoracolumbar region; J44.9 Chronic obstructive pulmonary disease, unspecified; Z79.01 Long term (current) use of anticoagulants; Z90.3 Acquired absence of stomach [part of]; Z87.891 Personal history of nicotine dependence
CPT/HCPCS: 36415; 74175; 82565; 84520; Q9967

== ENCOUNTER → 2018-11-11 | Outpatient (CLI) | payer MEDICARE, OTHER ==
[~2018-11-11] MED LIST changes: +BARIUM SULFATE 60% 355 ML SUSP PO ONE; -IOHEXOL 350 MG/ML 100 ML VIAL. IV ONE; -PANT40TA5 PO; +PANT40TA77 PO
--- NOTE | 2018-11-11 11:07 | RAD ---
Small bowel series, 11/11/2018: HISTORY: Abdominal pain The preliminary abdominal image demonstrates a moderate amount of stool in the colon. There are surgical clips in the left upper quadrant. Scattered vascular calcifications are present. There is a mild lumbar scoliosis with moderate multilevel degenerative change. Serial digital imaging and fluoroscopic spot imaging was performed following oral ingestion of liquid barium. 0.8 minutes of fluoroscopy time was utilized. 3 fluoroscopic spot images were recorded. There are postsurgical changes involving the stomach compatible with gastric bypass surgery. The small bowel loops are of normal caliber with no evidence of thickening of their folds. There is normal transit of the barium through the small bowel reaching the colon at 110 minutes. The terminal ileum shows no abnormality. IMPRESSION: No significant small bowel abnormality is detected. Electronically signed by: Emir Zelaya MD (11/11/2018 11:04 AM) [facility]
== END | disposition home or self-care (01) ==
LOC: RAD 07:49
PROVIDERS: ATTEND Internal Medicine Gastroenterology
DX: M41.86 Other forms of scoliosis, lumbar region (principal); M47.816 Spondylosis without myelopathy or radiculopathy, lumbar region; K59.00 Constipation, unspecified; R10.9 Unspecified abdominal pain; G89.29 Other chronic pain; Z98.84 Bariatric surgery status
CPT/HCPCS: 74250

== ENCOUNTER → 2018-11-29 | Outpatient (CLI) | payer MEDICARE, OTHER ==
[~2018-11-29] MED LIST changes: -BARIUM SULFATE 60% 355 ML SUSP PO ONE
--- NOTE | 2018-11-29 10:07 | KCIC ---
MRI Cervical Spine Without Contrast History: Spondylosis without myelopathy. Chronic neck pain. Technique: Multiplanar, multi sequential noncontrast MR imaging was performed of the cervical spine. Comparison: None Findings: Focal kyphosis of the cervical spine centered at C4-C5. Grade 1 anterolisthesis C3 on C4. Normal vertebral body height. No fracture. Multilevel degenerative endplate edema notably at C3-C4, C4-C5, C5-C6 and C6-C7. No pathologic marrow replacing process. No pathologic signal within the cervical spinal cord. Apparent increased signal on STIR sequences likely artifactual. Cervical medullary junction appears normal. Congenital small left vertebral artery. C2-C3: No canal or neuroforaminal narrowing. C3-C4: Grade 1 anterolisthesis. Disc and antonio. Partial effacement of ventral CSF space. Minimal canal narrowing. Uncovertebral facet arthropathy, left greater than right. Severe left neuroforaminal narrowing. C4-C5: Posterior disc osteophyte complex. Mild cord flattening. Mild canal narrowing. Severe left neural foraminal narrowing. Uncovertebral and facet arthropathy on the left. C5-C6: Posterior disc osteophyte complex. Mild cord flattening. Mild canal narrowing. Uncovertebral facet arthropathy bilaterally, right greater than left. Moderate to severe bilateral neural foraminal narrowing. C6-C7: Posterior disc osteophyte complex. Mild cord flattening. No canal narrowing. Uncovertebral facet arthropathy. Moderate right and mild left neural foraminal narrowing. C7-T1: No canal or neuroforaminal narrowing. Impression: 1. Moderate multilevel cervical spondylosis with focal kyphosis contributing to multilevel and mild cord flattening and canal narrowing. 2. Multilevel neural foraminal narrowing most severe left C3-C4, left C4-C5 and bilateral C5-C6. 3. Grade 1 anterolisthesis C3 on C4. Electronically signed by: Jeremiah Gaming DO (11/29/2018 10:04 AM) [facility]
--- NOTE | 2018-11-29 10:16 | KCIC ---
MRI Lumbar Spine without contrast History: Chronic low back pain, leg pain and hip pain. Technique: Multiplanar, multi sequential MR imaging was performed of the lumbar spine. Comparison: None Findings: Moderate leftward curvature of the lumbar spine centered at L3-L4. Grade 1 anterolisthesis L3 on L4 and L4 on L5. Normal vertebral body height. No fracture. Multilevel degenerative endplate changes within the lower thoracic and lower lumbar spine. Degenerative endplate edema T10-T11 and T11-T12. Conus terminates at normal location. Clumping of nerve roots at the L4-L5 level due to canal narrowing. Lower thoracic spine T10-T11 and T11-T12 posterior disc protrusions contributing to moderate bilateral neural foraminal narrowing. No high-grade canal narrowing. L1-L2: Small posterior disc bulge. No canal or neuroforaminal narrowing. L2-L3: Broad-based posterior disc bulge. Mild facet arthropathy. No canal narrowing. Mild bilateral neural foraminal narrowing. L3-L4: Grade 1 anterolisthesis. Disc uncovering. Posterior disc bulge. Moderate facet arthropathy. Mild bilateral subarticular recess narrowing and canal narrowing. Ligament flavum thickening. No neural foraminal narrowing. L4-L5: Grade 1 anterolisthesis. Disc uncovering. Broad-based posterior disc bulge. Advanced facet arthropathy. Ligament flavum thickening. Severe canal narrowing. Severe right neural foraminal narrowing. L5-S1: Posterior disc bulge. Moderate facet arthropathy with facet joint effusions. Mild bilateral subarticular recess narrowing. Abutment of the descending right S1 nerve root. No canal narrowing. Moderate left and mild right neural foraminal narrowing. Impression: 1. Advanced multilevel thoracolumbar spondylosis with leftward curvature. 2. Grade 1 anterolisthesis L4 on L5 with advanced spondylosis contributing to severe canal narrowing and severe right neural foraminal narrowing. 3. L3-L4 and L5-S1 subarticular recess narrowing with additional multilevel neural foraminal narrowing. Electronically signed by: Jeremiah Gaming DO (11/29/2018 10:13 AM) [facility]
== END | disposition home or self-care (01) ==
LOC: KCIC MRI 07:51
PROVIDERS: ATTEND Family Medicine
DX: M47.812 Spondylosis without myelopathy or radiculopathy, cervical region (principal); M47.816 Spondylosis without myelopathy or radiculopathy, lumbar region; M48.07 Spinal stenosis, lumbosacral region; M48.02 Spinal stenosis, cervical region; M12.88 Other specific arthropathies, not elsewhere classified, other specified site; M40.292 Other kyphosis, cervical region; M25.78 Osteophyte, vertebrae; M25.48 Effusion, other site; G89.29 Other chronic pain
CPT/HCPCS: 72141; 72148

== ENCOUNTER 2018-12-27 10:34 | Outpatient (CLI) | payer MEDICARE, OTHER ==
[2018-12-27] VITALS (12 sets, daily range): BP systolic 96–156; BP diastolic 52–76
[~2018-12-27] VITALS: Ht 157.5 cm; Wt 86.2 kg
[~2018-12-27 10:34] MED LIST changes: +CYAN-25 PO; -CYAN10005 PO; +HEPARIN for ARTERIAL LINE 1,500 ML ONE; +IODIXANOL 320 MG/ML 100 ML VIAL. ONE; +LIDOCAINE 1% PF 2 ML VIAL. ONE
[2018-12-27 11:13] LABS: HEMATOCRIT 34.1 % (36.0-47.0); HEMOGLOBIN 11.4 g/dL (12.0-15.5); RED BLOOD COUNT 3.51 x10^6/uL (3.50-5.40); RED CELL DISTRIBUTION WIDTH 14.1 % (11.5-14.5)
[2018-12-27 11:24] LABS: CALCIUM 9.5 mg/dL (8.5-10.1); CREATININE 0.9 mg/dL (0.6-1.0); GFR 73.3; POTASSIUM 4.3 mmol/L (3.5-5.1)
[2018-12-27 11:26] LABS: PROTHROMBIN TIME PATIENT 14.6 SEC (11.7-14.0)
[2018-12-27] MEDS ORDERED: LORA10TA3 PO (12:06)
[2018-12-27] MEDS ORDERED: DULO30CA2 PO (12:06)
[2018-12-27] MEDS ORDERED: SODI88SP5 NS (12:06)
[2018-12-27] MEDS ORDERED: MONT10TA49 PO (12:06)
[2018-12-27] MEDS ORDERED: WARF10TA45 PO (12:06)
[2018-12-27] MEDS ORDERED: MOME13HF2 IH (12:06)
[2018-12-27] MEDS ORDERED: [UNRECOGNIZED DRUG - CODE] PO (12:06)
[2018-12-27] MEDS ORDERED: LORA0.5T PO (12:06)
[2018-12-27] MEDS ORDERED: LIDOCAINE 1% PF 2 ML VIAL. ONE ×2 (12:41→12:46)
[2018-12-27] MEDS ORDERED: IODIXANOL 320 MG/ML 100 ML VIAL. ONE (12:41)
[2018-12-27] MEDS ORDERED: ACETAMINOPHEN 500 MG TABLET PO ONE (12:45)
[2018-12-27] MEDS ORDERED: NITROGLYCERIN 200 MCG/2 ML SYRINGE FOR CATH/VASC LAB. ONE ×2 (12:46→12:57)
[2018-12-27] MEDS ORDERED: fentaNYL PF VIAL 100 MCG/2 ML VIAL ONE ×3 (12:46→14:31)
[2018-12-27] MEDS ORDERED: MIDAZOLAM HCL/PF 2 MG/2 ML VIAL. ONE (12:46)
[2018-12-27] MEDS ORDERED: HEPARIN for IV BOLUS 10,000 UNIT/10 ML VIAL. ONE (12:46)
[2018-12-27] MEDS ORDERED: VERAPAMIL 5 MG/2 ML VIAL. ONE ×2 (12:46)
[2018-12-27] MEDS ORDERED: LIDOCAINE 1% PF 2 ML VIAL. INJ ONE (13:00)
[2018-12-27] MEDS ORDERED: VERAPAMIL 5 MG/2 ML VIAL. IART ONE (13:00)
[2018-12-27] MEDS ORDERED: NITROGLYCERIN 200 MCG/2 ML SYRINGE FOR CATH/VASC LAB. IART ONE (13:00)
[2018-12-27] MEDS ORDERED: HEPARIN for IV BOLUS 10,000 UNIT/10 ML VIAL. IART ONE (13:00)
[2018-12-27] MEDS ORDERED: CONTRAST GIVEN. MC PRN (13:00)
[2018-12-27] MEDS ORDERED: fentaNYL PF VIAL 100 MCG/2 ML VIAL IV ONE ×2 (13:00→14:30)
[2018-12-27] MEDS ORDERED: MIDAZOLAM HCL/PF 2 MG/2 ML VIAL. IV ONE (13:00)
[2018-12-27] MEDS ORDERED: IODIXANOL 320 MG/ML 100 ML VIAL. IART ONE (13:00)
[2018-12-27] MEDS ORDERED: LIDOCAINE 1% Multi-Dose 20 ML VIAL. ONE (13:13)
[2018-12-27] MEDS ORDERED: LIDOCAINE 1% Multi-Dose 20 ML VIAL. INJ ONE (13:15)
--- NOTE | 2018-12-27 14:04 | CARD ---
MR#: [id number] Date of Study: 12/27/2018 Ordering Physician: ALISSA HENDRIX, Referring Physician: ALISSA HENDRIX, Tech: RT Alissa (R) APPROVED REPORT Technologist: Heidi Corona RT (R) Nurse: Lauren Montalvo RN Procedure(s) performed: Fluoro time: 2 min Dose:15 Gycm2 Contrast: 23cc Moderate sedation: 40MIN LHC, Coronary angiography HISTORY The patient is a 78 year-old female with a history of : hypertension, dyslipidemia. INDICATION The indication(s) include : dyspnea, valvular heart disease. CS Clinical Frailty Scale [facility] Clinical Frailty Scale: Vulnerable Heart Failure Heart Failure: Yes If Yes, Newly Diagnosed: No If Yes, HF Type: Diastolic If Yes, NYHA Class: Class II PROCEDURE NARRATIVE After explaining the risks and benefits of the procedure and alternatives, informed consent was obtai kitty. The patient was brought electively to the cardiac catheterization lab in a fasting state. A nehemiah eout was performed confirming the patient's name, date of , procedure, and site of procedure. A ll necessary personnel were wearing the appropriate protective equipment and radiation monitor device s. (See nursing notes for medications administered). The right groin was sterilely prepped and drap ed in the usual fashion. The right groin was infiltrated with 10 mL of 2% lidocaine for subcutaneous anesthesia. A 5 F sheath was inserted into the right femoral artery without difficulty. Right and left coronary angiography was performed using a JR4 and JL4 catheter. Left ventricular end diastolic pressure was obtained with a 5Fr AL1 catheter and pullback was performed. A simultaneous aortic gra dient was obtained and it was measured at 40 mm Hg. All catheter exchanges and advancements were perf ormed over a guidewire. At case completion the right femoral sheath was removed and hemostasis was a chieved using manual compression. There were no acute complications. HEMODYNAMICS: AO: 150/80 LVEDP 18 mm Hg No gradient on LV to aortic pullback. LEFT VENTRICULOGRAM: Deferred due to known normal EF on echo in 09/2018 CORONARY ANGIOGRAPHY: LM is a large caliber vessel with normal angiographic appearance. LAD is a large caliber vessel with normal angiographic appearance. LCx is a moderate caliber non-dominant vessel with normal angiographic appearance. OM1 is a moderate caliber vessel with normal angiographic appearance. RCA is a small to moderate caliber vessel with normal angiographic appearance. SIMULTANEOUS AORTIC GRADIENT: 40 mm Hg. Conclusion 1. Mild acute on chronic diastolic HF 2. Normal angiographic appearance of the coronary arteries. 3. Severe aortic stenosis. Recommendations Referral to [facility] for TAVR evaluation. Signed by : Alissa Hendrix, Electronically Approved : 12/27/2018 14:03:17
--- NOTE | 2018-12-27 16:11 | PDOC ---
MODERATE SEDATION ASSESSMENT RISKS/ALTERNATIVES Risks/Alternatives Risks and alternatives of this type of sedation and procedure discussed with: RISK/ALTERNATIVES: Patient H & P ON CHART H & P H & P on chart and reviewed for co-morbid conditions and appropriate labs. H&P ON CHART: Yes STATUS PREG STATUS ASSESSED: N/A MEDS/ALLERGIES REVIEWED Meds/Allergies Reviewed Medications and Allergies including time and route of recently administered narcotics and sedatives. MEDS/ALLERGIES REVIEWED: Yes ASA RATING ASA RATING: II AIRWAY ASSESSMENT Airway Assessment Airway patency, oral function limitations, presence of caps, crowns, dentures, partials, and ability to extend neck assessed. AIRWAY ASSESSMENT: Yes MALLAMPATI SCORE MALLAMPATI SCORE: II PRE-SEDATION ASSESSMENT PRE-SEDATION ASSESSMENT: Yes ALISSA HENDRIX MD Dec 27, 2018 16:11
--- NOTE | 2018-12-27 17:00 | NUR ---
Discharge Note: BRENNA RAMIREZ Discharge instructions and discharge home medications reviewed with Patient and a copy given. All questions have been answered and understanding verbalized. The following instructions and handouts were given: adult moderate sedation and groin site care Discontinued lines and drains: Peripheral IV intact. Patient discharged to Home or Self Care withFamily Membervia Wheelchair
== END 2018-12-27 17:02 | disposition home or self-care (01) ==
LOC: CCL 10:34
PROVIDERS: ATTEND Internal Medicine Cardiovascular Disease
DX: I11.0 Hypertensive heart disease with heart failure (principal); I50.43 Acute on chronic combined systolic (congestive) and diastolic (congestive) heart failure; E78.5 Hyperlipidemia, unspecified; I35.0 Nonrheumatic aortic (valve) stenosis
CPT/HCPCS: 36415; 80048; 85027; 85610; 85730; 93458; 99152; 99153; C1769; C1892; J1644; J2250; J3010; J3490; Q9967

== ENCOUNTER 2019-01-02 10:53 | Inpatient (IN) | payer MEDICARE, OTHER ==
[~2019-01-02] VITALS: Ht 157.5 cm; Wt 85.4 kg
[~2019-01-02 10:53] MED LIST changes: +DULO30CA2 PO; -HEPARIN for ARTERIAL LINE 1,500 ML ONE; -IODIXANOL 320 MG/ML 100 ML VIAL. ONE; -LIDOCAINE 1% PF 2 ML VIAL. ONE; +LORA0.5T PO; +LORA10TA3 PO; +MONT10TA49 PO; +SODI88SP5 NS; +WARF10TA45 PO; +[UNRECOGNIZED DRUG - CODE] PO
--- NOTE | 2019-01-02 11:25 | PHYS DOC ---
Past Medical History Past Medical History: Anxiety, Asthma, DVT, GERD, Hypertension, Hypothyroid, Pneumonia, P.U.D., Other Additional Past Medical Histor: ulcer Past Surgical History: Angioplasty, Knee Replacement, Tubal ligation, Other Additional Past Surgical Histo: Hernia; Feet; Ulcers, shoulder surgery Additional Information: quit smoking 1991 Alcohol Use: None Drug Use: None Adult General Chief Complaint Chief Complaint: LOWER EXT PAIN HPI HPI Patient is a 78 year old female who presents with multiple complaints. The patient states she had a cardiac catheter done this past Wednesday by Dr. Swann. She states since that times been having bruising on her abdomen, and abdominal pain. He states that she takes warfarin however she's been confused on when and how to take it over the last several weeks so she's been winging it. She also states that she's been having chest pain and shortness of breath. She has a history of blood clots. Rates her pain as 8 out of 10 in severity and sharp. Review of Systems Review of Systems Constitutional: Denies fever or chills [] Eyes: Denies change in visual acuity, redness, or eye pain [] HENT: Denies nasal congestion or sore throat [] Respiratory: Reports shortness of breath. Cardiovascular: No additional information not addressed in HPI [] GI: Reports abdominal pain, Denies nausea, vomiting, bloody stools or diarrhea [] : Denies dysuria or hematuria [] Musculoskeletal: Denies back pain or joint pain [] Integument: Denies rash or skin lesions [] Neurologic: Denies headache, focal weakness or sensory changes [] Endocrine: Denies polyuria or polydipsia [] Complete systems were reviewed and found to be within normal limits, except as documented in this note. Current Medications Current Medications Current Medications Medications (Trade) Dose Ordered Sig/Sivan Start Time Stop Time Status Last Admin Dose Admin Info (CONTRAST GIVEN -- Rx MONITORING) 1 each PRN DAILY PRN 01/02/19 12:30 01/04/19 12:29 Iohexol (Omnipaque 350 Mg/ml) 100 ml 1X ONCE 01/02/19 12:30 01/02/19 12:31 DC 01/02/19 12:39 100 ML Morphine Sulfate (Morphine Sulfate) 2 mg 1X ONCE 01/02/19 11:30 01/02/19 11:31 DC 01/02/19 11:51 2 MG Ondansetron HCl (Zofran) 4 mg 1X ONCE 01/02/19 11:30 01/02/19 11:31 DC 01/02/19 11:51 4 MG Sodium Chloride 1,000 ml @ 1,000 mls/hr 1X ONCE 01/02/19 11:30 01/02/19 12:29 DC 01/02/19 11:51 1,000 MLS/HR Allergies Allergies Allergies Coded Allergies Type Severity Reaction Last Updated Verified Penicillins Allergy Severe Anaphylaxis 09/24/17 Yes diphenhydramine Allergy Severe Anaphylaxis 09/24/17 Yes ipratropium Allergy Severe Anaphylaxis 09/24/17 Yes meclizine Allergy Severe 09/24/17 Yes trazodone Allergy Severe Shortness of Air 09/24/17 Yes bacitracin Allergy Intermediate Rash 09/24/17 Yes neomycin Allergy Intermediate Rash 09/24/17 Yes oxycodone Allergy Intermediate Nausea and Vomiting 09/24/17 Yes polymyxin B Allergy Intermediate Rash 09/24/17 Yes tramadol Allergy Mild Itching 09/24/17 Yes I S O L A T I O N *CONTACT* Allergy Unknown 09/24/17 Yes Physical Exam Physical Exam Constitutional: Well developed, well nourished, no acute distress, non-toxic appearance. [] HENT: Normocephalic, atraumatic, bilateral external ears normal, oropharynx moist, no oral exudates, nose normal. [] Eyes: PERRLA, EOMI, conjunctiva normal, no discharge. [] Neck: Normal range of motion, no tenderness, supple, no stridor. [] Cardiovascular:Heart rate regular rhythm, has murmur. Lungs & Thorax: Bilateral breath sounds clear to auscultation [] Abdomen: Bowel sounds normal, soft, diffuse tenderness with bruising in the lower abdomen, no masses, no pulsatile masses. [] Skin: Warm, dry, no erythema, no rash. [] Back: No tenderness, no CVA tenderness. [] Extremities: bilateral calf tenderness. Neurologic: Alert and oriented X 3, normal motor function, normal sensory function, no focal deficits noted. [] Psychologic: Affect normal, judgement normal, mood normal. [] Current Patient Data Vital Signs Vital Signs Date Time Temp Pulse Resp B/P (MAP) Pulse Ox O2 Delivery O2 Flow Rate FiO2 8/19/19 13:49 70 16 140/70 (93) 95 Room Air 01/02/19 11:03 98.7 98.7 Lab Values Laboratory Tests Test 01/02/19 11:45 01/02/19 12:00 Urine Collection Type Unknown Urine Color Yellow Urine Clarity Clear Urine pH 5.0 Urine Specific [place] 1.010 Urine Protein Negative mg/dL (NEG-TRACE) Urine Glucose (UA) Negative mg/dL (NEG) Urine Ketones (Stick) Negative mg/dL (NEG) Urine Blood Negative (NEG) Urine Nitrite Negative (NEG) Urine Bilirubin Negative (NEG) Urine Urobilinogen Dipstick 0.2 mg/dL (0.2 mg/dL) Urine Leukocyte Esterase Negative (NEG) Urine RBC 0 /HPF (0-2) Urine WBC 0 /HPF (0-4) Urine Squamous Epithelial Cells Mod /LPF Urine Bacteria 0 /HPF (0-FEW) White Blood Count 4.0 x10^3/uL (4.0-11.0) Red Blood Count 3.28 x10^6/uL (3.50-5.40) L Hemoglobin 10.8 g/dL (12.0-15.5) L Hematocrit 32.1 % (36.0-47.0) L Mean Corpuscular Volume 98 fL (79-100) Mean Corpuscular Hemoglobin 33 pg (25-35) Mean Corpuscular Hemoglobin Concent 34 g/dL (31-37) Red Cell Distribution Width 14.6 % (11.5-14.5) H Platelet Count 222 x10^3/uL (140-400) Neutrophils (%) (Auto) 55 % (31-73) Lymphocytes (%) (Auto) 33 % (24-48) Monocytes (%) (Auto) 9 % (0-9) Eosinophils (%) (Auto) 3 % (0-3) Basophils (%) (Auto) 1 % (0-3) Neutrophils # (Auto) 2.2 x10^3/uL (1.8-7.7) Lymphocytes # (Auto) 1.3 x10^3/uL (1.0-4.8) Monocytes # (Auto) 0.3 x10^3/uL (0.0-1.1) Eosinophils # (Auto) 0.1 x10^3/uL (0.0-0.7) Basophils # (Auto) 0.0 x10^3/uL (0.0-0.2) Prothrombin Time 20.8 SEC (11.7-14.0) H Prothrombin Time INR 1.8 (0.8-1.1) H Activated Partial Thromboplast Time 35 SEC (24-38) Sodium Level 143 mmol/L (136-145) Potassium Level 4.4 mmol/L (3.5-5.1) Chloride Level 108 mmol/L (98-107) H Carbon Dioxide Level 28 mmol/L (21-32) Anion Gap 7 (6-14) Blood Urea Nitrogen 15 mg/dL (7-20) Creatinine 0.9 mg/dL (0.6-1.0) Estimated GFR (Cockcroft-Gault) 73.3 BUN/Creatinine Ratio 17 (6-20) Glucose Level 91 mg/dL (70-99) Calcium Level 9.4 mg/dL (8.5-10.1) Total Bilirubin 0.5 mg/dL (0.2-1.0) Aspartate Amino Transferase (AST) 21 U/L (15-37) Alanine Aminotransferase (ALT) 14 U/L (14-59) Alkaline Phosphatase 63 U/L (46-116) Troponin I Quantitative 1.649 ng/mL (0.000-0.055) Total Protein 7.3 g/dL (6.4-8.2) Albumin 3.6 g/dL (3.4-5.0) Albumin/Globulin Ratio 1.0 (1.0-1.7) Laboratory Tests 01/02/19 12:00 Laboratory Tests 01/02/19 12:00 EKG EKG EKG interpreted by Dr. Ferguson No STEMI, Sinus with rate of 89. Radiology/Procedures Radiology/Procedures [][facility] [address] [place], [place] [id number] IMAGING REPORT Signed PATIENT: BRENNA RAMIREZ ACCOUNT: [id number] : 1940 LOCATION: ER AGE: 78 SEX: F EXAM STATUS: REG ER ORD. PHYSICIAN: CHUNG,CHUCK [employer]QUAT[employer] MANAGER REASON: sob, hx of PE PROCEDURE: CT ANGIO CHEST W ABD PEL W/ CTA chest; CT abdomen pelvis with contrast Indication: Shortness of breath, history of pulmonary embolism Technique: Postcontrast CT imaging was performed of the chest, abdomen, pelvis, multiplanar reconstruction images to include MIP reconstruction images are submitted. One or more of the following individualized dose reduction techniques were utilized for this examination: 1. Automated exposure control 2. Adjustment of the mA and/or kV according to patient size 3. Use of iterative reconstruction technique. Comparison: August 07, 2017 chest CTA; June 06, 2018 exam of the abdomen; July 16, 2017 CT abdomen pelvis exam. Chest CTA: Findings: No pulmonary embolism is identified. Thoracic aortic caliber is within normal limits, cannot accurately evaluate for dissection flap on this exam. There is no new significant chest lymphadenopathy. There is no pneumothorax, lobar or pericardial effusion, or lobar infiltrate. There is degenerative disc disease greater of the inferior thoracic levels. Thoracic vertebral body stature is similar. There is a small 0.4 cm right middle lobe nodule best seen sagittal image 86 series 9 not clearly seen on previous exam. IMPRESSION: 1. There is no evidence of pulmonary embolic disease, no significant acute abnormality identified of the chest. 2. There is a new small right middle lobe nodule about 0.4 cm. Follow-up in 12 months is recommended for nodules of this size as per revised Fleischner guidelines. Abdomen pelvis: FINDINGS: There has been partial gastrectomy. Both kidneys enhance, no hydronephrosis. There is again visualization of the pancreatic duct about 0.3 cm maximal caliber. Gallbladder is present without obvious intraluminal abnormality by CT. No new focal abnormality is identified of the liver, spleen, pancreas. There is again mild fullness of left adrenal gland. There is small ventral fat-containing hernia superiorly, neck about 0.7 cm transverse, no internal bowel. Accurate evaluation of bowel is limited without oral contrast, no bowel dilatation. There is no free fluid or free air. Normal caliber appendix is visualized without adjacent inflammatory-type change. There is heterogeneity of the uterus again deviated to the right pelvis, probably an underlying uterine mass. There is fat in the right inguinal canal greater than previous July 2017 exam, no internal bowel. There is degenerative change of the pubic symphysis. There is multilevel thoracolumbar degenerative disc disease. There is grade 1 anterior spondylolisthesis L3-4 and L4-5, multilevel facet degenerative change. There is probable moderate spinal stenosis L4-5, also degree of lateral recess stenosis greater on the left at L3-4. There is lumbar neural foramina compromise greatest on the right at L4-5 and on the left at L5-S1, also severe neural foramina compromise bilaterally at T10-11 and T11-12 by facets, to lesser degree at T9-10 there is mild S-shaped scoliosis of thoracolumbar spine. There is mild left lateral subluxation L4 relative to L5 and mild right lateral subluxation L2 relative to L3. IMPRESSION: 1. No significant acute abnormality is identified of the abdomen or pelvis. 2. There is probable uterine mass, more commonly due to fibroid. 3. There is some fat in the right inguinal canal greater than previously without internal bowel. There is small ventral fat-containing hernia of the superior abdomen, no internal bowel. 4. There is multilevel thoracolumbar degenerative disc disease. There is probable moderate spinal stenosis at L4-5. There is multilevel thoracolumbar neural foramina compromise. Electronically signed by: Effie Mcclellan MD (01/02/2019 1:23 PM) [id number] DICTATED and SIGNED BY: EFFIE MCCLELLAN MD DATE: 01/02/19 1323 Course & Med Decision Making Course & Med Decision Making Pertinent Labs and Imaging studies reviewed. (See chart for details) Will get labs, and get CT of abdomen and chest. Troponin was elevated at 1.6 will admit to hospital to Dr. Gordon (14:22) and consult Dr. Sifuentes. Shar Disclaimer Shar Disclaimer This electronic medical record was generated, in whole or in part, using a voice recognition dictation system. Departure Departure Impression: Primary Impression: Elevated troponin Disposition: ADMITTED INPATIENT Admitting Physician: HIMS Condition: STABLE Referrals: DELMAR HAMILTON D.O. (PCP) CHUCK CHUNG APRN Jan 02, 2019 11:25
[2019-01-02] MEDS ORDERED: MORPHINE SULFATE 2 MG/ML VIAL. IV ONE (11:30)
[2019-01-02] MEDS ORDERED: ONDANSETRON PF 4 MG/2 ML VIAL. IV ONE (11:30)
[2019-01-02] MEDS ORDERED: IV NORMAL SALINE 1000ML BAG 1,000 ML IV ONE (11:30)
[2019-01-02 12:12] LABS: BASO % 1 % (0-3); EOS # 0.1 x10^3/uL (0.0-0.7); EOS % 3 % (0-3); HEMATOCRIT 32.1 % (36.0-47.0); HEMOGLOBIN 10.8 g/dL (12.0-15.5); LYMPH # 1.3 x10^3/uL (1.0-4.8); LYMPH % 33 % (24-48); MEAN CORPUSCULAR HEMOGLOBIN 33 pg (25-35); MEAN CORPUSCULAR HGB CONC 34 g/dL (31-37); MEAN CORPUSCULAR VOLUME 98 fL (79-100); MONO # 0.3 x10^3/uL (0.0-1.1); MONO % 9 % (0-9); NEUT # 2.2 x10^3/uL (1.8-7.7); NEUT % 55 % (31-73); PLATELET COUNT 222 x10^3/uL (140-400); RED BLOOD COUNT 3.28 x10^6/uL (3.50-5.40); RED CELL DISTRIBUTION WIDTH 14.6 % (11.5-14.5)
[2019-01-02 12:13] LABS: BILIRUBIN,URINE NEGATIVE (NEG); CLARITY,URINE CLEAR; COLOR,URINE YELLOW; NITRITE,URINE NEGATIVE (NEG); PROTEIN,URINE NEGATIVE (NEG-TRACE); UROBILINOGEN,URINE 0.2 mg/dL (0.2 mg/dL)
[2019-01-02 12:20] LABS: CALCIUM 9.4 mg/dL (8.5-10.1); CREATININE 0.9 mg/dL (0.6-1.0); GFR 73.3; POTASSIUM 4.4 mmol/L (3.5-5.1)
[2019-01-02 12:24] LABS: PROTHROMBIN TIME PATIENT 20.8 SEC (11.7-14.0)
[2019-01-02 12:26] LABS: ALBUMIN 3.6 g/dL (3.4-5.0); TOTAL BILIRUBIN 0.5 mg/dL (0.2-1.0); TOTAL PROTEIN 7.3 g/dL (6.4-8.2)
[2019-01-02] MEDS ORDERED: CONTRAST GIVEN. MC PRN (12:30)
[2019-01-02] MEDS ORDERED: IOHEXOL 350 MG/ML 100 ML VIAL. IV ONE (12:30)
[2019-01-02 12:31] LABS: BACTERIA,URINE 0 /HPF (0-FEW); RBC,URINE 0 /HPF (0-2); SQUAMOUS EPITHELIAL CELL,UR MOD /LPF; WBC,URINE 0 /HPF (0-4)
--- NOTE | 2019-01-02 13:26 | RAD ---
CTA chest; CT abdomen pelvis with contrast Indication: Shortness of breath, history of pulmonary embolism Technique: Postcontrast CT imaging was performed of the chest, abdomen, pelvis, multiplanar reconstruction images to include MIP reconstruction images are submitted. One or more of the following individualized dose reduction techniques were utilized for this examination: 1. Automated exposure control 2. Adjustment of the mA and/or kV according to patient size 3. Use of iterative reconstruction technique. Comparison: August 07, 2017 chest CTA; June 06, 2018 exam of the abdomen; July 16, 2017 CT abdomen pelvis exam. Chest CTA: Findings: No pulmonary embolism is identified. Thoracic aortic caliber is within normal limits, cannot accurately evaluate for dissection flap on this exam. There is no new significant chest lymphadenopathy. There is no pneumothorax, lobar or pericardial effusion, or lobar infiltrate. There is degenerative disc disease greater of the inferior thoracic levels. Thoracic vertebral body stature is similar. There is a small 0.4 cm right middle lobe nodule best seen sagittal image 86 series 9 not clearly seen on previous exam. IMPRESSION: 1. There is no evidence of pulmonary embolic disease, no significant acute abnormality identified of the chest. 2. There is a new small right middle lobe nodule about 0.4 cm. Follow-up in 12 months is recommended for nodules of this size as per revised Fleischner guidelines. Abdomen pelvis: FINDINGS: There has been partial gastrectomy. Both kidneys enhance, no hydronephrosis. There is again visualization of the pancreatic duct about 0.3 cm maximal caliber. Gallbladder is present without obvious intraluminal abnormality by CT. No new focal abnormality is identified of the liver, spleen, pancreas. There is again mild fullness of left adrenal gland. There is small ventral fat-containing hernia superiorly, neck about 0.7 cm transverse, no internal bowel. Accurate evaluation of bowel is limited without oral contrast, no bowel dilatation. There is no free fluid or free air. Normal caliber appendix is visualized without adjacent inflammatory-type change. There is heterogeneity of the uterus again deviated to the right pelvis, probably an underlying uterine mass. There is fat in the right inguinal canal greater than previous July 2017 exam, no internal bowel. There is degenerative change of the pubic symphysis. There is multilevel thoracolumbar degenerative disc disease. There is grade 1 anterior spondylolisthesis L3-4 and L4-5, multilevel facet degenerative change. There is probable moderate spinal stenosis L4-5, also degree of lateral recess stenosis greater on the left at L3-4. There is lumbar neural foramina compromise greatest on the right at L4-5 and on the left at L5-S1, also severe neural foramina compromise bilaterally at T10-11 and T11-12 by facets, to lesser degree at T9-10 there is mild S-shaped scoliosis of thoracolumbar spine. There is mild left lateral subluxation L4 relative to L5 and mild right lateral subluxation L2 relative to L3. IMPRESSION: 1. No significant acute abnormality is identified of the abdomen or pelvis. 2. There is probable uterine mass, more commonly due to fibroid. 3. There is some fat in the right inguinal canal greater than previously without internal bowel. There is small ventral fat-containing hernia of the superior abdomen, no internal bowel. 4. There is multilevel thoracolumbar degenerative disc disease. There is probable moderate spinal stenosis at L4-5. There is multilevel thoracolumbar neural foramina compromise. Electronically signed by: Chivo Ceballos MD (01/02/2019 1:23 PM) [id number]
--- NOTE | 2019-01-02 14:18 | EKG ---
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
--- NOTE | 2019-01-02 15:15 | PDOC1 ---
History and Physical Date of Admission Date of Admission DATE: 01/02/19 TIME: 15:07 Identification/Chief Complaint Chief Complaint Chest pain Source Source: Patient History of Present Illness History of Present Illness Ms Brice is a 78 year old female w/ PMHx Severe aortic stenosis, Anxiety, Asthma, DVT, GERD, Hypertension, Hypothyroid, Pneumonia, P.U.D. who presents with multiple complaints. The patient states she had a cardiac catheter done this past 12/27/[address] Swann. She states since that times been having bruising on her abdomen, and abdominal pain. He states that she takes warfarin however she's been confused on when and how to take it over the last several weeks so she's been "winging it", had an INR on 12/29/18, but has yet to have the results returned to her for dose adjustment. She also states that she's been having chest pain and shortness of breath. She has a history of blood clot, DVT in her RLE, has been on warfarin for this. She notes. Rates her pain as 8 out of 10 in severity and sharp, substernal, radiates to her left shoulder. Troponin was 1.649. INR 1.8. Hb 10.8. EKG with no sign of STEMI. On further ROS she notes bilateral leg "heaviness" that has been progressive and pain in her right groin and thigh. She has been very cold recently as well. Past Medical History Cardiovascular: HTN, Hyperlipidemia, Aortic stenosis Pulmonary: Asthma GI: Constipation, GERD, Irritable bowel disease, Peptic Ulcer disease Heme/Onc: Anemia NOS, Other Psych: Anxiety, Depression Musculoskeletal: low back pain, Osteoarthritis, Other Endocrine: Hypothyroidism, Osteopenia, Other Past Surgical History Past Surgical History: Total knee replacement Family History Family History: Diabetes Social History Smoke: Quit (1991) ALCOHOL: none Drugs: None Current Problem List Problem List Problems Medical Problems: (1) Elevated troponin Status: Acute Current Medications Current Medications Current Medications Sodium Chloride 1,000 ml @ 1,000 mls/hr 1X ONCE IV Last administered on 01/02/19at 11:51; Start 01/02/19 at 11:30; Stop 01/02/19 at 12:29; Status DC Morphine Sulfate (Morphine Sulfate) 2 mg 1X ONCE IV Last administered on 01/02/19at 11:51; Start 01/02/19 at 11:30; Stop 01/02/19 at 11:31; Status DC Ondansetron HCl (Zofran) 4 mg 1X ONCE IV Last administered on 01/02/19at 11:51; Start 01/02/19 at 11:30; Stop 01/02/19 at 11:31; Status DC Iohexol (Omnipaque 350 Mg/ml) 100 ml 1X ONCE IV Last administered on 01/02/19at 12:39; Start 01/02/19 at 12:30; Stop 01/02/19 at 12:31; Status DC Info (CONTRAST GIVEN -- Rx MONITORING) 1 each PRN DAILY PRN MC SEE COMMENTS; Start 01/02/19 at 12:30; Stop 01/04/19 at 12:29 Active Scripts Active Reported Dulera 100 Mcg/5 Mcg Inhaler (Mometasone/Formoterol) 13 Gm Hfa.aer.ad 2 Puff IH BID Nasal Moisturizing (Sodium Chloride) 88 Ml Delta 88 Ml NS PRN PRN Loratadine 10 Mg Tablet 1 Tab PO DAILY PRN Lorazepam 0.5 Mg Tablet 1 Tab PO TID PRN Singulair Tablet (Montelukast Sodium) 10 Mg Tablet 10 Mg PO HS Liquid B-12 (Cyanocobalamin (Vitamin B-12)) 1,000 Mcg/15 Ml Liquid 1,000 Mcg PO DAILY Cymbalta (Duloxetine Hcl) 30 Mg Capsule.dr 1 Cap PO DAILY Coumadin (Warfarin Sodium) 10 Mg Tablet 1.5 Tab PO UD takes 1.5 tabs(15 mg) on through Wednesday Coumadin (Warfarin Sodium) 10 Mg Tablet 1 Tab PO UD Wednesday and Wednesday Protonix (Pantoprazole Sodium) 20 Mg Tablet. 40 Mg PO DAILY Gabapentin (Gabapentin) 100 Mg Capsule 100 Mg PO PRN TID PRN takes 1 at bedtime Ferrous Sulfate 325 Mg Tablet 1 Tab PO DAILY Ranitidine Hcl 150 Mg Tablet 150 Mg PO DAILY Cod Liver Oil Softgel (Vit A & D3 In Cod Liver Oil) 1 Each Capsule 1 Each PO DAILY Fluticasone Propionate Nasal Delta (Fluticasone Propionate) 16 Gm Delta.susp 1 Delta NS DAILY Artificial Tears Drops (Dextran 70/Hypromellose/Pf) 1 Each Droperette 1 Each OU BID Ventolin Hfa Inhaler (Albuterol Sulfate) 18 Gm Hfa.aer.ad 2 Puff INH QID Polyethylene Glycol 3350 17 Gm Powd.pack 17 Gm PO DAILY Lisinopril 5 Mg Tablet 2 Tab PO DAILY Levothyroxine Sodium 50 Mcg Tablet 1 Tab PO DAILY Vitamin D (Cholecalciferol (Vitamin D3)) 1,000 Unit Capsule 1 Cap PO DAILY Allergies Allergies: Coded Allergies: Penicillins (Verified Allergy, Severe, Anaphylaxis, 09/24/17) diphenhydramine (Verified Allergy, Severe, Anaphylaxis, 09/24/17) ipratropium (Verified Allergy, Severe, Anaphylaxis, 09/24/17) meclizine (Verified Allergy, Severe, 09/24/17) trazodone (Verified Allergy, Severe, Shortness of Air, 09/24/17) bacitracin (Verified Allergy, Intermediate, Rash, 09/24/17) neomycin (Verified Allergy, Intermediate, Rash, 09/24/17) oxycodone (Verified Allergy, Intermediate, Nausea and Vomiting, 09/24/17) polymyxin B (Verified Allergy, Intermediate, Rash, 09/24/17) tramadol (Verified Allergy, Mild, Itching, 09/24/17) I S O L A T I O N *CONTACT* (Verified Allergy, Unknown, 09/24/17) mrsa ROS General: YES: Fatigue, Malaise; No: Chills, Night Sweats, Appetite, Other PSYCHOLOGICAL ROS: YES: Anxiety; No: Behavioral Disorder, Concentration difficultie, Decreased libido, Depression, Disorientation, Hallucinations, Hostility, Irritablity, Memory difficulties, Mood Swings, Obsessive thoughts, Physical abuse, Sexual abuse, Sleep disturbances, Suicidal ideation, Other Eyes: No Blurry vision, No Decreased vision, No Double vision, No Dry eyes, No Excessive tearing, No Eye Pain, No Itchy Eyes, No Loss of vision, No Photophobia, No Scotomata, No Uses contacts, No Uses glasses, No Other HEENT: No: Heacaches, Visual Changes, Hearing change, Nasal congestion, Nasal discharge, Oral lesions, Sinus pain, Sore Throat, Epistaxis, Sneezing, Snoring, Tinnitus, Vertigo, Vocal changes, Other ALLERGY AND IMMUNOLOGY: No: Hives, Insect Bite Sensitivity, Itchy/Watery Eyes, Nasal Congestion, Post Nasal Drip, Seasonal Allergies, Other Hematological and Lymphatic: YES: Blood Clots, Brusing; No: Bleeding Problems, Blood Transfusions, Night Sweats, Pallor, Swollen Lymph Nodes, Other ENDOCRINE: No: Breast Changes, Galactorrhea, Hair Pattern Changes, Hot Flashes, Malaise/lethargy, Mood Swings, Palpitations, Polydipsia/polyuria, Skin Changes, Temperature Intolerance, Unexpected Weight Changes, Other Breast: No New/Changing Breast Lumps, No Nipple changes, No Nipple discharge, No Other Respiratory: YES: Shortness of breath, SOB with excertion; No: Cough, Hemoptysis, Orthopnea, Pleuritic Pain, Sputum Changes, Stridor, Tachypnea, Wheezing, Other Cardiovascular: yes Chest Pain, yes Orthopnea; No Palpitations, No Paroxysmal Noc. Dyspnea, No Edema, No Lt Headedness, No Other Gastrointestinal: Yes Nausea; No Vomiting, No Abdominal Pain, No Diarrhea, No Constipation, No Melena, No Hematochezia, No Other Genitourinary: No Dysuria, No Frequency, No Incontinence, No Hematuria, No Retention, No Discharge, No Urgency, No Pain, No Flank Pain, No Other, No , No , No , No , No , No , No Musculoskeletal: Yes Muscle Pain, Yes Muscular Weakness; No Gait Disturbance, No Joint Pain, No Joint Stiffness, No Joint Swelling, No Pain In:, No Swelling In:, No Other Neurological: No Behavorial Changes, No Bowel/Bladder ControlChng, No Confusion, No Dizziness, No Gait Disturbance, No Headaches, No Impaired Coord/balance, No Memory Loss, No Numbness/Tingling, No Seizures, No Speech Problems, No Tremors, No Visual Changes, No Weakness, No Other Skin: No Dry Skin, No Eczema, No Hair Changes, No Lumps, No Mole Changes, No Mottling, No Nail Changes, No Pruritus, No Rash, No Skin Lesion Changes, No Other, No Acne Physical Exam General: Alert, Oriented X3, Cooperative, No acute distress HEENT: Atraumatic, PERRLA, EOMI, Mucous membr. moist/pink Lungs: Clear to auscultation, Normal air movement Heart: S1S2, RRR, murmurs (4/6 blowing holosystolic murmur) Abdomen: Normal bowel sounds, Soft, No hepatosplenomegaly, No masses, Other (Suprapubic tenderness with hematoma notable 4x6 cm) Rectal Exam: not examined Extremities: No clubbing, No cyanosis, No edema, Normal pulses, No tenderness/swelling Skin: No rashes, No breakdown, No significant lesion Neuro: Normal gait, Normal speech, Strength at 5/5 X4 ext, Normal tone, Sensation intact, Cranial nerves 3-12 NL, Reflexes 2+ Psych/Mental Status: Mental status NL, Mood NL Vitals Vitals Vital Signs Date Time Temp Pulse Resp B/P (MAP) Pulse Ox O2 Delivery O2 Flow Rate FiO2 01/02/19 13:49 70 16 140/70 (93) 95 Room Air 01/02/19 11:03 98.7 98.7 Labs Labs Laboratory Tests Test 01/02/19 11:45 01/02/19 12:00 Urine Collection Type Unknown Urine Color Yellow Urine Clarity Clear Urine pH 5.0 Urine Specific [place] 1.010 Urine Protein Negative mg/dL (NEG-TRACE) Urine Glucose (UA) Negative mg/dL (NEG) Urine Ketones (Stick) Negative mg/dL (NEG) Urine Blood Negative (NEG) Urine Nitrite Negative (NEG) Urine Bilirubin Negative (NEG) Urine Urobilinogen Dipstick 0.2 mg/dL (0.2 mg/dL) Urine Leukocyte Esterase Negative (NEG) Urine RBC 0 /HPF (0-2) Urine WBC 0 /HPF (0-4) Urine Squamous Epithelial Cells Mod /LPF Urine Bacteria 0 /HPF (0-FEW) White Blood Count 4.0 x10^3/uL (4.0-11.0) Red Blood Count 3.28 x10^6/uL (3.50-5.40) Hemoglobin 10.8 g/dL (12.0-15.5) Hematocrit 32.1 % (36.0-47.0) Mean Corpuscular Volume 98 fL (79-100) Mean Corpuscular Hemoglobin 33 pg (25-35) Mean Corpuscular Hemoglobin Concent 34 g/dL (31-37) Red Cell Distribution Width 14.6 % (11.5-14.5) Platelet Count 222 x10^3/uL (140-400) Neutrophils (%) (Auto) 55 % (31-73) Lymphocytes (%) (Auto) 33 % (24-48) Monocytes (%) (Auto) 9 % (0-9) Eosinophils (%) (Auto) 3 % (0-3) Basophils (%) (Auto) 1 % (0-3) Neutrophils # (Auto) 2.2 x10^3/uL (1.8-7.7) Lymphocytes # (Auto) 1.3 x10^3/uL (1.0-4.8) Monocytes # (Auto) 0.3 x10^3/uL (0.0-1.1) Eosinophils # (Auto) 0.1 x10^3/uL (0.0-0.7) Basophils # (Auto) 0.0 x10^3/uL (0.0-0.2) Prothrombin Time 20.8 SEC (11.7-14.0) Prothromb Time International Ratio 1.8 (0.8-1.1) Activated Partial Thromboplast Time 35 SEC (24-38) Sodium Level 143 mmol/L (136-145) Potassium Level 4.4 mmol/L (3.5-5.1) Chloride Level 108 mmol/L (98-107) Carbon Dioxide Level 28 mmol/L (21-32) Anion Gap 7 (6-14) Blood Urea Nitrogen 15 mg/dL (7-20) Creatinine 0.9 mg/dL (0.6-1.0) Estimated GFR (Cockcroft-Gault) 73.3 BUN/Creatinine Ratio 17 (6-20) Glucose Level 91 mg/dL (70-99) Calcium Level 9.4 mg/dL (8.5-10.1) Total Bilirubin 0.5 mg/dL (0.2-1.0) Aspartate Amino Transf (AST/SGOT) 21 U/L (15-37) Alanine Aminotransferase (ALT/SGPT) 14 U/L (14-59) Alkaline Phosphatase 63 U/L (46-116) Creatine Kinase 161 U/L (26-192) Creatine Kinase MB (Mass) 2.2 ng/mL (0.0-3.6) Creatine Kinase MB Relative Index 1.4 % (0-4) Troponin I Quantitative 1.649 ng/mL (0.000-0.055) Total Protein 7.3 g/dL (6.4-8.2) Albumin 3.6 g/dL (3.4-5.0) Albumin/Globulin Ratio 1.0 (1.0-1.7) Laboratory Tests Test 01/02/19 11:45 01/02/19 12:00 Urine Collection Type Unknown Urine Color Yellow Urine Clarity Clear Urine pH 5.0 Urine Specific [place] 1.010 Urine Protein Negative mg/dL (NEG-TRACE) Urine Glucose (UA) Negative mg/dL (NEG) Urine Ketones (Stick) Negative mg/dL (NEG) Urine Blood Negative (NEG) Urine Nitrite Negative (NEG) Urine Bilirubin Negative (NEG) Urine Urobilinogen Dipstick 0.2 mg/dL (0.2 mg/dL) Urine Leukocyte Esterase Negative (NEG) Urine RBC 0 /HPF (0-2) Urine WBC 0 /HPF (0-4) Urine Squamous Epithelial Cells Mod /LPF Urine Bacteria 0 /HPF (0-FEW) White Blood Count 4.0 x10^3/uL (4.0-11.0) Red Blood Count 3.28 x10^6/uL (3.50-5.40) Hemoglobin 10.8 g/dL (12.0-15.5) Hematocrit 32.1 % (36.0-47.0) Mean Corpuscular Volume 98 fL (79-100) Mean Corpuscular Hemoglobin 33 pg (25-35) Mean Corpuscular Hemoglobin Concent 34 g/dL (31-37) Red Cell Distribution Width 14.6 % (11.5-14.5) Platelet Count 222 x10^3/uL (140-400) Neutrophils (%) (Auto) 55 % (31-73) Lymphocytes (%) (Auto) 33 % (24-48) Monocytes (%) (Auto) 9 % (0-9) Eosinophils (%) (Auto) 3 % (0-3) Basophils (%) (Auto) 1 % (0-3) Neutrophils # (Auto) 2.2 x10^3/uL (1.8-7.7) Lymphocytes # (Auto) 1.3 x10^3/uL (1.0-4.8) Monocytes # (Auto) 0.3 x10^3/uL (0.0-1.1) Eosinophils # (Auto) 0.1 x10^3/uL (0.0-0.7) Basophils # (Auto) 0.0 x10^3/uL (0.0-0.2) Prothrombin Time 20.8 SEC (11.7-14.0) Prothromb Time International Ratio 1.8 (0.8-1.1) Activated Partial Thromboplast Time 35 SEC (24-38) Sodium Level 143 mmol/L (136-145) Potassium Level 4.4 mmol/L (3.5-5.1) Chloride Level 108 mmol/L (98-107) Carbon Dioxide Level 28 mmol/L (21-32) Anion Gap 7 (6-14) Blood Urea Nitrogen 15 mg/dL (7-20) Creatinine 0.9 mg/dL (0.6-1.0) Estimated GFR (Cockcroft-Gault) 73.3 BUN/Creatinine Ratio 17 (6-20) Glucose Level 91 mg/dL (70-99) Calcium Level 9.4 mg/dL (8.5-10.1) Total Bilirubin 0.5 mg/dL (0.2-1.0) Aspartate Amino Transf (AST/SGOT) 21 U/L (15-37) Alanine Aminotransferase (ALT/SGPT) 14 U/L (14-59) Alkaline Phosphatase 63 U/L (46-116) Creatine Kinase 161 U/L (26-192) Creatine Kinase MB (Mass) 2.2 ng/mL (0.0-3.6) Creatine Kinase MB Relative Index 1.4 % (0-4) Troponin I Quantitative 1.649 ng/mL (0.000-0.055) Total Protein 7.3 g/dL (6.4-8.2) Albumin 3.6 g/dL (3.4-5.0) Albumin/Globulin Ratio 1.0 (1.0-1.7) Images Images Cardiac Cath - 12/27/2018 - 1. Mild acute on chronic diastolic HF 2. Normal angiographic appearance of the coronary arteries. 3. Severe aortic stenosis. - Referral to [facility] for TAVR consideration CTPA - 1. There is no evidence of pulmonary embolic disease, no significant acute abnormality identified of the chest. 2. There is a new small right middle lobe nodule about 0.4 cm. Follow-up in 12 months is recommended for nodules of this size as per revised Fleischner guidelines. CT Abdomen pelvis - s/p partial gastrectomy 1. No significant acute abnormality is identified of the abdomen or pelvis. 2. There is probable uterine mass, more commonly due to fibroid. 3. There is some fat in the right inguinal canal greater than previously without internal bowel. There is small ventral fat-containing hernia of the superior abdomen, no internal bowel. 4. There is multilevel thoracolumbar degenerative disc disease. There is probable moderate spinal stenosis at L4-5. There is multilevel thoracolumbar neural foramina compromise. VTE Prophylaxis Ordered VTE Prophylaxis Devices: Yes VTE Pharmacological Prophylaxi: Yes Assessment/Plan Assessment/Plan A/P: Chest pain - with elevated troponin, recent cardiac cath last week with normal appearing coronary arteries. Radiation to left shoulder concerning, however, low risk based on recent cath, will trend out her troponins. Likely non-cardiac Abdominal pain - with bruising, CT abdomen/pelvis with no hematoma apparent. Will get US of right groin Severe aortic stenosis - per cath. Referral to [facility] for TAVR Anxiety - cont home lorazepam Asthma - will cont inhalers DVT - on coumadin. INR nearly therapeutic GERD - will give GI cocktail, cont PPI Hypertension - cont meds Hypothyroid - check TSH, cont meds P.U.D - cont PPI FEN - Cardiac diet PPX - warfarin, PPI FULL CODE Dispo - inpatient for chest pain, will consult cardiology. SHELIA FELICIANO MD Jan 02, 2019 15:14
[2019-01-02] MEDS ORDERED: LIDO:MAALOX 1:1 20 ML SINGLE DOSE. SWSW ONE (16:00)
[2019-01-02] MEDS ORDERED: SODIUM CHLORIDE 0.65% NASAL SPRAY 45ML BOTTLE. NS PRN (16:00)
[2019-01-02] MEDS ORDERED: LORazepam 0.5 MG TABLET PO PRN (16:00)
[2019-01-02] MEDS: PANTOPRAZOLE 40 MG TABLET.DR. PO SCH (16:41)
[2019-01-02] MEDS: MORPHINE SULFATE 2 MG/ML VIAL. IV PRN ×2 (16:44→21:41)
[2019-01-02] MEDS ORDERED: WARFARIN 4 MG TABLET. PO ONE (17:39)
--- NOTE | 2019-01-02 17:54 | RAD ---
DUPLEX LOWER EX ARTERIAL RIGHT History: Pain at arterial puncture site within the right inguinal region. Bruising. Comparison: None. Procedure: Limited ultrasound of the right inguinal region evaluating arterial vasculature with color Doppler. Findings: No evidence of pseudoaneurysm. Patent right common femoral and proximal superficial femoral arteries. No fluid collection within the right inguinal region. No evidence of hematoma. Patent common femoral vein. IMPRESSION: 1. No evidence of pseudoaneurysm or hematoma in the right inguinal region. Electronically signed by: Jeremiah Gaming DO (01/02/2019 5:51 PM) [id number]
[2019-01-02 19:58] VITALS: BP 165/75
[2019-01-02] MEDS: BUDESONIDE 0.5 MG/2 ML NEBU. NEB SCH (20:35)
[2019-01-02] MEDS: ALBUTEROL SULFATE 2.5 MG/3 ML NEBU. NEB SCH (20:35)
[2019-01-02] MEDS: GABAPENTIN 100 MG CAPSULE. PO PRN (20:53)
[2019-01-02] MEDS ORDERED: LISINOPRIL 10 MG TABLET PO SCH (21:00)
[2019-01-02] MEDS: POLYVINYL ALCOHOL 1.4% OPHTH SOLUTION 15ML BOTTLE. OU SCH (21:00)
[2019-01-02] MEDS ORDERED: MONTELUKAST SODIUM 10 MG TABLET. PO SCH (21:00)
[2019-01-02] MEDS ORDERED: ACETAMINOPHEN 325 MG TABLET. PO PRN (22:30)
[2019-01-02 23:04] VITALS: BP 113/59
[2019-01-03 02:45] VITALS: BP 109/54
[2019-01-03 05:14] LABS: PROTHROMBIN TIME PATIENT 21.7 SEC (11.7-14.0)
[2019-01-03] MEDS: GABAPENTIN 100 MG CAPSULE. PO PRN (05:18)
[2019-01-03] MEDS ORDERED: LEVOTHYROXINE 50 MCG TABLET PO SCH (06:00)
[2019-01-03 07:00] VITALS: BP 106/62
[2019-01-03] MEDS: ALBUTEROL SULFATE 2.5 MG/3 ML NEBU. NEB SCH ×3 (07:33→16:10)
[2019-01-03] MEDS: BUDESONIDE 0.5 MG/2 ML NEBU. NEB SCH (07:33)
[2019-01-03] MEDS: PANTOPRAZOLE 40 MG TABLET.DR. PO SCH (08:27)
--- NOTE | 2019-01-03 08:44 | PDOC ---
PROGRESS NOTES Chief Complaint Chief Complaint A/P: Chest pain - with elevated troponin, recent cardiac cath last week with normal appearing coronary arteries. Radiation to left shoulder concerning, however, low risk based on recent cath, will trend out her troponins. Likely non-cardiac Abdominal pain - with bruising, CT abdomen/pelvis with no hematoma apparent. Will get US of right groin Severe aortic stenosis - per cath. Referral to [facility] for TAVR Anxiety - cont home lorazepam Asthma - will cont inhalers DVT - on coumadin. INR nearly therapeutic GERD - will give GI cocktail, cont PPI Hypertension - cont meds Hypothyroid - check TSH, cont meds P.U.D - cont PPI FEN - Cardiac diet PPX - warfarin, PPI FULL CODE Dispo - inpatient for chest pain, will consult cardiology. History of Present Illness History of Present Illness Ms Brice is a 78 year old female w/ PMHx Severe aortic stenosis, Anxiety, Asthma, DVT, GERD, Hypertension, Hypothyroid, Pneumonia, P.U.D. who presents with multiple complaints. The patient states she had a cardiac catheter done this past 12/27/[address] Swann. She states since that times been having bruising on her abdomen, and abdominal pain. He states that she takes warfarin however she's been confused on when and how to take it over the last several weeks so she's been "winging it", had an INR on 12/29/18, but has yet to have the results returned to her for dose adjustment. She also states that she's been having chest pain and shortness of breath. She has a history of blood clot, DVT in her RLE, has been on warfarin for this. She notes. Rates her pain as 8 out of 10 in severity and sharp, substernal, radiates to her left shoulder and back. Troponin was 1.649. INR 1.8. Hb 10.8. EKG with no sign of STEMI. On further ROS she notes bilateral leg "heaviness" that has been progressive and pain in her right groin and thigh. She has been very cold recently as well. Vitals Vitals Vital Signs Date Time Temp Pulse Resp B/P (MAP) Pulse Ox O2 Delivery O2 Flow Rate FiO2 01/03/19 08:00 Room Air 01/03/19 07:36 96 01/03/19 07:00 97.6 60 18 106/62 (77) 97.6 Physical Exam General: Alert, Oriented X3, Cooperative, No acute distress Lungs: Clear Abdomen: Normal bowel sounds, Soft, No hepatosplenomegaly, No masses, Other (Suprapubic tenderness with hematoma notable 4x6 cm) Extremities: No clubbing, No cyanosis, No edema, Normal pulses, No tenderness/swelling Skin: No rashes, No breakdown, No significant lesion Labs LABS Laboratory Tests Test 01/02/19 11:45 01/02/19 12:00 01/02/19 14:55 01/03/19 04:45 Urine Collection Type Unknown Urine Color Yellow Urine Clarity Clear Urine pH 5.0 Urine Specific [place] 1.010 Urine Protein Negative mg/dL (NEG-TRACE) Urine Glucose (UA) Negative mg/dL (NEG) Urine Ketones (Stick) Negative mg/dL (NEG) Urine Blood Negative (NEG) Urine Nitrite Negative (NEG) Urine Bilirubin Negative (NEG) Urine Urobilinogen Dipstick 0.2 mg/dL (0.2 mg/dL) Urine Leukocyte Esterase Negative (NEG) Urine RBC 0 /HPF (0-2) Urine WBC 0 /HPF (0-4) Urine Squamous Epithelial Cells Mod /LPF Urine Bacteria 0 /HPF (0-FEW) White Blood Count 4.0 x10^3/uL (4.0-11.0) Red Blood Count 3.28 x10^6/uL (3.50-5.40) Hemoglobin 10.8 g/dL (12.0-15.5) Hematocrit 32.1 % (36.0-47.0) Mean Corpuscular Volume 98 fL (79-100) Mean Corpuscular Hemoglobin 33 pg (25-35) Mean Corpuscular Hemoglobin Concent 34 g/dL (31-37) Red Cell Distribution Width 14.6 % (11.5-14.5) Platelet Count 222 x10^3/uL (140-400) Neutrophils (%) (Auto) 55 % (31-73) Lymphocytes (%) (Auto) 33 % (24-48) Monocytes (%) (Auto) 9 % (0-9) Eosinophils (%) (Auto) 3 % (0-3) Basophils (%) (Auto) 1 % (0-3) Neutrophils # (Auto) 2.2 x10^3/uL (1.8-7.7) Lymphocytes # (Auto) 1.3 x10^3/uL (1.0-4.8) Monocytes # (Auto) 0.3 x10^3/uL (0.0-1.1) Eosinophils # (Auto) 0.1 x10^3/uL (0.0-0.7) Basophils # (Auto) 0.0 x10^3/uL (0.0-0.2) Prothrombin Time 20.8 SEC (11.7-14.0) 21.7 SEC (11.7-14.0) Prothromb Time International Ratio 1.8 (0.8-1.1) 1.9 (0.8-1.1) Activated Partial Thromboplast Time 35 SEC (24-38) Sodium Level 143 mmol/L (136-145) Potassium Level 4.4 mmol/L (3.5-5.1) Chloride Level 108 mmol/L (98-107) Carbon Dioxide Level 28 mmol/L (21-32) Anion Gap 7 (6-14) Blood Urea Nitrogen 15 mg/dL (7-20) Creatinine 0.9 mg/dL (0.6-1.0) Estimated GFR (Cockcroft-Gault) 73.3 BUN/Creatinine Ratio 17 (6-20) Glucose Level 91 mg/dL (70-99) Calcium Level 9.4 mg/dL (8.5-10.1) Total Bilirubin 0.5 mg/dL (0.2-1.0) Aspartate Amino Transf (AST/SGOT) 21 U/L (15-37) Alanine Aminotransferase (ALT/SGPT) 14 U/L (14-59) Alkaline Phosphatase 63 U/L (46-116) Creatine Kinase 161 U/L (26-192) Creatine Kinase MB (Mass) 2.2 ng/mL (0.0-3.6) Creatine Kinase MB Relative Index 1.4 % (0-4) Troponin I Quantitative 1.649 ng/mL (0.000-0.055) 1.421 ng/mL (0.000-0.055) 1.554 ng/mL (0.000-0.055) Total Protein 7.3 g/dL (6.4-8.2) Albumin 3.6 g/dL (3.4-5.0) Albumin/Globulin Ratio 1.0 (1.0-1.7) Thyroid Stimulating Hormone (TSH) 0.440 uIU/mL (0.358-3.74) Assessment and Plan Assessmemt and Plan Problems Medical Problems: (1) Elevated troponin Status: Acute Comment Review of Relevant I have reviewed the following items nigel (where applicable) has been applied. Labs Laboratory Tests Test 01/02/19 11:45 01/02/19 12:00 01/02/19 14:55 01/03/19 04:45 Urine Collection Type Unknown Urine Color Yellow Urine Clarity Clear Urine pH 5.0 Urine Specific [place] 1.010 Urine Protein Negative mg/dL (NEG-TRACE) Urine Glucose (UA) Negative mg/dL (NEG) Urine Ketones (Stick) Negative mg/dL (NEG) Urine Blood Negative (NEG) Urine Nitrite Negative (NEG) Urine Bilirubin Negative (NEG) Urine Urobilinogen Dipstick 0.2 mg/dL (0.2 mg/dL) Urine Leukocyte Esterase Negative (NEG) Urine RBC 0 /HPF (0-2) Urine WBC 0 /HPF (0-4) Urine Squamous Epithelial Cells Mod /LPF Urine Bacteria 0 /HPF (0-FEW) White Blood Count 4.0 x10^3/uL (4.0-11.0) Red Blood Count 3.28 x10^6/uL (3.50-5.40) Hemoglobin 10.8 g/dL (12.0-15.5) Hematocrit 32.1 % (36.0-47.0) Mean Corpuscular Volume 98 fL (79-100) Mean Corpuscular Hemoglobin 33 pg (25-35) Mean Corpuscular Hemoglobin Concent 34 g/dL (31-37) Red Cell Distribution Width 14.6 % (11.5-14.5) Platelet Count 222 x10^3/uL (140-400) Neutrophils (%) (Auto) 55 % (31-73) Lymphocytes (%) (Auto) 33 % (24-48) Monocytes (%) (Auto) 9 % (0-9) Eosinophils (%) (Auto) 3 % (0-3) Basophils (%) (Auto) 1 % (0-3) Neutrophils # (Auto) 2.2 x10^3/uL (1.8-7.7) Lymphocytes # (Auto) 1.3 x10^3/uL (1.0-4.8) Monocytes # (Auto) 0.3 x10^3/uL (0.0-1.1) Eosinophils # (Auto) 0.1 x10^3/uL (0.0-0.7) Basophils # (Auto) 0.0 x10^3/uL (0.0-0.2) Prothrombin Time 20.8 SEC (11.7-14.0) 21.7 SEC (11.7-14.0) Prothromb Time International Ratio 1.8 (0.8-1.1) 1.9 (0.8-1.1) Activated Partial Thromboplast Time 35 SEC (24-38) Sodium Level 143 mmol/L (136-145) Potassium Level 4.4 mmol/L (3.5-5.1) Chloride Level 108 mmol/L (98-107) Carbon Dioxide Level 28 mmol/L (21-32) Anion Gap 7 (6-14) Blood Urea Nitrogen 15 mg/dL (7-20) Creatinine 0.9 mg/dL (0.6-1.0) Estimated GFR (Cockcroft-Gault) 73.3 BUN/Creatinine Ratio 17 (6-20) Glucose Level 91 mg/dL (70-99) Calcium Level 9.4 mg/dL (8.5-10.1) Total Bilirubin 0.5 mg/dL (0.2-1.0) Aspartate Amino Transf (AST/SGOT) 21 U/L (15-37) Alanine Aminotransferase (ALT/SGPT) 14 U/L (14-59) Alkaline Phosphatase 63 U/L (46-116) Creatine Kinase 161 U/L (26-192) Creatine Kinase MB (Mass) 2.2 ng/mL (0.0-3.6) Creatine Kinase MB Relative Index 1.4 % (0-4) Troponin I Quantitative 1.649 ng/mL (0.000-0.055) 1.421 ng/mL (0.000-0.055) 1.554 ng/mL (0.000-0.055) Total Protein 7.3 g/dL (6.4-8.2) Albumin 3.6 g/dL (3.4-5.0) Albumin/Globulin Ratio 1.0 (1.0-1.7) Thyroid Stimulating Hormone (TSH) 0.440 uIU/mL (0.358-3.74) Laboratory Tests Test 01/02/19 11:45 01/02/19 12:00 01/02/19 14:55 01/03/19 04:45 Urine Collection Type Unknown Urine Color Yellow Urine Clarity Clear Urine pH 5.0 Urine Specific [place] 1.010 Urine Protein Negative mg/dL (NEG-TRACE) Urine Glucose (UA) Negative mg/dL (NEG) Urine Ketones (Stick) Negative mg/dL (NEG) Urine Blood Negative (NEG) Urine Nitrite Negative (NEG) Urine Bilirubin Negative (NEG) Urine Urobilinogen Dipstick 0.2 mg/dL (0.2 mg/dL) Urine Leukocyte Esterase Negative (NEG) Urine RBC 0 /HPF (0-2) Urine WBC 0 /HPF (0-4) Urine Squamous Epithelial Cells Mod /LPF Urine Bacteria 0 /HPF (0-FEW) White Blood Count 4.0 x10^3/uL (4.0-11.0) Red Blood Count 3.28 x10^6/uL (3.50-5.40) Hemoglobin 10.8 g/dL (12.0-15.5) Hematocrit 32.1 % (36.0-47.0) Mean Corpuscular Volume 98 fL (79-100) Mean Corpuscular Hemoglobin 33 pg (25-35) Mean Corpuscular Hemoglobin Concent 34 g/dL (31-37) Red Cell Distribution Width 14.6 % (11.5-14.5) Platelet Count 222 x10^3/uL (140-400) Neutrophils (%) (Auto) 55 % (31-73) Lymphocytes (%) (Auto) 33 % (24-48) Monocytes (%) (Auto) 9 % (0-9) Eosinophils (%) (Auto) 3 % (0-3) Basophils (%) (Auto) 1 % (0-3) Neutrophils # (Auto) 2.2 x10^3/uL (1.8-7.7) Lymphocytes # (Auto) 1.3 x10^3/uL (1.0-4.8) Monocytes # (Auto) 0.3 x10^3/uL (0.0-1.1) Eosinophils # (Auto) 0.1 x10^3/uL (0.0-0.7) Basophils # (Auto) 0.0 x10^3/uL (0.0-0.2) Prothrombin Time 20.8 SEC (11.7-14.0) 21.7 SEC (11.7-14.0) Prothromb Time International Ratio 1.8 (0.8-1.1) 1.9 (0.8-1.1) Activated Partial Thromboplast Time 35 SEC (24-38) Sodium Level 143 mmol/L (136-145) Potassium Level 4.4 mmol/L (3.5-5.1) Chloride Level 108 mmol/L (98-107) Carbon Dioxide Level 28 mmol/L (21-32) Anion Gap 7 (6-14) Blood Urea Nitrogen 15 mg/dL (7-20) Creatinine 0.9 mg/dL (0.6-1.0) Estimated GFR (Cockcroft-Gault) 73.3 BUN/Creatinine Ratio 17 (6-20) Glucose Level 91 mg/dL (70-99) Calcium Level 9.4 mg/dL (8.5-10.1) Total Bilirubin 0.5 mg/dL (0.2-1.0) Aspartate Amino Transf (AST/SGOT) 21 U/L (15-37) Alanine Aminotransferase (ALT/SGPT) 14 U/L (14-59) Alkaline Phosphatase 63 U/L (46-116) Creatine Kinase 161 U/L (26-192) Creatine Kinase MB (Mass) 2.2 ng/mL (0.0-3.6) Creatine Kinase MB Relative Index 1.4 % (0-4) Troponin I Quantitative 1.649 ng/mL (0.000-0.055) 1.421 ng/mL (0.000-0.055) 1.554 ng/mL (0.000-0.055) Total Protein 7.3 g/dL (6.4-8.2) Albumin 3.6 g/dL (3.4-5.0) Albumin/Globulin Ratio 1.0 (1.0-1.7) Thyroid Stimulating Hormone (TSH) 0.440 uIU/mL (0.358-3.74) Medications Current Medications Sodium Chloride 1,000 ml @ 1,000 mls/hr 1X ONCE IV Last administered on 01/02/19 11:51; Start 01/02/19 at 11:30; Stop 01/02/19 at 12:29; Status DC Morphine Sulfate (Morphine Sulfate) 2 mg 1X ONCE IV Last administered on 01/02/19 11:51; Start 01/02/19 at 11:30; Stop 01/02/19 at 11:31; Status DC Ondansetron HCl (Zofran) 4 mg 1X ONCE IV Last administered on 01/02/19 11:51; Start 01/02/19 at 11:30; Stop 01/02/19 at 11:31; Status DC Iohexol (Omnipaque 350 Mg/ml) 100 ml 1X ONCE IV Last administered on 01/02/19 12:39; Start 01/02/19 at 12:30; Stop 01/02/19 at 12:31; Status DC Info (CONTRAST GIVEN -- Rx MONITORING) 1 each PRN DAILY PRN MC SEE COMMENTS; Start 01/02/19 at 12:30; Stop 01/04/19 at 12:29 Multi-Ingredient Mouthwash/Gargle (Gi Cocktail) 20 ml 1X ONCE SWSW Last administered on 01/02/19 16:46; Start 01/02/19 at 16:00; Stop 01/02/19 at 16:09; Status DC Duloxetine HCl (Cymbalta) 30 mg DAILY PO ; Start 01/03/19 at 09:00 Fluticasone Propionate (Flonase) 1 spray DAILY NS ; Start 01/03/19 at 09:00 Gabapentin (Neurontin) 100 mg PRN TID PRN PO PAIN Last administered on 01/03/19 05:18; Start 01/02/19 at 16:00 Levothyroxine Sodium (Synthroid) 50 mcg DAILY06 PO Last administered on 01/03/19 05:39; Start 01/03/19 at 06:00 Lisinopril (Prinivil) 10 mg QHS PO Last administered on 01/02/19 20:53; Start 01/02/19 at 21:00 Lorazepam (Ativan) 0.5 mg PRN TID PRN PO ANXIETY; Start 01/02/19 at 16:00 Montelukast Sodium (Singulair) 10 mg HS PO Last administered on 01/02/19 20:53; Start 01/02/19 at 21:00 Polyethylene Glycol (miraLAX PACKET) 17 gm DAILY PO Last administered on 01/03/19 08:33; Start 01/03/19 at 09:00 Sodium Chloride (Saline Mist Nasal) 1 anh PRN Q2HRS PRN NS NASAL CONGESTION; Start 01/02/19 at 16:00 Warfarin Sodium (Coumadin Per Pharmacy) 1 each DAILY16 MC Last administered on 01/02/19 18:12; Start 01/02/19 at 16:00 Artificial Tears (Artificial Tears) 1 drop BID OU ; Start 01/02/19 at 21:00 Albuterol Sulfate (Ventolin Neb Soln) 2.5 mg RTQID NEB Last administered on 01/03/19 07:33; Start 01/02/19 at 20:00 Pantoprazole Sodium (Protonix) 40 mg DAILYAC PO Last administered on 01/03/19 08:33; Start 01/02/19 at 16:30 Morphine Sulfate (Morphine Sulfate) 2 mg PRN Q2HR PRN IV PAIN Last administered on 01/02/19 21:41; Start 01/02/19 at 16:00 Warfarin Sodium (Coumadin) 12 mg 1X WARF ONCE PO Last administered on 01/02/19 17:52; Start 01/02/19 at 17:39; Stop 01/02/19 at 17:40; Status DC Budesonide (Pulmicort) 0.5 mg RTBID NEB Last administered on 01/03/19 07:33; Start 01/02/19 at 20:00 Acetaminophen (Tylenol) 650 mg PRN Q4HRS PRN PO MILD PAIN 1-3 Last administered on 01/02/19 22:55; Start 01/02/19 at 22:30 Active Scripts Active Reported Dulera 100 Mcg/5 Mcg Inhaler (Mometasone/Formoterol) 13 Gm Hfa.aer.ad 2 Puff IH BID Nasal Moisturizing (Sodium Chloride) 88 Ml [place] 88 Ml NS PRN PRN Loratadine 10 Mg Tablet 1 Tab PO DAILY PRN Lorazepam 0.5 Mg Tablet 1 Tab PO TID PRN Singulair Tablet (Montelukast Sodium) 10 Mg Tablet 10 Mg PO HS Liquid B-12 (Cyanocobalamin (Vitamin B-12)) 1,000 Mcg/15 Ml Liquid 1,000 Mcg PO DAILY Cymbalta (Duloxetine Hcl) 30 Mg Capsule.dr 1 Cap PO DAILY Coumadin (Warfarin Sodium) 10 Mg Tablet 1.5 Tab PO UD takes 1.5 tabs(15 mg) on through Wednesday Coumadin (Warfarin Sodium) 10 Mg Tablet 1 Tab PO UD Wednesday and Wednesday Protonix (Pantoprazole Sodium) 20 Mg Tablet.dr 40 Mg PO DAILY Gabapentin (Gabapentin) 100 Mg Capsule 100 Mg PO PRN TID PRN takes 1 at bedtime Ferrous Sulfate 325 Mg Tablet 1 Tab PO DAILY Ranitidine Hcl 150 Mg Tablet 150 Mg PO DAILY Cod Liver Oil Softgel (Vit A & D3 In Cod Liver Oil) 1 Each Capsule 1 Each PO DAILY Fluticasone Propionate Nasal [place] (Fluticasone Propionate) 16 Gm [place].susp 1 [place] NS DAILY Artificial Tears Drops (Dextran 70/Hypromellose/Pf) 1 Each Droperette 1 Each OU BID Ventolin Hfa Inhaler (Albuterol Sulfate) 18 Gm Hfa.aer.ad 2 Puff INH QID Polyethylene Glycol 3350 17 Gm Powd.pack 17 Gm PO DAILY Lisinopril 5 Mg Tablet 2 Tab PO DAILY Levothyroxine Sodium 50 Mcg Tablet 1 Tab PO DAILY Vitamin D (Cholecalciferol (Vitamin D3)) 1,000 Unit Capsule 1 Cap PO DAILY Vitals/I & O Vital Sign - Last 24 Hours 01/02/19 01/02/19 01/02/19 01/02/19 11:03 11:51 11:51 12:56 Temp 98.7 98.7 Pulse 91 81 75 Resp 20 20 20 16 B/P (MAP) 176/85 (115) 142/62 (88) 151/73 (99) Pulse Ox 98 98 95 O2 Delivery Room Air Room Air Room Air 01/02/19 01/02/19 01/02/19 01/02/19 13:49 14:30 15:30 16:46 Pulse 70 60 58 65 Resp 16 20 16 B/P (MAP) 140/70 (93) 129/67 (87) 152/76 (101) 166/72 (103) Pulse Ox 95 99 100 98 O2 Delivery Room Air Room Air Room Air Room Air 01/02/19 01/02/19 01/02/1919/19 16:46 17:49 19:58 20:22 Temp 98.2 98.2 Pulse 62 64 Resp 16 18 B/P (MAP) 144/70 (94) 165/75 (105) Pulse Ox 99 96 98 O2 Delivery Room Air Room Air Room Air Room Air 01/02/19 01/02/19 01/02/19 01/02/19 20:36 20:53 21:41 22:32 Pulse 64 Resp 20 20 B/P (MAP) 165/75 Pulse Ox 98 O2 Delivery Room Air Room Air 01/02/19 01/03/19 01/03/19 01/03/19 23:04 02:45 07:00 07:34 Temp 97.6 98.0 97.6 97.6 98.0 97.6 Pulse 60 58 60 Resp 20 18 18 B/P (MAP) 113/59 (77) 109/54 (72) 106/62 (77) Pulse Ox 96 96 96 96 O2 Delivery Room Air Room Air Room Air Room Air 01/03/19 01/03/19 07:36 08:00 Pulse Ox 96 O2 Delivery Room Air Room Air Intake and Output 01/02/19 01/02/19 01/03/19 15:00 23:00 07:00 Intake Total 1000 ml 240 ml 780 ml Output Total 1200 ml Balance 1000 ml 240 ml -420 ml SHELIA FELICIANO MD Jan 03, 2019 08:44
[2019-01-03] MEDS ORDERED: POLYETHYLENE GLYCOL 3350 17 GM PACKET. PO SCH (09:00)
[2019-01-03] MEDS ORDERED: DULoxetine HCL 30 MG CAPSULE.DR PO SCH (09:00)
[2019-01-03] MEDS ORDERED: FLUTICASONE 50MCG/NASAL SPRAY 16GM BOTTLE. NS SCH (09:00)
[2019-01-03] MEDS: POLYVINYL ALCOHOL 1.4% OPHTH SOLUTION 15ML BOTTLE. OU SCH (09:00)
--- NOTE | 2019-01-03 09:39 | NUR ---
IP: Pt has a hx of + mrsa screens since 2008 with most recent on 08/08/17. Pt to be in contact precautions until there are 2 negative screens 7 days apart. Recommend Nozin decolonization.
[2019-01-03 11:00] VITALS: BP 122/61
--- NOTE | 2019-01-03 11:34 | NUR ---
Pharmacy Warfarin Dosing Note S:Pharmacy consulted to assist with anticoagulation therapy started with target INR: 2 -3 O:BRENNA RAMIREZ is a 78 year old F with DVT/PE LABS: Last INR: 1.9 Last HGB: 10.8 Last HCT: 32.1 Last PLT: 222 Last dose of given on 01/02/19 at 1700 Previous Regimen: pt takes 10 mg alt w 15 mg, has been confused about regimen Vitamin K given: Drug Interaction Changes: Ongoing Drug Interactions: A:INR of 1.9 is below desired range. Target range for this patient is: 2 -3 P: Warfarin dose: 12 mg Today at 1600 Bridge Therapy: None Next INR due IN AM Pharmacy anticoagulation service will continue to follow. JACY GRAY [facility], 01/03/19 [id number]
--- NOTE | 2019-01-03 11:37 | PDOC2 ---
GUCCI ROMANO FELISHA 01/03/19 1137: CARDIAC CONSULT DATE OF CONSULT Date of Consult DATE: 01/03/19 TIME: 11:29 REASON FOR CONSULT Reason for Consult: Elevated troponin REFERRING PHYSICIAN Referring Physician: Harrison Carlos APRN SOURCE Source: Chart review, Patient HISTORY OF PRESENT ILLNESS HISTORY OF PRESENT ILLNESS This is a 78 yo female who presented secondary to abdominal pain/bruising and shortness of breath. Underwent cardiac cath 12/27/18, which showed normal angiographic appearance of the coronary arteries and severe aortic stenosis. Has been referred to for TAVR consideration. Patient had mild right groin and mid-pelvic bruising following procedure. Woke up yesterday morning and felt short of breath. Was more tender in her right groin. No chest pain, palpitations, dizziness, diaphoresis, or nausea. Concerned that she made need emergent valve surgery given her severe and shortness of breath. PAST MEDICAL HISTORY Past Medical History Cardiovascular: HTN, Hyperlipidemia, Aortic stenosis Pulmonary: Asthma GI: Constipation, GERD, Irritable bowel disease, Peptic Ulcer disease Heme/Onc: Anemia NOS, Other Psych: Anxiety, Depression Musculoskeletal: low back pain, Osteoarthritis, Other Endocrine: Hypothyroidism, Osteopenia, Other PAST SURGICAL HISTORY Past Surgical History Total knee replacement FAMILY HISTORY Family History: Diabetes SOCIAL HISTORY Social History ALCOHOL: none Drugs: None Lives: with Family Domestic Violence: Neg CURRENT MEDICATIONS CURRENT MEDICATIONS Current Medications Medications (Trade) Dose Ordered Sig/Sivan Route PRN Reason Start Time Stop Time Status Last Admin Dose Admin Sodium Chloride 1,000 ml @ 1,000 mls/hr 1X ONCE IV 01/02/19 11:30 01/02/19 12:29 DC 01/02/19 11:51 Morphine Sulfate (Morphine Sulfate) 2 mg 1X ONCE IV 01/02/19 11:30 01/02/19 11:31 DC 01/02/19 11:51 Ondansetron HCl (Zofran) 4 mg 1X ONCE IV 01/02/19 11:30 01/02/19 11:31 DC 01/02/19 11:51 Iohexol (Omnipaque 350 Mg/ml) 100 ml 1X ONCE IV 01/02/19 12:30 01/02/19 12:31 DC 01/02/19 12:39 Multi-Ingredient Mouthwash/Gargle (Gi Cocktail) 20 ml 1X ONCE SWSW 01/02/19 16:00 01/02/19 16:09 DC 01/02/19 16:46 Gabapentin (Neurontin) 100 mg PRN TID PRN PO PAIN 01/02/19 16:00 01/03/19 05:18 Levothyroxine Sodium (Synthroid) 50 mcg DAILY06 PO 01/03/19 06:00 01/03/19 05:39 Lisinopril (Prinivil) 10 mg QHS PO 01/02/19 21:00 01/02/19 20:53 Montelukast Sodium (Singulair) 10 mg HS PO 01/02/19 21:00 01/02/19 20:53 Polyethylene Glycol (miraLAX PACKET) 17 gm DAILY PO 01/03/19 09:00 01/03/19 08:33 Warfarin Sodium (Coumadin Per Pharmacy) 1 each DAILY16 01/02/19 16:00 01/02/19 18:12 Albuterol Sulfate (Ventolin Neb Soln) 2.5 mg RTQID NEB 01/02/19 20:00 01/03/19 07:33 Pantoprazole Sodium (Protonix) 40 mg DAILYAC PO 01/02/19 16:30 01/03/19 08:33 Morphine Sulfate (Morphine Sulfate) 2 mg PRN Q2HR PRN IV PAIN 01/02/19 16:00 01/02/19 21:41 Warfarin Sodium (Coumadin) 12 mg 1X WARF ONCE PO 01/02/19 17:39 01/02/19 17:40 DC 01/02/19 17:52 Budesonide (Pulmicort) 0.5 mg RTBID [facility] 01/02/19 20:00 01/03/19 07:33 Acetaminophen (Tylenol) 650 mg PRN Q4HRS PRN PO MILD PAIN 1-3 01/02/19 22:30 01/02/19 22:55 ALLERGIES ALLERGIES: Coded Allergies: Penicillins (Verified Allergy, Severe, Anaphylaxis, 09/24/17) diphenhydramine (Verified Allergy, Severe, Anaphylaxis, 09/24/17) ipratropium (Verified Allergy, Severe, Anaphylaxis, 09/24/17) meclizine (Verified Allergy, Severe, 09/24/17) trazodone (Verified Allergy, Severe, Shortness of Air, 09/24/17) bacitracin (Verified Allergy, Intermediate, Rash, 09/24/17) neomycin (Verified Allergy, Intermediate, Rash, 09/24/17) oxycodone (Verified Allergy, Intermediate, Nausea and Vomiting, 09/24/17) polymyxin B (Verified Allergy, Intermediate, Rash, 09/24/17) I S O L A T I O N *CONTACT* (Verified Allergy, Unknown, 09/24/17) mrsa ROS Review of System 14 point ROS conducted with pertinent positives noted above in HPI. PHYSICAL EXAM General: Alert, Oriented X3, Cooperative, No acute distress HEENT: Atraumatic, Mucous membr. moist/pink Lungs: Clear to auscultation, Normal air movement Heart: Regular rate, Normal S1, Normal S2, Other (5/6 systolic murmur ) Abdomen: Soft, No tenderness Extremities: No edema, Normal pulses Skin: No significant lesion, Other (mild bruising in right groin cental pelvic region- resolving.) Neuro: Normal speech, Sensation intact Psych/Mental Status: Mental status NL, Mood NL MUSCULOSKELETAL: Osteoarthritic changes both hands VITALS/I&O VITALS/I&O: Vital Signs Date Time Temp Pulse Resp B/P (MAP) Pulse Ox O2 Delivery O2 Flow Rate FiO2 01/03/19 08:00 Room Air 01/03/19 07:36 96 01/03/19 07:00 97.6 60 18 106/62 (77) 97.6 I & O 01/02/19 01/02/19 01/03/19 14:59 22:59 06:59 Intake Total 1000 ml 240 ml 780 ml Output Total 1200 ml Balance 1000 ml 240 ml -420 ml LABS Lab: Laboratory Tests Test 01/02/19 11:45 01/02/19 12:00 01/02/19 14:55 01/03/19 04:45 Urine Collection Type Unknown Urine Color Yellow Urine Clarity Clear Urine pH 5.0 Urine Specific [place] 1.010 Urine Protein Negative mg/dL (NEG-TRACE) Urine Glucose (UA) Negative mg/dL (NEG) Urine Ketones (Stick) Negative mg/dL (NEG) Urine Blood Negative (NEG) Urine Nitrite Negative (NEG) Urine Bilirubin Negative (NEG) Urine Urobilinogen Dipstick 0.2 mg/dL (0.2 mg/dL) Urine Leukocyte Esterase Negative (NEG) Urine RBC 0 /HPF (0-2) Urine WBC 0 /HPF (0-4) Urine Squamous Epithelial Cells Mod /LPF Urine Bacteria 0 /HPF (0-FEW) White Blood Count 4.0 x10^3/uL (4.0-11.0) Red Blood Count 3.28 x10^6/uL (3.50-5.40) L Hemoglobin 10.8 g/dL (12.0-15.5) L Hematocrit 32.1 % (36.0-47.0) L Mean Corpuscular Volume 98 fL (79-100) Mean Corpuscular Hemoglobin 33 pg (25-35) Mean Corpuscular Hemoglobin Concent 34 g/dL (31-37) Red Cell Distribution Width 14.6 % (11.5-14.5) H Platelet Count 222 x10^3/uL (140-400) Neutrophils (%) (Auto) 55 % (31-73) Lymphocytes (%) (Auto) 33 % (24-48) Monocytes (%) (Auto) 9 % (0-9) Eosinophils (%) (Auto) 3 % (0-3) Basophils (%) (Auto) 1 % (0-3) Neutrophils # (Auto) 2.2 x10^3/uL (1.8-7.7) Lymphocytes # (Auto) 1.3 x10^3/uL (1.0-4.8) Monocytes # (Auto) 0.3 x10^3/uL (0.0-1.1) Eosinophils # (Auto) 0.1 x10^3/uL (0.0-0.7) Basophils # (Auto) 0.0 x10^3/uL (0.0-0.2) Prothrombin Time 20.8 SEC (11.7-14.0) H 21.7 SEC (11.7-14.0) H Prothrombin Time INR 1.8 (0.8-1.1) H 1.9 (0.8-1.1) H Activated Partial Thromboplast Time 35 SEC (24-38) Sodium Level 143 mmol/L (136-145) Potassium Level 4.4 mmol/L (3.5-5.1) Chloride Level 108 mmol/L (98-107) H Carbon Dioxide Level 28 mmol/L (21-32) Anion Gap 7 (6-14) Blood Urea Nitrogen 15 mg/dL (7-20) Creatinine 0.9 mg/dL (0.6-1.0) Estimated GFR (Cockcroft-Gault) 73.3 BUN/Creatinine Ratio 17 (6-20) Glucose Level 91 mg/dL (70-99) Calcium Level 9.4 mg/dL (8.5-10.1) Total Bilirubin 0.5 mg/dL (0.2-1.0) Aspartate Amino Transferase (AST) 21 U/L (15-37) Alanine Aminotransferase (ALT) 14 U/L (14-59) Alkaline Phosphatase 63 U/L (46-116) Creatine Kinase 161 U/L (26-192) Creatine Kinase MB (Mass) 2.2 ng/mL (0.0-3.6) Creatine Kinase MB Relative Index 1.4 % (0-4) Troponin I Quantitative 1.649 ng/mL (0.000-0.055) 1.421 ng/mL (0.000-0.055) 1.554 ng/mL (0.000-0.055) Total Protein 7.3 g/dL (6.4-8.2) Albumin 3.6 g/dL (3.4-5.0) Albumin/Globulin Ratio 1.0 (1.0-1.7) Thyroid Stimulating Hormone (TSH) 0.440 uIU/mL (0.358-3.74) Laboratory Tests 01/02/19 12:00 Laboratory Tests 01/02/19 12:00 ECHOCARDIOGRAM ECHOCARDIOGRAM <Conclusion> There is moderate to severe concentric left ventricular hypertrophy. The left ventricular systolic function is normal and the ejection fraction is within normal range. The Ejection Fraction is 55-60%. There is normal LV segmental wall motion. There is severe valvular aortic stenosis. Calculated aortic valve area is 0.6 cm2 with maximum pressure gradient of 75 mmHg and mean pressure gradient of 43 mmHg. Doppler and Color Flow revealed mild tricuspid regurgitation. There is mild pulmonary hypertension. The PA pressure was estimated at 35 mmHg. DATE: 09/20/18 1140 STRESS TEST STRESS TEST Conclusion 1. EKG with baseline TWI due to hypertrophy 2. Mild apical perfusion defect without active ischemia or infarction 3. Normal EF at > 70% 4. Low risk study DATE: 02/23/17 1149 HEART CATH HEART CATH CORONARY ANGIOGRAPHY: LM is a large caliber vessel with normal angiographic appearance. LAD is a large caliber vessel with normal angiographic appearance. LCx is a moderate caliber non-dominant vessel with normal angiographic appearance. OM1 is a moderate caliber vessel with normal angiographic appearance. RCA is a small to moderate caliber vessel with normal angiographic appearance. SIMULTANEOUS AORTIC GRADIENT: 40 mm Hg. Conclusion 1. Mild acute on chronic diastolic HF 2. Normal angiographic appearance of the coronary arteries. 3. Severe aortic stenosis. Recommendations Referral to [facility] for TAVR evaluation. DATE: 12/27/18 1403 ASSESSMENT/PLAN ASSESSMENT/PLAN 1. Right groin, lower abdominal pain. US without evidence of pseudoaneurysm. 2. Elevated troponin; highest 1.6. h/o chronically elevated troponin level. Recent cath with normal angiographic appearance of the coronaries. 3. Severe ; referral to for TAVR evaluation 4. Hypertension; controlled 5. Hypothyroidism 6. H/o DVT; anticoagulated with warfarin Recommendations Supportive care Evaluation at for possible TAVR ALISSA HENDRIX MD 01/03/19 2255: CARDIAC CONSULT ASSESSMENT/PLAN ASSESSMENT/PLAN Pt. seen and examined. Agree with above VICE PRESIDENT note. Discussed with patient. Ok for DC today. Thanks GUCCI ROMANO APRN Jan 03, 2019 11:37 ALISSA HENDRIX MD Jan 03, 2019 22:53
--- NOTE | 2019-01-03 11:42 | NUR ---
SS following for discharge planning. SS reviewed pt chart. Pt is from home and is currently on room air. No discharge needs noted at this time. SS will continue to follow for discharge planning.
[2019-01-03] MEDS ORDERED: TRAM50TA PO (12:55)
--- NOTE | 2019-01-03 13:23 | PDOC3 ---
Discharge Summary Visit Information Date of Admission: Jan 02, 2019 Date of Discharge: Jan 03, 2019 Admitting Diagnosis: Chest pain Final Diagnosis Problems Medical Problems: (1) Elevated troponin Status: Acute Brief Hospital Course Allergies Allergies Coded Allergies Type Severity Reaction Last Updated Verified Penicillins Allergy Severe Anaphylaxis 09/24/17 Yes diphenhydramine Allergy Severe Anaphylaxis 09/24/17 Yes ipratropium Allergy Severe Anaphylaxis 09/24/17 Yes meclizine Allergy Severe 09/24/17 Yes trazodone Allergy Severe Shortness of Air 09/24/17 Yes bacitracin Allergy Intermediate Rash 09/24/17 Yes neomycin Allergy Intermediate Rash 09/24/17 Yes oxycodone Allergy Intermediate Nausea and Vomiting 09/24/17 Yes polymyxin B Allergy Intermediate Rash 09/24/17 Yes tramadol Allergy Mild Itching 09/24/17 Yes I S O L A T I O N *CONTACT* Allergy Unknown 09/24/17 Yes Vital Signs Vital Signs Date Time Temp Pulse Resp B/P (MAP) Pulse Ox O2 Delivery O2 Flow Rate FiO2 01/03/19 12:56 Room Air 01/03/19 11:00 97.6 63 18 122/61 (81) 98 97.6 Lab Results Laboratory Tests Test 01/02/19 11:45 01/02/19 12:00 01/02/19 14:55 01/03/19 04:45 Urine Collection Type Unknown Urine Color Yellow Urine Clarity Clear Urine pH 5.0 Urine Specific [place] 1.010 Urine Protein Negative mg/dL (NEG-TRACE) Urine Glucose (UA) Negative mg/dL (NEG) Urine Ketones (Stick) Negative mg/dL (NEG) Urine Blood Negative (NEG) Urine Nitrite Negative (NEG) Urine Bilirubin Negative (NEG) Urine Urobilinogen Dipstick 0.2 mg/dL (0.2 mg/dL) Urine Leukocyte Esterase Negative (NEG) Urine RBC 0 /HPF (0-2) Urine WBC 0 /HPF (0-4) Urine Squamous Epithelial Cells Mod /LPF Urine Bacteria 0 /HPF (0-FEW) White Blood Count 4.0 x10^3/uL (4.0-11.0) Red Blood Count 3.28 x10^6/uL (3.50-5.40) Hemoglobin 10.8 g/dL (12.0-15.5) Hematocrit 32.1 % (36.0-47.0) Mean Corpuscular Volume 98 fL (79-100) Mean Corpuscular Hemoglobin 33 pg (25-35) Mean Corpuscular Hemoglobin Concent 34 g/dL (31-37) Red Cell Distribution Width 14.6 % (11.5-14.5) Platelet Count 222 x10^3/uL (140-400) Neutrophils (%) (Auto) 55 % (31-73) Lymphocytes (%) (Auto) 33 % (24-48) Monocytes (%) (Auto) 9 % (0-9) Eosinophils (%) (Auto) 3 % (0-3) Basophils (%) (Auto) 1 % (0-3) Neutrophils # (Auto) 2.2 x10^3/uL (1.8-7.7) Lymphocytes # (Auto) 1.3 x10^3/uL (1.0-4.8) Monocytes # (Auto) 0.3 x10^3/uL (0.0-1.1) Eosinophils # (Auto) 0.1 x10^3/uL (0.0-0.7) Basophils # (Auto) 0.0 x10^3/uL (0.0-0.2) Prothrombin Time 20.8 SEC (11.7-14.0) 21.7 SEC (11.7-14.0) Prothromb Time International Ratio 1.8 (0.8-1.1) 1.9 (0.8-1.1) Activated Partial Thromboplast Time 35 SEC (24-38) Sodium Level 143 mmol/L (136-145) Potassium Level 4.4 mmol/L (3.5-5.1) Chloride Level 108 mmol/L (98-107) Carbon Dioxide Level 28 mmol/L (21-32) Anion Gap 7 (6-14) Blood Urea Nitrogen 15 mg/dL (7-20) Creatinine 0.9 mg/dL (0.6-1.0) Estimated GFR (Cockcroft-Gault) 73.3 BUN/Creatinine Ratio 17 (6-20) Glucose Level 91 mg/dL (70-99) Calcium Level 9.4 mg/dL (8.5-10.1) Total Bilirubin 0.5 mg/dL (0.2-1.0) Aspartate Amino Transf (AST/SGOT) 21 U/L (15-37) Alanine Aminotransferase (ALT/SGPT) 14 U/L (14-59) Alkaline Phosphatase 63 U/L (46-116) Creatine Kinase 161 U/L (26-192) Creatine Kinase MB (Mass) 2.2 ng/mL (0.0-3.6) Creatine Kinase MB Relative Index 1.4 % (0-4) Troponin I Quantitative 1.649 ng/mL (0.000-0.055) 1.421 ng/mL (0.000-0.055) 1.554 ng/mL (0.000-0.055) Total Protein 7.3 g/dL (6.4-8.2) Albumin 3.6 g/dL (3.4-5.0) Albumin/Globulin Ratio 1.0 (1.0-1.7) Thyroid Stimulating Hormone (TSH) 0.440 uIU/mL (0.358-3.74) Laboratory Tests Test 01/02/19 14:55 01/03/19 04:45 Troponin I Quantitative 1.421 ng/mL (0.000-0.055) 1.554 ng/mL (0.000-0.055) Prothrombin Time 21.7 SEC (11.7-14.0) Prothromb Time International Ratio 1.9 (0.8-1.1) Brief Hospital Course Ms Brice is a 78 year old female w/ PMHx Severe aortic stenosis, Anxiety, Asthma, DVT, GERD, Hypertension, Hypothyroid, Pneumonia, P.U.D. who presents with multiple complaints. The patient states she had a cardiac catheter done this past 12/27/[address] Swann. She states since that times been having bruising on her abdomen, and abdominal pain. He states that she takes warfarin however she's been confused on when and how to take it over the last several weeks so she's been "winging it", had an INR on 12/29/18, but has yet to have the results returned to her for dose adjustment. She also states that she's been having chest pain and shortness of breath. She has a history of blood clot, DVT in her RLE, has been on warfarin for this. She notes. Rates her pain as 8 out of 10 in severity and sharp, substernal, radiates to her left shoulder and back. Troponin was 1.649. INR 1.8. Hb 10.8. EKG with no sign of STEMI. On further ROS she notes bilateral leg "heaviness" that has been progressive and pain in her right groin and thigh. She has been very cold recently as well. Had negative CT abdomen/pelvis and right groin US. A/P: Chest pain - with elevated troponin, recent cardiac cath last week with normal appearing coronary arteries. Radiation to left shoulder concerning, however, low risk based on recent cath, will trend out her troponins. Likely non-cardiac Abdominal pain - with bruising, CT abdomen/pelvis with no hematoma apparent. Will get US of right groin Severe aortic stenosis - per cath. Referral to [facility] for TAVR Anxiety - cont home lorazepam Asthma - will cont inhalers DVT - on coumadin. INR nearly therapeutic GERD - will give GI cocktail, cont PPI Hypertension - cont meds Hypothyroid - check TSH, cont meds P.U.D - cont PPI Greater than 30 minutes spent on d/c Discharge Information Condition at Discharge: Improved Follow Up: Weeks (1) Disposition/Orders: D/C to Home Scheduled Albuterol Sulfate (Ventolin Hfa Inhaler) 18 Gm Hfa.aer.ad, 2 PUFF INH QID for FOR ASTHMA, Ref 0 (Reported) Entered as Reported by: AUSTIN GLASGOW on 03/13/14 1436 Cholecalciferol (Vitamin D3) (Vitamin D) 1,000 Unit Capsule, 1 CAP PO DAILY, #30 Ref 3 (Reported) Entered as Reported by: AUSTIN GLASGOW on 03/13/14 1436 Cyanocobalamin (Vitamin B-12) (Liquid B-12) 1,000 Mcg/15 Ml Liquid, 1,000 MCG PO DAILY for rx, (Reported) Entered as Reported by: CATIE ENAMORADO on 12/27/18 1206 Dextran 70/Hypromellose/Pf (Artificial Tears Drops) 1 Each Droperette, 1 EACH OU BID, (Reported) Entered as Reported by: NOEL MONK on 09/02/15 2309 Last Action: Converted on 01/02/19 1606 by SHELIA FELICIANO MD Duloxetine Hcl (Cymbalta) 30 Mg Capsule.dr, 1 CAP PO DAILY for rx, #30 Ref 5 (Reported) Entered as Reported by: CATIE ENAMORADO on 12/27/18 120 Last Action: Continued on 01/02/191605 by SHELIA FELICIANO MD Ferrous Sulfate (Ferrous Sulfate) 325 Mg Tablet, 1 TAB PO DAILY, #30 Ref 3 (Reported) Entered as Reported by: ANGEL VELASCO on 05/06/17 0407 Fluticasone Propionate (Fluticasone Propionate Nasal [place]) 16 Gm [place].susp, 1 SPRAY NS DAILY, (Reported) Entered as Reported by: STEPHANE SANTOS on 07/11/16 1532 Last Action: Continued on 01/02/19 160 by SHELIA FELICIANO MD Levothyroxine Sodium (Levothyroxine Sodium) 50 Mcg Tablet, 1 TAB PO DAILY, #30 Ref 5 (Reported) Entered as Reported by: AUSTIN GLASGOW on 03/13/14 1436 Last Action: Continued on 01/02/191605 by SHELIA FELICIANO MD Lisinopril (Lisinopril) 5 Mg Tablet, 2 TAB PO DAILY, #30 Ref 5 (Reported) Entered as Reported by: AUSTIN GLASGOW on 03/13/14 1436 Last Action: Continued on 01/02/191605 by SHELIA FELICIANO MD Mometasone/Formoterol (Dulera 100 Mcg/5 Mcg Inhaler) 13 Gm Hfa.aer.ad, 2 PUFF IH BID for rx, #13 Ref 2 (Reported) Entered as Reported by: CATIE ENAMORADO on 12/27/18 120 Last Action: Converted on 01/02/191605 by SHELIA FELICIANO MD Montelukast Sodium (Singulair Tablet ) 10 Mg Tablet, 10 MG PO HS for FOR ASTHMA, Ref 0 (Reported) Entered as Reported by: CATIE ENAMORADO on 12/27/18 120 Last Action: Continued on 01/02/191605 by SHELIA FELICIANO MD Pantoprazole Sodium (Protonix) 20 Mg Tablet.dr, 40 MG PO DAILY, (Reported) Entered as Reported by: ROSA MARIA ADAN RN on 08/08/17 1246 Last Action: Converted on 01/02/191605 by SHELIA FELICIANO MD Polyethylene Glycol 3350 (Polyethylene Glycol 3350) 17 Gm Powd.pack, 17 GM PO DAILY, (Reported) Entered as Reported by: AUSTIN GLASGOW on 03/13/14 1436 Last Action: Continued on 01/02/191605 by SHELIA FELICIANO MD Ranitidine Hcl (Ranitidine Hcl) 150 Mg Tablet, 150 MG PO DAILY, (Reported) Entered as Reported by: ANGEL VELASCO on 05/06/17 0407 Vit A & D3 In Cod Liver Oil (Cod Liver Oil Softgel) 1 Each Capsule, 1 EACH PO DAILY, (Reported) Entered as Reported by: ANGEL VELASCO on 05/06/17 0407 Warfarin Sodium (Coumadin) 10 Mg Tablet, 1 TAB PO UD for rx, #30 (Reported) Wednesday and Wednesday Entered as Reported by: CATIE ENAMORADO on 12/27/181205 Warfarin Sodium (Coumadin) 10 Mg Tablet, 1.5 TAB PO UD for rx, #30 (Reported) takes 1.5 tabs(15 mg) on through Wednesday Entered as Reported by: CATIE ENAMORADO on 12/27/181205 Last Action: Continued on 01/02/191605 by SHELIA FELICIANO MD Scheduled PRN Gabapentin (Gabapentin ) 100 Mg Capsule, 100 MG PO PRN TID PRN for PAIN, #2 (Reported) takes 1 at bedtime Entered as Reported by: Danielle Wood on 08/08/17 0241 Last Action: Continued on 01/02/191605 by SHELIA FELICIANO MD Loratadine (Loratadine) 10 Mg Tablet, 1 TAB PO DAILY PRN for ALLERGIES, #30 Ref 5 (Reported) Entered as Reported by: CATIE ENAMORADO on 12/27/181205 Lorazepam (Lorazepam) 0.5 Mg Tablet, 1 TAB PO TID PRN for ANXIETY, #90 (Reported) Entered as Reported by: CATIE ENAMORADO on 12/27/181205 Last Action: Continued on 01/02/191605 by SHELIA FELICIANO MD Sodium Chloride (Nasal Moisturizing) 88 Ml [place], 88 ML NS PRN PRN for SEE COMMENTS, (Reported) Entered as Reported by: CATIE ENAMORADO on 12/27/181205 Last Action: Continued on 01/02/191605 by SHELIA FELICIANO MD Tramadol Hcl (Tramadol Hcl) 50 Mg Tablet, 50 MG PO Q6HRS PRN for PAIN for 6 Days, #24 Prescribed by: SHELIA FELICIANO MD on 01/03/19 1255 Discontinued Medications Duloxetine Hcl (Cymbalta) 20 Mg Capsule.dr, 40 MG PO DAILY, (Reported) Entered as Reported by: ANGEL VELASCO on 05/06/17 0407 Warfarin Sodium (Coumadin) 5 Mg Tablet, 10 MG PO QM, (Reported) Entered as Reported by: CORI ANTONY on 05/13/17 1038 Warfarin Sodium (Coumadin) 7.5 Mg Tablet, 7.5 MG PO TUES THRU SUN, (Reported) Entered as Reported by: PRACHI BROWNLEE [facility] on 08/08/17 1225 SHELIA FELICIANO MD Jan 03, 2019 13:23
[2019-01-03 15:00] VITALS: BP 124/60
[2019-01-03] MEDS ORDERED: traMADol 50 MG TABLET PO PRN (15:30)
[2019-01-03] MEDS ORDERED: WARFARIN 4 MG TABLET. PO ONE (16:00)
--- NOTE | 2019-01-03 18:15 | NUR ---
Discharge instructions given to patient and verbalized understanding. Heart monitor removed. Awaits for a ride home.
--- NOTE | 2019-01-03 18:49 | NUR ---
Patient escorted off unit per wheelchair into a private vehicle.
== END 2019-01-03 18:51 | disposition home or self-care (01) | DRG 313 ==
LOC: ER 10:53 → ED HOLD 13:57 → 2 NORTH 19:24
PROVIDERS: ADMIT Internal Medicine; ATTEND Internal Medicine
DX: R07.9 Chest pain, unspecified (principal); R77.8 Other specified abnormalities of plasma proteins; Z96.659 Presence of unspecified artificial knee joint; F32.9 Major depressive disorder, single episode, unspecified; M19.90 Unspecified osteoarthritis, unspecified site; M85.80 Other specified disorders of bone density and structure, unspecified site; R10.9 Unspecified abdominal pain; E03.9 Hypothyroidism, unspecified; E78.5 Hyperlipidemia, unspecified; F41.9 Anxiety disorder, unspecified; I10 Essential (primary) hypertension; I35.0 Nonrheumatic aortic (valve) stenosis; J45.909 Unspecified asthma, uncomplicated; K21.9 Gastro-esophageal reflux disease without esophagitis; Z79.01 Long term (current) use of anticoagulants; Z83.3 Family history of diabetes mellitus; Z86.711 Personal history of pulmonary embolism; Z86.718 Personal history of other venous thrombosis and embolism; Z87.11 Personal history of peptic ulcer disease; Z87.01 Personal history of pneumonia (recurrent); Z88.1 Allergy status to other antibiotic agents; Z88.5 Allergy status to narcotic agent; Z88.0 Allergy status to penicillin; Z88.8 Allergy status to other drugs, medicaments and biological substances
CPT/HCPCS: 36415; 71275; 74177; 80053; 81001; 82553; 84443; 84484; 85025; 85610; 85730; 87641; 93005; 93926; 94640; 94760; J2270; J2405; J7030; J7613; J7626; Q9967; G0378

== ENCOUNTER 2019-02-26 23:36 | Inpatient (IN) | payer MEDICARE, OTHER ==
[~2019-02-26] VITALS: Ht 157.5 cm; Wt 83.1 kg
[~2019-02-26 23:36] MED LIST changes: +ACET325T9 PO
[2019-02-27 00:35] LABS: BASO % 1 % (0-3); EOS # 0.2 x10^3/uL (0.0-0.7); EOS % 5 % (0-3); HEMATOCRIT 29.3 % (36.0-47.0); HEMOGLOBIN 9.8 g/dL (12.0-15.5); LYMPH # 1.7 x10^3/uL (1.0-4.8); LYMPH % 38 % (24-48); MEAN CORPUSCULAR HEMOGLOBIN 33 pg (25-35); MEAN CORPUSCULAR HGB CONC 34 g/dL (31-37); MEAN CORPUSCULAR VOLUME 98 fL (79-100); MONO # 0.5 x10^3/uL (0.0-1.1); MONO % 12 % (0-9); NEUT % 45 % (31-73); PLATELET COUNT 172 x10^3/uL (140-400); RED BLOOD COUNT 2.98 x10^6/uL (3.50-5.40); RED CELL DISTRIBUTION WIDTH 13.9 % (11.5-14.5); WHITE BLOOD COUNT 4.5 x10^3/uL (4.0-11.0)
[2019-02-27 00:42] LABS: CALCIUM 9.2 mg/dL (8.5-10.1); CREATININE 0.9 mg/dL (0.6-1.0); GFR 73.3; POTASSIUM 3.7 mmol/L (3.5-5.1); PROTHROMBIN TIME PATIENT 15.2 SEC (11.7-14.0)
[2019-02-27 00:48] LABS: ALBUMIN 3.4 g/dL (3.4-5.0); ALBUMIN/GLOBULIN RATIO 0.8 (1.0-1.7); MAGNESIUM 1.9 mg/dL (1.8-2.4); TOTAL BILIRUBIN 0.3 mg/dL (0.2-1.0); TOTAL PROTEIN 7.5 g/dL (6.4-8.2)
[2019-02-27] MEDS ORDERED: ONDANSETRON PF 4 MG/2 ML VIAL. IV ONE (01:30)
[2019-02-27] MEDS ORDERED: MORPHINE SULFATE 2 MG/ML VIAL. IV ONE ×2 (01:30→02:30)
[2019-02-27] MEDS ORDERED: LIDO:MAALOX 1:1 20 ML SINGLE DOSE. SWSW ONE (01:30)
--- NOTE | 2019-02-27 02:13 | PHYS DOC ---
Past Medical History Past Medical History: Anxiety, Asthma, DVT, GERD, Hypertension, Hypothyroid, Pneumonia, P.U.D., Other Additional Past Medical Histor: ulcer Past Surgical History: Angioplasty, Knee Replacement, Tubal ligation, Other Additional Past Surgical Histo: Hernia; Feet; Ulcers, shoulder surgery, TAVR PROCEDURE Alcohol Use: None Drug Use: None Adult General Chief Complaint Chief Complaint: CHEST PAIN HPI HPI Patient is a 78-year-old female who presents with complaint of chest pain that started earlier this evening. She describes pain as a deep ache in her chest and also in her left shoulder. Patient just recently had been hospitalized and had an aortic valve repair. Patient does have significant cardiac disease. She denies any nausea, vomiting or diaphoresis. Currently she rates her pain at about a 2-3 out of 10. She states that nothing seems to worsen or improve the pain.[] Review of Systems Review of Systems Constitutional: Denies fever or chills [] Respiratory: Denies cough or shortness of breath [] Cardiovascular: No additional information not addressed in HPI [] GI: Denies abdominal pain, nausea, vomiting or diarrhea [] Integument: Denies rash or skin lesions [] Neurologic: Denies headache, focal weakness or sensory changes [] All other systems were reviewed and found to be within normal limits, except as documented in this note. Current Medications Current Medications Current Medications Medications (Trade) Dose Ordered Sig/Sivan Start Time Stop Time Status Last Admin Dose Admin Morphine Sulfate (Morphine Sulfate) 2 mg 1X ONCE 02/27/19 01:30 02/27/19 01:31 DC 02/27/19 01:11 2 MG Multi-Ingredient Mouthwash/Gargle (Gi Cocktail) 20 ml 1X ONCE 02/27/19 01:30 02/27/19 01:31 DC 02/27/19 01:11 20 ML Ondansetron HCl (Zofran) 4 mg 1X ONCE 02/27/19 01:30 02/27/19 01:31 DC 02/27/19 01:10 4 MG Allergies Allergies Allergies Coded Allergies Type Severity Reaction Last Updated Verified Penicillins Allergy Severe Anaphylaxis 09/24/17 Yes diphenhydramine Allergy Severe Anaphylaxis 09/24/17 Yes ipratropium Allergy Severe Anaphylaxis 09/24/17 Yes meclizine Allergy Severe 09/24/17 Yes trazodone Allergy Severe Shortness of Air 09/24/17 Yes bacitracin Allergy Intermediate Rash 09/24/17 Yes neomycin Allergy Intermediate Rash 09/24/17 Yes oxycodone Allergy Intermediate Nausea and Vomiting 09/24/17 Yes polymyxin B Allergy Intermediate Rash 09/24/17 Yes I S O L A T I O N *CONTACT* Allergy Unknown 09/24/17 Yes Physical Exam Physical Exam Constitutional: Well developed, well nourished, no acute distress, non-toxic appearance. [] HENT: Normocephalic, atraumatic, bilateral external ears normal, oropharynx moist, no oral exudates, nose normal. [] Eyes: PERRLA, EOMI, conjunctiva normal, no discharge. [] Neck: Normal range of motion, no tenderness, supple. [] Cardiovascular: Regular rate and rhythm[] Lungs & Thorax: Bilateral breath sounds clear to auscultation [] Abdomen: Bowel sounds normal, soft, no tenderness. [] Skin: Warm, dry, no erythema, no rash. [] Extremities: No tenderness, no cyanosis, no clubbing, ROM intact, no edema. [] Neurologic: Alert and oriented X 3, no focal deficits noted. [] Current Patient Data Vital Signs Vital Signs Date Time Temp Pulse Resp B/P (MAP) Pulse Ox O2 Delivery O2 Flow Rate FiO2 02/27/19 01:49 29 29 179/92 (121) 100 Room Air 02/27/19 00:37 98.7 98.7 Lab Values Laboratory Tests Test 02/27/19 00:21 White Blood Count 4.5 x10^3/uL (4.0-11.0) Red Blood Count 2.98 x10^6/uL (3.50-5.40) L Hemoglobin 9.8 g/dL (12.0-15.5) L Hematocrit 29.3 % (36.0-47.0) L Mean Corpuscular Volume 98 fL (79-100) Mean Corpuscular Hemoglobin 33 pg (25-35) Mean Corpuscular Hemoglobin Concent 34 g/dL (31-37) Red Cell Distribution Width 13.9 % (11.5-14.5) Platelet Count 172 x10^3/uL (140-400) Neutrophils (%) (Auto) 45 % (31-73) Lymphocytes (%) (Auto) 38 % (24-48) Monocytes (%) (Auto) 12 % (0-9) H Eosinophils (%) (Auto) 5 % (0-3) H Basophils (%) (Auto) 1 % (0-3) Neutrophils # (Auto) 2.0 x10^3/uL (1.8-7.7) Lymphocytes # (Auto) 1.7 x10^3/uL (1.0-4.8) Monocytes # (Auto) 0.5 x10^3/uL (0.0-1.1) Eosinophils # (Auto) 0.2 x10^3/uL (0.0-0.7) Basophils # (Auto) 0.0 x10^3/uL (0.0-0.2) Prothrombin Time 15.2 SEC (11.7-14.0) H Prothrombin Time INR 1.2 (0.8-1.1) H Sodium Level 143 mmol/L (136-145) Potassium Level 3.7 mmol/L (3.5-5.1) Chloride Level 107 mmol/L (98-107) Carbon Dioxide Level 27 mmol/L (21-32) Anion Gap 9 (6-14) Blood Urea Nitrogen 8 mg/dL (7-20) Creatinine 0.9 mg/dL (0.6-1.0) Estimated GFR (Cockcroft-Gault) 73.3 BUN/Creatinine Ratio 9 (6-20) Glucose Level 90 mg/dL (70-99) Calcium Level 9.2 mg/dL (8.5-10.1) Magnesium Level 1.9 mg/dL (1.8-2.4) Total Bilirubin 0.3 mg/dL (0.2-1.0) Aspartate Amino Transferase (AST) 16 U/L (15-37) Alanine Aminotransferase (ALT) 13 U/L (14-59) L Alkaline Phosphatase 61 U/L (46-116) Troponin I Quantitative 2.681 ng/mL (0.000-0.055) NT-Vco-U-Type Natriuretic Peptide 2189 pg/mL (0-449) H Total Protein 7.5 g/dL (6.4-8.2) Albumin 3.4 g/dL (3.4-5.0) Albumin/Globulin Ratio 0.8 (1.0-1.7) L Laboratory Tests 02/27/19 00:21 Laboratory Tests 02/27/19 00:21 EKG EKG [] Radiology/Procedures Radiology/Procedures [] Course & Med Decision Making Course & Med Decision Making Pertinent Labs and Imaging studies reviewed. (See chart for details) [] Dragon Disclaimer Dragon Disclaimer This electronic medical record was generated, in whole or in part, using a voice recognition dictation system. Departure Departure Impression: Primary Impression: Chest pain Additional Impression: Elevated troponin Disposition: ADMITTED INPATIENT Admitting Physician: VIVIENNE (Dr. Godoy) Condition: IMPROVED Referrals: DELMAR HAMILTON D.O. (PCP) Problem Qualifiers Primary Impression: Chest pain Chest pain type: unspecified Qualified Codes: R07.9 - Chest pain, unspecified JULIO C POST Jr. DO Feb 27, 2019 02:13
[2019-02-27] MEDS ORDERED: ONDANSETRON PF 4 MG/2 ML VIAL. IV PRN (02:15)
[2019-02-27] MEDS ORDERED: MORPHINE SULFATE 2 MG/ML VIAL. IV PRN (02:15)
[2019-02-27 03:46] VITALS: BP 157/84
[2019-02-27] MEDS ORDERED: ASPI81TA50 PO (05:41)
[2019-02-27] MEDS ORDERED: HYDR30CR60 RC (05:41)
[2019-02-27] MEDS ORDERED: SENN1TAB99 PO (05:41)
--- NOTE | 2019-02-27 05:50 | RAD ---
Chest AP portable at 2019: Reason for examination: Chest pain. Comparison is made to previous study dated 01/19/2019. The heart size is normal. Mediastinum is unremarkable. Lung cruz are clear except for calcified granuloma in the left lower lung field which is stable. No acute bony abnormalities are seen. Impression: No acute cardiopulmonary disease. Electronically signed by: Jolie Landa MD (02/27/2019 5:47 AM) [facility]
--- NOTE | 2019-02-27 06:45 | EKG ---
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
--- NOTE | 2019-02-27 06:45 | EKG ---
[facility] [address] [place] [address] Test Date: 2019-02-26 Test Time: 23:42:25 Pat Name: BRENNA RAMIREZ Department: Room: 260 1 Gender: F Senior Solutions Architect: : 1940 Requested By: JULIO C POST Order Number: [id number] Reading MD: Armando Swann MD Measurements Intervals [place] Rate: 77 P: 34 MD: 166 QRS: 3 QRSD: 92 T: 152 QT: 386 QTc: 439 Interpretive Statements SINUS RHYTHM LVH WITH REPOLARIZATION ABNORMALITY Electronically Signed On 03-06-2019 9:35:48 CDT by Armando Swann MD
[2019-02-27 07:00] VITALS: BP 149/71
[2019-02-27] MEDS ORDERED: CETIRIZINE HCL 10 MG TABLET. PO PRN (09:00)
--- NOTE | 2019-02-27 09:08 | NUR ---
IP: Pt has had a hx of + mrsa screens since 2008 with one documented negative on 01/02/19. Pt to be in contact precautions until a second screen is verified. Current screen is pending.
--- NOTE | 2019-02-27 10:10 | PDOC2 ---
GUCCI ROMANO CONSERVATION OF RESOURCES COMMISSIONER 02/27/19 1009: CARDIAC CONSULT DATE OF CONSULT Date of Consult DATE: 02/27/19 TIME: 10:03 REASON FOR CONSULT Reason for Consult: Chest pain Elevated troponin REFERRING PHYSICIAN Referring Physician: Dr. Whitlock SOURCE Source: Chart review, Patient HISTORY OF PRESENT ILLNESS HISTORY OF PRESENT ILLNESS This is a 78 yo female, with a history of chronic troponin elevation and aortic stenosis s/p TAVR at 02/23/19, who presented secondary to chest pain. Patient reports pain began yesterday morning. Located in her central chest. Describes as pressures. Radiated to her let side and shoulder. Associated with shortness of breath. No dizziness, diaphoresis, palpitations, or nausea/vomiting. Patient continued to have pain intermittently yesterday, so she came to the ED for further evaluation and treatment. No specific precipitating or worsening factors. Pain resolves without intervention. Patient reports pain to be very similar to what she has experienced in the past for which she underwent cardiac cath, which revealed normal coronaries. PAST MEDICAL HISTORY Past Medical History Cardiovascular: HTN, Hyperlipidemia, Aortic stenosis Pulmonary: Asthma GI: Constipation, GERD, Irritable bowel disease, Peptic Ulcer disease Heme/Onc: Anemia NOS, Other Psych: Anxiety, Depression Musculoskeletal: low back pain, Osteoarthritis, Other Endocrine: Hypothyroidism, Osteopenia, Other PAST SURGICAL HISTORY Past Surgical History Total knee replacement FAMILY HISTORY Family History: Diabetes SOCIAL HISTORY Social History ALCOHOL: none Drugs: None Lives: with Family Domestic Violence: Neg CURRENT MEDICATIONS CURRENT MEDICATIONS Current Medications Medications (Trade) Dose Ordered Sig/Sivan Route PRN Reason Start Time Stop Time Status Last Admin Dose Admin Multi-Ingredient Mouthwash/Gargle (Gi Cocktail) 20 ml 1X ONCE SWSW 02/27/19 01:30 02/27/19 01:31 DC 02/27/19 01:11 Morphine Sulfate (Morphine Sulfate) 2 mg 1X ONCE IV 02/27/19 01:30 02/27/19 01:31 DC 02/27/19 01:11 Ondansetron HCl (Zofran) 4 mg 1X ONCE IV 02/27/19 01:30 02/27/19 01:31 DC 02/27/19 01:10 Morphine Sulfate (Morphine Sulfate) 2 mg 1X ONCE IV 02/27/19 02:30 02/27/19 02:31 DC 02/27/19 02:37 ALLERGIES ALLERGIES: Coded Allergies: Penicillins (Verified Allergy, Severe, Anaphylaxis, 09/24/17) diphenhydramine (Verified Allergy, Severe, Anaphylaxis, 09/24/17) ipratropium (Verified Allergy, Severe, Anaphylaxis, 09/24/17) meclizine (Verified Allergy, Severe, 09/24/17) trazodone (Verified Allergy, Severe, Shortness of Air, 09/24/17) bacitracin (Verified Allergy, Intermediate, Rash, 09/24/17) neomycin (Verified Allergy, Intermediate, Rash, 09/24/17) oxycodone (Verified Allergy, Intermediate, Nausea and Vomiting, 09/24/17) polymyxin B (Verified Allergy, Intermediate, Rash, 09/24/17) tramadol (Verified Allergy, Intermediate, Itching, 02/27/19) cause itching ROS Review of System 14 point ROS conducted with pertinent positives noted above in HPI PHYSICAL EXAM PHYSICAL EXAM General: Alert, Oriented X3, Cooperative, No acute distress HEENT: Atraumatic, Mucous membr. moist/pink Lungs: Clear to auscultation, Normal air movement Heart: Regular rate, Normal S1, Normal S2, Other (2/6 systolic murmur ) Abdomen: Soft, No tenderness Extremities: No edema, Normal pulses Skin: No significant lesion Neuro: Normal speech, Sensation intact Psych/Mental Status: Mental status NL, Mood NL MUSCULOSKELETAL: Osteoarthritic changes both hands VITALS/I&O VITALS/I&O: Vital Signs Date Time Temp Pulse Resp B/P (MAP) Pulse Ox O2 Delivery O2 Flow Rate FiO2 02/27/19 07:00 97.6 65 18 149/71 (97) 99 Room Air 97.6 I & O 02/26/19 02/26/19 02/27/19 14:59 22:59 06:59 Intake Total 0 ml Balance 0 ml LABS Lab: Laboratory Tests Test 02/27/19 00:21 02/27/19 05:00 02/27/19 09:20 White Blood Count 4.5 x10^3/uL (4.0-11.0) Red Blood Count 2.98 x10^6/uL (3.50-5.40) L Hemoglobin 9.8 g/dL (12.0-15.5) L Hematocrit 29.3 % (36.0-47.0) L Mean Corpuscular Volume 98 fL (79-100) Mean Corpuscular Hemoglobin 33 pg (25-35) Mean Corpuscular Hemoglobin Concent 34 g/dL (31-37) Red Cell Distribution Width 13.9 % (11.5-14.5) Platelet Count 172 x10^3/uL (140-400) Neutrophils (%) (Auto) 45 % (31-73) Lymphocytes (%) (Auto) 38 % (24-48) Monocytes (%) (Auto) 12 % (0-9) H Eosinophils (%) (Auto) 5 % (0-3) H Basophils (%) (Auto) 1 % (0-3) Neutrophils # (Auto) 2.0 x10^3/uL (1.8-7.7) Lymphocytes # (Auto) 1.7 x10^3/uL (1.0-4.8) Monocytes # (Auto) 0.5 x10^3/uL (0.0-1.1) Eosinophils # (Auto) 0.2 x10^3/uL (0.0-0.7) Basophils # (Auto) 0.0 x10^3/uL (0.0-0.2) Prothrombin Time 15.2 SEC (11.7-14.0) H Prothrombin Time INR 1.2 (0.8-1.1) H Sodium Level 143 mmol/L (136-145) Potassium Level 3.7 mmol/L (3.5-5.1) Chloride Level 107 mmol/L (98-107) Carbon Dioxide Level 27 mmol/L (21-32) Anion Gap 9 (6-14) Blood Urea Nitrogen 8 mg/dL (7-20) Creatinine 0.9 mg/dL (0.6-1.0) Estimated GFR (Cockcroft-Gault) 73.3 BUN/Creatinine Ratio 9 (6-20) Glucose Level 90 mg/dL (70-99) Calcium Level 9.2 mg/dL (8.5-10.1) Magnesium Level 1.9 mg/dL (1.8-2.4) Total Bilirubin 0.3 mg/dL (0.2-1.0) Aspartate Amino Transferase (AST) 16 U/L (15-37) Alanine Aminotransferase (ALT) 13 U/L (14-59) L Alkaline Phosphatase 61 U/L (46-116) Troponin I Quantitative 2.681 ng/mL (0.000-0.055) 2.494 ng/mL (0.000-0.055) 2.580 ng/mL (0.000-0.055) AO-Dnc-M-Type Natriuretic Peptide 2189 pg/mL (0-449) H Total Protein 7.5 g/dL (6.4-8.2) Albumin 3.4 g/dL (3.4-5.0) Albumin/Globulin Ratio 0.8 (1.0-1.7) L Laboratory Tests 02/27/19 00:21 Laboratory Tests 02/27/19 00:21 ECHOCARDIOGRAM ECHOCARDIOGRAM DATE: 09/20/18 1140 <Conclusion> There is moderate to severe concentric left ventricular hypertrophy. The left ventricular systolic function is normal and the ejection fraction is within normal range. The Ejection Fraction is 55-60%. There is normal LV segmental wall motion. There is severe valvular aortic stenosis. Calculated aortic valve area is 0.6 cm2 with maximum pressure gradient of 75 mmHg and mean pressure gradient of 43 mmHg. Doppler and Color Flow revealed mild tricuspid regurgitation. There is mild pulmonary hypertension. The PA pressure was estimated at 35 mmHg. 02/24/19 - 2-D + DOPPLER ECHOCARDIOGRAM * There is a 29 mm Evolute Pro bioprosthetic aortic valve present. The prosthetic valve is normal. (Peak velocity=2m/sec, DVI=0.61) No stenosis. No regurgitation. * Left Ventricle: Normal size. Concentric remodeling. Hyperdynamic left ventricular function with LVEF=75% and no segmental wall motion abnormalities. * Right Ventricle: Normal size and ejection fraction. * Left Atrium: Severely dilated. * Estimated Peak Systolic PA Pressure 50 mmHg * When compared with study dated 01/24/19, there is now a normally functioning bioprosthesis in place. The PASP estimate has increased from 36-50mmHg. Otherwise, no significant change is noted. STRESS TEST STRESS TEST Conclusion 1. EKG with baseline TWI due to hypertrophy 2. Mild apical perfusion defect without active ischemia or infarction 3. Normal EF at > 70% 4. Low risk study DATE: 02/23/17 1149 HEART CATH HEART CATH CORONARY ANGIOGRAPHY: LM is a large caliber vessel with normal angiographic appearance. LAD is a large caliber vessel with normal angiographic appearance. LCx is a moderate caliber non-dominant vessel with normal angiographic appearance. OM1 is a moderate caliber vessel with normal angiographic appearance. RCA is a small to moderate caliber vessel with normal angiographic appearance. SIMULTANEOUS AORTIC GRADIENT: 40 mm Hg. Conclusion 1. Mild acute on chronic diastolic HF 2. Normal angiographic appearance of the coronary arteries. 3. Severe aortic stenosis. Recommendations Referral to [facility] for TAVR evaluation. DATE: 12/27/18 1403 ASSESSMENT/PLAN ASSESSMENT/PLAN 1. Chest pain, atypical. Cath 12/2018 with normal coronaries as noted above. Echo last week with preserved LV systolic function 2. Elevated troponin; highest 2.6. h/o chronically elevated troponin level. Recent cath with normal angiographic appearance of the coronaries. EKG without significant acute changes 3. Severe ; s/p TAVR 02/23/19 at 4. Accelerated hypertension; better controlled 5. Hypothyroidism 6. H/o DVT; chronic OAC with warfarin. INR 1.2 Recommendations Limited echo to assess aortic valve Resume secondary prevention Supportive care Further recs pending above. ALISSA HENDRIX MD 02/28/19 0905: CARDIAC CONSULT ASSESSMENT/PLAN ASSESSMENT/PLAN Late entry for 02/27/2019. Pt. seen and examined. Agree with above V BELT FINISHER note. No clear evidence of acute coronary syndrome. Valve appears to be stable. Ok to DC with continued non-cardiac w/u of chest/abd pain. GUCCI ROMANO APRN Feb 27, 2019 10:09 ALISSA HENDRIX MD Feb 28, 2019 09:05
[2019-02-27] MEDS ORDERED: ACETAMINOPHEN 325 MG TABLET. PO PRN (10:45)
[2019-02-27] MEDS ORDERED: HYDROCORTISONE 2.5% RECTAL CREAM 30GM TUBE. RC PRN (10:45)
[2019-02-27] MEDS ORDERED: LORazepam 0.5 MG TABLET PO PRN (10:45)
[2019-02-27] MEDS ORDERED: SODIUM CHLORIDE 0.65% NASAL SPRAY 45ML BOTTLE. NS PRN (10:45)
[2019-02-27] MEDS ORDERED: LEVOTHYROXINE 50 MCG TABLET PO SCH (11:00)
[2019-02-27] MEDS ORDERED: SENNOSIDES/DOCUSATE 8.6/50MG TABLET. PO SCH (11:00)
[2019-02-27] MEDS ORDERED: FERROUS SULFATE 325 MG TABLET. PO SCH (11:00)
[2019-02-27] MEDS ORDERED: POLYETHYLENE GLYCOL 3350 17 GM PACKET. PO SCH (11:00)
[2019-02-27] MEDS ORDERED: LISINOPRIL 5 MG TABLET. PO SCH (11:00)
[2019-02-27] MEDS ORDERED: FLUTICASONE 50MCG/NASAL SPRAY 16GM BOTTLE. NS SCH (11:00)
[2019-02-27] MEDS ORDERED: PANTOPRAZOLE 40 MG TABLET.DR. PO SCH (11:00)
[2019-02-27] MEDS ORDERED: POLYVINYL ALCOHOL 1.4% OPHTH SOLUTION 15ML BOTTLE. OU SCH (11:00)
[2019-02-27] MEDS ORDERED: CHOLECALCIFEROL (VITAMIN D3) 1,000 UNIT TABLET PO SCH (11:00)
[2019-02-27] MEDS ORDERED: CYANOCOBALAMIN (VITAMIN B-12) 1,000 MCG TABLET. PO SCH (11:00)
[2019-02-27] MEDS ORDERED: ASPIRIN ENTERIC COATED 81 MG TABLET.DR. PO SCH (11:00)
[2019-02-27] MEDS ORDERED: FAMOTIDINE 20 MG TABLET. PO SCH (11:00)
[2019-02-27 11:07] VITALS: BP 152/68
[2019-02-27 12:09] VITALS: BP 152/68
[2019-02-27] MEDS ORDERED: LIDO:MAALOX 1:1 20 ML SINGLE DOSE. PO PRN (12:15)
[2019-02-27] MEDS: ALBUTEROL SULFATE 2.5 MG/3 ML NEBU. NEB SCH ×2 (12:22→15:34)
[2019-02-27] MEDS ORDERED: NON FORMULARY ITEM (Albuterol Sulfate (Ventolin Hfa Inhaler) 2 PUFF) INH SCH (13:00)
--- NOTE | 2019-02-27 13:06 | HP ---
ADMIT DATE: 02/27/2019 CHIEF COMPLAINT: Chest pain. HISTORY OF PRESENT ILLNESS: The patient is a pleasant middle-aged female who has a history of aortic valve replacement that was done in the [facility]. She is also on chronic anticoagulation. Basically, she had some chest pain. She was concerned she could be having a myocardial infarction. Initial troponin was high at 2.68 and her creatinine is normal at 0.9. I discussed the case with ER physician. We are going to admit the patient and consult Cardiology. Suspect she may have had a small myocardial infarction. PAST MEDICAL HISTORY: Aortic valve replacement (TAVR procedure), anxiety, chronic anticoagulation, asthma, DVT, GERD, hyperlipidemia, hypothyroidism, pneumonia, peptic ulcer disease, right knee replacement, tubal ligation, hernia repair, foot surgery, shoulder surgery. ALLERGIES: PENICILLIN, BACTRIM, DIPHENHYDRAMINE, ALBUTEROL, MECLIZINE, NEOMYCIN, OXYCODONE, POLYMYXIN, ULTRAM, TRAZODONE. FAMILY HISTORY: Coronary artery disease. SOCIAL HISTORY: She does not drink, smoke, or take drugs. MEDICATIONS: Reviewed, please refer to the MRAD. REVIEW OF SYSTEMS: GENERAL: No history of weight change, weakness or fevers. SKIN: No bruising, hair changes or rashes. EYES: No blurred, double or loss of vision. NOSE AND THROAT: No history of nosebleeds, hoarseness or sore throat. HEART: No history of palpitations or shortness of breath on exertion. She complains of intermittent chest pain, although it is better this morning. LUNGS: Denies cough, hemoptysis, wheezing or shortness of breath. GASTROINTESTINAL: Denies changes in appetite, nausea, vomiting, diarrhea or constipation. GENITOURINARY: No history of frequency, urgency, hesitancy or nocturia. NEUROLOGIC: Denies history of numbness, tingling, tremor or weakness. PSYCHIATRIC: No history of panic, anxiety or depression. ENDOCRINE: No history of heat or cold intolerance, polyuria or polydipsia. EXTREMITIES: Denies muscle weakness, joint pain, pain on walking or stiffness. PHYSICAL EXAMINATION: VITALS: Within normal limits and are stable. GENERAL: No apparent distress. Alert and oriented. HEENT: Head is normocephalic, atraumatic, pupils were equally round and reactive to light and accommodation. NECK: Supple, no JVD, no thyromegaly was noted. LUNGS: Clear to auscultation in all lung cruz without rhonchi or wheezing. HEART: RRR, S1, S2 present. Peripheral pulses intact, no obvious murmurs were noted. ABDOMEN: Soft, nontender. Positive bowel sounds no organomegaly, normal bowel sounds. EXTREMITIES: Without any cyanosis, clubbing, or edema. Pedal pulses intact, Homans sign is negative. NEUROLOGIC: Normal speech, normal tone. A and O x 3, moves all extremities, no obvious focal deficits. PSYCHIATRIC: Normal affect, normal mood. Stable. SKIN: No ulcerations or rashes, good skin turgor, no jaundice. VASCULAR: Good capillary refill, neurovascular bundle appears to be intact. LABORATORY DATA: Troponin is 2.6. ASSESSMENT AND PLAN: Chest pain with elevated troponin, suspect possible myocardial infarction, although she has had aortic valve recently. We will consult Cardiology. Serial enzymes, serial EKGs, cardiac monitoring, deep venous thrombosis prophylaxis, home meds, PT/OT. TORRI WILLIS DO DR: JOSE/parmjit JOB#: [id number] / [id number]
[2019-02-27] MEDS ORDERED: GABAPENTIN 100 MG CAPSULE. PO SCH (14:00)
--- NOTE | 2019-02-27 15:59 | NUR ---
SS following for discharge planning. SS reviewed pt chart. Pt is from home with family and is currently on room air. SS will continue to follow for discharge planning.
[2019-02-27] MEDS ORDERED: WARFARIN 7.5 MG TABLET. PO ONE (16:00)
--- NOTE | 2019-02-27 17:21 | CARD ---
MR#: [id number] Date of Study: 02/27/2019 Ordering Physician: GUCCI ROMANO, Referring Physician: GUCCI ROMANO, Tech: Shelley Hamilton APPROVED REPORT EXAM: Two-dimensional and M-mode echocardiogram with Doppler and color Doppler. Other Information Quality : AverageHR: 66bpm INDICATION Aortic Valve Disease Chest Pain Surgery/Intervention Status/Post Aortic Valve Replacement: Bioprosthetic Type: Porcine Date: 02/23/2019 RISK FACTORS Hypertension 2D DIMENSIONS RVDd2.6 (2.9-3.5cm)Left Atrium(2D)3.6 (1.6-4.0cm) IVSd1.2 (0.7-1.1cm)Aortic Root(2D)1.9 (2.0-3.7cm) LVDd5.3 (3.9-5.9cm)LVOT Diameter1.6 (1.8-2.4cm) PWd1.0 (0.7-1.1cm)LVDs2.8 (2.5-4.0cm) FS (%) 46.2 %SV103.5 ml LVEF(%)77.2 (>50%) Aortic Valve AoV Peak Alden.216.0cm/sAoV VTI44.1cm AO Peak GR.18.7mmHgLVOT VTI 27.49cm AO Mean GR.10mmHgAVA (VTI)1.24cm2 Tricuspid Valve TR P. [id number] TR Peak Gr.[id number] LEFT VENTRICLE The left ventricle is normal size. There is mild concentric left ventricular hypertrophy. The left ve ntricular systolic function is normal. The Ejection Fraction is 60-65%. There is normal LV segmental wall motion. Diastology not performed. RIGHT VENTRICLE The right ventricle is normal size. There is normal right ventricular wall thickness. The right ventr icular systolic function is normal. ATRIA The left atrium is mildly dilated. The right atrium is borderline dilated. The interatrial septum is intact with no evidence for an atrial septal defect or patent foramen ovale as noted on 2-D or Dopple r imaging. AORTIC VALVE Doppler and Color Flow revealed no significant aortic regurgitation. There is no significant aortic v alvular stenosis. Calculated aortic valve area is 1.24 cm2 with maximum pressure gradient of 19 mmHg and mean pressure gradient of 10 mmHg. 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 The prosthetic aor tic valve appears normal. MITRAL VALVE The mitral valve is normal in structure and function. There is no evidence of mitral valve prolapse. There is no mitral valve stenosis. Doppler and color-flow analysis was not performed. TRICUSPID VALVE The tricuspid valve is normal in structure and function. Doppler and Color Flow revealed trace to mil d tricuspid regurgitation with an estimated PAP of 52 mmHg. There is no tricuspid valve prolapse or v egetation. There is no tricuspid valve stenosis. PULMONIC VALVE The pulmonic valve is not well visualized. Doppler and color-flow analysis was not performed. GREAT VESSELS The aortic root is normal in size. The ascending aorta is normal in size. The IVC is dilated and claude apses <50% with inspiration. PERICARDIAL EFFUSION There is no evidence of significant pericardial effusion. Critical Notification Critical Value: No <Conclusion> The left ventricular systolic function is normal. The Ejection Fraction is 60-65%. There is normal LV segmental wall motion. The bioprosthetic aortic valve appears well seated and functioning well. Mean pressure gradient 10 m mHg. Trace to mild tricuspid regurgitation with an estimated PAP of 52 mmHg. There is no evidence of significant pericardial effusion. Signed by : Josh Sifuentes, Electronically Approved : 02/27/2019 17:20:27
--- NOTE | 2019-02-27 18:27 | NUR ---
Discharge Note: [facility] Discharge instructions and discharge home medications reviewed with Patient and a copy given. All questions have been answered and understanding verbalized. The following instructions and handouts were given: cardiac diet and chest pain. Discontinued iv lines and catheter intact. Patient discharged to home with self-care via private vehicle.
[2019-02-27] MEDS ORDERED: BUDESONIDE 0.5 MG/2 ML NEBU. NEB SCH (20:00)
[2019-02-27] MEDS ORDERED: MONTELUKAST SODIUM 10 MG TABLET. PO SCH (21:00)
[2019-02-27] MEDS ORDERED: NON FORMULARY ITEM (Mometasone/Formoterol (Dulera 100 Mcg/5 Mcg Inhaler) 2 PUFF) IH SCH (21:00)
[2019-02-28] MEDS ORDERED: D3 PO SCH (09:00)
[2019-02-28] MEDS ORDERED: COD LIVER OIL PO SCH (09:00)
[2019-02-28] MEDS ORDERED: VIT A PO SCH (09:00)
--- NOTE | 2019-03-02 15:10 | DS ---
DATE OF DISCHARGE: 02/27/2019 ADMISSION DIAGNOSIS: Chest pain. DISCHARGE DIAGNOSIS: Atypical chest pain. HOSPITAL COURSE: The patient is a pleasant 78-year-old female who presented with chest pain. She had a slightly bump in her troponin. She had had a history of aortic valve replacement. We admitted her. We consulted Cardiology. Apparently, the pain was resolving and was atypical. We discharged to home. DISPOSITION: Home. ACTIVITY: As tolerated. DIET: Low sodium. MEDICATIONS: Please see MRAD. TOTAL TIME: 31 minutes. TORRI WILLIS DO DR: JOSE/parmjit JOB#: [id number] / [id number]
== END 2019-02-27 18:15 | disposition home or self-care (01) | DRG 392 ==
LOC: ER 23:36 → 2 SOUTH 02-27 02:13
PROVIDERS: ADMIT Internal Medicine; ATTEND Internal Medicine
DX: K21.9 Gastro-esophageal reflux disease without esophagitis (principal); I10 Essential (primary) hypertension; E03.9 Hypothyroidism, unspecified; F32.9 Major depressive disorder, single episode, unspecified; F41.9 Anxiety disorder, unspecified; Z96.651 Presence of right artificial knee joint; J45.909 Unspecified asthma, uncomplicated; E78.5 Hyperlipidemia, unspecified; K58.9 Irritable bowel syndrome, unspecified; M85.80 Other specified disorders of bone density and structure, unspecified site; Z88.0 Allergy status to penicillin; Z88.8 Allergy status to other drugs, medicaments and biological substances; Z95.2 Presence of prosthetic heart valve; Z79.01 Long term (current) use of anticoagulants; I25.2 Old myocardial infarction; Z86.718 Personal history of other venous thrombosis and embolism; Z87.01 Personal history of pneumonia (recurrent); Z87.11 Personal history of peptic ulcer disease; Z83.3 Family history of diabetes mellitus; Z82.49 Family history of ischemic heart disease and other diseases of the circulatory system
CPT/HCPCS: 36415; 71045; 80053; 83735; 83880; 84484; 85025; 85610; 87641; 93005; 93308; 93320; 93325; 94640; 96374; J2270; J2405; J7613; 99285-25; G0378

== ENCOUNTER 2019-04-09 16:33 | Emergency (ER) | payer MEDICARE, OTHER ==
[~2019-04-09] VITALS: Ht 165.1 cm; Wt 83.0 kg
[~2019-04-09 16:33] MED LIST changes: +ASPI81TA50 PO; +HYDR30CR60 RC; +SENN1TAB99 PO
[2019-04-09] MEDS ORDERED: IV NORMAL SALINE 1000ML BAG 1,000 ML IV SCH (16:55)
[2019-04-09] MEDS ORDERED: LIDO:MAALOX 1:1 20 ML SINGLE DOSE. SWSW ONE (17:00)
--- NOTE | 2019-04-09 17:00 | PHYS DOC ---
Past Medical History Past Medical History: Anxiety, Asthma, DVT, GERD, Hypertension, Hypothyroid, Pneumonia, P.U.D., Other Additional Past Medical Histor: ulcer (JANINE LINK MD) Past Surgical History: Angioplasty, Knee Replacement, Tubal ligation, Other Additional Past Surgical Histo: Hernia; Feet; Ulcers, shoulder surgery, TAVR PROCEDURE (JANINE LINK MD) Alcohol Use: None Drug Use: None (JANINE LINK MD) Adult General Chief Complaint Chief Complaint: GI PROBLEM HPI HPI Patient is a 78-year-old female who presents to the emergency department for evaluation of multiple medical complaints. Her main complaint appears to be diarrhea which began yesterday evening, as she has had several episodes, nonbloody diarrhea. She also complains of some generalized abdominal discomfort. She states that "I am having a lot of acid reflux", and has a history of the same. She denies any fevers or chills, dizziness or lightheadedness. She denies any recent travel or antibiotic use. She does take warfarin for a past history of an aortic valve replacement via to have her, but denies any blood in her stools. She denies any chest pain per say. She did have a coronary catheterization which showed normal coronaries this past December. There are no alleviating or exacerbating factors to her symptoms otherwise. (JANINE LINK MD) Review of Systems Review of Systems Constitutional: Denies fever or chills [] Eyes: Denies change in visual acuity, redness, or eye pain [] HENT: Denies nasal congestion or sore throat [] Respiratory: Denies cough or shortness of breath [] Cardiovascular: The patient denies any shortness of breath, chest pain, palpitations, or orthopnea[] GI: No additional information not addressed in HPI [] : Denies dysuria or hematuria [] Musculoskeletal: Denies back pain or joint pain [] Integument: Denies rash or skin lesions [] Neurologic: Denies headache, focal weakness or sensory changes [] Endocrine: Denies polyuria or polydipsia [] All other systems were reviewed and found to be within normal limits, except as documented in this note. (JANINE LINK MD) Current Medications Current Medications Current Medications Medications (Trade) Dose Ordered Sig/Sivan Start Time Stop Time Status Last Admin Dose Admin Fentanyl Citrate (Fentanyl 2ml Vial) 50 mcg 1X ONCE 04/09/19 18:45 04/09/19 18:46 DC 04/09/19 18:41 50 MCG Gabapentin (Neurontin) 300 mg 1X STAT 04/09/19 19:45 04/09/19 19:48 DC 04/09/19 19:55 300 MG Info (CONTRAST GIVEN -- Rx MONITORING) 1 each PRN DAILY PRN 04/09/19 18:00 04/11/19 17:59 Iohexol (Omnipaque 300 Mg/ml) 75 ml 1X ONCE 04/09/19 18:00 04/09/19 18:01 DC 04/09/19 18:15 75 ML Lorazepam (Ativan Inj) 0.5 mg 1X ONCE 04/09/19 17:00 04/09/19 17:01 DC 04/09/19 18:02 0.5 MG Multi-Ingredient Mouthwash/Gargle (Gi Cocktail) 20 ml 1X ONCE 04/09/19 17:00 04/09/19 17:01 DC 04/09/19 18:01 20 ML Sodium Chloride 1,000 ml @ 100 mls/hr Q10H 04/09/19 16:55 04/10/19 02:54 04/09/19 18:02 100 MLS/HR (DAMON MART MD) Allergies Allergies Allergies Coded Allergies Type Severity Reaction Last Updated Verified Penicillins Allergy Severe Anaphylaxis 09/24/17 Yes diphenhydramine Allergy Severe Anaphylaxis 09/24/17 Yes ipratropium Allergy Severe Anaphylaxis 09/24/17 Yes meclizine Allergy Severe 09/24/17 Yes trazodone Allergy Severe Shortness of Air 09/24/17 Yes bacitracin Allergy Intermediate Rash 09/24/17 Yes neomycin Allergy Intermediate Rash 09/24/17 Yes oxycodone Allergy Intermediate Nausea and Vomiting 09/24/17 Yes polymyxin B Allergy Intermediate Rash 09/24/17 Yes tramadol Allergy Intermediate Itching 02/27/19 Yes (DAMON MART MD) Physical Exam Physical Exam PHYSICAL EXAM: CONSTITUTIONAL: Well developed, well nourished HEAD: normocephalic, atraumatic EENT: PERRL, EOMI. Conjunctivae normal color, sclerae non-icteric; moist mucous membranes. NECK: Supple, non-tender; no meningismus. LUNGS: Lungs CTA, breathing even and unlabored. Normal air movement. HEART: Regular rate and rhythm, no murmur CHEST: No deformity; non-tender ABDOMEN: The abdomen is soft, there is mild tenderness to palpation diffusely to the abdomen, without focal tenderness, rebound, or guarding, normal bowel sounds are present , no masses or bruits. EXTREM: Normal ROM; no deformity, no calf tenderness. Normal pulses palpable in all extremities. There is no pedal edema. SKIN: No rash; no diaphoresis NEURO: Alert; normal speech and cognition; CN's grossly intact; strength grossly intact without focal deficit. BACK: No CVA TTP. PSYCHIATRIC: Mildly anxious affect. (JANINE LINK MD) Current Patient Data Vital Signs Vital Signs Date Time Temp Pulse Resp B/P (MAP) Pulse Ox O2 Delivery O2 Flow Rate FiO2 04/09/19 19:00 88 18 127/59 (81) 96 Room Air 04/09/19 17:06 99.4 99.4 (DAMON MART MD) Lab Values Laboratory Tests Test 04/09/19 17:28 04/09/19 17:48 04/09/19 19:45 White Blood Count 3.7 x10^3/uL (4.0-11.0) L Red Blood Count 3.31 x10^6/uL (3.50-5.40) L Hemoglobin 10.7 g/dL (12.0-15.5) L Hematocrit 32.1 % (36.0-47.0) L Mean Corpuscular Volume 97 fL (79-100) Mean Corpuscular Hemoglobin 32 pg (25-35) Mean Corpuscular Hemoglobin Concent 33 g/dL (31-37) Red Cell Distribution Width 14.0 % (11.5-14.5) Platelet Count 222 x10^3/uL (140-400) Neutrophils (%) (Auto) 84 % (31-73) H Lymphocytes (%) (Auto) 7 % (24-48) L Monocytes (%) (Auto) 6 % (0-9) Eosinophils (%) (Auto) 2 % (0-3) Basophils (%) (Auto) 0 % (0-3) Neutrophils # (Auto) 3.1 x10^3/uL (1.8-7.7) Lymphocytes # (Auto) 0.3 x10^3/uL (1.0-4.8) L Monocytes # (Auto) 0.2 x10^3/uL (0.0-1.1) Eosinophils # (Auto) 0.1 x10^3/uL (0.0-0.7) Basophils # (Auto) 0.0 x10^3/uL (0.0-0.2) Segmented Neutrophils % 86 % (35-66) H Band Neutrophils % 3 % (0-9) Lymphocytes % 7 % (24-48) L Monocytes % 3 % (0-10) Eosinophils % 1 % (0-5) Toxic Granulation Slight Platelet Estimate Adequate (ADEQUATE) Prothrombin Time 19.6 SEC (11.7-14.0) H Prothrombin Time INR 1.7 (0.8-1.1) H Sodium Level 137 mmol/L (136-145) Potassium Level 3.9 mmol/L (3.5-5.1) Chloride Level 103 mmol/L (98-107) Carbon Dioxide Level 23 mmol/L (21-32) Anion Gap 11 (6-14) Blood Urea Nitrogen 21 mg/dL (7-20) H Creatinine 1.0 mg/dL (0.6-1.0) Estimated GFR (Cockcroft-Gault) 64.9 BUN/Creatinine Ratio 21 (6-20) H Glucose Level 95 mg/dL (70-99) Calcium Level 8.8 mg/dL (8.5-10.1) Total Bilirubin 0.5 mg/dL (0.2-1.0) Aspartate Amino Transferase (AST) 22 U/L (15-37) Alanine Aminotransferase (ALT) 17 U/L (14-59) Alkaline Phosphatase 75 U/L (46-116) Troponin I Quantitative 1.406 ng/mL (0.000-0.055) 1.288 ng/mL (0.000-0.055) Total Protein 7.6 g/dL (6.4-8.2) Albumin 3.3 g/dL (3.4-5.0) L Albumin/Globulin Ratio 0.8 (1.0-1.7) L Lipase 128 U/L (73-393) Urine Collection Type Unknown Urine Color Yellow Urine Clarity Clear Urine pH 5.0 Urine Specific Vincent 1.015 Urine Protein Negative mg/dL (NEG-TRACE) Urine Glucose (UA) Negative mg/dL (NEG) Urine Ketones (Stick) Negative mg/dL (NEG) Urine Blood Negative (NEG) Urine Nitrite Negative (NEG) Urine Bilirubin Negative (NEG) Urine Urobilinogen Dipstick 0.2 mg/dL (0.2 mg/dL) Urine Leukocyte Esterase Trace (NEG) Urine RBC 0 /HPF (0-2) Urine WBC Occ /HPF (0-4) Urine Squamous Epithelial Cells Mod /LPF Urine Bacteria Few /HPF (0-FEW) Urine Mucus Mod /LPF Laboratory Tests 04/09/19 17:28 Laboratory Tests 04/09/19 17:28 (DAMON MART MD) EKG EKG Normal sinus rhythm a rate of 94 beats for minute, leftward axis, normal intervals, there is lateral T wave inversion, the EKG is not significant change compared to the patient's prior EKG. (JANINE LINK MD) Radiology/Procedures Radiology/Procedures [] (JANINE LINK MD) Course & Med Decision Making Course & Med Decision Making 6:00 PM: Pt condition remains stable. Care will be turned over to Dr Duarte at shift change, pending labs, imaging, and final disposition. Report given. (JANINE LINK MD) Course & Med Decision Making Signout from Dr. Link at 6 PM asked me to follow-up on lab work and CT scan this is a patient with a known aortic valve replacement chronically elevated troponin with a negative catheter in December present with abdominal discomfort and some diarrhea. She does have shoulder pain but that is chronic she asked for gabapentin which she normally takes at night when she was in the emergency room around 7:30 PM. Troponins noted her troponin is actually lower than it normally is at baseline given the clean catheter and the lack of chest pain with the unchanged EKG I did a second troponin came down I don't think that she is having acute coronary syndrome. CT scan noted it was negative acute patient had nonbloody diarrhea she was feeling better in the emergency room after IV fluids vitals are stable I think she is a candidate for outpatient management she is comfortable with that in fact she prefers it return precautions discussed and she voiced understanding (DAMON MART MD) Dragon Disclaimer Dragon Disclaimer This electronic medical record was generated, in whole or in part, using a voice recognition dictation system. (JANINE LINK MD) Departure Departure Impression: Primary Impression: Diarrhea Disposition: 01 HOME, SELF-CARE Condition: STABLE Referrals: DELMAR HAMILTON D.O. (PCP) JANINE LINK MD Apr 09, 2019 17:00 DAMON MRAT MD Apr 09, 2019 20:16
[2019-04-09 17:54] LABS: BILIRUBIN,URINE NEGATIVE (NEG); CLARITY,URINE CLEAR; COLOR,URINE YELLOW; NITRITE,URINE NEGATIVE (NEG); PROTEIN,URINE NEGATIVE (NEG-TRACE); UROBILINOGEN,URINE 0.2 mg/dL (0.2 mg/dL)
[2019-04-09 17:59] LABS: BACTERIA,URINE FEW /HPF (0-FEW); RBC,URINE 0 /HPF (0-2); SQUAMOUS EPITHELIAL CELL,UR MOD /LPF; WBC,URINE OCC /HPF (0-4)
[2019-04-09 18:00] LABS: BASO % 0 % (0-3); EOS # 0.1 x10^3/uL (0.0-0.7); EOS % 2 % (0-3); HEMATOCRIT 32.1 % (36.0-47.0); HEMOGLOBIN 10.7 g/dL (12.0-15.5); LYMPH # 0.3 x10^3/uL (1.0-4.8); LYMPH % 7 % (24-48); MEAN CORPUSCULAR HEMOGLOBIN 32 pg (25-35); MEAN CORPUSCULAR HGB CONC 33 g/dL (31-37); MEAN CORPUSCULAR VOLUME 97 fL (79-100); MONO # 0.2 x10^3/uL (0.0-1.1); MONO % 6 % (0-9); NEUT # 3.1 x10^3/uL (1.8-7.7); NEUT % 84 % (31-73); PLATELET COUNT 222 x10^3/uL (140-400); PROTHROMBIN TIME PATIENT 19.6 SEC (11.7-14.0); RED BLOOD COUNT 3.31 x10^6/uL (3.50-5.40); WHITE BLOOD COUNT 3.7 x10^3/uL (4.0-11.0)
[2019-04-09] MEDS ORDERED: IOHEXOL 300 MG/ML 100ML VIAL. IV ONE (18:00)
[2019-04-09] MEDS ORDERED: CONTRAST GIVEN. MC PRN (18:00)
[2019-04-09 18:05] LABS: CALCIUM 8.8 mg/dL (8.5-10.1); GFR 64.9; POTASSIUM 3.9 mmol/L (3.5-5.1)
[2019-04-09 18:18] LABS: % BANDS 3 % (0-9); % EOS 1 % (0-5); % LYMPHS 7 % (24-48); % MONOS 3 % (0-10); % SEGS 86 % (35-66); PLT ESTIMATE ADEQUATE (ADEQUATE); TOXIC GRANULATION SLIGHT
[2019-04-09 18:21] LABS: ALBUMIN 3.3 g/dL (3.4-5.0); ALBUMIN/GLOBULIN RATIO 0.8 (1.0-1.7); TOTAL BILIRUBIN 0.5 mg/dL (0.2-1.0); TOTAL PROTEIN 7.6 g/dL (6.4-8.2)
[2019-04-09] MEDS ORDERED: fentaNYL PF VIAL 100 MCG/2 ML VIAL IV ONE (18:45)
--- NOTE | 2019-04-09 18:52 | RAD ---
CT abdomen pelvis with contrast dated 04/09/2019. Comparison made to 01/18/2019. CLINICAL INDICATION: Abdominal pain. TECHNIQUE: Contiguous axial imaging of the abdomen and pelvis performed after the administration of 75 cc Omnipaque 300. One or more of the following individualized dose reduction techniques were utilized for this examination: 1. Automated exposure control 2. Adjustment of the mA and/or kV according to patient size 3. Use of iterative reconstruction technique. FINDINGS: Limited images of lung bases are clear. Heart size is moderately enlarged. No pleural or pericardial effusion. Evidence of prior aortic valve grafting. Liver is homogeneous in attenuation. No apparent hepatic mass. Biliary tree normal in caliber. Gallbladder unremarkable. Spleen is normal in size. Pancreas, adrenal glands and kidneys are unremarkable. No hydronephrosis. Tiny hypodensity at the right kidney midpole is unchanged, indeterminate. There are postsurgical changes at the stomach, stable. GI tract is otherwise normal in caliber and contour. No focal bowel wall thickening. No inflammatory changes in the mesentery. The appendix is normal in caliber. No ascites or lymphadenopathy. There is a small subxiphoid ventral hernia containing only fat. Abdominal aorta normal in caliber. There is some hazy increased attenuation in the central mesentery, unchanged. Images of pelvis show nondistended urinary bladder. Uterus and adnexa are unremarkable. No free fluid or lymphadenopathy. Bone windows show no acute findings. Multilevel spondylosis. IMPRESSION: 1. No acute abnormality of abdomen or pelvis. Normal appendix. 2. Diverticulosis with no evidence of acute diverticulitis. 3. Postsurgical changes of the stomach, stable. 4. Small subxiphoid ventral hernia containing only fat. Electronically signed by: Harrison Dobbins MD (04/09/2019 6:49 PM) [facility]
[2019-04-09] MEDS ORDERED: GABAPENTIN 300 MG CAPSULE. PO STA (19:45)
[2019-04-09 20:00] VITALS: BP 115/61
--- NOTE | 2019-04-10 07:31 | EKG ---
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
== END 2019-04-09 20:25 | disposition home or self-care (01) ==
LOC: ER 16:33
DX: R19.7 Diarrhea, unspecified (principal); R10.84 Generalized abdominal pain; G89.29 Other chronic pain; F41.9 Anxiety disorder, unspecified; J45.909 Unspecified asthma, uncomplicated; Z86.718 Personal history of other venous thrombosis and embolism; K21.9 Gastro-esophageal reflux disease without esophagitis; I10 Essential (primary) hypertension; E03.9 Hypothyroidism, unspecified; Z87.11 Personal history of peptic ulcer disease; Z98.51 Tubal ligation status; Z88.0 Allergy status to penicillin; Z88.6 Allergy status to analgesic agent; Z88.8 Allergy status to other drugs, medicaments and biological substances; Z88.1 Allergy status to other antibiotic agents; Z88.5 Allergy status to narcotic agent
CPT/HCPCS: 36415; 74177; 80053; 81001; 83690; 84484; 85007; 85025; 85610; 87086; 93005; 96374; 96375; 99285; J2060; J3010; J7030; Q9967; 87186

== ENCOUNTER → 2019-07-12 | Outpatient (CLI) | payer MEDICARE, OTHER ==
[2019-04-22 15:00] VITALS: BP 142/76
[~2019-07-12] MED LIST changes: +BISA5TAB4 PO; +BUDE10.22 IH; +COD1CAPS6 PO; +HYDR-2761 PO; +SERT50TA PO; +VITA1CAP PO
--- NOTE | 2019-07-12 09:51 | KCIC ---
MRI Brain without contrast History:Chronic headaches, fibromyalgia, dizziness Technique: Multiplanar, multisequential noncontrast MR imaging was performed of the brain. Comparison: 05/18/2017 Findings: There is no evidence of recent infarct or cytotoxic edema. Ventricular size is within normal limits. There is mild prominence of biparietal subarachnoid spaces.There is no significant midline shift, intraaxial mass effect, or focal abnormal extra-axial fluid collection. There is similar mild T2 and FLAIR hyperintense signal abnormality of the supratentorial parenchyma. Left vertebral artery flow-void is again small in caliber. The mastoid air cells are overall aerated. The cerebellar tonsils are normal in location. There is no significant abnormality of the pineal gland or pituitary gland. There is mild to moderate ethmoid air cell mucosal thickening bilaterally. There has been interval lens surgery on the right. There is preserved marrow signal of the clivus. There is grade 1 anterior spondylolisthesis C3-4 also degenerative disc disease at this level. There is likely spinal stenosis at C3-4 on the order of 7 mm. Impression: 1. There is similar mild T2 and FLAIR hyperintense signal abnormality of the supratentorial parenchyma, more commonly due to chronic microvascular ischemic disease in a patient this age. 2. There is spinal stenosis C3-4 on the order of 7 mm, grade 1 anterior spondylolisthesis at this level. Electronically signed by: Chivo Ceballos MD (07/12/2019 9:48 AM) [id number]
== END ==
LOC: KCIC MRI 08:23
PROVIDERS: ATTEND Psychiatry & Neurology Neurology with Special Qualifications in Child Neurology
DX: M43.12 Spondylolisthesis, cervical region (principal); M48.02 Spinal stenosis, cervical region; I67.82 Cerebral ischemia; M50.31 Other cervical disc degeneration, high cervical region; G44.89 Other headache syndrome; M79.7 Fibromyalgia; H53.413 Scotoma involving central area, bilateral; R42 Dizziness and giddiness
CPT/HCPCS: 70551

== ENCOUNTER → 2019-10-16 | Outpatient (CLI) | payer MEDICARE, OTHER ==
[2019-07-14 15:04] VITALS: BP 121/59
--- NOTE | 2019-10-17 12:07 | RAD ---
DATE: 10/16/2019 9:00 AM EXAM: MAMMO CHARLES SCREENING BILATERAL HISTORY: Screening COMPARISON: 10/17/2018, 10/14/2017, 10/15/2016 and 10/16/2015. Bilateral CC and MLO views of the breasts were performed. Bilateral breast tomosynthesis was performed in CC and MLO projections. This study was interpreted with the benefit of Computerized Aided Detection (CAD). FINDINGS: Breast Density: SCATTERED The breast parenchyma shows scattered fibroglandular densities. Breast parenchyma level B Negative right mammogram. Subareolar focal asymmetry centered at the left 12:30 o'clock position needs additional imaging with spot compression views in the CC and true lateral projection and targeted left breast ultrasound. IMPRESSION: breast breast focal asymmetry, findings for which additional imaging is advised. BI-RADS CATEGORY: 0 INCOMPLETE: NEEDS ADDITIONAL IMAGING EVALUATION AND/OR PRIOR MAMMOGRAMS FOR COMPARISON. RECOMMENDED FOLLOW-UP: ADD ADDITIONAL IMAGING The patient will be contacted to return for additional imaging and a supplemental report will follow. PQRS compliance statement: Patient information was entered into a reminder system with a target due date for the next mammogram. Mammography is a sensitive method for finding small breast cancers, but it does not detect them all and is not a substitute for careful clinical examination. A negative mammogram does not negate a clinically suspicious finding and should not result in delay in biopsying a clinically suspicious abnormality. "Our facility is accredited by the [employer] Mammography Program."
== END | disposition home or self-care (01) ==
LOC: MAMMO 14:51
PROVIDERS: ATTEND Obstetrics & Gynecology
DX: Z12.31 Encounter for screening mammogram for malignant neoplasm of breast (principal)
CPT/HCPCS: 77063; 77067

== ENCOUNTER → 2019-11-08 | Outpatient (CLI) | payer MEDICARE, OTHER ==
[2019-07-14 15:04] VITALS: BP 121/59
[~2019-11-08] MED LIST changes: -WARF-78 PO; +WARF5TAB2 PO
--- NOTE | 2019-11-08 10:38 | RAD ---
DATE: 11/08/2019 9:13 AM EXAM: DIGITAL DIAGNOSTIC MAMMOGRAM LT, BREAST ULTRASOUND LEFT HISTORY: Screening recall for asymmetry in the anterior superior left breast. COMPARISON: 10/16/2019, 10/17/2018, 10/14/2017 TECHNIQUE: Anterior spot compression cc view and a full-field left ML view were obtained, the latter reviewed with computer-aided detection. Targeted ultrasound of the superior anterior left breast was next performed. FINDINGS: The questioned asymmetry changed configuration in a pattern compatible with benign overlap of fibroglandular tissue. Ultrasound of this area showed a ridge of dense fibroglandular tissue which correlates with the mammographic finding . No suspicious sonographic findings. IMPRESSION: Benign ridge of fibroglandular tissue in the upper outer left breast. No evidence of malignancy. BI-RADS CATEGORY: 2 BENIGN FINDING(S) RECOMMENDED FOLLOW-UP: 12M 12 MONTH FOLLOW-UP Annual screening mammography is recommended, unless clinically indicated sooner based on symptoms or change in physical exam. PQRS compliance statement: Patient information was entered into a reminder system with a target due date 10/16/2020 for the next mammogram. Mammography is a sensitive method for finding small breast cancers, but it does not detect them all and is not a substitute for careful clinical examination. A negative mammogram does not negate a clinically suspicious finding and should not result in delay in biopsying a clinically suspicious abnormality. "Our facility is accredited by the [employer] Mammography Program."
== END | disposition home or self-care (01) ==
LOC: MAMMO 09:10
PROVIDERS: ATTEND Obstetrics & Gynecology
DX: R92.2 Inconclusive mammogram (principal); N64.89 Other specified disorders of breast
CPT/HCPCS: 76641; 77065

== ENCOUNTER → 2019-11-29 | Outpatient (CLI) | payer MEDICARE, OTHER ==
[2019-07-14 15:04] VITALS: BP 121/59
--- NOTE | 2019-11-29 13:55 | RAD ---
Examination: GASTRIC EMPTYING STUDY History: Reason: ABD. PAIN /, subtotal gastrectomy gastric surgery 1982 for ulcers Comparison/Correlation: None Findings: 1.8 mCi technetium 99m sulfur colloid meal was provided for purposes of gastric emptying examination. At 1 hour, 12 percent retention of radiotracer is evident. At 2 hours, 5 percent retention of radiotracer seen. At 3 hours, there is no retained tracer. Impression: Very rapid gastric emptying of radiotracer. Electronically signed by: Aldo Hanna MD (11/29/2019 1:52 PM) [id number]
== END | disposition home or self-care (01) ==
LOC: NM 08:35
PROVIDERS: ATTEND Internal Medicine Gastroenterology
DX: R10.13 Epigastric pain (principal)
CPT/HCPCS: 78264; A9541

== ENCOUNTER → 2020-04-03 | Outpatient (CLI) | payer MEDICARE, OTHER ==
[2019-07-14 15:04] VITALS: BP 121/59
--- NOTE | 2020-04-03 17:13 | KCIC ---
Examination: Ultrasound pelvis HISTORY: History of pelvic pain, bloating, weight gain COMPARISON: None available. FINDINGS: The uterus measures 6.9 x 4.3 x 3.4 cm. Echogenicities identified within the uterus probably uterine calcifications throughout. The right and left ovaries could not be identified. IMPRESSION: 1. Tiny probable uterine calcifications. 2. Right and left ovaries could not be identified. Electronically signed by: Carlo Soria MD (04/03/2020 5:11 PM) [id number]
== END ==
LOC: KCIC US 08:34
PROVIDERS: ATTEND Obstetrics & Gynecology
DX: R10.2 Pelvic and perineal pain (principal); R14.0 Abdominal distension (gaseous); R63.5 Abnormal weight gain
CPT/HCPCS: 76830; 76856

== ENCOUNTER 2020-09-09 09:23 | Emergency (ER) | payer MEDICARE, OTHER ==
[~2020-09-09] VITALS: Ht 160 cm; Wt 85.8 kg
[~2020-09-09 09:23] MED LIST changes: -CLIN150C14 PO; +CLIN150C15 PO; -LISI-338 PO; +LISI-517 PO; -POLY17PO28 PO; +POLY17PO52 PO
[2020-09-09 10:01] LABS: BASO % 1 % (0-3); EOS # 0.2 x10^3/uL (0.0-0.7); EOS % 4 % (0-3); HEMATOCRIT 33.4 % (36.0-47.0); LYMPH # 1.3 x10^3/uL (1.0-4.8); LYMPH % 31 % (24-48); MEAN CORPUSCULAR HEMOGLOBIN 32 pg (25-35); MEAN CORPUSCULAR HGB CONC 33 g/dL (31-37); MEAN CORPUSCULAR VOLUME 97 fL (79-100); MONO # 0.4 x10^3/uL (0.0-1.1); MONO % 9 % (0-9); NEUT # 2.3 x10^3/uL (1.8-7.7); NEUT % 55 % (31-73); PLATELET COUNT 195 x10^3/uL (140-400); RED BLOOD COUNT 3.43 x10^6/uL (3.50-5.40); RED CELL DISTRIBUTION WIDTH 14.5 % (11.5-14.5); WHITE BLOOD COUNT 4.3 x10^3/uL (4.0-11.0)
--- NOTE | 2020-09-09 10:02 | RAD ---
XR CHEST 1V History: Dizziness. Comparison: 01/19/2019 Technique: AP radiograph of the chest. Findings: The lungs are adequately and symmetrically inflated. No airspace consolidation, pleural effusion or p neumothorax. Calcified left midlung granuloma. The cardiomediastinal silhouette and pulmonary vascula ture are within normal limits. Calcification of the aortic arch. No acute osseous abnormality. Right greater than left shoulder degenerative changes. Surgical clips at the gastroesophageal junction. Impression: 1. No acute cardiopulmonary process. Electronically signed by: Willard Be MD (09/09/2020 10:00 AM) [facility]
[2020-09-09 10:03] LABS: CALCIUM 9.4 mg/dL (8.5-10.1); GFR 64.6; POTASSIUM 4.1 mmol/L (3.5-5.1)
[2020-09-09 10:10] LABS: ALBUMIN 3.6 g/dL (3.4-5.0); ALBUMIN/GLOBULIN RATIO 0.9 (1.0-1.7); MAGNESIUM 2.1 mg/dL (1.8-2.4); TOTAL BILIRUBIN 0.4 mg/dL (0.2-1.0); TOTAL PROTEIN 7.6 g/dL (6.4-8.2)
[2020-09-09] MEDS ORDERED: diazePAM 5 MG TABLET PO ONE (10:15)
--- NOTE | 2020-09-09 10:24 | EKG ---
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
--- NOTE | 2020-09-09 10:55 | RAD ---
Exam Date: 09/09/2020 10:18 AM XR FOOT_RIGHT 3 VIEWS Indication: Reason: PAIN AND SWELLING SINCE INGROWN TOENAIL WAS REMOVED FROM 1ST DIGIT / Spl. Instruc tions: / History: FINDINGS/ IMPRESSION: Postoperative changes of bunionectomy are noted. Mild degenerative changes are noted. Near-anatomic a lignment is maintained. There is diffuse soft tissue swelling. Cutaneous irregularity overlying the f irst distal phalangeal tuft may represent ulcer or laceration. No osseous destructive changes are see n to suggest acute osteomyelitis, though sensitivity for osteomyelitis is limited on radiographs. Vas cular calcifications are noted. No acute fracture or dislocation.Postoperative changes noted at the f ifth PIP joint. Electronically signed by: Mauro Cottrell MD (09/09/2020 10:52 AM) [id number]
[2020-09-09 11:23] VITALS: BP 117/59
--- NOTE | 2020-09-09 12:02 | RAD ---
EXAM: Head CT without contrast. HISTORY: Dizziness. TECHNIQUE: Computed tomographic images of the head were obtained without contrast. *One or more of the following individualized dose reduction techniques were utilized for this examina tion: 1. Automated exposure control. 2. Adjustment of the mA and/or kV according to patient size. 3. Use of iterative reconstruction technique. COMPARISON: MRI dated 07/12/2019. FINDINGS: There is no acute or subacute extra-axial or intraparenchymal hemorrhage. There is no mass effect or midline shift. There is no hydrocephalus. There are areas of decreased attenuation within the cerebral white matter, nonspecific and likely rel ated to chronic small vessel disease. There are basal ganglia calcifications. There is mild age-appro priate cerebral volume loss. There is evidence of lens surgery. The mastoid air cells are clear. The utilized paranasal sinuses ar e unremarkable. There is no calvarial lesion. IMPRESSION: No acute intracranial finding. Note is made that MRI is more sensitive for acute infarcti on. Electronically signed by: Daxa Sosa MD (09/09/2020 11:59 AM) [id number]
--- NOTE | 2020-09-09 12:03 | PHYS DOC ---
Past Medical History Past Medical History: Anemia, Anxiety, Asthma, Depression, DVT, GERD, Hypertension, Hypothyroid, Pneumonia, P.U.D., Other Additional Past Medical Histor: ulcer Past Surgical History: Angioplasty, Knee Replacement, Tubal ligation, Other Additional Past Surgical Histo: Hernia; Feet; Ulcers, L shoulder surgery, TAVR PROCEDURE Smoking Status: Former Smoker Alcohol Use: None Drug Use: None Adult General Chief Complaint Chief Complaint: DIZZY/LIGHT HEADED HPI HPI Patient is a 80 year old female with a past medical history of hypertension, DVT, ND, hypothyroid and depression now presenting the emergency department with multiple complaints. Patient states that she has been having vertigo over the last few days. Patient states that she is struggled with vertigo for many months and has had a chronic issue but feels that over the last 2 days it is worsened in severity and she feels dizzy whenever she moves her head. States this has been associated with sensation of nausea but denies any vomiting. Also states that she feels generally rundown and feels like she might have a cold. Patient has not taken any medication for this at home. Patient separately notes that over the last week she is noted worsening sensation of swelling and pain in the right great toe. Patient states that she was seen by Dr. Niño on doxycycline but feels that this swelling is gotten worse. Has not seen a casing inspector or follow-up with any other physician for this. Denies any fever chills Review of Systems Review of Systems Constitutional: Denies fever or chills [] Eyes: Denies change in visual acuity, redness, or eye pain [] HENT: Denies nasal congestion or sore throat [] Respiratory: Denies cough or shortness of breath [] Cardiovascular: No additional information not addressed in HPI [] GI: Denies abdominal pain, nausea, vomiting, bloody stools or diarrhea [] : Denies dysuria or hematuria [] Musculoskeletal: Denies back pain or joint pain [] Integument: Denies rash or skin lesions [] Neurologic: Denies headache, focal weakness or sensory changes [] Endocrine: Denies polyuria or polydipsia [] All other systems were reviewed and found to be within normal limits, except as documented in this note. Current Medications Current Medications Current Medications Medications (Trade) Dose Ordered Sig/Sivan Start Time Stop Time Status Last Admin Dose Admin Diazepam (Valium) 5 mg 1X ONCE 09/09/20 10:15 09/09/20 10:16 DC 09/09/20 10:35 5 MG Allergies Allergies Allergies Coded Allergies Type Severity Reaction Last Updated Verified Penicillins Allergy Severe Anaphylaxis 09/24/17 Yes diphenhydramine Allergy Severe Anaphylaxis 09/24/17 Yes ipratropium Allergy Severe Anaphylaxis 09/24/17 Yes meclizine Allergy Severe 09/24/17 Yes trazodone Allergy Severe Shortness of Air 09/24/17 Yes bacitracin Allergy Intermediate Rash 09/24/17 Yes neomycin Allergy Intermediate Rash 09/24/17 Yes oxycodone Allergy Intermediate Nausea and Vomiting 09/24/17 Yes polymyxin B Allergy Intermediate Rash 09/24/17 Yes tramadol Allergy Intermediate Itching 02/27/19 Yes Physical Exam Physical Exam Constitutional: Well developed, well nourished, no acute distress, non-toxic appearance. [] HENT: Normocephalic, atraumatic, bilateral external ears normal, oropharynx moist, no oral exudates, nose normal. [] Eyes: PERRLA, EOMI, conjunctiva normal, no discharge. [] Neck: Normal range of motion, no tenderness, supple, no stridor. [] Cardiovascular:Heart rate regular rhythm, no murmur [] Lungs & Thorax: Bilateral breath sounds clear to auscultation [] Abdomen: Bowel sounds normal, soft, no tenderness, no masses, no pulsatile adrian s. [] Skin: Warm, dry, no erythema, no rash. [] Back: No tenderness, no CVA tenderness. [] Extremities: No tenderness, no cyanosis, no clubbing, ROM intact, no edema. [] Neurologic: Alert and oriented X 3, normal motor function, normal sensory function, no focal deficits noted. [] Psychologic: Affect normal, judgement normal, mood normal. [] Current Patient Data Vital Signs Vital Signs Date Time Temp Pulse Resp B/P (MAP) Pulse Ox O2 Delivery O2 Flow Rate FiO2 09/09/20 09:51 98.4 72 18 145/65 (91) 98 Room Air 98.4 Lab Values Laboratory Tests Test 09/09/20 09:45 White Blood Count 4.3 x10^3/uL (4.0-11.0) Red Blood Count 3.43 x10^6/uL (3.50-5.40) L Hemoglobin 11.0 g/dL (12.0-15.5) L Hematocrit 33.4 % (36.0-47.0) L Mean Corpuscular Volume 97 fL (79-100) Mean Corpuscular Hemoglobin 32 pg (25-35) Mean Corpuscular Hemoglobin Concent 33 g/dL (31-37) Red Cell Distribution Width 14.5 % (11.5-14.5) Platelet Count 195 x10^3/uL (140-400) Neutrophils (%) (Auto) 55 % (31-73) Lymphocytes (%) (Auto) 31 % (24-48) Monocytes (%) (Auto) 9 % (0-9) Eosinophils (%) (Auto) 4 % (0-3) H Basophils (%) (Auto) 1 % (0-3) Neutrophils # (Auto) 2.3 x10^3/uL (1.8-7.7) Lymphocytes # (Auto) 1.3 x10^3/uL (1.0-4.8) Monocytes # (Auto) 0.4 x10^3/uL (0.0-1.1) Eosinophils # (Auto) 0.2 x10^3/uL (0.0-0.7) Basophils # (Auto) 0.0 x10^3/uL (0.0-0.2) Sodium Level 142 mmol/L (136-145) Potassium Level 4.1 mmol/L (3.5-5.1) Chloride Level 106 mmol/L (98-107) Carbon Dioxide Level 25 mmol/L (21-32) Anion Gap 11 (6-14) Blood Urea Nitrogen 20 mg/dL (7-20) Creatinine 1.0 mg/dL (0.6-1.0) Estimated GFR (Cockcroft-Gault) 64.6 BUN/Creatinine Ratio 20 (6-20) Glucose Level 106 mg/dL (70-99) H Calcium Level 9.4 mg/dL (8.5-10.1) Magnesium Level 2.1 mg/dL (1.8-2.4) Total Bilirubin 0.4 mg/dL (0.2-1.0) Aspartate Amino Transferase (AST) 20 U/L (15-37) Alanine Aminotransferase (ALT) 17 U/L (14-59) Alkaline Phosphatase 67 U/L (46-116) Total Protein 7.6 g/dL (6.4-8.2) Albumin 3.6 g/dL (3.4-5.0) Albumin/Globulin Ratio 0.9 (1.0-1.7) L Laboratory Tests 09/09/20 09:45 Laboratory Tests 09/09/20 09:45 EKG EKG [] Radiology/Procedures Radiology/Procedures Exam Date: 09/09/2020 10:18 AM XR FOOT_RIGHT 3 VIEWS Indication: Reason: PAIN AND SWELLING SINCE INGROWN TOENAIL WAS REMOVED FROM 1ST DIGIT / Spl. Instructions: / History: FINDINGS/ IMPRESSION: Postoperative changes of bunionectomy are noted. Mild degenerative changes are noted. Near-anatomic alignment is maintained. There is diffuse soft tissue s welling. Cutaneous irregularity overlying the first distal phalangeal tuft may represent ulcer or laceration. No osseous destructive changes are seen to suggest acute osteomyelitis, though sensitivity for osteomyelitis is limited on radiographs. Vascular calcifications are noted. No acute fracture or dislocation.Postoperative changes noted at the fifth PIP joint. Electronically signed by: Mauro Cottrell MD (09/09/2020 10:52 AM) [id number] EXAM: Head CT without contrast. HISTORY: Dizziness. TECHNIQUE: Computed tomographic images of the head were obtained without contrast. *One or more of the following individualized dose reduction techniques were utilized for this examination: 1. Automated exposure control. 2. Adjustment of the mA and/or kV according to patient size. 3. Use of iterative reconstruction technique. COMPARISON: MRI dated 07/12/2019. FINDINGS: There is no acute or subacute extra-axial or intraparenchymal hemorrhage. There is no mass effect or midline shift. There is no hydrocephalus. There are areas of decreased attenuation within the cerebral white matter, nonspecific and likely related to chronic small vessel disease. There are basal ganglia calcifications. There is mild age-appropriate cerebral volume loss. There is evidence of lens surgery. The mastoid air cells are clear. The utilized paranasal sinuses are unremarkable. There is no calvarial lesion. IMPRESSION: No acute intracranial finding. Note is made that MRI is more sensitive for acute infarction. Electronically signed by: Daxa Sosa MD (09/09/2020 11:59 AM) [id number] Course & Med Decision Making Course & Med Decision Making Pertinent Labs and Imaging studies reviewed. (See chart for details) 80F presented to emergency department nonspecific vertigo and dizziness likely peripheral based on the patient's chronicity and lack of central symptoms or oth er findings. Will initiate work-up with blood work to make sure there is no other significant underlying etiology and attempt to treat determine need for CT scan of the head. Separately will obtain an x-ray of the right foot to make sure there is no evidence of osteomyelitis. X-ray and other imaging reviewed without any significant findings. CT head without any intracranial abnormality and x-ray without any evidence of osteomyelitis. Labs also reviewed and no other findings. I did reevaluate the patient she states her symptoms are improved. At this time we will plan to change the patient's antibiotic to cephalexin to try to better cover her right toe infection. There does appear to be an infection there but this point there is no necrosis I do not feel it needs inpatient management. 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 Departure Departure Impression: Primary Impression: Dizziness Additional Impression: Cellulitis of right toe Disposition: HOME / SELF CARE / HOMELESS Condition: GOOD Referrals: DELMAR HAMILTON D.O. (PCP) Patient Instructions: Cellulitis Additional Instructions: EMERGENCY DEPARTMENT GENERAL DISCHARGE INSTRUCTIONS Thank you for coming to [facility] Emergency Department (ED) today and trusting us with you care. We trust that you had a positive experience in our Emergency Department. If you wish to speak to the department management, you may call the Director at [phone]. YOUR FOLLOW UP INSTRUCTIONS ARE FOLLOWS: 1. Do you have a private Doctor? If you do not have a private doctor, please ask for a resource list of physicians or clinics that may be able to assist you with follow up care. 2. The Emergency Physicain has interpreted your x-rays. The X-Ray specialist will also review them. If there is a change in the findings, you will be notified in 48 hours when at all possible. 3. A lab test or culture has been done, your results will be reviewed and you will be notified if you need a change in treatment. ADDITIONAL INSTRUCTIONS AND INFORMATION: 1. Your care today has been supervised by a physician who is specially trained in emergency care. Many problems require more than one evaluation for a complete diagnosis and treatment. We recommend that you schedule your follow up appointment as recomm ended to ensure complete treatment of you illness or injury. If you are unable to obtain follow up care and continue to have a problem, or if your condition worsens, we recommend that you return to the ED. 2. We are not able to safely determine your condition over the phone nor are we able to give sound medical advice over the phone. For these safety reasons, if you call for medical advice we will ask you to come to the ED for further evaluation. 3. If you have any questions regarding these discharge instructions please call the ED at [phone]. SAFETY INFORMATION: In the interest of safety, wellness, and injury prevention; we encourage you to wear your sealbelt, if you smoke; quite smoking, and we encourage family to use a protective helmet for bicycling and other sporting events that present an increased risk for head injury. IF YOUR SYMPTOMS WORSEN OR NEW SYMPTOMS DEVELOP, OR YOU HAVE CONCERNS ABOUT YOUR CONDITION; OR IF YOUR CONDITION WORSENS WHILE YOU ARE WAITING FOR YOUR FOLLOW UP APPOINTMENT; EITHER CONTACT YOUR PRIMARY CARE DOCTOR, THE PHYSICIAN WHOSE NAME AND NUMBER YOU WERE GIVEN, OR RETURN TO THE ED IMMEDIATELY. Scripts Cephalexin (CEPHALEXIN) 500 Mg Capsule 1 CAP PO QID for 10 Days, #40 CAP Prov: RADHA HORTON MD 09/09/20 Problem Qualifiers RADHA HORTON MD Sep 09, 2020 12:03
[2020-09-09] MEDS ORDERED: CEPH500C PO (13:14)
== END 2020-09-09 13:48 | disposition home or self-care (01) ==
LOC: ER 09:23
DX: L03.031 Cellulitis of right toe (principal); R42 Dizziness and giddiness; R11.0 Nausea; R20.2 Paresthesia of skin; D64.9 Anemia, unspecified; F41.9 Anxiety disorder, unspecified; J45.909 Unspecified asthma, uncomplicated; F32.9 Major depressive disorder, single episode, unspecified; K21.9 Gastro-esophageal reflux disease without esophagitis; I10 Essential (primary) hypertension; E03.9 Hypothyroidism, unspecified; Z87.891 Personal history of nicotine dependence; Z90.89 Acquired absence of other organs; Z98.890 Other specified postprocedural states; Z98.51 Tubal ligation status
CPT/HCPCS: 36415; 70450; 71045; 73630; 80053; 83735; 85025; 93005; 99285

== ENCOUNTER → 2020-09-26 | Outpatient (CLI) | payer MEDICARE, OTHER ==
[2019-07-14 15:04] VITALS: BP_DIAS 59
[2020-09-09 11:23] VITALS: BP_SYST 117
[~2020-09-26] MED LIST changes: +CEPH500C PO
--- NOTE | 2020-09-26 09:48 | RAD ---
MR#: [id number] Date of Study: 09/26/2020 Ordering Physician: ALISSA HENDRIX, Referring Physician: ALISSA HENDRIX, Tech: Kris Yap MBA, RDMS, RVT, RDCS, RTR APPROVED REPORT Patient Location : OUT-PATIENT Indications History of DVT Findings Grayscale images of the bilateral saphenofemoral junctions are grossly unremarkable. The right great saphenous vein measures 6.8 mm and does not show any evidence of reflux. The left great saphenous v ein measures 4.7 mm and does not show any evidence of reflux. Bilateral lesser saphenous veins did not show any evidence of reflux. Critical Notification Critical Value: No <Conclusion> 1. Negative for reflux in the bilateral greater and lesser saphenous veins. Signed by : Alissa Hendrix, Electronically Approved : 09/26/2020 09:48:31
--- NOTE | 2020-09-26 12:36 | CARD ---
MR#: [id number] Date of Study: 09/26/2020 Ordering Physician: ALISSA HENDRIX, Referring Physician: ALISSA HENDRIX, Tech: Yamel Corona CHARLI APPROVED REPORT EXAM: Two-dimensional and M-mode echocardiogram with Doppler and color Doppler. Other Information Quality : Good INDICATION Aortic Valve Disease TAVR 2018 2D DIMENSIONS RVDd3.4 (2.9-3.5cm)Left Atrium(2D)4.8 (1.6-4.0cm) IVSd1.1 (0.7-1.1cm)Aortic Root(2D)2.4 (2.0-3.7cm) LVDd4.4 (3.9-5.9cm)LVOT Diameter2.0 (1.8-2.4cm) PWd1.1 (0.7-1.1cm)LVDs2.8 (2.5-4.0cm) FS (%) 36.7 %SV58.9 ml LVEF(%)66.7 (>50%) Aortic Valve AoV Peak Alden.173.0cm/sAoV VTI36.7cm AO Peak GR.12.0mmHgLVOT Peak Alden.123.4cm/s AO Mean GR.6mmHgAVA (VMAX)2.14cm2 THEO (VTI)2.60cm2 Mitral Valve MV E Kqftnamh07.9cm/sMV DECEL [id number] MV A Zrquhryd90.7cm/sE/A Ratio1.3 Tricuspid Valve TR P. Judvznes255hf/sRAP [id number] TR Peak Gr.05noPoMYRL57zwRd Pulmonary Vein S1 Rpkyzaei01.5cm/sD2 Fqzqniuo90.7cm/s LEFT VENTRICLE The left ventricle is normal size. There is mild concentric left ventricular hypertrophy. The left ve ntricular systolic function is normal and the ejection fraction is within normal range. The Ejection Fraction is 60-65%. There is normal LV segmental wall motion. Transmitral Doppler flow pattern is Gra de II-pseudonormal filling dynamics. RIGHT VENTRICLE The right ventricle is normal size. The right ventricular systolic function is normal. ATRIA The left atrium is moderately dilated. The right atrium is mildly dilated. The interatrial septum is intact with no evidence for an atrial septal defect or patent foramen ovale as noted on 2-D or Dopple r imaging. AORTIC VALVE Doppler and Color Flow revealed no significant aortic regurgitation. Calculated aortic valve area is 2.6 cm2 with maximum pressure gradient of 12 mmHg and mean pressure gradient of 6 mmHg. There is a pr ior transcatheter aortic valve noted. Leaflets not well visualized on this study. MITRAL VALVE The mitral valve is moderately thickened. Mitral annular calcification is moderate. There is no evide nce of mitral valve prolapse. There is no mitral valve stenosis. Doppler and Color-flow revealed mild mitral regurgitation. TRICUSPID VALVE The tricuspid valve is normal in structure and function. Doppler and Color Flow revealed mild to mode rate tricuspid regurgitation. There is moderate pulmonary hypertension. The PA pressure was estimated at 62 mmHg. There is no tricuspid valve stenosis. PULMONIC VALVE The pulmonic valve is not well visualized. Doppler and Color Flow revealed mild pulmonic valvular reg urgitation. There is no pulmonic valvular stenosis. GREAT VESSELS The aortic root is normal in size. The ascending aorta is not well seen. The IVC is dilated and colla pses <50% with inspiration. PERICARDIAL EFFUSION There is no evidence of significant pericardial effusion. Critical Notification Critical Value: No <Conclusion> The left ventricular systolic function is normal and the ejection fraction is within normal range. Th e Ejection Fraction is 60-65%. There is normal LV segmental wall motion. There is a prior transcatheter aortic valve noted. Leaflets not well visualized on this study. Calculated aortic valve area is 2.6 cm2 with maximum pressure gradient of 12 mmHg and mean pressure g radient of 6 mmHg. Doppler and Color Flow revealed mild to moderate tricuspid regurgitation. There is moderate pulmonary hypertension. The PA pressure was estimated at 62 mmHg. The IVC is dilated and collapses <50% with inspiration. Signed by : Alissa Hendrix, Electronically Approved : 09/26/2020 12:35:50
== END ==
LOC: US 08:58
PROVIDERS: ATTEND Internal Medicine Cardiovascular Disease
DX: I82.493 Acute embolism and thrombosis of other specified deep vein of lower extremity, bilateral (principal); I10 Essential (primary) hypertension
CPT/HCPCS: 93306; 93970

== ENCOUNTER → 2020-11-19 | Outpatient (CLI) | payer MEDICARE, OTHER ==
[2020-11-11 11:00] VITALS: BP 145/71
[~2020-11-19] MED LIST changes: +GABA600T7 PO; +LIDO700A21 TD; +NITR0.4T24 SL; +OLAN5TAB7 PO; +SILV25CR7 TP
--- NOTE | 2020-11-20 15:39 | RAD ---
MG BILAT SCREEN+CHARLES 11/19/2020 3:20 PM INDICATION: Asymptomatic screening mammogram. COMPARISON: 10/14/2017, 10/17/2018, 10/16/2019 TECHNIQUE: 3D tomosynthesis was performed in CC and MLO projections. 2D views were obtained from the 3D data. CAD was utilized as needed. FINDINGS: Breast density: Category B: There are scattered areas of fibroglandular density. Right breast: There are no suspicious microcalcifications, masses or areas of architectural distortio n. Left breast: There are no suspicious microcalcifications, masses or areas of architectural distortion . Bilateral mammogram is compared to prior examinations appears unchanged. IMPRESSION: Negative bilateral mammogram. BI-RADS category: 1; Negative Recommendations: Recommend annual screening mammography in one year. Electronically signed by: Sherrie Alex MD (11/20/2020 3:36 PM) [id number]
== END ==
LOC: MAMMO 15:05
PROVIDERS: ATTEND Obstetrics & Gynecology
DX: Z12.31 Encounter for screening mammogram for malignant neoplasm of breast (principal)
CPT/HCPCS: 77063; 77067

== ENCOUNTER 2021-02-23 18:38 | Emergency (ER) | payer MEDICARE, OTHER ==
[~2021-02-23] VITALS: Ht 154.9 cm; Wt 86.4 kg
[~2021-02-23 18:38] MED LIST changes: -CLIN150C15 PO; +CLIN150C16 PO
--- NOTE | 2021-02-23 20:03 | PHYS DOC ---
Past Medical History Past Medical History: Anemia, Anxiety, Asthma, Depression, DVT, GERD, Hyp ertension, Hypothyroid, Pneumonia, P.U.D., Other Additional Past Medical Histor: N-STEMI Past Surgical History: Angioplasty, Knee Replacement, Tubal ligation, Other Additional Past Surgical Histo: Hernia; Feet; Ulcers, L shoulder surgery, TAVR PROCEDURE Smoking Status: Former Smoker Alcohol Use: None Drug Use: None General Adult EDM: Chief Complaint: Congestion HPI: HPI: Patient is a 80 year old female who presents with 2 to 3 days of mild, nonproductive cough, nasal congestion, as well as sharp upper midsternal chest pain, which is worse with coughing, palpation and is slightly pleuritic as well. She reports that she has chronic shortness of breath, which is no worse and u nchanged today. She denies hemoptysis. She denies fevers or chills. She denies dizziness, diaphoresis. She has chronic abdominal pain which is also unchanged. She denies nausea or vomiting. She denies urinary symptoms. She denies bowel habit changes. She reports that she has not felt very well since receiving her third Covid booster last week. No changes in symptoms today. She took a Tylenol 3 for pain prior to arrival. He has chronic lower extremity edema which is unchanged. She does have a history of valve replacement, congestive heart failure. She reports compliance with anticoagulants and other prescribed medications. She denies recent travel history, denies recent surgery or hospitalization. No known sick contacts reported. Review of Systems: Review of Systems: Constitutional: Denies fever or chills. [] Eyes: Denies change in visual acuity. [] HENT: Reports nasal congestion. Denies sore throat. Respiratory: Reports cough and chronic, unchanged dyspnea. Denies hemoptysis. Cardiovascular: Admits to sharp chest pain. Chronic lower extremity edema. GI: Denies abdominal pain, nausea, vomiting, bloody stools or diarrhea. [] : Denies urinary symptoms. Musculoskeletal: Denies back pain or joint pain. She does report some mild diffuse myalgias. Integument: Denies rash. [] Neurologic: Denies headache, focal weakness or sensory changes. [] Endocrine: Denies polyuria or polydipsia. [] Lymphatic: Denies swollen glands. [] Psychiatric: Denies depression or anxiety. [] Heart Score: C/O Chest Pain: Yes HEART Score for Chest Pain: HEART Score for Chest Pain Response (Comments) Value History Slighlty/Non-Suspicious 0 ECG Nonspecific Repolarizatio 1 Age > 65 2 Risk Factors >3 Risk Factors or Hx CAD 2 Troponin >1-<3x Normal Limit 1 Total 6 Risk Factors: Risk Factors: DM, Current or recent (<one month) smoker, HTN, HLP, family history of CAD, obesity. Risk Scores: Score 0 - 3: 2.5% MACE over next 6 weeks - Discharge Home Score 4 - 6: 20.3% MACE over next 6 weeks - Admit for Clinical Observation Score 7 - 10: 72.7% MACE over next 6 weeks - Early Invasive Strategies Current Medications: Current Medications Medications (Trade) Dose Ordered Sig/Sivan Start Time Stop Time Status Last Admin Dose Admin Fentanyl Citrate (Fentanyl 2ml Vial) 50 mcg 1X ONCE 02/23/21 19:45 02/23/21 19:48 DC Allergies: Allergies: Allergies Coded Allergies Type Severity Reaction Last Updated Verified Penicillins Allergy Severe Anaphylaxis 09/24/17 Yes diphenhydramine Allergy Severe Anaphylaxis 09/24/17 Yes ipratropium Allergy Severe Anaphylaxis 09/24/17 Yes meclizine Allergy Severe 09/24/17 Yes trazodone Allergy Severe Shortness of Air 09/24/17 Yes bacitracin Allergy Intermediate Rash 09/24/17 Yes neomycin Allergy Intermediate Rash 09/24/17 Yes polymyxin B Allergy Intermediate Rash 09/24/17 Yes tramadol Allergy Intermediate Itching 02/27/19 Yes oxycodone Adverse Reaction Intermediate Nausea and Vomiting 11/07/20 Yes Physical Exam: PE: Constitutional: Well developed, well nourished, no acute distress, non-toxic appearance. [] HENT: Normocephalic, atraumatic, bilateral external ears normal, oropharynx johann st, no oral exudates, nose normal. [] Eyes: PERRL, EOMI, conjunctiva normal, no discharge. [] Neck: Normal range of motion, no tenderness, supple, no stridor. [] Cardiovascular:Heart rate regular rhythm, +2 radial and posterior tibial pulses bilaterally, well-perfused appearing. Bilateral lower extremity edema. Palp ation of the anterior chest wall does reproduce her pain. No palpable crepitus or step-offs or subcutaneous emphysema are noted. Lungs & Thorax: Bilateral breath sounds clear to auscultation, no rales, rhonchi or wheezes. No tachypnea, no distress. [] Abdomen: Bowel sounds normal, soft, no tenderness, no masses, no pulsatile masses. [] Skin: Warm, dry, no erythema, no rash. [] Back: No tenderness, no CVA tenderness. [] Extremities: No tenderness, no cyanosis, no clubbing, ROM intact, bilateral, symmetric 1+ lower extremity pitting edema. No calf tenderness. Neurologic: Alert and oriented X 3, normal motor function, normal sensory function, no focal deficits noted. [] Psychologic: Affect normal, judgement normal, mood normal. She is pleasant cooperative. [] EKG: EKG: EKG is interpreted at 2002 Rhythm is sinus Rate is [address] changes No STEMI Radiology/Procedures: Radiology/Procedures: []IMAGING REPORT Signed PATIENT: BRENNA RAMIREZ ACCOUNT: [id number] : 1940 LOCATION: ER AGE: 80 SEX: F EXAM STATUS: REG ER ORD. PHYSICIAN: PAULA GAINES DO REASON: Chest pain, dyspnea, elevated troponin, wide mediastinum PROCEDURE: CT ANGIOGRAPHY CHEST PQRS Compliance Statement: One or more of the following individualized dose reduction techniques were utilized for this examination: 1. Automated exposure control 2. Adjustment of the mA and/or kV according to patient size 3. Use of iterative reconstruction technique CT CHEST WITH CONTRAST, PULMONARY ANGIOGRAM History: Reason: Chest pain, dyspnea, elevated troponin, wide mediastinum / Comparison: None. Technique: Helical CT of the chest was performed after the administration of 100 cc of Omnipaque 350 intravenous contrast according to PE protocol. Axial and coronal reconstructions were obtained. 3-D MIP images were constructed to better evaluate the pulmonary arteries. Findings: Pulmonary arteries are adequately opacified. There is no evidence of pulmonary embolism. There is no thoracic aortic dissection. Patient is post ISELA. Upper abdominal aorta branches are patent, the celiac artery is small caliber. The vessels are normal caliber. No adenopathy in the chest. Cardiac size upper limits of normal, no pericardial effusion. There is no pleural abnormality. The central airways are patent. There is mild bilateral dependent atelectasis. Calcified granuloma in the lingula. Postsurgical change of the stomach. There is diverticulosis of the visualized transverse colon. No acute bone abnormality. IMPRESSION: There is no pulmonary embolus. Electronically signed by: Cosmo Yao MD (02/23/2021 10:19 PM) [facility] DICTATED and SIGNED BY: COSMO YAO MD DATE: 02/23/21 [id number] 0 Course & Med Decision Making: Course & Med Decision Making Pertinent Labs and Imaging studies reviewed. (See chart for details) I have discussed the findings, differential diagnosis and plan of care with the patient. IV fentanyl and GI cocktail were given. I explained the elevated troponin level to the patient, and she reports that she is aware of a chronically elevated troponin level. She has discussed this with multiple times with her exercise teacher. Upon review of previous records, her troponin is usually quite elevated, and her troponin level today is significantly lower than her baseline appears to be. She does not wish to pursue serial exams or admission at this time. She is resting comfortably and manifesting no evidence of distress. No evidence of hypoxia. Her pain is somewhat atypical, as it is related to coughing and is reproducible with coughing and palpation of the chest wall. I did explain that given her multiple risk factors admission would be appropriate. She declines. She promises to follow-up with her exercise teacher. In addition, I explained her subtherapeutic INR level of 1.4. She reports this happens to be a recurring issue for her. I suggested taking an extra dose of warfarin this week. She usually takes 5 mg daily. She has a scheduled appointment to see her physician on Wednesday for repeat INR and for further discussion of chronic illnesses. I told her to follow-up and discuss this at that time. I have given her very strict return precautions and I explained that she may return immediately at any time for any reason at all. She verbalizes understanding of all instructions given. She is very comfortable with the plan for discharge home. Shar Disclaimer: Shar Disclaimer: This electronic medical record was generated, in whole or in part, using a voice recognition dictation system. Departure Departure Impression: Primary Impression: Atypical chest pain Additional Impressions: Cough Subtherapeutic international normalized ratio (INR) Elevated troponin Disposition: HOME / SELF CARE / HOMELESS Condition: STABLE Referrals: DELMAR HAMILTON D.O. (PCP) Patient Instructions: Chest Pain (Nonspecific), Cough, Adult, Warfarin Coagulopathy Additional Instructions: Use the medications as directed and as needed. Your heart enzymes are elevated, though they are much lower today than they are on previous exams. You have indicated that you and your exercise teacher are aware of your chronically elevated troponins. Your work-up was otherwise unremarkable for any acute life- threatening process, however your INR is low, so you should take an extra 5 mg of warfarin 1 day this week, and follow-up on Wednesday for your repeat INR to make sure it is therapeutic. Return to the ER immediately for any more severe pain, difficulty breathing, coughing up blood, fever of 100.4 or higher or any other concerns. Please contact your primary care physician for further evaluation and treatment. I suspect that acid reflux may be at least partially contributing to your symptoms, so you may need to have your acid reflux medications adjusted, and/or you may need to see outpatient GI services. Scripts Guaifenesin (MUCINEX) 600 Mg Tablet.er 1 TAB PO BID for cough for 10 Days, #20 TAB 0 Refills Prov: PAULA GAINES DO 02/23/21 Benzonatate (TESSALON PERLE) 100 Mg Capsule 1 CAP PO TID for cough, #21 CAP Prov: PAULA GAINES DO 02/23/21 PAULA GAINES DO Feb 23, 2021 20:03
[2021-02-23] MEDS: fentaNYL PF VIAL 100 MCG/2 ML VIAL IVP ONE (20:31)
[2021-02-23 20:40] LABS: BASO % 1 % (0-3); EOS # 0.2 x10^3/uL (0.0-0.7); EOS % 4 % (0-3); HEMATOCRIT 31.5 % (36.0-47.0); HEMOGLOBIN 10.6 g/dL (12.0-15.5); LYMPH # 1.5 x10^3/uL (1.0-4.8); LYMPH % 31 % (24-48); MEAN CORPUSCULAR HEMOGLOBIN 33 pg (25-35); MEAN CORPUSCULAR HGB CONC 34 g/dL (31-37); MEAN CORPUSCULAR VOLUME 97 fL (79-100); MONO # 0.4 x10^3/uL (0.0-1.1); MONO % 8 % (0-9); NEUT # 2.8 x10^3/uL (1.8-7.7); NEUT % 57 % (31-73); PLATELET COUNT 266 x10^3/uL (140-400); RED BLOOD COUNT 3.24 x10^6/uL (3.50-5.40); RED CELL DISTRIBUTION WIDTH 15.2 % (11.5-14.5); WHITE BLOOD COUNT 4.9 x10^3/uL (4.0-11.0)
[2021-02-23 20:48] LABS: PROTHROMBIN TIME PATIENT 17.4 SEC (11.7-14.0)
[2021-02-23 20:50] LABS: CALCIUM 8.7 mg/dL (8.5-10.1); GFR 64.6; POTASSIUM 4.2 mmol/L (3.5-5.1)
[2021-02-23 20:58] LABS: ALBUMIN 3.3 g/dL (3.4-5.0); ALBUMIN/GLOBULIN RATIO 0.8 (1.0-1.7); TOTAL BILIRUBIN 0.3 mg/dL (0.2-1.0); TOTAL PROTEIN 7.5 g/dL (6.4-8.2)
--- NOTE | 2021-02-23 21:21 | EKG ---
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
[2021-02-23] MEDS: IOHEXOL 350 MG/ML 100 ML VIAL. IV ONE (21:29)
[2021-02-23] MEDS ORDERED: CONTRAST GIVEN. MC PRN (21:30)
--- NOTE | 2021-02-23 22:05 | RAD ---
EXAM: CHEST ONE VIEW. HISTORY: Chest pain. COMPARISON: 11/08/2020. FINDINGS: A frontal view of the chest is obtained. There are changes of aortic valve repair. Surgical clips project within the upper abdomen. An electronic device projects on the left chest. There are no confluent infiltrates. There is a calcified granuloma in the left base. There is no pneu mothorax or pleural effusion. The heart is mildly enlarged. There are atherosclerotic calcifications of the aorta. IMPRESSION: 1. Mild cardiomegaly. Electronically signed by: Tanya Blanchard MD (02/23/2021 10:03 PM) [facility]
--- NOTE | 2021-02-23 22:21 | RAD ---
PQRS Compliance Statement: One or more of the following individualized dose reduction techniques were utilized for this examinat ion: 1. Automated exposure control 2. Adjustment of the mA and/or kV according to patient size 3. Use of iterative reconstruction technique CT CHEST WITH CONTRAST, PULMONARY ANGIOGRAM History: Reason: Chest pain, dyspnea, elevated troponin, wide mediastinum / Comparison: None. Technique: Helical CT of the chest was performed after the administration of 100 cc of Omnipaque 350 intravenous contrast according to PE protocol. Axial and coronal reconstructions were obtained. 3- D MIP images were constructed to better evaluate the pulmonary arteries. Findings: Pulmonary arteries are adequately opacified. There is no evidence of pulmonary embolism. There is no thoracic aortic dissection. Patient is post ISELA. Upper abdominal aorta branches are kincaid nt, the celiac artery is small caliber. The vessels are normal caliber. No adenopathy in the chest. C ardiac size upper limits of normal, no pericardial effusion. There is no pleural abnormality. The central airways are patent. There is mild bilateral dependent at electasis. Calcified granuloma in the lingula. Postsurgical change of the stomach. There is diverticulosis of the visualized transverse colon. No acute bone abnormality. IMPRESSION: There is no pulmonary embolus. Electronically signed by: Cosmo Yao MD (02/23/2021 10:19 PM) [facility]
[2021-02-23] MEDS ORDERED: BENZ100C PO (23:24)
[2021-02-23] MEDS ORDERED: GUAI600T47 PO (23:24)
[2021-02-23] MEDS: LIDO:MAALOX 1:1 20 ML SINGLE DOSE. SWSW ONE (23:26)
[2021-02-23 23:27] VITALS: BP 149/72
== END 2021-02-24 | disposition home or self-care (01) ==
LOC: ER 18:38
DX: R07.2 Precordial pain (principal); R77.8 Other specified abnormalities of plasma proteins; F41.9 Anxiety disorder, unspecified; J45.909 Unspecified asthma, uncomplicated; F32.9 Major depressive disorder, single episode, unspecified; K21.9 Gastro-esophageal reflux disease without esophagitis; I10 Essential (primary) hypertension; E03.9 Hypothyroidism, unspecified; I25.2 Old myocardial infarction; Z86.718 Personal history of other venous thrombosis and embolism; Z87.11 Personal history of peptic ulcer disease; Z86.2 Personal history of diseases of the blood and blood-forming organs and certain disorders involving the immune mechanism; Z88.0 Allergy status to penicillin; Z88.8 Allergy status to other drugs, medicaments and biological substances; Z88.5 Allergy status to narcotic agent; Z88.1 Allergy status to other antibiotic agents
CPT/HCPCS: 36415; 71045; 71275; 80053; 83690; 83735; 83880; 84484; 85025; 85610; 93005; 96374; 99285; J3010; Q9967

== ENCOUNTER 2021-02-28 09:55 | Emergency (ER) | payer MEDICARE, OTHER ==
[~2021-02-28] VITALS: Ht 157.5 cm; Wt 84.5 kg
[~2021-02-28 09:55] MED LIST changes: +GUAI600T47 PO
[2021-02-28] MEDS ORDERED: NITROGLYCERIN SUBLINGUAL 0.4 MG BOTTLE OF 25. SL PRN (10:15)
--- NOTE | 2021-02-28 10:51 | PHYS DOC ---
Past Medical History Past Medical History: Anemia, Anxiety, Asthma, Depression, DVT, GERD, Hyp ertension, Hypothyroid, Pneumonia, P.U.D., Other Additional Past Medical Histor: N-STEMI (PIETRO ROGERS TRANSPORT AIDE) Past Surgical History: Angioplasty, Knee Replacement, Tubal ligation, Other Additional Past Surgical Histo: Hernia; Feet; Ulcers, L shoulder surgery, TAVR PROCEDURE (PIETRO ROGERS TRANSPORT AIDE) Smoking Status: Former Smoker Alcohol Use: None Drug Use: None ([facility]) General Adult EDM: Chief Complaint: DIZZY/LIGHT HEADED HPI: HPI: Patient is a 80 year old female who presents with dizziness, chest pressure. She states she was here this past Wednesday with this chest pressure but not the dizziness and they sent her home. She states that "the room is not spinning but she does feel dizzy inside of her head." She states she awoke with this is a 40. Patient states she took half of a Valium this morning to help settle her down because she was feeling anxious. Work-up will be we have, DVT, GERD, PUD, pneumonia, angioplasty, knee replacement, valve replacement, anxiety, hypertension, hypothyroidism, NSTEMI, tubal ligation, hernia repair, ulcer repair, TAVR procedure. She rates her discomfort an 8 out of 10. She does take warfarin daily. (PIETRO ROGERS TRANSPORT AIDE) Review of Systems: Review of Systems: Constitutional: Denies fever or chills. [] Eyes: Denies change in visual acuity. [] HENT: Denies nasal congestion or sore throat. [] Respiratory: Denies cough or +shortness of breath. [] Cardiovascular: + chest pain or denies edema. [] GI: Denies abdominal pain, nausea, vomiting, bloody stools or diarrhea. [] : Denies dysuria. [] Musculoskeletal: Denies back pain or joint pain. [] Integument: Denies rash. [] Neurologic: Denies headache, focal weakness or sensory changes. +Dizziness[] Endocrine: Denies polyuria or polydipsia. [] Lymphatic: Denies swollen glands. [] Psychiatric: Denies depression or anxiety. [] (PIETRO ROGERS TRANSPORT AIDE) Heart Score: C/O Chest Pain: Yes HEART Score for Chest Pain: HEART Score for Chest Pain Response (Comments) Value History Slighlty/Non-Suspicious 0 ECG Nonspecific Repolarizatio 1 Age > 65 2 Risk Factors >3 Risk Factors or Hx CAD 2 Troponin < Normal Limit 0 Total 5 Risk Factors: Risk Factors: DM, Current or recent (<one month) smoker, HTN, HLP, family histo ry of CAD, obesity. Risk Scores: Score 0 - 3: 2.5% MACE over next 6 weeks - Discharge Home Score 4 - 6: 20.3% MACE over next 6 weeks - Admit for Clinical Observation Score 7 - 10: 72.7% MACE over next 6 weeks - Early Invasive Strategies ([facility]ACOBOA M TRANSPORT AIDE) Current Medications: Current Medications Medications (Trade) Dose Ordered Sig/Sivan Start Time Stop Time Status Last Admin Dose Admin Nitroglycerin (Nitrostat) 0.4 mg PRN Q5MIN PRN 02/28/21 10:15 (JACOBO ROGERSA M TRANSPORT AIDE) Allergies: Allergies: Allergies Coded Allergies Type Severity Reaction Last Updated Verified Penicillins Allergy Severe Anaphylaxis 09/24/17 Yes diphenhydramine Allergy Severe Anaphylaxis 09/24/17 Yes ipratropium Allergy Severe Anaphylaxis 09/24/17 Yes meclizine Allergy Severe 09/24/17 Yes trazodone Allergy Severe Shortness of Air 09/24/17 Yes bacitracin Allergy Intermediate Rash 09/24/17 Yes neomycin Allergy Intermediate Rash 09/24/17 Yes polymyxin B Allergy Intermediate Rash 09/24/17 Yes tramadol Allergy Intermediate Itching 02/27/19 Yes oxycodone Adverse Reaction Intermediate Nausea and Vomiting 11/07/20 Yes ([facility]) Physical Exam: PE: Constitutional: Well developed, well nourished, no acute distress, non-toxic appearance. [] HENT: Normocephalic, atraumatic, bilateral external ears normal, oropharynx moist, no oral exudates, nose normal. [] Eyes: PERRLA, EOMI, conjunctiva normal, no discharge. [] Neck: Normal range of motion, no tenderness, supple, no stridor. [] Cardiovascular:Heart rate regular rhythm, no murmur [] Lungs & Thorax: Bilateral upper breath sounds clear and lower diminished to auscultation [] Abdomen: Bowel sounds normal, soft, no tenderness, no masses, no pulsatile masses. [] Skin: Warm, dry, no erythema, no rash. [] Back: No tenderness, no CVA tenderness. [] Extremities: No tenderness, no cyanosis, no clubbing, ROM intact, no edema. [] Neurologic: Alert and oriented X 3, normal motor function, normal sensory function, no focal deficits noted. [] Psychologic: Affect normal, judgement normal, mood normal. [] (PIETRO ROGERS APRN) Current Patient Data: Vital Signs: Vital Signs Date Time Temp Pulse Resp B/P (MAP) Pulse Ox O2 Delivery O2 Flow Rate FiO2 02/28/21 10:10 98.1 69 20 195/86 (122) 100 Room Air 98.1 (PIETRO ROGERS APRN) EKG: EK and read by Dr. Kang as a sinus rhythm, LVH with repolarization, depressed T waves but no STEMI (PIETRO ROGERS APRN) Radiology/Procedures: Radiology/Procedures: [] Impression: [facility] [address] [place] [address] IMAGING REPORT Signed PATIENT: BRENNA RAMIREZ ACCOUNT: [id number] : 1940 LOCATION: ER AGE: 80 SEX: F EXAM STATUS: REG ER ORD. PHYSICIAN: PIETRO ROGERS APRN REASON: dizziness PROCEDURE: CT HEAD WO CONTRAST EXAM: Head CT without contrast. HISTORY: Dizziness. TECHNIQUE: Computed tomographic images of the head were obtained without contrast. *One or more of the following individualized dose reduction techniques were utilized for this examination: 1. Automated exposure control. 2. Adjustment of the mA and/or kV according to patient size. 3. Use of iterative reconstruction technique. COMPARISON: 09/09/2020. FINDINGS: There is no acute or subacute extra-axial or intraparenchymal hemorrhage. There is no mass effect or midline shift. There is no hydrocephalus. There are areas of decreased attenuation within the cerebral white matter, nonspecific and likely related to chronic small vessel disease. There is mild cerebral volume loss. There is calcification of the bilateral globus pallidus. There is evidence of lens surgery. There is mild ethmoid sinus mucosal thickening. The mastoid air cells are clear. There is no suspicious calvarial lesion. IMPRESSION: 1. No acute intracranial finding. Note is made that MRI is more sensitive for acute infarction. 2. Bilateral cerebral white matter changes, likely due to chronic small vessel disease in a patient of this age. 3. Cerebral volume loss. Electronically signed by: Daxa Noel MD (02/28/2021 11:35 AM) [facility] DICTATED and SIGNED BY: DAXA NOEL MD DATE: 02/28/21 [id number] [facility] [address] [place], [place] [id number] IMAGING REPORT Signed PATIENT: BRENNA RAMIREZ ACCOUNT: [id number] : 1940 LOCATION: ER AGE: 80 SEX: F EXAM STATUS: PRE ER ORD. PHYSICIAN: PIETRO ROGERS APRN REASON: chest pain PROCEDURE: PORTABLE CHEST 1V XR CHEST 1V CLINICAL INDICATIONS: Reason: chest pain / Spl. Instructions: / History: COMPARISON: February 23, 2021. Findings: Granuloma left midlung zone is again evident. No acute lung infiltrate or pleural effusion or pulmonary edema or lung mass or pneumothorax is seen. The heart size, pulmonary vasculature, mediastinum and both rodríguez are stable. IMPRESSION: No acute radiographic abnormality is seen. Electronically signed by: Vitor Rodriguez MD (02/28/2021 11:00 AM) [id number] DICTATED and SIGNED BY: VITOR RODRIGUEZ MD DATE: 02/28/21 [id number] 0 (PIETRO ROGERS APRN) Course & Med Decision Making: Course & Med Decision Making Pertinent Labs and Imaging studies reviewed. (See chart for details) See HPI. Alert and oriented x4. Speaks in full clear sentences. Skin pink warm and dry. No peripheral edema. Lungs are clear in upper lobes but diminished in lower lobes. EKG shows depressed T waves more so than 5 days ago comparatively. She is hypertensive in the 190s. Chest pain not reproducible. No nystagmus. Patient is therapeutic on Coumadin and therefore I have not ordered her any other anticoagulant. Spoke to Dr. Swann who is the cardiac doctor for this patient and he states that he is okay to go home as these are all chronic thanks with her health care. He states she does not need to be admitted. She will receive her first dose of Cipro through the IV and she can continue on ciprofloxacin at home and follow-up with primary care. [] (PIETRO ROGERS APRN) Dragon Disclaimer: Dragon Disclaimer: This electronic medical record was generated, in whole or in part, using a voice recognition dictation system. (PIETRO ROGERS APRN) Departure Departure Impression: Primary Impression: Chest pain Qualified Codes: R07.9 - Chest pain, unspecified Additional Impressions: UTI (urinary tract infection) Qualified Codes: N39.0 - Urinary tract infection, site not specified Elevated troponin Disposition: HOME / SELF CARE / HOMELESS Condition: STABLE Referrals: DELMAR HAMILTON D.O. (PCP) Patient Instructions: Urinary Tract Infection Additional Instructions: Follow-up with a primary care doctor in the next week or so. Take the antibiotic as prescribed. Continue taking your medications as they are prescribed. Scripts Nitrofurantoin Monohyd/M-Cryst (MACROBID 100 MG CAPSULE) 100 Mg Capsule 1 CAP PO BID for 7 Days, #14 CAP 0 Refills Prov: PIETRO ROGERS APRN 02/28/21 Attending Signature Attending Signature I have reviewed the PA/ANIMAL STUNNER's note and plan of care. I was available for consultation as needed during the patient's visit in the emergency department. I agree with the clinical impression, plan, and disposition. (CHUCK KANG DO) PIETRO ROGERS APRN Feb 28, 2021 10:51 CHUCK KANG DO Mar 01, 2021 06:47
--- NOTE | 2021-02-28 11:02 | RAD ---
XR CHEST 1V CLINICAL INDICATIONS: Reason: chest pain / Spl. Instructions: / History: COMPARISON: February 23, 2021. Findings: Granuloma left midlung zone is again evident. No acute lung infiltrate or pleural effusion or pulmonary edema or lung mass or pneumothorax is seen. The heart size, pulmonary vasculature, medi astinum and both rodríguez are stable. IMPRESSION: No acute radiographic abnormality is seen. Electronically signed by: Vick Rodriguez MD (02/28/2021 11:00 AM) [id number]
[2021-02-28 11:04] LABS: BASO % 1 % (0-3); EOS # 0.2 x10^3/uL (0.0-0.7); EOS % 4 % (0-3); HEMATOCRIT 32.5 % (36.0-47.0); HEMOGLOBIN 10.7 g/dL (12.0-15.5); LYMPH # 1.3 x10^3/uL (1.0-4.8); LYMPH % 31 % (24-48); MEAN CORPUSCULAR HEMOGLOBIN 32 pg (25-35); MEAN CORPUSCULAR HGB CONC 33 g/dL (31-37); MEAN CORPUSCULAR VOLUME 97 fL (79-100); MONO # 0.3 x10^3/uL (0.0-1.1); MONO % 8 % (0-9); NEUT # 2.3 x10^3/uL (1.8-7.7); NEUT % 56 % (31-73); PLATELET COUNT 281 x10^3/uL (140-400); RED BLOOD COUNT 3.36 x10^6/uL (3.50-5.40); RED CELL DISTRIBUTION WIDTH 15.3 % (11.5-14.5); WHITE BLOOD COUNT 4.1 x10^3/uL (4.0-11.0)
[2021-02-28 11:14] LABS: PROTHROMBIN TIME PATIENT 25.3 SEC (11.7-14.0)
[2021-02-28 11:20] LABS: CALCIUM 8.9 mg/dL (8.5-10.1); GFR 64.6; POTASSIUM 4.4 mmol/L (3.5-5.1)
[2021-02-28 11:26] LABS: ALBUMIN 3.4 g/dL (3.4-5.0); ALBUMIN/GLOBULIN RATIO 0.8 (1.0-1.7); MAGNESIUM 2.2 mg/dL (1.8-2.4); TOTAL BILIRUBIN 0.2 mg/dL (0.2-1.0); TOTAL PROTEIN 7.5 g/dL (6.4-8.2)
--- NOTE | 2021-02-28 11:37 | RAD ---
EXAM: Head CT without contrast. HISTORY: Dizziness. TECHNIQUE: Computed tomographic images of the head were obtained without contrast. *One or more of the following individualized dose reduction techniques were utilized for this examina tion: 1. Automated exposure control. 2. Adjustment of the mA and/or kV according to patient size. 3. Use of iterative reconstruction technique. COMPARISON: 09/09/2020. FINDINGS: There is no acute or subacute extra-axial or intraparenchymal hemorrhage. There is no mass effect or midline shift. There is no hydrocephalus. There are areas of decreased attenuation within the cerebral white matter, nonspecific and likely rel ated to chronic small vessel disease. There is mild cerebral volume loss. There is calcification of t he bilateral globus pallidus. There is evidence of lens surgery. There is mild ethmoid sinus mucosal thickening. The mastoid air ce lls are clear. There is no suspicious calvarial lesion. IMPRESSION: 1. No acute intracranial finding. Note is made that MRI is more sensitive for acute infarction. 2. Bilateral cerebral white matter changes, likely due to chronic small vessel disease in a patient o f this age. 3. Cerebral volume loss. Electronically signed by: Daxa Sosa MD (02/28/2021 11:35 AM) [facility]
[2021-02-28 11:48] LABS: BILIRUBIN,URINE NEGATIVE (NEG); CLARITY,URINE CLEAR; COLOR,URINE YELLOW; NITRITE,URINE NEGATIVE (NEG); PH,URINE 5.5 (<5.0-8.0); PROTEIN,URINE NEGATIVE (NEG-TRACE); UROBILINOGEN,URINE 0.2 mg/dL (0.2 mg/dL)
[2021-02-28 11:52] LABS: BACTERIA,URINE MODERATE /HPF (0-FEW); RBC,URINE OCC /HPF (0-2); WBC,URINE 20-40 /HPF (0-4)
[2021-02-28] MEDS ORDERED: CIPROFLOXACIN 400MG PREMIX 200 ML IV ONE (12:00)
[2021-02-28] MEDS ORDERED: IV NORMAL SALINE 500ML BAG 500 ML IV ONE (12:00)
[2021-02-28] MEDS ORDERED: CIPR500T94 PO (13:12)
[2021-02-28] MEDS ORDERED: NITR100C62 PO (13:55)
[2021-02-28 14:50] VITALS: BP 168/77
--- NOTE | 2021-02-28 17:27 | EKG ---
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
== END 2021-02-28 14:59 | disposition home or self-care (01) ==
LOC: ER 09:55
DX: N39.0 Urinary tract infection, site not specified (principal); R77.8 Other specified abnormalities of plasma proteins; R07.89 Other chest pain; R42 Dizziness and giddiness; F41.9 Anxiety disorder, unspecified; J45.909 Unspecified asthma, uncomplicated; K21.9 Gastro-esophageal reflux disease without esophagitis; I10 Essential (primary) hypertension; E03.9 Hypothyroidism, unspecified; Z86.718 Personal history of other venous thrombosis and embolism; Z86.2 Personal history of diseases of the blood and blood-forming organs and certain disorders involving the immune mechanism; Z87.11 Personal history of peptic ulcer disease; Z98.61 Coronary angioplasty status; Z98.51 Tubal ligation status; Z88.0 Allergy status to penicillin; Z88.8 Allergy status to other drugs, medicaments and biological substances; Z88.5 Allergy status to narcotic agent; Z88.1 Allergy status to other antibiotic agents
CPT/HCPCS: 36415; 70450; 71045; 80053; 81001; 83690; 83735; 83880; 84484; 85025; 85610; 85730; 87086; 93005; 96365; 99285; J0744; J7040

== ENCOUNTER 2021-03-20 14:49 | Inpatient (IN) | payer MEDICARE, OTHER ==
[~2021-03-20] VITALS: Ht 154.9 cm; Wt 85.9 kg
[~2021-03-20 14:49] MED LIST changes: +CIPR500T94 PO; -LISI-517 PO; +LISI5TAB15 PO; +NITR100C62 PO
[2021-03-20] MEDS ORDERED: DEXTROSE 50% 25 GM / 50ML DISP.SYRIN. IV ONE ×2 (15:03→15:15)
[2021-03-20 15:21] LABS: BASO % 0 % (0-3); EOS # 0.2 x10^3/uL (0.0-0.7); EOS % 3 % (0-3); HEMATOCRIT 33.7 % (36.0-47.0); HEMOGLOBIN 11.1 g/dL (12.0-15.5); LYMPH # 2.7 x10^3/uL (1.0-4.8); LYMPH % 53 % (24-48); MEAN CORPUSCULAR HEMOGLOBIN 33 pg (25-35); MEAN CORPUSCULAR HGB CONC 33 g/dL (31-37); MEAN CORPUSCULAR VOLUME 99 fL (79-100); MONO # 0.6 x10^3/uL (0.0-1.1); MONO % 12 % (0-9); NEUT # 1.6 x10^3/uL (1.8-7.7); NEUT % 32 % (31-73); PLATELET COUNT 215 x10^3/uL (140-400); RED BLOOD COUNT 3.41 x10^6/uL (3.50-5.40); RED CELL DISTRIBUTION WIDTH 15.2 % (11.5-14.5); WHITE BLOOD COUNT 5.1 x10^3/uL (4.0-11.0)
[2021-03-20 15:25] LABS: CALCIUM 9.1 mg/dL (8.5-10.1); GFR 64.6; POTASSIUM 3.6 mmol/L (3.5-5.1); PROTHROMBIN TIME PATIENT 24.6 SEC (11.7-14.0)
[2021-03-20 15:33] LABS: ALBUMIN 3.7 g/dL (3.4-5.0); ALBUMIN/GLOBULIN RATIO 0.9 (1.0-1.7); TOTAL BILIRUBIN 0.5 mg/dL (0.2-1.0)
--- NOTE | 2021-03-20 15:41 | RAD ---
Single AP view of the chest. Comparison: 02/28/2021. Indication: Chest pain Findings: Surgical clips in the epigastric region are identified. The heart is enlarged but stable. There is n o pneumothorax or effusion. No air space or interstitial disease. Impression: 1. No acute cardiopulmonary process. Electronically signed by: Polo Hutchinson MD (03/20/2021 3:38 PM) [facility]
[2021-03-20] MEDS ORDERED: CONTRAST GIVEN. MC PRN (15:45)
[2021-03-20] MEDS ORDERED: IOHEXOL 300 MG/ML 100ML VIAL. IV ONE (15:45)
--- NOTE | 2021-03-20 15:52 | EKG ---
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
--- NOTE | 2021-03-20 16:05 | PDOC2 ---
GUCCI ROMANO ASSISTANT CHIEF TRAIN DISPATCHER 03/20/21 1605: CARDIAC CONSULT DATE OF CONSULT Date of Consult DATE: 03/20/21 TIME: 15:55 REASON FOR CONSULT Reason for Consult: Chest pain REFERRING PHYSICIAN Referring Physician: Dr. Corona SOURCE Source: Chart review, Patient HISTORY OF PRESENT ILLNESS HISTORY OF PRESENT ILLNESS This is an 80 yo female who presented secondary to chest pressure, lightheadedness. Troponin level noted to be mildly elevated, which prompted this consult. Patient reports she was walking to her car in parking lot when she suddenly began feeling lightheaded, dizzy. Ary as is she could pass out. Had pressure in her central chest and was slightly short of breath. No nausea or diaphoresis. She denies any recent fevers or illness. Has received her COVID booster recently. PAST MEDICAL HISTORY Past Medical History Cardiovascular: HTN, Hyperlipidemia, Aortic stenosis, chronic tropoinin elevation Pulmonary: Asthma GI: Constipation, GERD, Irritable bowel disease, Peptic Ulcer disease Heme/Onc: Anemia NOS, DVT Psych: Anxiety, Depression Musculoskeletal: low back pain, Osteoarthritis, Other Endocrine: Hypothyroidism, Osteopenia, Other PAST SURGICAL HISTORY Past Surgical History Total knee replacement, TAVR FAMILY HISTORY Family History: Diabetes SOCIAL HISTORY Smoke: No ALCOHOL: none Drugs: None Lives: with Family CURRENT MEDICATIONS CURRENT MEDICATIONS Current Medications Medications (Trade) Dose Ordered Sig/Sivan Route PRN Reason Start Time Stop Time Status Last Admin Dose Admin Dextrose (Dextrose 50%-Water Syringe) 25 gm 1X ONCE IV 03/20/21 15:15 03/20/21 15:16 DC 03/20/21 15:12 Iohexol (Omnipaque 300 Mg/ml) 75 ml 1X ONCE IV 03/20/21 15:45 03/20/21 15:46 DC 03/20/21 15:47 ALLERGIES ALLERGIES: Coded Allergies: Penicillins (Verified Allergy, Severe, Anaphylaxis, 03/20/21) diphenhydramine (Verified Allergy, Severe, Anaphylaxis, 03/20/21) ipratropium (Verified Allergy, Severe, Anaphylaxis, 03/20/21) meclizine (Verified Allergy, Severe, 03/20/21) trazodone (Verified Allergy, Severe, Shortness of Air, 03/20/21) bacitracin (Verified Allergy, Intermediate, Rash, 03/20/21) neomycin (Verified Allergy, Intermediate, Rash, 09/24/17) polymyxin B (Verified Allergy, Intermediate, Rash, 09/24/17) tramadol (Verified Allergy, Intermediate, Itching, 02/27/19) cause itching oxycodone (Verified Adverse Reaction, Intermediate, Nausea and Vomiting, 11/07/20) ROS Review of System 14 point ROS conducted with pertinent positives noted above in HPI PHYSICAL EXAM PHYSICAL EXAM General: Alert, Oriented X3, Cooperative, No acute distress HEENT: Atraumatic, Mucous membr. moist/pink Lungs: Clear to auscultation, Normal air movement Heart: Regular rate (SR), Normal S1, Normal S2, Other (2/6 systolic murmur) Extremities: No cyanosis, trace pedal edema Skin: No breakdown, No significant lesion Neuro: Normal speech, Sensation intact Psych/Mental Status: Mental status NL, Mood NL MUSCULOSKELETAL: Osteoarthritic changes both hands VITALS/I&O VITALS/I&O: Vital Signs Date Time Temp Pulse Resp B/P (MAP) Pulse Ox O2 Delivery O2 Flow Rate FiO2 03/20/21 15:22 62 14 127/62 (83) 97 Room Air 03/20/21 14:55 97.8 97.8 LABS Lab: Laboratory Tests Test 03/20/21 15:01 03/20/21 15:05 03/20/21 15:36 Glucose (Fingerstick) 48 mg/dL (70-99) *L 143 mg/dL (70-99) H White Blood Count 5.1 x10^3/uL (4.0-11.0) Red Blood Count 3.41 x10^6/uL (3.50-5.40) L Hemoglobin 11.1 g/dL (12.0-15.5) L Hematocrit 33.7 % (36.0-47.0) L Mean Corpuscular Volume 99 fL (79-100) Mean Corpuscular Hemoglobin 33 pg (25-35) Mean Corpuscular Hemoglobin Concent 33 g/dL (31-37) Red Cell Distribution Width 15.2 % (11.5-14.5) H Platelet Count 215 x10^3/uL (140-400) Neutrophils (%) (Auto) 32 % (31-73) Lymphocytes (%) (Auto) 53 % (24-48) H Monocytes (%) (Auto) 12 % (0-9) H Eosinophils (%) (Auto) 3 % (0-3) Basophils (%) (Auto) 0 % (0-3) Neutrophils # (Auto) 1.6 x10^3/uL (1.8-7.7) L Lymphocytes # (Auto) 2.7 x10^3/uL (1.0-4.8) Monocytes # (Auto) 0.6 x10^3/uL (0.0-1.1) Eosinophils # (Auto) 0.2 x10^3/uL (0.0-0.7) Basophils # (Auto) 0.0 x10^3/uL (0.0-0.2) Prothrombin Time 24.6 SEC (11.7-14.0) H Prothrombin Time INR 2.3 (0.8-1.1) H Activated Partial Thromboplast Time 37 SEC (24-38) Sodium Level 139 mmol/L (136-145) Potassium Level 3.6 mmol/L (3.5-5.1) Chloride Level 103 mmol/L (98-107) Carbon Dioxide Level 27 mmol/L (21-32) Anion Gap 9 (6-14) Blood Urea Nitrogen 16 mg/dL (7-20) Creatinine 1.0 mg/dL (0.6-1.0) Estimated GFR (Cockcroft-Gault) 64.6 BUN/Creatinine Ratio 16 (6-20) Glucose Level 52 mg/dL (70-99) L Calcium Level 9.1 mg/dL (8.5-10.1) Total Bilirubin 0.5 mg/dL (0.2-1.0) Aspartate Amino Transferase (AST) 25 U/L (15-37) Alanine Aminotransferase (ALT) 19 U/L (14-59) Alkaline Phosphatase 70 U/L (46-116) Troponin I High Sensitivity 721 ng/L (4-50) H HO-Azb-A-Type Natriuretic Peptide 1777 pg/mL (0-449) H Total Protein 8.0 g/dL (6.4-8.2) Albumin 3.7 g/dL (3.4-5.0) Albumin/Globulin Ratio 0.9 (1.0-1.7) L Laboratory Tests 03/20/21 15:05 Laboratory Tests 03/20/21 15:05 ECHOCARDIOGRAM ECHOCARDIOGRAM <Conclusion> The left ventricular systolic function is normal and the ejection fraction is within normal range. The Ejection Fraction is 60-65%. There is normal LV segmental wall motion. There is a prior transcatheter aortic valve noted. Leaflets not well visualized on this study. Calculated aortic valve area is 2.6 cm2 with maximum pressure gradient of 12 mmHg and mean pressure gradient of 6 mmHg. Doppler and Color Flow revealed mild to moderate tricuspid regurgitation. There is moderate pulmonary hypertension. The PA pressure was estimated at 62 mmHg. The IVC is dilated and collapses <50% with inspiration. DATE: 09/26/20 [id number] HEART CATH HEART CATH Conclusion 1. Mild acute on chronic diastolic HF 2. Normal angiographic appearance of the coronary arteries. 3. Severe aortic stenosis. Recommendations Referral to [facility] for TAVR evaluation. DATE: 12/27/18 1403 ASSESSMENT/PLAN ASSESSMENT/PLAN 1. Chest pain, mixed features 2. Dizziness 3. Mildly elevated troponin with h/o chronic trop elevation. [facility] 2018 with normal angiographic appearance of the coronary arteries as noted above 4. Aortic stenosis: S/P TAVR 02/2019, stable per TTE 10/04 as noted above 5. Hx of DVT with chronic coumadin therapy. INR 2.3 6. Hypertension; controlled 7. Hyperlipidemia; statin 8. Hypothyroidism: on replacement 9. Anxiety/depression Recommendations Trend troponin Check orthos Resume secondary prevention Echocardiogam Hold warfarin for now NPO p MN Will likely need further ischemic evaluation given multiple recent admissions for chest pain and elevated troponin Further pending above ALISSA HENDRIX MD 03/20/21 1716: CARDIAC CONSULT ASSESSMENT/PLAN ASSESSMENT/PLAN Pt. seen and examined. Agree with above PASTRY WRAPPER note. We will plan for coronary angiogram tomorrow if INR is not too elevated in a.m. I suspect this is non-cardiac in nature but given her persistent troponin elevation, recurrent ER visits and her last heart cath being prior to her TAVR. Thanks GUCCI ROMANO APRN Mar 20, 2021 16:05 ALISSA HENDRIX MD Mar 20, 2021 17:16
[2021-03-20] MEDS ORDERED: ACETAMINOPHEN 325 MG TABLET. PO PRN ×2 (16:15→16:30)
[2021-03-20] MEDS ORDERED: ONDANSETRON PF 4 MG/2 ML VIAL. IVP PRN (16:15)
[2021-03-20] MEDS ORDERED: NITROGLYCERIN SUBLINGUAL 0.4 MG BOTTLE OF 25. SL PRN (16:30)
[2021-03-20] MEDS ORDERED: BISACODYL 5 MG TABLET.DR. PO PRN (16:30)
[2021-03-20] MEDS ORDERED: GABAPENTIN 100 MG CAPSULE. PO PRN (16:30)
--- NOTE | 2021-03-20 16:34 | PHYS DOC ---
Past Medical History Past Medical History: Anemia, Anxiety, Asthma, Depression, DVT, GERD, Hypertension, Hypothyroid, Pneumonia, P.U.D., Other Additional Past Medical Histor: N-STEMI Past Surgical History: No Surgical History Additional Past Surgical Histo: valve replacement Smoking Status: Never Smoker Alcohol Use: None Drug Use: None General Adult EDM: Chief Complaint: CHEST PAIN HPI: HPI: 80-year-old female presents the emergency department complaining of pressure- like chest pain in the middle of her chest with radiation towards the left side of her chest along with feeling weak and fatigued for the past 1 day. She reports that her chest pain started a few hours ago, gradual onset, nothing makes it better nothing makes it worse. She reports the chest pain is associate with old of shortness of breath but that has since resolved. She denies any recent illness. She admits to some belly discomfort along with the chest pain. The patient denies nausea, vomiting, fever, chills, urinary symptoms, cough, recent trauma, or any other complaints. Review of Systems: Review of Systems: Constitutional: Negative except what was mentioned in HPI. Eyes: Negative except what was mentioned in HPI. HENT: Negative except what was mentioned in HPI. Respiratory: Negative except what was mentioned in HPI. Cardiovascular: Negative except what was mentioned in HPI. GI: Negative except what was mentioned in HPI. : Negative except what was mentioned in HPI. Musculoskeletal: Negative except what was mentioned in HPI. Integument: Negative except what was mentioned in HPI. Neurologic: Negative except what was mentioned in HPI. Heart Score: C/O Chest Pain: Yes HEART Score for Chest Pain: HEART Score for Chest Pain Response (Comments) Value History Moderately Suspicious 1 ECG Normal 0 Age > 65 2 Risk Factors >3 Risk Factors or Hx CAD 2 Troponin >3 x Normal Limit 2 Total 7 Current Medications: Current Medications Medications (Trade) Dose Ordered Sig/Sivan Start Time Stop Time Status Last Admin Dose Admin Acetaminophen (Tylenol) 650 mg PRN Q4HRS PRN 03/20/21 16:15 03/21/21 16:14 Dextrose (Dextrose 50%-Water Syringe) 25 gm 1X ONCE 03/20/21 15:15 03/20/21 15:16 DC 03/20/21 15:12 25 GM Info (CONTRAST GIVEN -- Rx MONITORING) 1 each PRN DAILY PRN 03/20/21 15:45 03/22/21 15:44 Iohexol (Omnipaque 300 Mg/ml) 75 ml 1X ONCE 03/20/21 15:45 03/20/21 15:46 DC 03/20/21 15:47 75 ML Ondansetron HCl (Zofran) 4 mg PRN Q8HRS PRN 03/20/21 16:15 03/21/21 16:14 Allergies: Allergies: Allergies Coded Allergies Type Severity Reaction Last Updated Verified Penicillins Allergy Severe Anaphylaxis 03/20/21 Yes diphenhydramine Allergy Severe Anaphylaxis 03/20/21 Yes ipratropium Allergy Severe Anaphylaxis 03/20/21 Yes meclizine Allergy Severe 03/20/21 Yes trazodone Allergy Severe Shortness of Air 03/20/21 Yes bacitracin Allergy Intermediate Rash 03/20/21 Yes neomycin Allergy Intermediate Rash 09/24/17 Yes polymyxin B Allergy Intermediate Rash 09/24/17 Yes tramadol Allergy Intermediate Itching 02/27/19 Yes oxycodone Adverse Reaction Intermediate Nausea and Vomiting 11/07/20 Yes Physical Exam: PE: Constitutional: No acute distress, non-toxic appearance. HENT: Atraumatic, bilateral external ears normal, nose normal. Eyes: Conjunctiva normal, no discharge. Neck: Normal range of motion, supple, no stridor. Cardiovascular: Heart rate regular rhythm. 2+ radial pulses and equal Lungs & Thorax: No respiratory distress, symmetrical expansion. Bilateral breath sounds clear to auscultation Chest wall: No reproducible chest wall tenderness to palpation, no lesions. Abdomen: Soft, mild epigastric tenderness Skin: Warm, dry. Extremities: No tenderness, no cyanosis, ROM intact, no edema. Neurologic: Alert and oriented X 3, normal motor function, normal sensory function, no focal deficits noted. GCS 15. Psychologic: Affect normal, judgment normal, mood normal. Current Patient Data: Labs: Laboratory Tests Test 03/20/21 15:01 03/20/21 15:05 03/20/21 15:36 03/20/21 16:13 Glucose (Fingerstick) 48 mg/dL (70-99) *L 143 mg/dL (70-99) H 87 mg/dL (70-99) White Blood Count 5.1 x10^3/uL (4.0-11.0) Red Blood Count 3.41 x10^6/uL (3.50-5.40) L Hemoglobin 11.1 g/dL (12.0-15.5) L Hematocrit 33.7 % (36.0-47.0) L Mean Corpuscular Volume 99 fL (79-100) Mean Corpuscular Hemoglobin 33 pg (25-35) Mean Corpuscular Hemoglobin Concent 33 g/dL (31-37) Red Cell Distribution Width 15.2 % (11.5-14.5) H Platelet Count 215 x10^3/uL (140-400) Neutrophils (%) (Auto) 32 % (31-73) Lymphocytes (%) (Auto) 53 % (24-48) H Monocytes (%) (Auto) 12 % (0-9) H Eosinophils (%) (Auto) 3 % (0-3) Basophils (%) (Auto) 0 % (0-3) Neutrophils # (Auto) 1.6 x10^3/uL (1.8-7.7) L Lymphocytes # (Auto) 2.7 x10^3/uL (1.0-4.8) Monocytes # (Auto) 0.6 x10^3/uL (0.0-1.1) Eosinophils # (Auto) 0.2 x10^3/uL (0.0-0.7) Basophils # (Auto) 0.0 x10^3/uL (0.0-0.2) Prothrombin Time 24.6 SEC (11.7-14.0) H Prothrombin Time INR 2.3 (0.8-1.1) H Activated Partial Thromboplast Time 37 SEC (24-38) Sodium Level 139 mmol/L (136-145) Potassium Level 3.6 mmol/L (3.5-5.1) Chloride Level 103 mmol/L (98-107) Carbon Dioxide Level 27 mmol/L (21-32) Anion Gap 9 (6-14) Blood Urea Nitrogen 16 mg/dL (7-20) Creatinine 1.0 mg/dL (0.6-1.0) Estimated GFR (Cockcroft-Gault) 64.6 BUN/Creatinine Ratio 16 (6-20) Glucose Level 52 mg/dL (70-99) L Calcium Level 9.1 mg/dL (8.5-10.1) Total Bilirubin 0.5 mg/dL (0.2-1.0) Aspartate Amino Transferase (AST) 25 U/L (15-37) Alanine Aminotransferase (ALT) 19 U/L (14-59) Alkaline Phosphatase 70 U/L (46-116) Troponin I High Sensitivity 721 ng/L (4-50) H RC-Udt-Z-Type Natriuretic Peptide 1777 pg/mL (0-449) H Total Protein 8.0 g/dL (6.4-8.2) Albumin 3.7 g/dL (3.4-5.0) Albumin/Globulin Ratio 0.9 (1.0-1.7) L Laboratory Tests 03/20/21 15:05 Laboratory Tests 03/20/21 15:05 Vital Signs: Vital Signs Date Time Temp Pulse Resp B/P (MAP) Pulse Ox O2 Delivery O2 Flow Rate FiO2 03/20/21 15:22 62 14 127/62 (83) 97 Room Air 03/20/21 14:55 97.8 97.8 EKG: EKG: Normal sinus rhythm rate of 70, LVH, no ectopic beats, normal axis, normal TN, QRS, and QTc intervals. Impression: Normal EKG. interpreted by meDamon D.O. Radiology/Procedures: Radiology/Procedures: PROCEDURE: PORTABLE CHEST 1V Single AP view of the chest. Comparison: 02/28/2021. Indication: Chest pain Findings: Surgical clips in the epigastric region are identified. The heart is enlarged but stable. There is no pneumothorax or effusion. No air space or interstitial disease. Impression: 1. No acute cardiopulmonary process. Electronically signed by: Polo Hutchinson MD (03/20/2021 3:38 PM) EXAM: CT Abdomen and Pelvis with IV contrast CLINICAL HISTORY: Reason: abdominal pain / Spl. Instructions: [id number] [phone] / History: . COMPARISON: none TECHNIQUE: Helical CT of the abdomen and pelvis was performed following the administration of intravenous contrast. Axial, coronal and sagittal reformatted images were generated. PQRS compliance statement - One or more of the following individualized dose reduction techniques were utilized for this study: 1. Automated exposure control 2. Adjustment of the mA and/or kV according to patient size 3. Use of iterative reconstruction technique FINDINGS: Lower Chest: 6 mm calcified granuloma in the left lower lobe. Minimal right basilar subsegmental atelectasis. Post ISELA changes are identified. Abdomen and Pelvis: Liver is normal in size and attenuation focal abnormality. A decompressed gallbladder is present. No intra or extrahepatic biliary ductal dilation. The spleen is diminutive but normal. The adrenal glands and pancreas are unremarkable. Symmetric bilateral nephrograms subcentimeter renal hypodensities are too small to characterize but favor simple cyst. No nephrolithiasis or hydroureteronephrosis. Postsurgical changes from prior gastrectomy. Small bowel is mostly decompressed without evidence of acute inflammatory process. Diverticulosis is seen throughout the bowel with no definite fat stranding to suggest diverticulitis. Appendix is normal. There is a small area of the non- mesenteric pericolonic fat stranding along the mid transverse colon which appears to extend through a small likely incisional ventral hernia in the upper anterior abdominal wall as seen on sagittal image 47/5 and axial image 26/2 suggestive of epiploic appendicitis. Normal colorectal stool burden. No free intra-abdominal air or free fluid. No pathologically enlarged abdominal or pelvic lymph nodes. Aortobiiliac atherosclerotic disease. Bladder is unremarkable. Grossly unremarkable uterus. No suspicious adnexal masses. No free fluid within the pelvis. Tiny likely incisional ventral hernia in the upper abdomen slightly to the right with associated stranding, as described above. No evidence of fluid collection within the abdominal wall. S-shaped curvature of the thoracolumbar spine. Grade 1 anterolisthesis of L4 on L5. Stable multilevel degenerative changes throughout the lumbar spine and pelvis. No evidence of acute osseous injury. IMPRESSION: 1. Findings suggestive of a small area of epiploic appendage involving a small segment of the transverse colon with associated minimal/mild fat stranding extending through a tiny ventral hernia, as above. Recommend clinical correlation. 2. Extensive colonic diverticulosis without evidence of diverticulitis. 3. Other chronic/incidental findings, as above. Electronically signed by: Aramis Mares DO (03/20/2021 4:32 PM) Course & Med Decision Making: Course & Med Decision Making Patient with elevated heart score, elevated troponin, and she has a history of elevated troponins in the past. Will admit her to the hospital for further work-up. Cardiology was consulted and saw the patient in the emergency departme and will follow in hospital. Patient be admitted to Dr. Easley for further assessment and care. Departure Departure Impression: Primary Impression: Chest pain Additional Impressions: Hypoglycemia Abdominal pain Disposition: 09 ADMITTED INPATIENT Admitting Physician: VIVIENNE Whelan) Condition: STABLE Referrals: DELMAR HAMILTON D.O. (PCP) DAMON WEEKS DO Mar 20, 2021 16:34
--- NOTE | 2021-03-20 16:34 | RAD ---
EXAM: CT Abdomen and Pelvis with IV contrast CLINICAL HISTORY: Reason: abdominal pain / Spl. Instructions: [id number] [phone] / History: . COMPARISON: none TECHNIQUE: Helical CT of the abdomen and pelvis was performed following the administration of intrave nous contrast. Axial, coronal and sagittal reformatted images were generated. PQRS compliance statement - One or more of the following individualized dose reduction techniques wer e utilized for this study: 1. Automated exposure control 2. Adjustment of the mA and/or kV according to patient size 3. Use of iterative reconstruction technique FINDINGS: Lower Chest: 6 mm calcified granuloma in the left lower lobe. Minimal right basilar subsegmental atelectasis. Post ISELA changes are identified. Abdomen and Pelvis: Liver is normal in size and attenuation focal abnormality. A decompressed gallbladder is present. No intra or extrahepatic biliary ductal dilation. The spleen is diminutive but normal. The adrenal gland s and pancreas are unremarkable. Symmetric bilateral nephrograms subcentimeter renal hypodensities ar e too small to characterize but favor simple cyst. No nephrolithiasis or hydroureteronephrosis. Posts urgical changes from prior gastrectomy. Small bowel is mostly decompressed without evidence of acute inflammatory process. Diverticulosis is seen throughout the bowel with no definite fat stranding to s uggest diverticulitis. Appendix is normal. There is a small area of the non-mesenteric pericolonic fa t stranding along the mid transverse colon which appears to extend through a small likely incisional ventral hernia in the upper anterior abdominal wall as seen on sagittal image 47/5 and axial image 26 /2 suggestive of epiploic appendicitis. Normal colorectal stool burden. No free intra-abdominal air o r free fluid. No pathologically enlarged abdominal or pelvic lymph nodes. Aortobiiliac atheroscleroti c disease. Bladder is unremarkable. Grossly unremarkable uterus. No suspicious adnexal masses. No free fluid wit hin the pelvis. Tiny likely incisional ventral hernia in the upper abdomen slightly to the right with associated stra nding, as described above. No evidence of fluid collection within the abdominal wall. S-shaped curvature of the thoracolumbar spine. Grade 1 anterolisthesis of L4 on L5. Stable multilevel degenerative changes throughout the lumbar spine and pelvis. No evidence of acute osseous injury. IMPRESSION: 1. Findings suggestive of a small area of epiploic appendage involving a small segment of the transve rse colon with associated minimal/mild fat stranding extending through a tiny ventral hernia, as abov e. Recommend clinical correlation. 2. Extensive colonic diverticulosis without evidence of diverticulitis. 3. Other chronic/incidental findings, as above. Electronically signed by: Aramis Mares DO (03/20/2021 4:32 PM) [facility]
[2021-03-20] MEDS ORDERED: CETIRIZINE HCL 10 MG TABLET. PO PRN (16:45)
--- NOTE | 2021-03-20 17:47 | HP ---
DATE OF SERVICE: 03/20/2021 ADMIT DATE: 03/20/2021 CHIEF COMPLAINT: Chest pressure and hypoglycemia. HISTORY OF PRESENT ILLNESS: The patient is an elderly female who presented with a glucose of 48 today. While she was in the ER, she also explained that she had some chest pressure. We checked her troponin, it was 721. Her BNP level is also elevated at 1777. I discussed the case with ER physician. We are going to admit the patient and consult Cardiology and obtain good glycemic control. PAST MEDICAL HISTORY: Chronic anticoagulation, heart valve replacement, hypertension, hyperlipidemia, aortic stenosis, chronic troponin elevation, asthma, constipation, GERD, irritable bowel syndrome, peptic ulcer disease, DVT, anxiety, depression, anemia, osteopenia, low back pain, osteoarthritis, hypothyroidism, knee replacement, TAVR procedure. POLYPHARMACY: (She is on 25 meds). We will continue home medicines. ALLERGIES: PENICILLIN, BACITRACIN, DIPHENHYDRAMINE, IPRATROPIUM, MECLIZINE, NEOMYCIN, OXYCODONE, POLYMYXIN B, ULTRAM AND TRAZODONE. FAMILY HISTORY: Coronary artery disease. SOCIAL HISTORY: She is retired, used to work at the [employer]. 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 Does not drink, smoke or take drugs. MEDICATIONS: Reviewed, please refer to the MRAD. REVIEW OF SYSTEMS: GENERAL: No history of weight change, weakness or fevers. SKIN: No bruising, hair changes or rashes. EYES: No blurred, double or loss of vision. NOSE AND THROAT: No history of nosebleeds, hoarseness or sore throat. HEART: The patient complains of chest pressure. LUNGS: Denies cough, hemoptysis, wheezing or shortness of breath. GASTROINTESTINAL: Denies changes in appetite, nausea, vomiting, diarrhea or constipation. GENITOURINARY: No history of frequency, urgency, hesitancy or nocturia. NEUROLOGIC: Denies history of numbness, tingling, tremor or weakness. PSYCHIATRIC: No history of panic, anxiety or depression. ENDOCRINE: No history of heat or cold intolerance, polyuria or polydipsia. EXTREMITIES: Denies muscle weakness, joint pain, pain on walking or stiffness. PHYSICAL EXAMINATION: VITALS: Within normal limits and are stable. GENERAL: No apparent distress. Alert and oriented. HEENT: Normal cephalic atraumatic, external auditory canals are patent EYES: Extraocular muscles are intact, pupils are equally round and reactive to light and accommodation MUSCULOSKELETAL: Well developed, well nourished, good range of motion ENDOCRINE: No thyromegaly was palpated LYMPHATICS: No cervical chain or axillary nodes were noted HEMATOPOIETIC: No bruising NECK: Supple, no JVD, no thyromegaly was noted. LUNGS: Clear to auscultation in all lung cruz without rhonchi or wheezing. HEART: RRR, S1, S2 present. Peripheral pulses intact, no obvious murmurs were noted. ABDOMEN: Soft, nontender. Positive bowel sounds no organomegaly, normal bowel sounds. EXTREMITIES: Without any cyanosis, clubbing, or edema. Pedal pulses intact, Homans sign is negative. NEUROLOGIC: Normal speech, normal tone. A and O x 3, moves all extremities, no obvious focal deficits. PSYCHIATRIC: Normal affect, normal mood. Stable. SKIN: No ulcerations or rashes, good skin turgor, no jaundice. VASCULAR: Good capillary refill, neurovascular bundle appears to be intact. LABORATORY DATA: Electrolytes: Sodium 139, potassium 3.6, chloride 103, bicarbonate 27, BUN 16, creatinine 1, glucose 52. INR is 2.3, hemoglobin 11.1. Troponin 721. BNP 1777. ASSESSMENT AND PLAN: Chest discomfort and hypoglycemia, anemia in an elderly female who has the above noted comorbidities. The patient has been admitted to the cardiac floor. We have consulted Cardiology. The nurse practitioners already seen the patient. We are checking serial enzymes, serial EKGs, cardiac monitoring. Suspect she might need an echocardiogram. Coumadin per pharmacy. Continue other home medicines. DVT prophylaxis. Full code. PROGNOSIS: Long-term guarded. VIKI DR: Kathie TID: [id number]
[2021-03-20] MEDS: ALBUTEROL SULFATE 2.5 MG/3 ML NEBU. NEB SCH ×2 (18:40→20:40)
[2021-03-20 19:00] VITALS: BP 145/65
[2021-03-20] MEDS ORDERED: WARFARIN 5 MG TABLET. PO ONE (19:00)
--- NOTE | 2021-03-20 19:00 | NUR ---
Admit prior to shift change from ER. A/O x 4. Pleasant. Cooperative. Lives at home with daughter. Dx Chest Pain. Orientated to room and call light. Reviewed POC to include Tele, Lab Draws and to call for assist when out of bed. Verbalized understanding. Resting in bed. Call light at hand. Bed alarm on.
[2021-03-20 19:58] VITALS: BP 131/63
[2021-03-20] MEDS: BUDESONIDE 0.5 MG/2 ML NEBU. NEB SCH (20:00)
[2021-03-20] MEDS: BENZONATATE 100 MG CAPSULE. PO SCH (20:03)
[2021-03-20] MEDS: POLYETHYLENE GLYCOL 3350 17 GM PACKET. PO SCH (20:04)
[2021-03-20] MEDS ORDERED: MONTELUKAST SODIUM 10 MG TABLET. PO SCH (21:00)
[2021-03-20] MEDS ORDERED: NON FORMULARY ITEM (Budesonide/Formoterol Fumarate (Symbicort 80-4.5 Mcg Inhaler) 2 PUFF) IH SCH (21:00)
[2021-03-20] MEDS ORDERED: NITROFURANTOIN MONOHYD/M-CRYST 100 MG CAPSULE. PO SCH (21:00)
[2021-03-20] MEDS ORDERED: LISINOPRIL 5 MG TABLET. PO SCH (21:00)
[2021-03-20] MEDS: POLYVINYL ALCOHOL 1.4% OPHTH SOLUTION 15ML BOTTLE. OU SCH (21:54)
[2021-03-20 22:57] LABS: BILIRUBIN,URINE NEGATIVE (NEG); CLARITY,URINE CLEAR; COLOR,URINE YELLOW; NITRITE,URINE NEGATIVE (NEG); PH,URINE 5.5 (<5.0-8.0); PROTEIN,URINE NEGATIVE (NEG-TRACE)
[2021-03-20 23:00] VITALS: BP 129/64
[2021-03-20 23:16] LABS: BACTERIA,URINE FEW /HPF (0-FEW); RBC,URINE 0 /HPF (0-2)
[2021-03-21 03:00] VITALS: BP 122/60
[2021-03-21 07:00] VITALS: BP 130/61
[2021-03-21] MEDS ORDERED: LEVOTHYROXINE 50 MCG TABLET PO SCH (07:00)
[2021-03-21] MEDS ORDERED: ACETAMINOPHEN/CODEINE 300/30MG TABLET. PO PRN (07:15)
[2021-03-21] MEDS: BUDESONIDE 0.5 MG/2 ML NEBU. NEB SCH (07:27)
[2021-03-21] MEDS: ALBUTEROL SULFATE 2.5 MG/3 ML NEBU. NEB SCH ×3 (07:27→11:56)
[2021-03-21] MEDS ORDERED: PANTOPRAZOLE 40 MG TABLET.DR. PO SCH (07:30)
[2021-03-21 08:00] LABS: PROTHROMBIN TIME PATIENT 24.7 SEC (11.7-14.0)
[2021-03-21] MEDS ORDERED: ASPIRIN ENTERIC COATED 81 MG TABLET.DR. PO SCH (08:00)
[2021-03-21] MEDS ORDERED: FERROUS SULFATE 325 MG TABLET. PO SCH (09:00)
[2021-03-21] MEDS ORDERED: CYANOCOBALAMIN (VITAMIN B-12) 1,000 MCG TABLET. PO SCH (09:00)
[2021-03-21] MEDS ORDERED: silver sulfADIAZINE 1% CREAM 25GM TUBE. TP SCH (09:00)
[2021-03-21] MEDS ORDERED: SERTRALINE 50 MG TABLET. PO SCH (09:00)
[2021-03-21] MEDS ORDERED: NON FORMULARY ITEM (Cod Liver Oil 1 EACH) PO SCH (09:00)
[2021-03-21] MEDS ORDERED: LIDOCAINE (700MG/PATCH) PATCH. TD SCH (09:00)
[2021-03-21] MEDS: POLYVINYL ALCOHOL 1.4% OPHTH SOLUTION 15ML BOTTLE. OU SCH (09:00)
[2021-03-21] MEDS ORDERED: CHOLECALCIFEROL (VITAMIN D3) 1,000 UNIT TABLET PO SCH (09:00)
[2021-03-21 11:00] VITALS: BP 144/66
--- NOTE | 2021-03-21 11:02 | PDOC ---
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 03/21/21 1102: CARDIO Progress Notes Date and Time Date of Service 03/21/2021 Time of Evaluation 1050 Subjective Subjective: No Chest Pain, No shortness of breath, No Palpitations Vitals Vitals Vital Signs Date Time Temp Pulse Resp B/P (MAP) Pulse Ox O2 Delivery O2 Flow Rate FiO2 03/21/21 08:30 Room Air 03/21/21 07:29 99 03/21/21 07:00 98.5 72 18 130/61 (84) 98.5 Weight Weight [ ] Input and Output Intake and Output Intake and Output 03/21/21 07:00 Output Total 800 ml Balance -800 ml Output Urine Total 800 ml Laboratory Labs Laboratory Tests Test 03/20/21 15:01 03/20/21 15:05 03/20/21 15:36 03/20/21 16:13 Glucose (Fingerstick) 48 mg/dL (70-99) 143 mg/dL (70-99) 87 mg/dL (70-99) White Blood Count 5.1 x10^3/uL (4.0-11.0) Red Blood Count 3.41 x10^6/uL (3.50-5.40) Hemoglobin 11.1 g/dL (12.0-15.5) Hematocrit 33.7 % (36.0-47.0) Mean Corpuscular Volume 99 fL (79-100) Mean Corpuscular Hemoglobin 33 pg (25-35) Mean Corpuscular Hemoglobin Concent 33 g/dL (31-37) Red Cell Distribution Width 15.2 % (11.5-14.5) Platelet Count 215 x10^3/uL (140-400) Neutrophils (%) (Auto) 32 % (31-73) Lymphocytes (%) (Auto) 53 % (24-48) Monocytes (%) (Auto) 12 % (0-9) Eosinophils (%) (Auto) 3 % (0-3) Basophils (%) (Auto) 0 % (0-3) Neutrophils # (Auto) 1.6 x10^3/uL (1.8-7.7) Lymphocytes # (Auto) 2.7 x10^3/uL (1.0-4.8) Monocytes # (Auto) 0.6 x10^3/uL (0.0-1.1) Eosinophils # (Auto) 0.2 x10^3/uL (0.0-0.7) Basophils # (Auto) 0.0 x10^3/uL (0.0-0.2) Prothrombin Time 24.6 SEC (11.7-14.0) Prothromb Time International Ratio 2.3 (0.8-1.1) Activated Partial Thromboplast Time 37 SEC (24-38) Sodium Level 139 mmol/L (136-145) Potassium Level 3.6 mmol/L (3.5-5.1) Chloride Level 103 mmol/L (98-107) Carbon Dioxide Level 27 mmol/L (21-32) Anion Gap 9 (6-14) Blood Urea Nitrogen 16 mg/dL (7-20) Creatinine 1.0 mg/dL (0.6-1.0) Estimated GFR (Cockcroft-Gault) 64.6 BUN/Creatinine Ratio 16 (6-20) Glucose Level 52 mg/dL (70-99) Calcium Level 9.1 mg/dL (8.5-10.1) Total Bilirubin 0.5 mg/dL (0.2-1.0) Aspartate Amino Transf (AST/SGOT) 25 U/L (15-37) Alanine Aminotransferase (ALT/SGPT) 19 U/L (14-59) Alkaline Phosphatase 70 U/L (46-116) Troponin I High Sensitivity 721 ng/L (4-50) HP-Glm-F-Type Natriuretic Peptide 1777 pg/mL (0-449) Total Protein 8.0 g/dL (6.4-8.2) Albumin 3.7 g/dL (3.4-5.0) Albumin/Globulin Ratio 0.9 (1.0-1.7) Test 03/20/21 18:25 03/20/21 22:46 03/20/21 23:14 03/21/21 06:05 Troponin I High Sensitivity 694 ng/L (4-50) Urine Collection Type Unknown Urine Color Yellow Urine Clarity Clear Urine pH 5.5 (<5.0-8.0) Urine Specific Elgin >=1.030 (1.000-1.030) Urine Protein Negative mg/dL (NEG-TRACE) Urine Glucose (UA) Negative mg/dL (NEG) Urine Ketones (Stick) Negative mg/dL (NEG) Urine Blood Negative (NEG) Urine Nitrite Negative (NEG) Urine Bilirubin Negative (NEG) Urine Urobilinogen Dipstick 1.0 mg/dL (0.2 mg/dL) Urine Leukocyte Esterase Small (NEG) Urine RBC 0 /HPF (0-2) Urine WBC 11-20 /HPF (0-4) Urine Squamous Epithelial Cells Mod /LPF Urine Renal Epithelial Cells Occ /LPF Urine Bacteria Few /HPF (0-FEW) Urine Mucus Slight /LPF Glucose (Fingerstick) 91 mg/dL (70-99) Prothrombin Time 24.7 SEC (11.7-14.0) Prothromb Time International Ratio 2.3 (0.8-1.1) Physical Exam HEENT: Neck Supple W Full Motion Chest: Symmetric LUNGS: Clear to Auscultation Heart: RRR (SR) Abdomen: Soft N/T Extremities: No Edema, No Calf Tenderness Neurology: alert, oriented, follow commands Assessment Assessment 1. Chest pain, mostly abdominal pain. likely esophageal stricture 2. Dizziness: possibly vasovagal 3. Chronic trop elevation. LHC 2018 with normal angiographic appearance of the coronary arteries as noted above 4. Aortic stenosis: S/P TAVR 02/2019, stable per TTE 10/04 5. Hx of DVT with chronic coumadin therapy. INR 2.3 6. Hypertension; controlled 7. Hyperlipidemia; statin 8. Hypothyroidism: on replacement 9. Anxiety/depression Recommendations 1. Await GI input and will consider outpt LHC. Will likely need esophageal dilatation, this was not done as Dr. Corona retired 2. Resume secondary prevention 3. Continue coumadin 4. Supportive care Justicifation of Admission Dx: Justifications for Admission: Justification of Admission Dx: Yes DC: Acute NSTEMI ALISSA HENDRIX MD 03/21/211940: CARDIO Progress Notes Plan Plan Pt. seen and examined. 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 Discussed case with Dr. Loera at [facility]. 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 Supportive care for now. Consider outpt cath if GI w/u is unrevealing. Thanks. Ok to DC from CV standpoint. MERNA SERRANO APRN Mar 21, 2021 11:02 ALISSA HENDRIX MD Mar 21, 2021 19:41
[2021-03-21] MEDS: BENZONATATE 100 MG CAPSULE. PO SCH ×2 (11:21→15:39)
[2021-03-21] MEDS: POLYETHYLENE GLYCOL 3350 17 GM PACKET. PO SCH (11:22)
--- NOTE | 2021-03-21 12:11 | NUR ---
Pharmacy Warfarin Dosing Note S:Pharmacy consulted to assist with anticoagulation therapy started with target INR: 2 -3 O:BRENNA RAMIREZ is a 80 year old F with history of DVT LABS: Last INR: 2.3 Last HGB: 11.1 Last HCT: 33.7 Last PLT: 215 Previous Regimen: Per med record: home dose warfarin 5 mg qTuThSa Vitamin K given: N Drug Interaction Changes: Same Interacting Drug Ongoing Drug Interactions: ASA, Sertraline A:INR of 2.3 is within desired range. Target range for this patient is: 2 -3 P: Warfarin dose: 5 mg Today at 1600 Bridge Therapy: None Next INR due 03/22/21 Pharmacy anticoagulation service will continue to follow. KATHRYN ZENG RPH, 03/21/21 1212 Addendum: 03/21/21 at 1224 by KATHRYN ZENG RPH PHA Update: Patient clarified she takes warfarin 5 mg po daily at home at this time.
--- NOTE | 2021-03-21 13:12 | PDOC2 ---
GI CONSULT Date of Service: DATE: 03/21/21 TIME: 13:12 Reason For Consult: abdominal pain HPI: HPI: 80 y/o female who has seen Dr. Chacon in the past. Tells me she came to the hospital because she was afraid she was going to pass out. Also describes some left "side" pain that she thinks is related to needing to have a bowel movement and some central chest pressure. Also gives h/o dizziness that she believes is an inner ear problem - treats w/ sweet oil. GI-martínez, she reports decreased appetite but denies weight loss. Last stooled on Wednesday. Pills, liquids, and food can sometimes get stuck in lower neck - can occur daily but not always. Sometimes cough but doesn't cough anything up. Usually pills and food go down with water. No n/v, odynophagia, diarrhea, hematochezia, or melena. She's not sure what medications she takes. Feels hungry now. H/o chronic abd pain. H/o GERD previously on pantoprazole QD and Pepcid PRN. H/o PUD w/ partial gastrectomy and h/o iron and B12 deficiency. H/o dysphagia as above. EGD and colonoscopy w/ Dr. Chacon in 09/2017 showed normal esophagus, gastric bypass, normal duodenum, sigmoid diverticulosis, and internal hemorrhoids. EGD in 2013 w/ suspected candidiasis. Has also been 'scoped by Dr. Celeste Corona. GES 11/2019: very rapid gastric emptying of radiotracer. SBS in 05/2018 and 10/2018 were both unremarkable. US and HIDA in 10/2018 were unrevealing - GB EF was 82%. CTA in 2016 showed patent celiac and SMA. H/o DVT and TAVR on Warfarin. PMH: PMH: , chronically elevated troponin, CHF, HTN, HLD, asthma, DVT, hypothyroidism, osteopenia, anxiety/depression, fibromyalgia, GERD, PUD, anemia, IBS appendectomy, tubal ligation, partial gastrectomy, bilateral knee replacement, bilateral bunionectomy, left heart cath, TAVR FH: Family History: DM, Hypertension Social History: Smoke: Quit ALCOHOL: none Drugs: None ROS: GEN: Denies fevers, chills, sweats HEENT: Denies blurred vision, sore throat CV: +chest pain RESP: Denies shortness of air, cough GI: Per HPI : Denies hematuria, dysuria ENDO: Denies weight changes NEURO: +dizziness MSK: Denies weakness, joint pain/swelling SKIN: Denies jaundice, pruritus Vitals: Vitals: Vital Signs Date Time Temp Pulse Resp B/P (MAP) Pulse Ox O2 Delivery O2 Flow Rate FiO2 03/21/21 11:56 99 Room Air 03/21/21 11:00 99.1 66 18 144/66 (92) 99.1 Labs: Labs: Laboratory Tests Test 03/20/21 15:01 03/20/21 15:05 03/20/21 15:36 03/20/21 16:13 Glucose (Fingerstick) 48 mg/dL (70-99) 143 mg/dL (70-99) 87 mg/dL (70-99) White Blood Count 5.1 x10^3/uL (4.0-11.0) Red Blood Count 3.41 x10^6/uL (3.50-5.40) Hemoglobin 11.1 g/dL (12.0-15.5) Hematocrit 33.7 % (36.0-47.0) Mean Corpuscular Volume 99 fL (79-100) Mean Corpuscular Hemoglobin 33 pg (25-35) Mean Corpuscular Hemoglobin Concent 33 g/dL (31-37) Red Cell Distribution Width 15.2 % (11.5-14.5) Platelet Count 215 x10^3/uL (140-400) Neutrophils (%) (Auto) 32 % (31-73) Lymphocytes (%) (Auto) 53 % (24-48) Monocytes (%) (Auto) 12 % (0-9) Eosinophils (%) (Auto) 3 % (0-3) Basophils (%) (Auto) 0 % (0-3) Neutrophils # (Auto) 1.6 x10^3/uL (1.8-7.7) Lymphocytes # (Auto) 2.7 x10^3/uL (1.0-4.8) Monocytes # (Auto) 0.6 x10^3/uL (0.0-1.1) Eosinophils # (Auto) 0.2 x10^3/uL (0.0-0.7) Basophils # (Auto) 0.0 x10^3/uL (0.0-0.2) Prothrombin Time 24.6 SEC (11.7-14.0) Prothromb Time International Ratio 2.3 (0.8-1.1) Activated Partial Thromboplast Time 37 SEC (24-38) Sodium Level 139 mmol/L (136-145) Potassium Level 3.6 mmol/L (3.5-5.1) Chloride Level 103 mmol/L (98-107) Carbon Dioxide Level 27 mmol/L (21-32) Anion Gap 9 (6-14) Blood Urea Nitrogen 16 mg/dL (7-20) Creatinine 1.0 mg/dL (0.6-1.0) Estimated GFR (Cockcroft-Gault) 64.6 BUN/Creatinine Ratio 16 (6-20) Glucose Level 52 mg/dL (70-99) Calcium Level 9.1 mg/dL (8.5-10.1) Total Bilirubin 0.5 mg/dL (0.2-1.0) Aspartate Amino Transf (AST/SGOT) 25 U/L (15-37) Alanine Aminotransferase (ALT/SGPT) 19 U/L (14-59) Alkaline Phosphatase 70 U/L (46-116) Troponin I High Sensitivity 721 ng/L (4-50) CC-Xsg-N-Type Natriuretic Peptide 1777 pg/mL (0-449) Total Protein 8.0 g/dL (6.4-8.2) Albumin 3.7 g/dL (3.4-5.0) Albumin/Globulin Ratio 0.9 (1.0-1.7) Test 03/20/21 18:25 03/20/21 22:46 03/20/21 23:14 03/21/21 06:05 Troponin I High Sensitivity 694 ng/L (4-50) Urine Collection Type Unknown Urine Color Yellow Urine Clarity Clear Urine pH 5.5 (<5.0-8.0) Urine Specific Meherrin >=1.030 (1.000-1.030) Urine Protein Negative mg/dL (NEG-TRACE) Urine Glucose (UA) Negative mg/dL (NEG) Urine Ketones (Stick) Negative mg/dL (NEG) Urine Blood Negative (NEG) Urine Nitrite Negative (NEG) Urine Bilirubin Negative (NEG) Urine Urobilinogen Dipstick 1.0 mg/dL (0.2 mg/dL) Urine Leukocyte Esterase Small (NEG) Urine RBC 0 /HPF (0-2) Urine WBC 11-20 /HPF (0-4) Urine Squamous Epithelial Cells Mod /LPF Urine Renal Epithelial Cells Occ /LPF Urine Bacteria Few /HPF (0-FEW) Urine Mucus Slight /LPF Glucose (Fingerstick) 91 mg/dL (70-99) Prothrombin Time 24.7 SEC (11.7-14.0) Prothromb Time International Ratio 2.3 (0.8-1.1) Allergies: Coded Allergies: Penicillins (Verified Allergy, Severe, Anaphylaxis, 03/20/21) diphenhydramine (Verified Allergy, Severe, Anaphylaxis, 03/20/21) ipratropium (Verified Allergy, Severe, Anaphylaxis, 03/20/21) meclizine (Verified Allergy, Severe, 03/20/21) trazodone (Verified Allergy, Severe, Shortness of Air, 03/20/21) bacitracin (Verified Allergy, Intermediate, Rash, 03/20/21) neomycin (Verified Allergy, Intermediate, Rash, 09/24/17) polymyxin B (Verified Allergy, Intermediate, Rash, 09/24/17) tramadol (Verified Allergy, Intermediate, Itching, 02/27/19) cause itching oxycodone (Verified Adverse Reaction, Intermediate, Nausea and Vomiting, 11/07/20) Medications: Current Medications Medications (Trade) Dose Ordered Sig/Sivan Route PRN Reason Start Time Stop Time Status Last Admin Dose Admin Dextrose (Dextrose 50%-Water Syringe) 25 gm 1X ONCE IV 03/20/21 15:15 03/20/21 15:16 DC 03/20/21 15:12 Iohexol (Omnipaque 300 Mg/ml) 75 ml 1X ONCE IV 03/20/21 15:45 03/20/21 15:46 DC 03/20/21 15:47 Benzonatate (Tessalon Perle) 100 mg TID PO 03/20/21 21:00 03/21/21 11:21 Ferrous Sulfate (Feosol) 325 mg DAILY PO 03/21/21 09:00 03/21/21 11:21 Gabapentin (Neurontin) 100 mg PRN TID PRN PO NEUROPATHY 03/20/21 16:30 03/21/21 03:44 Guaifenesin (Mucinex) 600 mg BID PO 03/20/21 21:00 03/21/21 11:21 Levothyroxine Sodium (Synthroid) 50 mcg DAILY07 PO 03/21/21 07:00 03/21/21 06:15 Lidocaine (Lidoderm) 1 patch DAILY TD 03/21/21 09:00 03/21/21 11:22 Lisinopril (Prinivil) 10 mg HS PO 03/20/21 21:00 03/20/21 20:04 Montelukast Sodium (Singulair) 10 mg HS PO 03/20/21 21:00 03/20/21 20:04 Polyethylene Glycol (miraLAX PACKET) 17 gm BID PO 03/20/21 21:00 03/21/21 11:22 Sertraline HCl (Zoloft) 50 mg DAILY PO 03/21/21 09:00 03/21/21 11:21 Vitamin D (Vitamin D3) 2,000 unit DAILY PO 03/21/21 09:00 03/21/21 11:21 Cyanocobalamin (Vitamin B-12) 1,000 mcg DAILY PO 03/21/21 09:00 03/21/21 11:22 Glycerin/ Hypromellose/ Polyethylene (Artificial Tears) 1 drop BID OU 03/20/21 21:00 03/21/21 09:00 Pantoprazole Sodium (Protonix) 40 mg DAILYAC PO 03/21/21 07:30 03/21/21 06:15 Warfarin Sodium (Coumadin Per Pharmacy) 1 each PRN DAILY PRN MC SEE COMMENTS 03/20/21 16:45 03/21/21 12:23 Aspirin (Ecotrin) 81 mg DAILYWBKFT PO 03/21/21 08:00 03/21/21 11:21 Albuterol Sulfate (Ventolin Neb Soln) 2.5 mg Q6HRS NEB 03/20/21 18:00 03/21/21 11:56 Budesonide (Pulmicort) 0.5 mg RTBID NEB 03/20/21 20:00 03/21/21 07:27 Imaging: Imaging: CT A/P IMPRESSION: 1. Findings suggestive of a small area of epiploic appendage involving a small segment of the transverse colon with associated minimal/mild fat stranding extending through a tiny ventral hernia, as above. Recommend clinical correlation. 2. Extensive colonic diverticulosis without evidence of diverticulitis. 3. Other chronic/incidental findings, as above. PE: GEN: NAD HEENT: Atraumatic, PERRL LUNGS: CTAB HEART: RRR ABD: NABS, S/ND/NT EXTREMITY: No edema SKIN: No rashes, no jaundice NEURO/PSYCH: A & O 3 A/P: A/P: Dizziness, weakness, chest pressure, left-sided abdominal discomfort Chronic anemia - B12 and iron deficient, on replacement here GERD, chronic globus/dysphagia, s/p partial gastrectomy for PUD Constipation - usually controlled w/ Miralax QD CRC screen - UTD (11/2020 @ ) H/o AVR and DVT - on Warfarin and ASA -- Okay to eat per GI. Observe. Chronic GI issues stable, extensive past workup as above. Continue PPI and Miralax, adjust constipation treatment as needed. Per d/w cardiology after I saw - normal colonoscopy @ in 11/2020, attempted EGD then but unable to pass scope due to CP bar - was referred to ENT @ . NEELIMA ÁLVAREZ Mar 21, 2021 13:12
--- NOTE | 2021-03-21 14:10 | CARD ---
MR#: [id number] Date of Study: 03/21/2021 Ordering Physician: GUCCI ROMANO, Referring Physician: GUCIC ROMANO, Tech: Bina Blackburn [facility] APPROVED REPORT EXAM: Two-dimensional and M-mode echocardiogram with Doppler and color Doppler. Other Information Quality : AverageHR: 66bpm Rhythm : NSR INDICATION Chest Pain RISK FACTORS Hypertension Obesity Hyperlipidemia 2D DIMENSIONS RVDd3.7 (2.9-3.5cm)Left Atrium(2D)4.7 (1.6-4.0cm) IVSd1.1 (0.7-1.1cm)Aortic Root(2D)2.9 (2.0-3.7cm) LVDd4.7 (3.9-5.9cm)LVOT Diameter1.7 (1.8-2.4cm) PWd1.1 (0.7-1.1cm)LVDs2.0 (2.5-4.0cm) FS (%) 57.9 %SV88.6 ml LVEF(%)87.9 (>50%) Aortic Valve AoV Peak Alden.190.1cm/sAoV VTI40.8cm AO Peak GR.14.4mmHgLVOT Peak Alden.151.4cm/s AO Mean GR.6mmHgAVA (VMAX)1.78cm2 Mitral Valve MV E Bjjwmyzc82.3cm/sMV DECEL WSWN440mk MV A Zjchqiuh82.4cm/sE/A Ratio1.2 Pulmonary Valve PV Peak Ghnoxxro15.5cm/s Tricuspid Valve TR P. Wzvoprid325ba/sTR Peak Gr.38mmHg LEFT VENTRICLE The left ventricle is normal size. There is borderline concentric left ventricular hypertrophy. The l eft ventricular systolic function is normal. Estimated ejection fraction 55-60%. There is normal LV segmental wall motion. Transmitral Doppler flow pattern is Grade I-abnormal relaxation pattern. RIGHT VENTRICLE The right ventricle is normal size. There is normal right ventricular wall thickness. The right ventr icular systolic function is normal. ATRIA The left atrium is moderately dilated. The right atrium is moderately dilated. The interatrial septum is intact with no evidence for an atrial septal defect or patent foramen ovale as noted on 2-D or Do ppler imaging. AORTIC VALVE The aortic valve is normal in structure and function. Doppler and Color Flow revealed no significant aortic regurgitation. There is no significant aortic valvular stenosis. TAVR There is a bioprosthetic aortic valve prosthesis. MITRAL VALVE Mitral annular calcification is mild. There is no evidence of mitral valve prolapse. There is no mitr al valve stenosis. Doppler and Color-flow revealed mild mitral regurgitation. TRICUSPID VALVE The tricuspid valve is normal in structure and function. Doppler and Color Flow revealed mild tricusp id regurgitation. There is no tricuspid valve stenosis. PULMONIC VALVE The pulmonary valve is normal in structure and function. Doppler and Color Flow revealed no pulmonic valvular regurgitation. GREAT VESSELS The aortic root is normal in size. The ascending aorta is normal in size. The IVC is normal in size a nd collapses >50% with inspiration. PERICARDIAL EFFUSION There is no evidence of significant pericardial effusion. Critical Notification Critical Value: No <Conclusion> The left ventricular systolic function is normal. Estimated ejection fraction 55-60%. There is normal LV segmental wall motion. Bioprosthetic aortic valve (TAVR) appears well seated and functioning well with mean gradient 6 mmHg. Mild mitral regurgitation. Mild tricuspid regurgitation. There is no evidence of significant pericardial effusion. Signed by : Josh Sifuentes, Electronically Approved : 03/21/2021 14:10:02
--- NOTE | 2021-03-21 14:59 | NUR ---
SS following for discharge planning. SS reviewed pt chart and discussed with pt RN. Pt is from home with daughter and is currently on room air. Cardiology and GI following. SS will continue to follow for discharge planning.
[2021-03-21 15:00] VITALS: BP 123/58
[2021-03-21] MEDS ORDERED: WARFARIN 5 MG TABLET. PO ONE (16:00)
[2021-03-21] MEDS ORDERED: ASPI-886 PO (16:23)
--- NOTE | 2021-03-21 16:25 | SNU/HH DC ---
DISCHARGE WITH HOME HEALTH DISCHARGE INFORMATION: Discharge Date: Mar 21, 2021 Final Diagnosis: Problems Medical Problems: (1) Abdominal pain Status: Acute (2) Chest pain Status: Acute (3) Hypoglycemia Status: Acute Condition on Discharge: Stable HOME HEALTH: Face to Face: I certify this patient is under my care and that I, or a nurse practitioner or physician's assistant professor in family studies working with me, had a face to face encounter that meets the physician face to face encounter requirements with this patient on []. Medical Complications: Falls, [facility] For: Assess Cardiopulm Status, Assess & Educate Safety, Assess/Skilled Observatio, Medication Management RN For Eval/Treatment: Yes Physical Therapy For: Evalulation/Treatment Occupational Therapy For: Evaluation/Treatment Home Health Aide For: Self-care Pt Meets Homebound Status: Limited distance walking, Unable to negotiate home POST DISCHARGE ORDERS: Activity Instructions for Disc: Activity as tolerated Weight Bearing Status after Di: As tolerated DIET AFTER DISCHARGE: Cardiac Wound/Incision Care: Keep wound/cast CDI CHECKS AFTER DISCHARGE: Checks after discharge: Check blood press - daily, Check your Temp as needed, Weigh Yourself Daily FOLLOW-UP: Follow up with: PCP within 2 weeks of discharge Follow Up With: [facility] for esophageal stricture TREATMENT/EQUIPMENT ORDERS: Adaptive Equipment Issued: None CERTIFICATION STATEMENT: Certification Statement: Certification Statement: Based on the above finding, I certify that this patient is confined to the home and needs intermittent correction care, physical t herapy and/or speech therapy, or continues to need occupational therapy.~ This patient is under my care, and I have initiated the establishment of the plan of care.~ This patient will be followed by myself or a community physician who will periodically review the plan of care. Home Meds Active Scripts Aspirin (ASPIRIN EC) 81 Mg Tablet.dr, 81 MG PO DAILYWBKFT for secondary prevention for 30 Days, #30 TAB.SR 2 Refills Prov:OTILIA HYATT MD 03/21/21 Nitrofurantoin Monohyd/M-Cryst (MACROBID 100 MG CAPSULE) 100 Mg Capsule, 1 CAP PO BID for 7 Days, #14 CAP 0 Refills Prov:PIETRO ROGERS APRN 02/28/21 Guaifenesin (MUCINEX) 600 Mg Tablet.er, 1 TAB PO BID for cough for 10 Days, #20 TAB 0 Refills Prov:EDER,PAULA M DO 02/23/21 Benzonatate (TESSALON PERLE) 100 Mg Capsule, 1 CAP PO TID for cough, #21 CAP Prov:PAULA GAINES DO 02/23/21 Lidocaine (Lidocaine PATCH ) 1 Each Adh..patch, 1 PATCH TD DAILY for PAIN for 30 Days, #30 PATCH Prov:ALKA GONZALEZ MD 11/07/20 Olanzapine (OLANZAPINE ODT) 5 Mg Tab.rapdis, 5 MG PO PRN BID PRN for ANXIETY / AGITATION for 30 Days, #60 TAB Prov:ALKA GONZALEZ MD 11/07/20 Nitroglycerin (NITROSTAT) 0.4 Mg Tab.subl, 0.4 MG SL PRN Q5MIN PRN for CHEST PAIN for 14 Days, #100 TAB Prov:ALKA GONZALEZ MD 11/07/20 Sertraline Hcl (ZOLOFT) 50 Mg Tablet, 1 TAB PO DAILY for anxiety, depression for 30 Days, #30 TAB 2 Refills Prov:ALKA GONZALEZ MD 07/14/19 Polyethylene Glycol 3350 (POLYETHYLENE GLYCOL 3350) 17 Gm Powd.pack, 17 GM PO BID for prevent constipation for 30 Days, #60 PKT Prov:ALKA GONZALEZ MD 07/14/19 Bisacodyl (BISACODYL) 5 Mg Tablet.dr, 10 MG PO PRN DAILY PRN for CONSTIPATION (3RD Choice) for 14 Days, #20 TAB.SR Prov:ALKA GONZALEZ MD 07/14/19 Acetaminophen (TYLENOL) 325 Mg Tablet, 650 MG PO PRN Q6HRS PRN for FEVER for 30 Days, #60 TAB Prov:ALKA GONZALEZ MD 01/21/19 Reported Medications Silver Sulfadiazine (SSD) 25 Gm Cream..g., 1 BINTA TP DAILY for TOENAIL REMOVAL, #50 GM 0 Refills 11/06/20 Cod Liver Oil (COD LIVER OIL) 1 Each Capsule, 1 EACH PO DAILY for supplement, CAP 07/13/19 Warfarin Sodium (COUMADIN) 5 Mg Tablet, 5 MG PO QTUTHSA for valve repair , #30 TAB 07/13/19 Budesonide/Formoterol Fumarate (SYMBICORT 80-4.5 MCG INHALER) 10.2 Gm Hfa.aer.ad, 2 PUFF IH BID for asthma, #10.2 GM 5 Refills 07/13/19 Sodium Chloride (NASAL MOISTURIZING) 88 Ml [place], 88 ML NS PRN PRN for SEE COMMENTS, SPRAY 12/27/18 Loratadine (LORATADINE) 10 Mg Tablet, 1 TAB PO DAILY PRN for ALLERGIES, #30 TAB 5 Refills 12/27/18 Montelukast Sodium (SINGULAIR TABLET ) 10 Mg Tablet, 10 MG PO HS for FOR ASTHMA, TAB 0 Refills 12/27/18 Cyanocobalamin (Vitamin B-12) (LIQUID B-12) 1,000 Mcg/15 Ml Liquid, 1000 MCG PO DAILY for rx, LIQUID 12/27/18 Pantoprazole Sodium (PROTONIX) 20 Mg Tablet.dr, 40 MG PO DAILY, TAB 08/08/17 Gabapentin (GABAPENTIN ) 100 Mg Capsule, 100 MG PO PRN TID PRN for PAIN, #2 CA P takes 1 at bedtime 08/08/17 Ferrous Sulfate (FERROUS SULFATE) 325 Mg Tablet, 1 TAB PO DAILY, #30 TAB 3 R efills 05/06/17 Dextran 70/Hypromellose/Pf (ARTIFICIAL TEARS DROPS) 1 Each Droperette, 1 EACH OU BID 09/02/15 Lisinopril (LISINOPRIL) 5 Mg Tablet, 2 TAB PO HS for htn, #30 TAB 5 Refills 03/13/14 Levothyroxine Sodium (LEVOTHYROXINE SODIUM) 50 Mcg Tablet, 1 TAB PO DAILY, #30 TAB 5 Refills 03/13/14 Cholecalciferol (Vitamin D3) (VITAMIN D) 1,000 Unit Capsule, 2 CAP PO DAILY for supplement , #30 CAP 3 Refills 03/13/14 OTILIA HYATT MD Mar 21, 2021 16:25
--- NOTE | 2021-03-25 00:38 | PDOC3 ---
[facility]-Discharge Summary Date of Admission: Date of Admission: Mar 20, 2021 Date of Discharge: Date of Discharge: Mar 21, 2021 Consults: Consults: cardiology Recommendations 1. Await GI input and will consider outpt [facility]. Will likely need esophageal dilatation, this was not done as Dr. Corona retired 2. Resume secondary prevention 3. Continue coumadin 4. Supportive care Hospital Course: Hospital Course: elderly female who presented with a glucose of 48 today. While she was in the ER, she also explained that she had some chest pressure. We checked her troponin, it was 721. Her BNP level is also elevated at 1777. I discussed the case with ER physician. We are going to admit the patient and consult Cardiology and obtain good glycemic control. By day of discharge, pt was clinically stable and ready for discharge. Rest of hospital course was uneventful Disposition: Disposition/Orders: D/C to Home Activity: Activity: Resume previous activity Diet: Diet: Cardiac Medications: Home Meds Active Scripts Aspirin (ASPIRIN EC) 81 Mg Tablet.dr, 81 MG PO DAILYWBKFT for secondary prevention for 30 Days, #30 TAB.SR 2 Refills Prov:OTILIA HYATT MD 03/21/21 Nitrofurantoin Monohyd/M-Cryst (MACROBID 100 MG CAPSULE) 100 Mg Capsule, 1 CAP PO BID for 7 Days, #14 CAP 0 Refills Prov:PIETRO ROGERS JUDICIAL REPORTER 02/28/21 Guaifenesin (MUCINEX) 600 Mg Tablet.er, 1 TAB PO BID for cough for 10 Days, #20 TAB 0 Refills Prov:PAULA GAINES DO 02/23/21 Benzonatate (TESSALON PERLE) 100 Mg Capsule, 1 CAP PO TID for cough, #21 CAP Prov:PAULA GAINES DO 02/23/21 Lidocaine (Lidocaine PATCH ) 1 Each Adh..patch, 1 PATCH TD DAILY for PAIN for 30 Days, #30 PATCH Prov:ALKA GONZALEZ MD 11/07/20 Olanzapine (OLANZAPINE ODT) 5 Mg Tab.rapdis, 5 MG PO PRN BID PRN for ANXIETY / AGITATION for 30 Days, #60 TAB Prov:ALKA GONZALEZ MD 11/07/20 Nitroglycerin (NITROSTAT) 0.4 Mg Tab.subl, 0.4 MG SL PRN Q5MIN PRN for CHEST PAIN for 14 Days, #100 TAB Prov:ALKA GONZALEZ MD 11/07/20 Sertraline Hcl (ZOLOFT) 50 Mg Tablet, 1 TAB PO DAILY for anxiety, depression for 30 Days, #30 TAB 2 Refills Prov:ALKA GONZALEZ MD 07/14/19 Polyethylene Glycol 3350 (POLYETHYLENE GLYCOL 3350) 17 Gm Powd.pack, 17 GM PO BID for prevent constipation for 30 Days, #60 PKT Prov:ALKA GONZALEZ MD 07/14/19 Bisacodyl (BISACODYL) 5 Mg Tablet.dr, 10 MG PO PRN DAILY PRN for CONSTIPATION (3RD Choice) for 14 Days, #20 TAB.SR Prov:ALKA GONZALEZ MD 07/14/19 Acetaminophen (TYLENOL) 325 Mg Tablet, 650 MG PO PRN Q6HRS PRN for FEVER for 30 Days, #60 TAB Prov:ALKA GONZALEZ MD 01/21/19 Reported Medications Silver Sulfadiazine (SSD) 25 Gm Cream..g., 1 BINTA TP DAILY for TOENAIL REMOVAL, #50 GM 0 Refills 11/06/20 Cod Liver Oil (COD LIVER OIL) 1 Each Capsule, 1 EACH PO DAILY for supplement, CAP 07/13/19 Warfarin Sodium (COUMADIN) 5 Mg Tablet, 5 MG PO QTUTHSA for valve repair , #30 TAB 07/13/19 Budesonide/Formoterol Fumarate (SYMBICORT 80-4.5 MCG INHALER) 10.2 Gm Hfa.aer.ad, 2 PUFF IH BID for asthma, #10.2 GM 5 Refills 07/13/19 Sodium Chloride (NASAL MOISTURIZING) 88 Ml [place], 88 ML NS PRN PRN for SEE COMMENTS, SPRAY 12/27/18 Loratadine (LORATADINE) 10 Mg Tablet, 1 TAB PO DAILY PRN for ALLERGIES, #30 TAB 5 Refills 12/27/18 Montelukast Sodium (SINGULAIR TABLET ) 10 Mg Tablet, 10 MG PO HS for FOR ASTHMA, TAB 0 Refills 12/27/18 Cyanocobalamin (Vitamin B-12) (LIQUID B-12) 1,000 Mcg/15 Ml Liquid, 1000 MCG PO DAILY for rx, LIQUID 12/27/18 Pantoprazole Sodium (PROTONIX) 20 Mg Tablet.dr, 40 MG PO DAILY, TAB 08/08/17 Gabapentin (GABAPENTIN ) 100 Mg Capsule, 100 MG PO PRN TID PRN for PAIN, #2 CAP takes 1 at bedtime 08/08/17 Ferrous Sulfate (FERROUS SULFATE) 325 Mg Tablet, 1 TAB PO DAILY, #30 TAB 3 Refills 05/06/17 Dextran 70/Hypromellose/Pf (ARTIFICIAL TEARS DROPS) 1 Each Droperette, 1 EACH OU BID 09/02/15 Lisinopril (LISINOPRIL) 5 Mg Tablet, 2 TAB PO HS for htn, #30 TAB 5 Refills 03/13/14 Levothyroxine Sodium (LEVOTHYROXINE SODIUM) 50 Mcg Tablet, 1 TAB PO DAILY, #30 TAB 5 Refills 03/13/14 Cholecalciferol (Vitamin D3) (VITAMIN D) 1,000 Unit Capsule, 2 CAP PO DAILY for supplement , #30 CAP 3 Refills 03/13/14 Scheduled Aspirin (Aspirin Ec), 81 MG PO DAILYWBKFT Benzonatate (Tessalon Perle), 1 CAP PO TID Budesonide/Formoterol Fumarate (Symbicort 80-4.5 Mcg Inhaler), 2 PUFF IH BID, (Reported) Cholecalciferol (Vitamin D3) (Vitamin D), 2 CAP PO DAILY, (Reported) Cod Liver Oil (Cod Liver Oil), 1 EACH PO DAILY, (Reported) Cyanocobalamin (Vitamin B-12) (Liquid B-12), 1,000 MCG PO DAILY, (Reported) Dextran 70/Hypromellose/Pf (Artificial Tears Drops), 1 EACH OU BID, (Reported) Ferrous Sulfate (Ferrous Sulfate), 1 TAB PO DAILY, (Reported) Guaifenesin (Mucinex), 1 TAB PO BID Levothyroxine Sodium (Levothyroxine Sodium), 1 TAB PO DAILY, (Reported) Lidocaine (Lidocaine PATCH ), 1 PATCH TD DAILY Lisinopril (Lisinopril), 2 TAB PO HS, (Reported) Montelukast Sodium (Singulair Tablet ), 10 MG PO HS, (Reported) Nitrofurantoin Monohyd/M-Cryst (Macrobid 100 Mg Capsule), 1 CAP PO BID Pantoprazole Sodium (Protonix), 40 MG PO DAILY, (Reported) Polyethylene Glycol 3350 (Polyethylene Glycol 3350), 17 GM PO BID Sertraline Hcl (Zoloft), 1 TAB PO DAILY Silver Sulfadiazine (Ssd), 1 BINTA TP DAILY, (Reported) Warfarin Sodium (Coumadin), 5 MG PO QTUTHSA, (Reported) Scheduled PRN Acetaminophen (Tylenol), 650 MG PO PRN Q6HRS PRN for FEVER Bisacodyl (Bisacodyl), 10 MG PO PRN DAILY PRN for CONSTIPATION (3RD Choice) Gabapentin (Gabapentin ), 100 MG PO PRN TID PRN for PAIN, (Reported) Loratadine (Loratadine), 1 TAB PO DAILY PRN for ALLERGIES, (Reported) Nitroglycerin (Nitrostat), 0.4 MG SL PRN Q5MIN PRN for CHEST PAIN Olanzapine (Olanzapine Odt), 5 MG PO PRN BID PRN for ANXIETY / AGITATION Sodium Chloride (Nasal Moisturizing), 88 ML NS PRN PRN for SEE COMMENTS, (Reported) Total Time: Total Time: Total time spent was 32 minutes in preparing scripts, discharge planning with SW and RN, and preparing this discharge summary. Patient seen and examined on day of discharge. Justicifation of Admission Dx: Justifications for Admission: Justification of Admission Dx: Yes AL: Acute NSTEMI OTILIA HYATT MD Mar 25, 2021 00:38
== END 2021-03-21 17:04 | disposition home or self-care (01) | DRG 392 ==
LOC: ER 14:49 → 6 SOUTH 15:45 → OBSVTOIN 03-21 15:42
PROVIDERS: ADMIT Internal Medicine; ATTEND Internal Medicine
DX: K21.9 Gastro-esophageal reflux disease without esophagitis (principal); K22.2 Esophageal obstruction; Z79.01 Long term (current) use of anticoagulants; D64.9 Anemia, unspecified; E03.9 Hypothyroidism, unspecified; E16.2 Hypoglycemia, unspecified; E78.5 Hyperlipidemia, unspecified; F32.A Depression, unspecified; F41.9 Anxiety disorder, unspecified; I11.0 Hypertensive heart disease with heart failure; I25.2 Old myocardial infarction; I35.0 Nonrheumatic aortic (valve) stenosis; I50.9 Heart failure, unspecified; J45.909 Unspecified asthma, uncomplicated; K57.30 Diverticulosis of large intestine without perforation or abscess without bleeding; K58.9 Irritable bowel syndrome, unspecified; K64.8 Other hemorrhoids; M79.7 Fibromyalgia; M85.80 Other specified disorders of bone density and structure, unspecified site; Z82.49 Family history of ischemic heart disease and other diseases of the circulatory system; Z83.3 Family history of diabetes mellitus; Z86.718 Personal history of other venous thrombosis and embolism; Z87.11 Personal history of peptic ulcer disease; Z90.3 Acquired absence of stomach [part of]; Z95.2 Presence of prosthetic heart valve; Z96.653 Presence of artificial knee joint, bilateral; Z98.84 Bariatric surgery status; G89.29 Other chronic pain; M19.90 Unspecified osteoarthritis, unspecified site; R42 Dizziness and giddiness; Z98.51 Tubal ligation status; Z88.0 Allergy status to penicillin; Z88.8 Allergy status to other drugs, medicaments and biological substances
CPT/HCPCS: 36415; 71045; 74177; 80053; 81001; 82962; 83880; 84484; 85025; 85610; 85730; 93005; 93306; 94640; 94760; 96374; G0378; G0379; Q9967; 99285-25; J7613; J7626

== ENCOUNTER → 2021-04-04 | Outpatient (CLI) | payer MEDICARE, OTHER ==
[2021-03-21 15:00] VITALS: BP 123/58
[~2021-04-04] MED LIST changes: +ASPI-886 PO
[2021-04-04 13:00] LABS: PROTHROMBIN TIME PATIENT 14.2 SEC (11.7-14.0)
== END ==
LOC: LAB 12:18
PROVIDERS: ATTEND Internal Medicine Cardiovascular Disease
DX: I26.99 Other pulmonary embolism without acute cor pulmonale (principal)
CPT/HCPCS: 36415; 85610

== ENCOUNTER 2021-04-11 20:17 | Emergency (ER) | payer MEDICARE, OTHER ==
[~2021-04-11] VITALS: Ht 154.9 cm; Wt 83.2 kg
--- NOTE | 2021-04-11 20:40 | PHYS DOC ---
Past Medical History Past Medical History: Anemia, Anxiety, Asthma, Depression, DVT, GERD, Hyp ertension, Hypothyroid, Pneumonia, P.U.D., Other Additional Past Medical Histor: N-STEMI Past Surgical History: No Surgical History Additional Past Surgical Histo: valve replacement Smoking Status: Former Smoker Alcohol Use: None Drug Use: None General Adult HPI: HPI: Patient is a 80 year old female here with an episode of brief dizziness and hypoglycemia. She describes the dizziness as lightheaded. She has had a history of recurrent hypoglycemia, and she admits that this usually occurs after she has any for a day or more at a time. She admits that she does not have much of an appetite, chronically at baseline. She denies chest pain, palpitations, dyspnea, abdominal pain, nausea, vomiting, obstipation, diarrhea. She denies urinary symptoms. She denies fall, head injury, syncope or near syncope. She does report having a mild headache, which feels just like her usual, chronic headaches, she has had for years. No thunderclap headache. No neck pain or stiffness. No vision loss. She has no symptoms at present, all symptoms resolved at home, prior to arrival. She is no longer hypoglycemic at this time. She has reportedly discussed hypoglycemia issues with her primary care physician. No specific etiology is otherwise been identified. She is not diabetic, does not take insulin. Review of Systems: Review of Systems: Constitutional: Denies fever or chills. [] Eyes: Denies change in visual acuity. [] HENT: Denies nasal congestion or sore throat. [] Respiratory: Denies cough or shortness of breath. [] Cardiovascular: Denies chest pain or edema. [] GI: Denies abdominal pain, nausea, vomiting, diarrhea : Denies urinary symptoms Musculoskeletal: Denies back pain or joint pain. [] Integument: Denies rash. [] Neurologic: Admits to chronic, unchanged headache. Admits to brief episode of lightheadedness/dizziness. No vertigo described. No denies focal weakness or sensory changes. Denies syncope or near syncope. Endocrine: Denies polyuria or polydipsia. [] Lymphatic: Denies swollen glands. [] Psychiatric: Denies acute mood changes. [] Heart Score: C/O Chest Pain: No Risk Factors: Risk Factors: DM, Current or recent (<one month) smoker, HTN, HLP, family history of CAD, obesity. Risk Scores: Score 0 - 3: 2.5% MACE over next 6 weeks - Discharge Home Score 4 - 6: 20.3% MACE over next 6 weeks - Admit for Clinical Observation Score 7 - 10: 72.7% MACE over next 6 weeks - Early Invasive Strategies Allergies: Allergies: Allergies Coded Allergies Type Severity Reaction Last Updated Verified Penicillins Allergy Severe Anaphylaxis 03/20/21 Yes diphenhydramine Allergy Severe Anaphylaxis 03/20/21 Yes ipratropium Allergy Severe Anaphylaxis 03/20/21 Yes meclizine Allergy Severe 03/20/21 Yes trazodone Allergy Severe Shortness of Air 03/20/21 Yes bacitracin Allergy Intermediate Rash 03/20/21 Yes neomycin Allergy Intermediate Rash 09/24/17 Yes polymyxin B Allergy Intermediate Rash 09/24/17 Yes tramadol Allergy Intermediate Itching 02/27/19 Yes oxycodone Adverse Reaction Intermediate Nausea and Vomiting 11/07/20 Yes Physical Exam: PE: Constitutional: Well developed, well nourished, no acute distress, non-toxic appearance. [] HENT: Normocephalic, atraumatic, oropharynx is patent and clear, mucous membranes are moist. Eyes: PERRL, EOMI, no nystagmus, conjunctiva normal, no discharge. [] Neck: Normal range of motion, no tenderness, supple, no stridor. Trachea midline. No meningismus. Cardiovascular:Heart rate regular rhythm, +2 radial and +2 posterior tibial pulses bilaterally. Lungs & Thorax: Bilateral breath sounds clear to auscultation [] Abdomen: Abdomen soft, nondistended, nontender to palpation. No possible pulsatile mass or audible bruit noted. No palpable masses organomegaly. Skin: Warm, dry, no erythema, no rash. [] Back: No tenderness or deformity. Extremities: No tenderness, no cyanosis, no clubbing, ROM intact, no edema. No calf tenderness. Neurologic: Awake, alert, oriented x3, cranial nerves II through XII grossly intact. 5 out of 5 motor strength all four extremities. No pronator drift. No dysmetria. No limb ataxia. Speech is clear and fluent. Sensation is grossly intact. No obvious focal deficits. Psychologic: Affect is slightly flat, though she is cooperative and pleasant. [] Current Patient Data: Labs: Laboratory Tests Test 04/11/21 20:35 Glucose (Fingerstick) 80 mg/dL (70-99) EKG: EKG: EKG is interpreted at 2055 Rhythm is sinus Rate is 60 bpm [place] is right No STEMI Radiology/Procedures: Radiology/Procedures: IMAGING REPORT Signed PATIENT: BRENNA RAMIREZ ACCOUNT: [id number] : 1940 LOCATION: ER AGE: 80 SEX: F EXAM STATUS: REG ER ORD. PHYSICIAN: PAULA GAINES DO REASON: dizziness PROCEDURE: CT HEAD WO CONTRAST EXAMINATION: CT HEAD/BRAIN WO CLINICAL HISTORY: Dizziness TECHNIQUE: Serial axial images without IV contrast were obtained from the vertex to the foramen magnum. CT Dose Reduction Employed: One or more of the following individualized dose reduction techniques were utilized for this examination: 1. Automated exposure control 2. Adjustment of the mA and/or kV according to patient size 3. Use of iterative reconstruction technique. COMPARISON: 02/28/2021 FINDINGS: Acute Change: No evidence of an acute infarct or other acute parenchymal process. Hemorrhage: No evidence of acute intracranial hemorrhage. Mass Lesion/Mass Effect: No evidence of intracranial mass or extraaxial fluid collection. No significant mass effect. Chronic Change: Bilateral basal ganglia calcification, similar to prior study. Scattered patchy foci of hypoattenuation in the supratentorial white matter, nonspecific but likely represents minimal microvascular ischemia. Atherosclerotic calcification of the intracranial portion of the bilateral internal carotid arteries. Parenchyma: Mild generalized volume loss. Ventricles: Ventricular enlargement concordant with degree of parenchymal volume loss. Paranasal Sinuses and Skull Base: Visualized paranasal sinuses clear. Visualized skull base and soft tissues unremarkable. IMPRESSION: No evidence of acute intracranial abnormality or significant interval change. Electronically signed by: Nik Gonzalez DO (04/11/2021 10:19 PM) [facility] DICTATED and SIGNED BY: NIK GONZALEZ DO DATE: 04/11/21 [id number] Course & Med Decision Making: Course & Med Decision Making Pertinent Labs and Imaging studies reviewed. (See chart for details) I discussed the findings, differential diagnosis and plan of care with the patient. She has not had any episodes of hypoglycemia here. Serial exams reveal blood sugars of 80 or higher. She has a chronically elevated troponin level, she was aware of this and inform me of this prior to labs returning. Her troponin level is elevated, though lower than her baseline. She adamantly denies chest pain or dyspnea. She denies palpitations. She denies weakness. Her dizziness was brief, resolved prior to arrival. She is anxiously awaiting discharge home. She does not wish to stay for any further work-up or admission. This seems very reasonable based on her current clinical presentation. I do recommend she contact her PCP to discuss this issue further. I did warn her that she should at least try to eat or drink something small on a daily basis, recommending keeping something like juice around her, should she become hypoglycemic or dizzy in the future. She is asymptomatic at this time, she feels comfortable with the plan for discharge home. Strict return precautions are given. Shar Disclaimer: Shar Disclaimer: This electronic medical record was generated, in whole or in part, using a voice recognition dictation system. Departure Departure Impression: Primary Impression: Dizziness Additional Impression: Hypoglycemia Disposition: 01 HOME / SELF CARE / HOMELESS Condition: STABLE Referrals: DELMAR HAMILTON D.O. (PCP) Patient Instructions: Dizziness, Hypoglycemia (Low Blood Sugar) PAULA GAINES DO Apr 11, 2021 20:40
[2021-04-11 21:47] LABS: BASO % 0 % (0-3); EOS # 0.1 x10^3/uL (0.0-0.7); EOS % 2 % (0-3); HEMATOCRIT 30.8 % (36.0-47.0); HEMOGLOBIN 10.2 g/dL (12.0-15.5); LYMPH # 0.9 x10^3/uL (1.0-4.8); LYMPH % 14 % (24-48); MEAN CORPUSCULAR HEMOGLOBIN 33 pg (25-35); MEAN CORPUSCULAR HGB CONC 33 g/dL (31-37); MEAN CORPUSCULAR VOLUME 99 fL (79-100); MONO # 0.5 x10^3/uL (0.0-1.1); MONO % 7 % (0-9); NEUT # 5.3 x10^3/uL (1.8-7.7); NEUT % 77 % (31-73); PLATELET COUNT 233 x10^3/uL (140-400); RED CELL DISTRIBUTION WIDTH 14.7 % (11.5-14.5); WHITE BLOOD COUNT 6.9 x10^3/uL (4.0-11.0)
[2021-04-11 22:01] LABS: CALCIUM 8.8 mg/dL (8.5-10.1); CREATININE 0.9 mg/dL (0.6-1.0); GFR 72.9; POTASSIUM 4.4 mmol/L (3.5-5.1)
[2021-04-11 22:06] LABS: ALBUMIN 3.4 g/dL (3.4-5.0); ALBUMIN/GLOBULIN RATIO 0.9 (1.0-1.7); MAGNESIUM 2.3 mg/dL (1.8-2.4); PHOSPHORUS 4.4 mg/dL (2.6-4.7); TOTAL BILIRUBIN 0.4 mg/dL (0.2-1.0); TOTAL PROTEIN 7.2 g/dL (6.4-8.2)
--- NOTE | 2021-04-11 22:21 | RAD ---
EXAMINATION: CT HEAD/BRAIN WO CLINICAL HISTORY: Dizziness TECHNIQUE: Serial axial images without IV contrast were obtained from the vertex to the foramen magnu m. CT Dose Reduction Employed: One or more of the following individualized dose reduction techniques wer e utilized for this examination: 1. Automated exposure control 2. Adjustment of the mA and/or kV ac cording to patient size 3. Use of iterative reconstruction technique. COMPARISON: 02/28/2021 FINDINGS: Acute Change: No evidence of an acute infarct or other acute parenchymal process. Hemorrhage: No evidence of acute intracranial hemorrhage. Mass Lesion/Mass Effect: No evidence of intracranial mass or extraaxial fluid collection. No signific ant mass effect. Chronic Change: Bilateral basal ganglia calcification, similar to prior study. Scattered patchy foci of hypoattenuation in the supratentorial white matter, nonspecific but likely represents minimal micr ovascular ischemia. Atherosclerotic calcification of the intracranial portion of the bilateral risk intern al carotid arteries. Parenchyma: Mild generalized volume loss. Ventricles: Ventricular enlargement concordant with degree of parenchymal volume loss. Paranasal Sinuses and Skull Base: Visualized paranasal sinuses clear. Visualized skull base and soft tissues unremarkable. IMPRESSION: No evidence of acute intracranial abnormality or significant interval change. Electronically signed by: Nik Lau DO (04/11/2021 10:19 PM) [facility]
[2021-04-11] MEDS ORDERED: ACETAMINOPHEN 325 MG TABLET. PO ONE (22:45)
[2021-04-11 23:35] VITALS: BP 148/70
--- NOTE | 2021-04-12 05:13 | EKG ---
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
== END 2021-04-12 00:05 | disposition home or self-care (01) ==
LOC: ER 20:17
DX: R42 Dizziness and giddiness (principal); E16.2 Hypoglycemia, unspecified; J45.909 Unspecified asthma, uncomplicated; K21.9 Gastro-esophageal reflux disease without esophagitis; I10 Essential (primary) hypertension; E03.9 Hypothyroidism, unspecified; Z86.718 Personal history of other venous thrombosis and embolism; Z87.891 Personal history of nicotine dependence; Z88.0 Allergy status to penicillin; Z88.1 Allergy status to other antibiotic agents; Z88.5 Allergy status to narcotic agent; Z88.6 Allergy status to analgesic agent; Z88.8 Allergy status to other drugs, medicaments and biological substances
CPT/HCPCS: 36415; 70450; 80053; 82550; 82962; 83735; 84100; 84484; 85025; 85610; 85730; 93005; 99285-25

== ENCOUNTER 2021-06-19 21:47 | Emergency (ER) | payer MEDICARE, OTHER ==
[~2021-06-19] VITALS: Ht 152.4 cm; Wt 68.1 kg
--- NOTE | 2021-06-19 22:22 | PHYS DOC ---
Past Medical History Past Medical History: Anemia, Anxiety, Asthma, Depression, DVT, GERD, Hyp ertension, Hypothyroid, Pneumonia, P.U.D., Other Additional Past Medical Histor: N-STEMI, ALZHEIMERS, PERIPHERAL NEUROPATHY, HEART MURMUR Past Surgical History: Knee Replacement, Tubal ligation, Other Additional Past Surgical Histo: valve replacement, CATARACTS, CARDIAC CATH, GASTRECTOMY Smoking Status: Former Smoker Alcohol Use: None Drug Use: None General Adult EDM: Chief Complaint: SHORTNESS OF BREATH HPI: HPI: Patient is a 81-year-old female presenting via POV for multiple complaints. She is a poor overall historian and goes on many tangents. Reports she has been at baseline health, recently started PPI prescribed by [facility] primary care physician whom she actually saw earlier in the day. Reports she did not eat any food and then woke up this evening eating a meal of shrimp and Amharic fries which she has had in the past without allergic reaction or any issues. States she fell asleep in her recliner and at approximately 7 PM woke up feeling lightheaded with some left-sided facial tingling. Reports she has numerous episodes like this in the past that was attributable to hypoglycemia so she got up and drink orange juice. Reports when she got up, her lightheadedness and facial tingling improved but reports she was short of breath. She is unsure if shortness of breath was due to ambulating to the kitchen or something else. She ended up ambulating back to her recliner where she was able to fall asleep. States she woke up later in the evening and felt better but after discussing the case with her daughter whom she lives with, daughter brought patient in for evaluation. On arrival, patient reports occasional tingling to left side of face but is unsure if it is ongoing currently. Also reports numerous chronic complaints such as esophageal and abdominal issues that appear to be at baseline. No recent fever, upper respiratory illness, chest pain, ripping or tearing sensation in chest, shortness of breath past baseline, dysuria, or notable motor or sensory or neuro deficits Review of Systems: Review of Systems: Fourteen body systems of review of systems have been reviewed. See HPI for pertinent positives and negative responses, other martínez all other systems are negative, non-pertinent or non-contributory Heart Score: C/O Chest Pain: No Risk Factors: Risk Factors: DM, Current or recent (<one month) smoker, HTN, HLP, family history of CAD, obesity. Risk Scores: Score 0 - 3: 2.5% MACE over next 6 weeks - Discharge Home Score 4 - 6: 20.3% MACE over next 6 weeks - Admit for Clinical Observation Score 7 - 10: 72.7% MACE over next 6 weeks - Early Invasive Strategies Allergies: Allergies: Allergies Coded Allergies Type Severity Reaction Last Updated Verified Penicillins Allergy Severe Anaphylaxis 03/20/21 Yes diphenhydramine Allergy Severe Anaphylaxis 03/20/21 Yes ipratropium Allergy Severe Anaphylaxis 03/20/21 Yes meclizine Allergy Severe 03/20/21 Yes trazodone Allergy Severe Shortness of Air 03/20/21 Yes bacitracin Allergy Intermediate Rash 03/20/21 Yes neomycin Allergy Intermediate Rash 09/24/17 Yes polymyxin B Allergy Intermediate Rash 09/24/17 Yes tramadol Allergy Intermediate Itching 02/27/19 Yes oxycodone Adverse Reaction Intermediate Nausea and Vomiting 11/07/20 Yes Physical Exam: PE: General: Appears well, non toxic, and comfortable Skin: Warm, dry. Normal for ethnicity. HEENT: Atraumatic. PERRLA. Moist mucous membranes. Neck: Trachea midline. Normal ROM. Respiratory: Normal WOB. CTAB w/o w/r/r. No tachypnea. Cardiovascular: Regular rate and rhythm. Normal peripheral perfusion. No edema. Abdomen: Soft. Non tender. No distension. Back: Normal ROM. Musculoskeletal: No swelling or deformity. Neuro: Alert and oriented x 4. MAEE. GCS 15. Normal FNF. Negative pronator drift. Normal heel to cazares. Normal Aneudy. CN II-XII intact. Normal strength and sensation. Normal speech. NIH stroke scale 0 Psych: Normal affect and mood. Current Patient Data: Labs: Laboratory Tests Test 06/19/21 21:59 06/19/21 23:10 Glucose (Fingerstick) 92 mg/dL White Blood Count 5.0 x10^3/uL Red Blood Count 3.37 x10^6/uL Hemoglobin 10.8 g/dL Hematocrit 33.8 % Mean Corpuscular Volume 100 fL Mean Corpuscular Hemoglobin 32 pg Mean Corpuscular Hemoglobin Concent 32 g/dL Red Cell Distribution Width 14.0 % Platelet Count 209 x10^3/uL Neutrophils (%) (Auto) 66 % Lymphocytes (%) (Auto) 23 % Monocytes (%) (Auto) 9 % Eosinophils (%) (Auto) 2 % Basophils (%) (Auto) 0 % Neutrophils # (Auto) 3.3 x10^3/uL Lymphocytes # (Auto) 1.1 x10^3/uL Monocytes # (Auto) 0.4 x10^3/uL Eosinophils # (Auto) 0.1 x10^3/uL Basophils # (Auto) 0.0 x10^3/uL Sodium Level 139 mmol/L Potassium Level 4.6 mmol/L Chloride Level 106 mmol/L Carbon Dioxide Level 25 mmol/L Anion Gap 8 Blood Urea Nitrogen 16 mg/dL Creatinine 1.1 mg/dL Estimated GFR (Cockcroft-Gault) 57.7 Glucose Level 104 mg/dL Calcium Level 8.8 mg/dL Vital Signs: Vital Signs Date Time Temp Pulse Resp B/P (MAP) Pulse Ox O2 Delivery O2 Flow Rate FiO2 06/19/21 22:02 97.5 71 18 156/76 (102) 100 Room Air 97.5 EKG: EKG: EKG ordered and interpreted by myself at 2201 hrs. as sinus rhythm at 71 bpm, unremarkable intervals, no axis deviation, T wave inversion noted in lead I, aVL, V3 through V6, no STEMI. Prior EKG obtained April 11, 2021 use for comparison, suspect lead limb placement discrepancy otherwise EKG grossly unchanged Radiology/Procedures: Radiology/Procedures: CT head without contrast PQRS statement: CT scans at this facility use dose reduction including either automated exposure control, iterative reconstructions, and /or weight based radiation dosing via mA and kV modification when appropriate to reduce radiation dose to as low as reasonably achievable. HISTORY: Left facial tingling. COMPARISON: CT head April 11, 2021 FINDINGS: Mild senescent basal ganglia calcifications are stable. Mild generalized brain atrophy stable. No intracranial hemorrhage, mass, hydrocephalus or infarction. Orbits, mastoids and bones are unremarkable. IMPRESSION: No acute abnormality. Stable exam. Electronically signed by: Haroon Harris MD (06/19/2021 10:43 PM) [facility] ////////////////////////////////////// AP chest x-ray HISTORY: Shortness of breath. COMPARISON: Chest x-ray March 20, 2021 FINDINGS: Mild cardiomegaly stable. Transcatheter aortic valve replacement again noted. Mild calcified plaque and tortuosity thoracic aorta stable. Small calcified granuloma left lung base. No pneumothorax, pulmonary opacities or pleural effusions. Bones are unremarkable. IMPRESSION: No acute process. Mild cardiomegaly is stable. Electronically signed by: Haroon Harris MD (06/19/2021 11:09 PM) [facility] Course & Med Decision Making: Course & Med Decision Making ABCs unremarkable HPI physical exam and comprehensive ER work-up nonconcerning for any emergent or surgical issues. I reviewed entirety of ER work-up with patient with good understanding. Asymptomatic after numerous reassessments of patient in ER setting. She feels reassured with work-up today. Patient has neurologist in outpatient setting with previously scheduled appointment next week Disclosed this might be an acute presentation of more concerning pathology but given that patient is asymptomatic, she requests discharge home. Strict return precautions discussed at length with good understanding by patient prior to ER departure. Patient who ambulated in discharged with daughter Shar Disclaimer: Shar Disclaimer: This electronic medical record was generated, in whole or in part, using a voice recognition dictation system. NIHSS Stroke Scale NIH Stroke Scale: NIH Stroke Scale Response (Comments) Value Level of Consciousness: 0 Alert/Responsive 0 LOC Questions: 0 Answers both correctly 0 LOC Commands: 0 Performs both tasks 0 Best Gaze: 0 Normal 0 Visual: 0 No visual loss 0 Facial Palsy: 0 Normal, symmetrical 0 Motor - Left Arm 0 No drift 0 Motor - Right Arm 0 No drift 0 Motor - Left Leg 0 No drift 0 Motor: Right Leg 0 No drift 0 Limb Ataxia: 0 Absent 0 Sensory: 0 No loss 0 Best Language: 0 Normal 0 Dysathria: 0 Normal 0 Extinction and Inattention: 0 Normal 0 Total 0 Departure Departure Referrals: DELMAR HAMILTON D.O. (PCP) RASHID SAM DO Jun 19, 2021 22:22
--- NOTE | 2021-06-19 22:46 | RAD ---
CT head without contrast PQRS statement: CT scans at this facility use dose reduction including either automated exposure cont rol, iterative reconstructions, and /or weight based radiation dosing via mA and kV modification when appropriate to reduce radiation dose to as low as reasonably achievable. HISTORY: Left facial tingling. COMPARISON: CT head April 11, 2021 FINDINGS: Mild senescent basal ganglia calcifications are stable. Mild generalized brain atrophy stab le. No intracranial hemorrhage, mass, hydrocephalus or infarction. Orbits, mastoids and bones are unr emarkable. IMPRESSION: No acute abnormality. Stable exam. Electronically signed by: Haroon Harris MD (06/19/2021 10:43 PM) [facility]
--- NOTE | 2021-06-19 23:12 | RAD ---
AP chest x-ray HISTORY: Shortness of breath. COMPARISON: Chest x-ray March 20, 2021 FINDINGS: Mild cardiomegaly stable. Transcatheter aortic valve replacement again noted. Mild calcifie d plaque and tortuosity thoracic aorta stable. Small calcified granuloma left lung base. No pneumotho rax, pulmonary opacities or pleural effusions. Bones are unremarkable. IMPRESSION: No acute process. Mild cardiomegaly is stable. Electronically signed by: Haroon Harris MD (06/19/2021 11:09 PM) [facility]
[2021-06-19 23:25] VITALS: BP 123/60
[2021-06-19 23:27] LABS: BASO % 0 % (0-3); EOS # 0.1 x10^3/uL (0.0-0.7); EOS % 2 % (0-3); HEMATOCRIT 33.8 % (36.0-47.0); HEMOGLOBIN 10.8 g/dL (12.0-15.5); LYMPH # 1.1 x10^3/uL (1.0-4.8); LYMPH % 23 % (24-48); MEAN CORPUSCULAR HEMOGLOBIN 32 pg (25-35); MEAN CORPUSCULAR HGB CONC 32 g/dL (31-37); MEAN CORPUSCULAR VOLUME 100 fL (79-100); MONO # 0.4 x10^3/uL (0.0-1.1); MONO % 9 % (0-9); NEUT # 3.3 x10^3/uL (1.8-7.7); NEUT % 66 % (31-73); PLATELET COUNT 209 x10^3/uL (140-400); RED BLOOD COUNT 3.37 x10^6/uL (3.50-5.40)
[2021-06-19 23:32] LABS: CALCIUM 8.8 mg/dL (8.5-10.1); CREATININE 1.1 mg/dL (0.6-1.0); GFR 57.7; POTASSIUM 4.6 mmol/L (3.5-5.1)
--- NOTE | 2021-06-20 09:07 | EKG ---
[facility] [address] [place] [address] Test Date: 2021-06-19 Test Time: 21:58:06 Pat Name: BRENNA RAMIREZ Department: Room: Gender: F Director Security Management: : 1940 Requested By: RASHID SAM Order Number: [id number] Reading MD: Patrick Hoover Measurements Intervals Sebastian Rate: 71 P: 75 [place]: 138 QRS: 34 QRSD: 88 T: 158 QT: 416 QTc: 452 Interpretive Statements SINUS RHYTHM QRS(T) CONTOUR ABNORMALITY CONSIDER ANTEROSEPTAL MYOCARDIAL DAMAGE ST & T ABNORMALITY, CONSIDER ANTEROLATERAL ISCHEMIA OR LEFT VENTRICULAR STRAIN Electronically Signed On 06-20-2021 14:50:14 [employer]INE [employer]ENDER by Patrick Hoover
== END 2021-06-20 00:05 | disposition home or self-care (01) ==
LOC: ER 21:47
DX: R42 Dizziness and giddiness (principal); R20.2 Paresthesia of skin; R06.02 Shortness of breath; J45.909 Unspecified asthma, uncomplicated; K21.9 Gastro-esophageal reflux disease without esophagitis; I10 Essential (primary) hypertension; E03.9 Hypothyroidism, unspecified; Z86.718 Personal history of other venous thrombosis and embolism; G30.9 Alzheimer's disease, unspecified; F02.80 Dementia in other diseases classified elsewhere, unspecified severity, without behavioral disturbance, psychotic disturbance, mood disturbance, and anxiety; Z87.891 Personal history of nicotine dependence; Z88.0 Allergy status to penicillin; Z88.1 Allergy status to other antibiotic agents; Z88.5 Allergy status to narcotic agent; Z88.6 Allergy status to analgesic agent; Z88.8 Allergy status to other drugs, medicaments and biological substances
CPT/HCPCS: 36415; 70450; 71045; 80048; 82962; 84484; 85025; 93005; 99285-25

== ENCOUNTER → 2021-09-12 | Outpatient (CLI) | payer MEDICARE, OTHER ==
[2021-07-04 11:00] VITALS: BP 147/68
[~2021-09-12] MED LIST changes: +CEPH500T PO; +WARF4TAB64 PO
--- NOTE | 2021-09-15 09:05 | CARD ---
MR#: [id number] Date of Study: 09/12/2021 Ordering Physician: ALISSA HENDRIX, Referring Physician: ALISSA HENDRIX, Tech: BERNARDO MUELLER RD, T APPROVED REPORT EXAM: Two-dimensional and M-mode echocardiogram with Doppler and color Doppler. Other Information Quality : AverageHR: 73bpm Rhythm : NSR INDICATION Aortic Valve Disease 2D DIMENSIONS Left Atrium(2D)5.4 (1.6-4.0cm)IVSd1.5 (0.7-1.1cm) Aortic Root(2D)1.9 (2.0-3.7cm)LVDd4.1 (3.9-5.9cm) LVOT Diameter1.6 (1.8-2.4cm)PWd1.2 (0.7-1.1cm) LVDs2.7 (2.5-4.0cm)FS (%) 32.9 % SV45.8 mlLVEF(%)61.9 (>50%) Aortic Valve AoV Peak Alden.229.2cm/sAoV VTI52.9cm AO Peak GR.21.0mmHgLVOT Peak Alden.134.9cm/s AO Mean GR.10mmHgAVA (VMAX)1.25cm2 Mitral Valve MV E Ammgavna39.3cm/sMV A Tvujufau19.3cm/s E/A Ratio1.4 Pulmonary Valve PV Peak Oxjmeibj01.7cm/s Tricuspid Valve TR P. Ceufqnfz016fo/sRAP QBVMVAEY8mcSa TR Peak Gr.56gzGsFDGI01mkVo Pulmonary Vein S1 Axgwlwdy04.5cm/sD2 Kdfawsgj93.3cm/s PVa sobmnnbs11vjrr LEFT VENTRICLE The left ventricle is normal size. There is normal left ventricular wall thickness. The left ventricl e systolic function normal. The ejection fraction is estimated at 55 to 60%. No regional wall motion abnormalities noted. No left ventricle thrombus noted on this study. There is no ventricular septal d efect visualized. There is no left ventricular aneurysm. There is no mass noted in the left ventricle . RIGHT VENTRICLE The right ventricle is normal size. There is normal right ventricular wall thickness. The right ventr icular systolic function is normal. ATRIA The left atrium is moderately dilated. The right atrium size is normal. The interatrial septum is int act with no evidence for an atrial septal defect or patent foramen ovale as noted on 2-D or Doppler i maging. AORTIC VALVE The aortic valve is normal in structure and function. No aortic regurgitation is present. Post TAVR T here is no aortic valvular vegetation. MITRAL VALVE The mitral valve is normal in structure and function. There is no evidence of mitral valve prolapse. There is no mitral valve stenosis. There is no mitral valve regurgitation noted. TRICUSPID VALVE The tricuspid valve is normal in structure and function. Doppler and Color Flow revealed mild tricusp id regurgitation. The pulmonary artery systolic pressure is estimated at 48 mmHg. There is moderate p ulmonary hypertension. There is no tricuspid valve prolapse or vegetation. There is no tricuspid valv e stenosis. PULMONIC VALVE The pulmonary valve is normal in structure and function. There is no pulmonic valvular regurgitation. There is no pulmonic valvular stenosis. GREAT VESSELS The aortic root is normal in size. The ascending aorta is normal in size. The pulmonary artery is nor mal. The IVC is normal in size and collapses >50% with inspiration. PERICARDIAL EFFUSION There is no pleural effusion. There is no evidence of significant pericardial effusion. Critical Notification Critical Value: No <Conclusion> The left ventricle systolic function normal. The ejection fraction is estimated at 55 to 60%. No regional wall motion abnormalities noted. s/p TAVR with bioprosthetic aortic valve appearing well-seated and functioning well. Mean gradient 1 0 mmHg Mild tricuspid regurgitation. The pulmonary artery systolic pressure is estimated at 48 mmHg. There is moderate pulmonary hypertension. There is no evidence of significant pericardial effusion. Signed by : Josh Sifuentes, Electronically Approved : 09/15/2021 09:04:49
== END ==
LOC: ECHO 11:00
PROVIDERS: ATTEND Internal Medicine Cardiovascular Disease
DX: I07.1 Rheumatic tricuspid insufficiency (principal)
CPT/HCPCS: 93306; C8929

== ENCOUNTER 2021-09-15 12:28 | Emergency (ER) | payer MEDICARE, OTHER ==
[~2021-09-15] VITALS: Ht 154.9 cm; Wt 87.6 kg
[~2021-09-15 12:28] MED LIST changes: -CEPH500T PO
--- NOTE | 2021-09-15 13:01 | PHYS DOC ---
Past Medical History Past Medical History: Anemia, Anxiety, Asthma, Depression, DVT, GERD, Hypertension, Hypothyroid, Pneumonia, P.U.D., Other Additional Past Medical Histor: N-STEMI, ALZHEIMERS, PERIPHERAL NEUROPATHY, HEART MURMUR (STEPHANE BARRIOS DO) Past Surgical History: Knee Replacement, Tubal ligation, Other Additional Past Surgical Histo: valve replacement, CATARACTS, CARDIAC CATH, GASTRECTOMY (STEPHANE BARRIOS DO) Smoking Status: Former Smoker Alcohol Use: None Drug Use: None (STEPHANE BARRIOS DO) Adult General Chief Complaint Chief Complaint: DIZZY/LIGHT HEADED HPI HPI Patient is a 81 year old female who presents with dizziness. Has been having symptoms over the last 2 to 3 days. Symptoms are associated with diffuse headache. Patient has history of similar headaches in the past. She has been treated previously with Botox injections. she relates that she does have dizziness associated with her headaches. No fever. No neck stiffness. No rashes. She has otherwise been at baseline health. No vision changes. No nausea or vomiting. Denies vertigo-like symptoms. (STEPHANE BARRIOS DO) Review of Systems Review of Systems Constitutional: Denies fever or chills Eyes: Denies change in visual acuity, redness, or eye pain HENT: Denies nasal congestion or sore throat Respiratory: Denies cough or shortness of breath Cardiovascular: No additional information not addressed in HPI GI: Denies abdominal pain, nausea, vomiting, bloody stools or diarrhea : Denies dysuria or hematuria Musculoskeletal: Denies back pain or joint pain Integument: Denies rash or skin lesions Neurologic: Denies headache, focal weakness or sensory changes. seep HPI. Endocrine: Denies All other systems were reviewed and found to be within normal limits, except as documented in this note. (STEPHANE BARRIOS DO) Current Medications Current Medications Current Medications Medications (Trade) Dose Ordered Sig/Sivan Start Time Stop Time Status Last Admin Dose Admin Ceftriaxone Sodium (Rocephin) 1 gm 1X ONCE 09/15/21 19:00 09/15/21 19:01 DC 09/15/21 19:18 1 GM Fentanyl Citrate (Fentanyl 2ml Vial) 25 mcg 1X ONCE 09/15/21 16:45 09/15/21 16:46 DC 09/15/21 16:49 25 MCG Info (CONTRAST GIVEN -- Rx MONITORING) 1 each PRN DAILY PRN 09/15/21 17:30 09/17/21 17:29 Iohexol (Omnipaque 300 Mg/ml) 60 ml 1X ONCE 09/15/21 17:30 09/15/21 17:31 DC 09/15/21 17:33 60 ML Prochlorperazine Edisylate (Compazine) 5 mg 1X ONCE 09/15/21 15:00 09/15/21 15:01 DC 09/15/21 13:45 5 MG Sodium Chloride 500 ml @ 500 mls/hr 1X ONCE 09/15/21 17:45 09/15/21 18:44 DC (XAVIER ESPITIA DO) Allergies Allergies Allergies Coded Allergies Type Severity Reaction Last Updated Verified Penicillins Allergy Severe Anaphylaxis 03/20/21 Yes diphenhydramine Allergy Severe Anaphylaxis 03/20/21 Yes ipratropium Allergy Severe Anaphylaxis 03/20/21 Yes meclizine Allergy Severe 03/20/21 Yes trazodone Allergy Severe Shortness of Air 03/20/21 Yes bacitracin Allergy Intermediate Rash 03/20/21 Yes neomycin Allergy Intermediate Rash 09/24/17 Yes polymyxin B Allergy Intermediate Rash 09/24/17 Yes tramadol Allergy Intermediate Itching 02/27/19 Yes oxycodone Adverse Reaction Intermediate Nausea and Vomiting 11/07/20 Yes (XAVIER ESPITIA DO) Physical Exam Physical Exam Constitutional: Well developed, well nourished, no acute distress, non-toxic appearance. HENT: Normocephalic, atraumatic, bilateral external ears normal, oropharynx moist, no oral exudates, nose normal. Eyes: PERRLA, EOMI, conjunctiva normal, no discharge. Neck: Normal range of motion, no tenderness, supple, no JVD Cardiovascular:Heart rate regular rhythm, 2/6 DHARMESH heard best at LSB Lungs & Thorax: Bilateral breath sounds clear to auscultation Abdomen: Bowel sounds normal, soft, no tenderness Skin: Warm, dry, no erythema, no rash Back: Normal ROM Extremities: No tenderness, no cyanosis, trace edema bilateral LE's Neurologic: Alert and oriented X 3, normal motor function, normal sensory functi on, no focal deficits noted Psychologic: Affect normal (BARRIOS,STEPHANE Cameron DO) Current Patient Data Vital Signs Vital Signs Date Time Temp Pulse Resp B/P (MAP) Pulse Ox O2 Delivery O2 Flow Rate FiO2 09/15/21 18:21 59 143/72 (95) 97 Room Air 09/15/21 17:21 20 09/15/21 12:50 98.5 98.5 (XAVIER ESPITIA DO) Lab Values Laboratory Tests Test 09/15/21 13:00 09/15/21 14:50 09/15/21 17:54 09/15/21 18:53 White Blood Count 4.1 x10^3/uL (4.0-11.0) Red Blood Count 3.54 x10^6/uL (3.50-5.40) Hemoglobin 11.4 g/dL (12.0-15.5) L Hematocrit 34.8 % (36.0-47.0) L Mean Corpuscular Volume 99 fL (79-100) Mean Corpuscular Hemoglobin 32 pg (25-35) Mean Corpuscular Hemoglobin Concent 33 g/dL (31-37) Red Cell Distribution Width 13.6 % (11.5-14.5) Platelet Count 241 x10^3/uL (140-400) Neutrophils (%) (Auto) 58 % (31-73) Lymphocytes (%) (Auto) 31 % (24-48) Monocytes (%) (Auto) 7 % (0-9) Eosinophils (%) (Auto) 3 % (0-3) Basophils (%) (Auto) 0 % (0-3) Neutrophils # (Auto) 2.4 x10^3/uL (1.8-7.7) Lymphocytes # (Auto) 1.3 x10^3/uL (1.0-4.8) Monocytes # (Auto) 0.3 x10^3/uL (0.0-1.1) Eosinophils # (Auto) 0.1 x10^3/uL (0.0-0.7) Basophils # (Auto) 0.0 x10^3/uL (0.0-0.2) Sodium Level 139 mmol/L (136-145) Potassium Level 4.7 mmol/L (3.5-5.1) Chloride Level 104 mmol/L (98-107) Carbon Dioxide Level 28 mmol/L (21-32) Anion Gap 7 (6-14) Blood Urea Nitrogen 14 mg/dL (7-20) Creatinine 1.1 mg/dL (0.6-1.0) H Estimated GFR (Cockcroft-Gault) 57.7 Glucose Level 81 mg/dL (70-99) Calcium Level 9.0 mg/dL (8.5-10.1) Troponin I High Sensitivity 608 ng/L (4-50) H 584 ng/L (4-50) H DU-Bxd-U-Type Natriuretic Peptide 1001 pg/mL (0-449) H Urine Collection Type Unknown Urine Color (Auto) Light yellow Urine Turbidity Clear Urine pH (Auto) 5.5 (<5.0-8.0) Urine Specific [place] 1.033 (1.000-1.030) Urine Protein (Auto) Negative mg/dL (Negative) Urine Glucose (Auto)(UA) Negative mg/dL (Negative) Urine Ketones (Auto) Negative mg/dL (Negative) Urine Blood (Auto) Negative (Negative) Urine Nitrite (Auto) Negative (Negative) Urine Bilirubin (Auto) Negative (Negative) Urine Urobilinogen (Auto) Normal mg/dL (Normal) Urine Leukocyte Esterase (Auto) Small (Negative) Urine RBC 1-2 /HPF (0-2) Urine WBC 5-10 /HPF (0-4) Urine Squamous Epithelial Cells Few /LPF Urine Bacteria Few /HPF (0-FEW) Laboratory Tests 09/15/21 13:00 Laboratory Tests 09/15/21 14:50 (XAVIER ESPITIA DO) Lab Values Laboratory Tests Test 09/15/21 13:00 09/15/21 14:50 White Blood Count 4.1 x10^3/uL (4.0-11.0) Red Blood Count 3.54 x10^6/uL (3.50-5.40) Hemoglobin 11.4 g/dL (12.0-15.5) L Hematocrit 34.8 % (36.0-47.0) L Mean Corpuscular Volume 99 fL (79-100) Mean Corpuscular Hemoglobin 32 pg (25-35) Mean Corpuscular Hemoglobin Concent 33 g/dL (31-37) Red Cell Distribution Width 13.6 % (11.5-14.5) Platelet Count 241 x10^3/uL (140-400) Neutrophils (%) (Auto) 58 % (31-73) Lymphocytes (%) (Auto) 31 % (24-48) Monocytes (%) (Auto) 7 % (0-9) Eosinophils (%) (Auto) 3 % (0-3) Basophils (%) (Auto) 0 % (0-3) Neutrophils # (Auto) 2.4 x10^3/uL (1.8-7.7) Lymphocytes # (Auto) 1.3 x10^3/uL (1.0-4.8) Monocytes # (Auto) 0.3 x10^3/uL (0.0-1.1) Eosinophils # (Auto) 0.1 x10^3/uL (0.0-0.7) Basophils # (Auto) 0.0 x10^3/uL (0.0-0.2) Sodium Level 139 mmol/L (136-145) Potassium Level 4.7 mmol/L (3.5-5.1) Chloride Level 104 mmol/L (98-107) Carbon Dioxide Level 28 mmol/L (21-32) Anion Gap 7 (6-14) Blood Urea Nitrogen 14 mg/dL (7-20) Creatinine 1.1 mg/dL (0.6-1.0) H Estimated GFR (Cockcroft-Gault) 57.7 Glucose Level 81 mg/dL (70-99) Calcium Level 9.0 mg/dL (8.5-10.1) Troponin I High Sensitivity 608 ng/L (4-50) H NW-Ppy-J-Type Natriuretic Peptide 1001 pg/mL (0-449) H Laboratory Tests 09/15/21 13:00 Laboratory Tests 09/15/21 14:50 (STEPHANE BARRIOS DO) EKG EKG 13:05; patient has sinus rhythm with significant ST inversions in leads 4 and 5. Heart rate is 67. EKG is abnormal but is unchanged from most recent available for comparison from 2 months earlier. (STEPHANE BARRIOS DO) Radiology/Procedures Radiology/Procedures [] (STEPHANE BARRIOS DO) Radiology/Procedures [facility] [address] [place] [address] IMAGING REPORT Signed PATIENT: BRENNA RAMIREZ ACCOUNT: [id number] : 1940 LOCATION: ER AGE: 81 SEX: F EXAM STATUS: REG ER ORD. PHYSICIAN: STEPHANE BARRIOS DO REASON: dizziness PROCEDURE: CT HEAD WO CONTRAST EXAM: CT head without contrast INDICATION: Dizziness COMPARISON: The head 06/19/2021 TECHNIQUE: Axial CT imaging through the head without intravenous contrast. Sagittal and coronal reformats were obtained. One or more of the following individualized dose reduction techniques were utilized for this examination: 1. Automated exposure control 2. Adjustment of the mA and/or kV according to patient size 3. Use of iterative reconstruction technique. FINDINGS: The ventricles and sulci are mildly enlarged. There is mild periventricular white matter hypoattenuation. There is physiologic mineralization in the basal ganglia. No intracranial hemorrhage, acute infarct, or mass lesion. The skull and scalp are intact. Paranasal sinuses and mastoid areas are clear. Globes and orbits are intact. IMPRESSION: 1. No acute intracranial abnormality. 2. Unchanged mild volume loss and chronic microvascular ischemic changes. Electronically signed by: Smitha Rachel MD (09/15/2021 2:14 PM) [id number] DICTATED and SIGNED BY: SMITHA RACHEL MD DATE: [address] [place] [address] [place] [address] [id number] IMAGING REPORT Signed PATIENT: BRENNA RAMIREZ ACCOUNT: [id number] : 1940 LOCATION: ER AGE: 81 SEX: F EXAM STATUS: REG ER ORD. PHYSICIAN: STEPHANE BARRIOS DO REASON: dizziness PROCEDURE: CT ANGIOGRAPHY HEAD AND NECK Exam: CTA head and neck INDICATION: Dizziness, TECHNIQUE: Sequential axial images through the head and neck obtained following the administration of 60 mL of Isovue-370 IV contrast. Sagittal and coronal reformatted images were reconstructed from the axial data and reviewed. Exposure: One or more of the following in the visualized dose reduction techniques were utilized for this examination: 1. Automated exposure control 2. Adjustment of the MA and/or KV according to patient size 3. Use of iterative of reconstructive technique Comparisons: CT head without contrast same day FINDINGS: CTA NECK: Thoracic aorta has normal course and caliber. Standard three-vessel arch anatomy. Right common carotid artery is patent without evidence of stenosis, occlusion or aneurysm. Mild plaque at the origin of the right internal carotid artery without significant stenosis. Left common carotid artery is patent without evidence of stenosis, occlusion or aneurysm. Minimal plaque at the origin left internal carotid artery without significant stenosis. Right vertebral artery is patent to the basilar confluence without evidence of stenosis, occlusion or aneurysm. Left vertebral artery is diminutive and terminates as a left PICA. Visualized paraspinal soft tissues are unremarkable. CTA HEAD: Minimal calcified plaque cavernous segment of the right internal carotid artery without cement stenosis. Right MCA is patent. Right LAVELLE is patent. Minimal calcified plaque cavernous segment left internal carotid artery without significant stenosis. Left MCA is patent. Left LAVELLE is patent. Basal artery is patent without evidence of stenosis, occlusion or aneurysm. lead data architect are patent bilaterally. Visualized portions of the dural venous sinuses are patent. IMPRESSION: 1. Minimal calcified plaque at the origin of the internal carotid arteries bilaterally without significant stenosis. 2. Minimal plaque at the origin of the internal carotid arteries bilaterally without significant stenosis. Electronically signed by: Harper Rodgers MD (09/15/2021 5:57 PM) [facility] DICTATED and SIGNED BY: HARPER RODGERS MD DATE: 09/15/211750 (XAVIER ESPITIA DO) Course & Med Decision Making Course & Med Decision Making Pertinent Labs and Imaging studies reviewed. (See chart for details) Seen and examined on arrival to her room. No acute findings on physical examination. EKG is markedly abnormal but unchanged from prior and is baseline for this patient. Her neurologic examination is normal. Today, we will give IV fluids and check labs and urinalysis. We will give small dose of Compazine for her headache. She describes a headache that is typical for her normal headache syndrome and also that these are usually associated with dizziness. 17:15: Negative work-up so far. Patient does have troponin elevation but this is chronic and not changed from most recent available result. She is not responding to medications. She was given a small dose of the Compazine but continues to have headache and dizziness. Also given small dose of fentanyl. She complains that dizziness is not relieved. CTA added to her workup. 18:00: NATHALIE to Dr. Espitia. f/u on UA and CTA. (STEPHANE BARRIOS DO) Course & Med Decision Making Patient cardiac enzyme is elevated however ever it is chronic, patient denies any chest pain, repeat cardiac enzymes trending down patient feel much better now, CTA of the head did not show any acute problem. Patient was found to have UTI. Patient wanted to go home, patient was given IV antibiotic in the ER, patient will be discharged home with prescription for Keflex (XAVIER ESPITIA DO) Dragon Disclaimer Dragon Disclaimer This electronic medical record was generated, in whole or in part, using a voice recognition dictation system. (STEPHANE BARRIOS DO) Departure Departure Impression: Primary Impression: Dizziness Additional Impressions: Headache UTI (urinary tract infection) Disposition: HOME / SELF CARE / HOMELESS Condition: IMPROVED Referrals: DELMAR HAMILTON D.O. (PCP) Follow up with your doctor this week. Patient Instructions: Dizziness, [id number], Urinary Tract Infection Additional Instructions: Thank you for visiting our Emergency Department. We appreciate you trusting us with your care. If any additional problems come up don't hesitate to return to visit us. Please follow up with your primary care provider so they can plan additional care if needed and know about the problem that you had. If symptoms worsen come back to the Emergency Department. Any concerning symptoms that start such as chest pain, shortness of air, weakness or numbness on one side of the body, running high fevers or any other concerning symptoms return to the ER. Scripts Cephalexin (CEPHALEXIN) 500 Mg Tablet 1 TAB PO QID for 5 Days, #20 TAB Prov: XAVIER ESPITIA DO 09/15/21 Problem Qualifiers STEPHANE BARRIOS DO September 15, 2021 13:01 XAVIER ESPITIA DO September 15, 2021 19:55
[2021-09-15] MEDS ORDERED: IV NORMAL SALINE 1000ML BAG 1,000 ML IV ONE (13:15)
[2021-09-15 13:23] LABS: BASO % 0 % (0-3); EOS # 0.1 x10^3/uL (0.0-0.7); EOS % 3 % (0-3); HEMATOCRIT 34.8 % (36.0-47.0); HEMOGLOBIN 11.4 g/dL (12.0-15.5); LYMPH # 1.3 x10^3/uL (1.0-4.8); LYMPH % 31 % (24-48); MEAN CORPUSCULAR HEMOGLOBIN 32 pg (25-35); MEAN CORPUSCULAR HGB CONC 33 g/dL (31-37); MEAN CORPUSCULAR VOLUME 99 fL (79-100); MONO # 0.3 x10^3/uL (0.0-1.1); MONO % 7 % (0-9); NEUT # 2.4 x10^3/uL (1.8-7.7); NEUT % 58 % (31-73); PLATELET COUNT 241 x10^3/uL (140-400); RED BLOOD COUNT 3.54 x10^6/uL (3.50-5.40); RED CELL DISTRIBUTION WIDTH 13.6 % (11.5-14.5); WHITE BLOOD COUNT 4.1 x10^3/uL (4.0-11.0)
--- NOTE | 2021-09-15 14:17 | RAD ---
EXAM: CT head without contrast INDICATION: Dizziness COMPARISON: The head 06/19/2021 TECHNIQUE: Axial CT imaging through the head without intravenous contrast. Sagittal and coronal refor mats were obtained. One or more of the following individualized dose reduction techniques were utilized for this examinat ion: 1. Automated exposure control 2. Adjustment of the mA and/or kV according to patient size 3. Use of iterative reconstruction technique. FINDINGS: The ventricles and sulci are mildly enlarged. There is mild periventricular white matter hypoattenuat ion. There is physiologic mineralization in the basal ganglia. No intracranial hemorrhage, acute infa rct, or mass lesion. The skull and scalp are intact. Paranasal sinuses and mastoid areas are clear. G lobes and orbits are intact. IMPRESSION: 1. No acute intracranial abnormality. 2. Unchanged mild volume loss and chronic microvascular ischemic changes. Electronically signed by: Smitha Rachel MD (09/15/2021 2:14 PM) [id number]
--- NOTE | 2021-09-15 14:18 | RAD ---
EXAM: XR CHEST 1V 09/15/2021 1:44 PM CLINICAL INDICATION: Chest pain, dizziness COMPARISON: Chest radiograph 07/02/2021 TECHNIQUE: AP upright view of the chest FINDINGS: The cardiac silhouette is stable. There are changes of TAVR. The lungs are adequately expa nded. No consolidation, pleural effusion, or pneumothorax. There are surgical clips in the epigastric region. IMPRESSION: No acute cardiopulmonary abnormality. Electronically signed by: Smitha Rachel MD (09/15/2021 2:16 PM) [id number]
[2021-09-15] MEDS ORDERED: PROCHLORPERAZINE 10 MG/2 ML VIAL. IV ONE (15:00)
[2021-09-15 15:08] LABS: CREATININE 1.1 mg/dL (0.6-1.0); GFR 57.7; POTASSIUM 4.7 mmol/L (3.5-5.1)
[2021-09-15] MEDS ORDERED: fentaNYL PF VIAL 100 MCG/2 ML VIAL IV ONE (16:45)
[2021-09-15] MEDS ORDERED: IOHEXOL 300 MG/ML 100ML VIAL. IV ONE (17:30)
[2021-09-15] MEDS ORDERED: CONTRAST GIVEN. MC PRN (17:30)
[2021-09-15] MEDS ORDERED: IV NORMAL SALINE 500ML BAG 500 ML IV ONE (17:45)
--- NOTE | 2021-09-15 17:59 | RAD ---
Exam: CTA head and neck INDICATION: Dizziness, TECHNIQUE: Sequential axial images through the head and neck obtained following the administration of 60 mL of Isovue-370 IV contrast. Sagittal and coronal reformatted images were reconstructed from the axial data and reviewed. Exposure: One or more of the following in the visualized dose reduction techniques were utilized for this examination: 1. Automated exposure control 2. Adjustment of the MA and/or KV according to patient size 3. Use of iterative of reconstructive technique Comparisons: CT head without contrast same day FINDINGS: CTA NECK: Thoracic aorta has normal course and caliber. Standard three-vessel arch anatomy. Right common carotid artery is patent without evidence of stenosis, occlusion or aneurysm. Mild plaqu e at the origin of the right internal carotid artery without significant stenosis. Left common carotid artery is patent without evidence of stenosis, occlusion or aneurysm. Minimal williams que at the origin left internal carotid artery without significant stenosis. Right vertebral artery is patent to the basilar confluence without evidence of stenosis, occlusion or aneurysm. Left vertebral artery is diminutive and terminates as a left PICA. Visualized paraspinal soft tissues are unremarkable. CTA HEAD: Minimal calcified plaque cavernous segment of the right internal carotid artery without cement stenos is. Right MCA is patent. Right LAVELLE is patent. Minimal calcified plaque cavernous segment left internal carotid artery without significant stenosis. Left MCA is patent. Left LAVELLE is patent. Basal artery is patent without evidence of stenosis, occlusion or aneurysm. lead material handler are patent bilateral ly. Visualized portions of the dural venous sinuses are patent. IMPRESSION: 1. Minimal calcified plaque at the origin of the internal carotid arteries bilaterally without signi ficant stenosis. 2. Minimal plaque at the origin of the internal carotid arteries bilaterally without significant iram nosis. Electronically signed by: Harper Dill MD (09/15/2021 5:57 PM) [facility]
[2021-09-15 18:16] LABS: BACTERIA,URINE FEW /HPF (0-FEW)
[2021-09-15] MEDS ORDERED: cefTRIAXone IV Push 1 GM VIAL. IVP ONE (19:00)
[2021-09-15 19:50] VITALS: BP 177/87
[2021-09-15] MEDS ORDERED: CEPH500T PO (19:54)
--- NOTE | 2021-09-16 19:11 | EKG ---
[facility] [address] [place] [address] Test Date: 2021-09-15 Test Time: 13:03:24 Pat Name: BRENNA RAMIREZ Department: Room: Gender: F Wire Lather: : 1940 Requested By: STEPHANE BARRIOS Order Number: [id number] Reading MD: Measurements Intervals [place] Rate: 67 P: 20 VA: 140 QRS: 0 QRSD: 90 T: 153 QT: 418 QTc: 445 Interpretive Statements SINUS RHYTHM LEFTWARD AXIS LVH WITH REPOLARIZATION ABNORMALITY ABNORMAL ECG RI6.02 No previous ECG available for comparison
== END 2021-09-15 19:50 | disposition home or self-care (01) ==
LOC: ER 12:28
DX: N39.0 Urinary tract infection, site not specified (principal); R42 Dizziness and giddiness; R51.9 Headache, unspecified; J45.909 Unspecified asthma, uncomplicated; K21.9 Gastro-esophageal reflux disease without esophagitis; I10 Essential (primary) hypertension; E03.9 Hypothyroidism, unspecified; G30.9 Alzheimer's disease, unspecified; F02.80 Dementia in other diseases classified elsewhere, unspecified severity, without behavioral disturbance, psychotic disturbance, mood disturbance, and anxiety; Z86.718 Personal history of other venous thrombosis and embolism; Z87.891 Personal history of nicotine dependence; Z98.51 Tubal ligation status; Z88.0 Allergy status to penicillin; Z88.5 Allergy status to narcotic agent; Z88.1 Allergy status to other antibiotic agents; Z88.6 Allergy status to analgesic agent; Z88.8 Allergy status to other drugs, medicaments and biological substances
CPT/HCPCS: 36415; 70450; 70496; 70498; 71045; 80048; 81001; 83880; 84484; 85025; 93005; 96361; 96374; 96375; 99285; J0696; J0780; J3010; J7030; Q9967

== ENCOUNTER 2021-10-14 10:53 | Emergency (ER) | payer MEDICARE, OTHER ==
[~2021-10-14] VITALS: Ht 154.9 cm; Wt 88.8 kg
[~2021-10-14 10:53] MED LIST changes: +CEPH500T PO
--- NOTE | 2021-10-14 12:11 | EKG ---
[facility] [address] [place] [address] Test Date: 2021-10-14 Test Time: 12:00:07 Pat Name: BRENNA RAMIREZ Department: Room: Gender: F Child Attendant: : 1940 Requested By: OLIVIA HUFF Order Number: [id number] Reading MD: Measurements Intervals [place] Rate: 66 P: 45 CO: 130 QRS: 7 QRSD: 92 T: 166 QT: 426 QTc: 448 Interpretive Statements SINUS RHYTHM ST & T ABNORMALITY, CONSIDER ANTEROLATERAL ISCHEMIA OR LEFT VENTRICULAR STRAIN T ABNORMALITY IN ANTERIOR LEADS INFEROLATERAL LEADS ABNORMAL ECG RI6.02 No previous ECG available for comparison
[2021-10-14 12:13] LABS: BASO % 0 % (0-3); EOS # 0.2 x10^3/uL (0.0-0.7); EOS % 4 % (0-3); HEMATOCRIT 32.8 % (36.0-47.0); HEMOGLOBIN 10.9 g/dL (12.0-15.5); LYMPH # 1.4 x10^3/uL (1.0-4.8); LYMPH % 30 % (24-48); MEAN CORPUSCULAR HEMOGLOBIN 33 pg (25-35); MEAN CORPUSCULAR HGB CONC 33 g/dL (31-37); MEAN CORPUSCULAR VOLUME 98 fL (79-100); MONO # 0.3 x10^3/uL (0.0-1.1); MONO % 7 % (0-9); NEUT # 2.8 x10^3/uL (1.8-7.7); NEUT % 58 % (31-73); PLATELET COUNT 237 x10^3/uL (140-400); RED BLOOD COUNT 3.35 x10^6/uL (3.50-5.40); RED CELL DISTRIBUTION WIDTH 13.8 % (11.5-14.5); WHITE BLOOD COUNT 4.8 x10^3/uL (4.0-11.0)
[2021-10-14 12:21] LABS: CALCIUM 9.2 mg/dL (8.5-10.1); GFR 64.4; POTASSIUM 4.4 mmol/L (3.5-5.1)
[2021-10-14 12:27] LABS: ALBUMIN 3.4 g/dL (3.4-5.0); ALBUMIN/GLOBULIN RATIO 0.9 (1.0-1.7); TOTAL BILIRUBIN 0.5 mg/dL (0.2-1.0); TOTAL PROTEIN 7.4 g/dL (6.4-8.2)
--- NOTE | 2021-10-14 12:38 | RAD ---
EXAMINATION: XR CHEST 1V. HISTORY: 81 years Female Reason: cough, sob, fatigue. COMPARISON: September 15, 2021. Findings: No focal infiltrate.. The heart size is borderline enlarged. There is no effusion or pneumo thorax. The mediastinum and rodríguez appear unremarkable. Artificial aortic catheter valve is seen. There are alina gical clips around the GE junction area. Impression: Borderline cardiac enlargement. No acute process. Electronically signed by: Paul Saravia MD (10/14/2021 12:35 PM) [id number]
[2021-10-14 12:46] LABS: INFLUENZA A PATIENT NEGATIVE (NEGATIVE); INFLUENZA B PATIENT NEGATIVE (NEGATIVE)
[2021-10-14 12:46] LABS: PROTHROMBIN TIME PATIENT 31.9 SEC (11.7-14.0)
[2021-10-14 14:53] LABS: BACTERIA,URINE FEW /HPF (0-FEW); RBC,URINE 0 /HPF (0-2)
[2021-10-14] MEDS ORDERED: CEPH500C PO (15:21)
--- NOTE | 2021-10-14 15:21 | PHYS DOC ---
Past Medical History Past Medical History: Anemia, Anxiety, Asthma, Depression, DVT, GERD, Hypertension, Hypothyroid, Pneumonia, P.U.D., Other Additional Past Medical Histor: N-STEMI, ALZHEIMERS, PERIPHERAL NEUROPATHY, HEART MURMUR Past Surgical History: Knee Replacement, Tubal ligation, Other Additional Past Surgical Histo: valve replacement, CATARACTS, CARDIAC CATH, GASTRECTOMY Smoking Status: Former Smoker Alcohol Use: None Drug Use: None General Adult EDM: Chief Complaint: SHORTNESS OF BREATH HPI: HPI: Patient is a 81 year old female] who presents with generalized fatigue, runny nose, cough, mild shortness of breath and dysuria. Cough is dry, nonproductive, associated with mild chest discomfort, nonradiating. Patient had her COVID-vaccine x4, no known sick contacts, denies fevers or chills. Patient has significant comorbidities and frequent ER visits. Review of Systems: Review of Systems: Constitutional: Denies fever or chills. [] Eyes: Denies change in visual acuity. [] HENT: nasal congestion, no sore throat. [] Respiratory: cough and shortness of breath. [] Cardiovascular: Mild chest pain, denies edema. [] GI: Denies abdominal pain, nausea, vomiting, bloody stools or diarrhea. [] : dysuria and frequency, denies hematuria . [] Musculoskeletal: Denies back pain or joint pain. [] Integument: Denies rash. [] Neurologic: Denies headache, focal weakness or sensory changes. [] Endocrine: polyuria, denies polydipsia. [] Lymphatic: Denies swollen glands. [] Psychiatric: Denies depression or anxiety. [] Heart Score: C/O Chest Pain: Yes HEART Score for Chest Pain: HEART Score for Chest Pain Response (Comments) Value History Slighlty/Non-Suspicious 0 ECG Nonspecific Repolarizatio 1 Age > 65 2 Risk Factors >3 Risk Factors or Hx CAD 2 Troponin >3 x Normal Limit 2 Total 7 Risk Factors: Risk Factors: DM, Current or recent (<one month) smoker, HTN, HLP, family history of CAD, obesity. Risk Scores: Score 0 - 3: 2.5% MACE over next 6 weeks - Discharge Home Score 4 - 6: 20.3% MACE over next 6 weeks - Admit for Clinical Observation Score 7 - 10: 72.7% MACE over next 6 weeks - Early Invasive Strategies Allergies: Allergies: Allergies Coded Allergies Type Severity Reaction Last Updated Verified Penicillins Allergy Severe Anaphylaxis 03/20/21 Yes diphenhydramine Allergy Severe Anaphylaxis 03/20/21 Yes ipratropium Allergy Severe Anaphylaxis 03/20/21 Yes meclizine Allergy Severe 03/20/21 Yes trazodone Allergy Severe Shortness of Air 03/20/21 Yes bacitracin Allergy Intermediate Rash 03/20/21 Yes neomycin Allergy Intermediate Rash 09/24/17 Yes polymyxin B Allergy Intermediate Rash 09/24/17 Yes tramadol Allergy Intermediate Itching 02/27/19 Yes oxycodone Adverse Reaction Intermediate Nausea and Vomiting 11/07/20 Yes Physical Exam: PE: Constitutional: Well developed, well nourished, no acute distress, non-toxic appearance. [] HENT: Normocephalic, atraumatic, bilateral external ears normal, oropharynx moist, no oral exudates, nose normal. [] Eyes: PERRLA, EOMI, conjunctiva normal, no discharge. [] Neck: Normal range of motion, no tenderness, supple, no stridor. [] Cardiovascular:Heart rate regular rhythm, no murmur [] Lungs & Thorax: Bilateral breath sounds clear to auscultation [] Abdomen: Bowel sounds normal, soft, no tenderness, no masses, no pulsatile masses. [] Skin: Warm, dry, no erythema, no rash. [] Back: No tenderness, no CVA tenderness. [] Extremities: No tenderness, no cyanosis, no clubbing, ROM intact, no edema. [] Neurologic: Alert and oriented X 3, normal motor function, normal sensory function, no focal deficits noted. [] Psychologic: Affect normal, judgement normal, mood normal. [] Current Patient Data: Labs: Laboratory Tests Test 10/14/21 11:55 10/14/21 12:12 10/14/21 14:20 White Blood Count 4.8 x10^3/uL (4.0-11.0) Red Blood Count 3.35 x10^6/uL (3.50-5.40) L Hemoglobin 10.9 g/dL (12.0-15.5) L Hematocrit 32.8 % (36.0-47.0) L Mean Corpuscular Volume 98 fL (79-100) Mean Corpuscular Hemoglobin 33 pg (25-35) Mean Corpuscular Hemoglobin Concent 33 g/dL (31-37) Red Cell Distribution Width 13.8 % (11.5-14.5) Platelet Count 237 x10^3/uL (140-400) Neutrophils (%) (Auto) 58 % (31-73) Lymphocytes (%) (Auto) 30 % (24-48) Monocytes (%) (Auto) 7 % (0-9) Eosinophils (%) (Auto) 4 % (0-3) H Basophils (%) (Auto) 0 % (0-3) Neutrophils # (Auto) 2.8 x10^3/uL (1.8-7.7) Lymphocytes # (Auto) 1.4 x10^3/uL (1.0-4.8) Monocytes # (Auto) 0.3 x10^3/uL (0.0-1.1) Eosinophils # (Auto) 0.2 x10^3/uL (0.0-0.7) Basophils # (Auto) 0.0 x10^3/uL (0.0-0.2) Prothrombin Time 31.9 SEC (11.7-14.0) H Prothrombin Time INR 3.2 (0.8-1.1) H Sodium Level 142 mmol/L (136-145) Potassium Level 4.4 mmol/L (3.5-5.1) Chloride Level 107 mmol/L (98-107) Carbon Dioxide Level 24 mmol/L (21-32) Anion Gap 11 (6-14) Blood Urea Nitrogen 10 mg/dL (7-20) Creatinine 1.0 mg/dL (0.6-1.0) Estimated GFR (Cockcroft-Gault) 64.4 BUN/Creatinine Ratio 10 (6-20) Glucose Level 87 mg/dL (70-99) Calcium Level 9.2 mg/dL (8.5-10.1) Total Bilirubin 0.5 mg/dL (0.2-1.0) Aspartate Amino Transferase (AST) 18 U/L (15-37) Alanine Aminotransferase (ALT) 14 U/L (14-59) Alkaline Phosphatase 67 U/L (46-116) Troponin I High Sensitivity 553 ng/L (4-50) H FH-Qik-G-Type Natriuretic Peptide 949 pg/mL (0-449) H Total Protein 7.4 g/dL (6.4-8.2) Albumin 3.4 g/dL (3.4-5.0) Albumin/Globulin Ratio 0.9 (1.0-1.7) L Influenza Type A Antigen Negative (NEGATIVE) Influenza Type B Antigen Negative (NEGATIVE) SARS-CoV-2 Antigen (Rapid) Negative (NEGATIVE) Urine Collection Type Unknown Urine Color (Auto) Colorless Urine Turbidity Clear Urine pH (Auto) 7.0 (<5.0-8.0) Urine Specific [place]oun 1.006 (1.000-1.030) Urine Protein (Auto) Negative mg/dL (Negative) Urine Glucose (Auto)(UA) Negative mg/dL (Negative) Urine Ketones (Auto) Negative mg/dL (Negative) Urine Blood (Auto) Negative (Negative) Urine Nitrite Negative (Negative) Urine Bilirubin (Auto) Negative (Negative) Urine Urobilinogen (Auto) Normal mg/dL (Normal) Urine Leukocyte Esterase (Auto) Negative (Negative) Urine RBC 0 /HPF (0-2) Urine WBC 1-4 /HPF (0-4) Urine Squamous Epithelial Cells Mod /LPF Urine Bacteria Few /HPF (0-FEW) Laboratory Tests 10/14/21 11:55 Laboratory Tests 10/14/21 11:55 Vital Signs: Vital Signs Date Time Temp Pulse Resp B/P (MAP) Pulse Ox O2 Delivery O2 Flow Rate FiO2 10/14/21 11:07 98.0 84 18 173/79 (110) 97 Room Air 98.0 EKG: EKG: EKG done at 1200, sinus rhythm with a rate of 66, normal axis, normal intervals, T wave inversion in 1, aVL, 2, V2 through V6. EKG is unchanged from previous EKG on September 15 of this year [] Radiology/Procedures: Radiology/Procedures: CXR Impression: No focal opacities or effusions, no pneumothorax, cardiomegaly Course & Med Decision Making: Course & Med Decision Making Pertinent Labs and Imaging studies reviewed. (See chart for details) Patient with significant medical history including TAVR on Coumadin. On review of past notes that she had an angiogram done on 2018 that did not show any stenosis of the coronary arteries. See that she also has chronically elevated troponins in the 600s on previous admissions and cardiology consults have deemed that this is not evidence of acute coronary syndrome in light of her recent cardiac cath that was normal. Patient may have a viral syndrome or possibly bacterial pneumonia, labs and imaging to rule out. Also possible she has COVID or influenza and will swab for both. Urinalysis to look for urinary tract infection of which the patient has had several recently. Labs negative for pneumonia, influenza, coronavirus, ACS, severe heart failure. Patient's vital signs remained stable here in the emergency department and she says she feels comfortable going home with antibiotics to cover possible urinary tract infection on her urinalysis. We will follow-up closely with her primary doctor or return the emergency department if not feeling better in the neck several days. Dragon Disclaimer: Dragon Disclaimer: This electronic medical record was generated, in whole or in part, using a voice recognition dictation system. Departure Departure Impression: Primary Impression: Viral syndrome Additional Impression: UTI (urinary tract infection) Qualified Codes: N34.2 - Other urethritis Disposition: HOME / SELF CARE / HOMELESS Condition: STABLE Referrals: DELMAR HAMILTON D.O. (PCP) Patient Instructions: Urinary Tract Infection, [id number], Viral Syndrome Scripts Cephalexin (KEFLEX) 500 Mg Capsule 1 CAP PO BID for 5 Days, #10 CAP Prov: OLIVIA HUFF MD 10/14/21 OLIVIA HUFF MD October 14, 2021 15:21
[2021-10-14 15:46] VITALS: BP 143/64
== END 2021-10-14 16:11 | disposition home or self-care (01) ==
LOC: ER 10:53
DX: B34.9 Viral infection, unspecified (principal); N34.2 Other urethritis; F41.9 Anxiety disorder, unspecified; J45.909 Unspecified asthma, uncomplicated; K21.9 Gastro-esophageal reflux disease without esophagitis; I10 Essential (primary) hypertension; E03.9 Hypothyroidism, unspecified; Z20.822 Contact with and (suspected) exposure to COVID-19; Z86.2 Personal history of diseases of the blood and blood-forming organs and certain disorders involving the immune mechanism; Z86.718 Personal history of other venous thrombosis and embolism; Z87.11 Personal history of peptic ulcer disease; Z88.0 Allergy status to penicillin; Z88.1 Allergy status to other antibiotic agents; Z88.5 Allergy status to narcotic agent; Z88.8 Allergy status to other drugs, medicaments and biological substances
CPT/HCPCS: 36415; 71045; 80053; 81001; 83880; 84484; 85025; 85610; 87040; 87428; 93005; 99285